=== PATIENT | female | born 1965 ===

== ENCOUNTER 2019-12-09 16:22 | Outpatient (REF) | payer MEDICAID, SELFPAY ==
--- NOTE | 2019-12-09 | XR_ITS ---
EXAMINATION: XR SINUSES CLINICAL INFORMATION: Acute pansinusitis. COMPARISON: CT brain dated 06/01/2019. TECHNIQUE: Howell, Velez, lateral, and SMV views of the paranasal sinuses are submitted. FINDINGS: Again, the left frontal sinus appears hypoplastic. Paranasal sinuses appear clear without air-fluid levels or visible mucosal thickening. No fractures are identified. The nasal septum appears midline. No radiodense foreign bodies. IMPRESSION: Unremarkable examination.
== END 2019-12-09 16:23 | disposition home or self-care (01) ==
LOC: HO.XRAY 16:22
PROVIDERS: PCP Nurse Practitioner Family; Visit Provider Emergency Medicine
DX: J01.40 Acute pansinusitis, unspecified (principal)
CPT/HCPCS: 70220

== ENCOUNTER 2019-12-29 16:11 | Outpatient (REF) | payer MEDICAID, SELFPAY ==
--- NOTE | 2019-12-29 16:17 | MM_ITS ---
EXAMINATION: MM SCREENING DIGITAL BREAST TOMOSYNTHESIS, BILATERAL CLINICAL INFORMATION: Screening. Asymptomatic. The lifetime risk of breast cancer based on the Tyrer-Cuzick Model is 6.4%. COMPARISON: Mammography: January 10, 2015 and December 12, 2014 TECHNIQUE: Digital breast tomosynthesis is performed in both the craniocaudal and mediolateral oblique views along with computer-aided detection (CAD). Synthesized 2D images are generated from the tomosynthesis. FINDINGS: The breasts are almost entirely fatty (ACR BI-RADS breast composition Category a). There are no significant masses, abnormal calcifications, or other abnormalities. MM/MM tomosynthesis screening BI IMPRESSION: There are no significant changes from prior study. ASSESSMENT: BI-RADS 1: Negative RECOMMENDATION: Routine annual mammography screening. This patient's information was entered into a reminder system with a target due date for their next mammogram.
== END 2019-12-29 16:12 | disposition home or self-care (01) ==
LOC: HO.MAMMO 16:11
PROVIDERS: PCP Nurse Practitioner Family; Visit Provider Nurse Practitioner Family
DX: Z12.31 Encounter for screening mammogram for malignant neoplasm of breast (principal)
CPT/HCPCS: 77063; 77067

== ENCOUNTER 2020-02-28 15:13 | Emergency (ER) | payer MEDICAID, SELFPAY ==
--- NOTE | 2020-02-28 | ECG_ITS ---
Test Reason : CHEST PAIN Blood Pressure : / mmHG Vent. Rate : 094 BPM Atrial Rate : 094 BPM P-R Int : 150 ms QRS Dur : 078 ms QT Int : 366 ms P-R-T Axes : 019 -19 019 degrees QTc Int : 457 ms Normal sinus rhythm Normal ECG When compared with ECG of 03-JUN-2019 18:11, No significant change was found Referred By: Generic ED Physician Electronically Signed By:KENNA CLEMENTE MD
[2020-02-28 15:19] VITALS: BP 167/88; PULSE 88; RESP 20; TEMP 36.9; O2SAT 99; BMI 30.1
--- NOTE | 2020-02-28 15:28 | PC.NURSE ---
called for EKG upon patient arrival in ED, EKG in use.
--- NOTE | 2020-02-28 17:35 | ED_ITS ---
HPI - Chest Pain General Chief Complaint: Chest Pain Stated Complaint: Chest pain Time Seen by Provider: 02/28/20 17:15 Source: patient Mode of arrival: ambulatory Limitations: no limitations History of Present Illness HPI narrative: 54-year-old female with a past medical history of arthritis, fibromyalgia, hypertension, hypothyroidism here with complaints of dizziness, fatigue, anxiety, panic attacks, chest pain and labile blood pressure. The patient tells me that since starting levothyroxine last week she feels like she has had fatigue with anxiety and panic attacks. Today at noon she felt lightheaded like she might pass out and checked her blood pressure and it was 180/100. She tells me her blood pressures have been up and down since starting this new medication. She also had some chest pain today at noon which seems resolved at this point. She had no associated shortness of breath, nausea, diaphoresis. She feels like her symptoms are improved on arrival here however is feeling very anxious/agitated and panicky. MD complaint: chest pain Onset (ago): hour(s) Timing of current episode: now resolved Prior episodes: No Onset: during rest Pain location: substernal Pain radiation: none Severity: mild Quality: aching Relieving factors: nothing Exacerbating factors: nothing Associated symptoms: other (dizziness) Treatment prior to arrival: none Related Data Allergies Allergy/AdvReac Type Severity Reaction Status Date / Time metoclopramide [From REGLAN] AdvReac Intermediate AGITATION Unverified 02/28/20 15:27 Review of Systems Review of Systems: Yes all other systems are reviewed and are negative Constitutional: Constitutional: Reports no additional constitutional complaints, Denies body ache(s), Denies chills, Denies fever(s), Denies hea dache(s) and Denies weakness Eyes: Eyes: Reports no additional eye complaints and Denies change in vision ENT: Reports system reviewed and no additional complaints, except as documented, Denies dizziness, Denies headache(s), Denies nasal congestion, Denies nasal discharge and Denies neck pain Cardiovascular: Cardiovascular: Reports no additional cardiovascular complaints, Denies chest pain, Denies leg edema and Denies dyspnea Respiratory: Respiratory: Reports no additional respiratory complaints, Denies cough and Denies dyspnea Gastrointestinal: Gastrointestinal: Reports no additional gastrointestinal complaints, Denies abdominal pain, Denies diarrhea, Denies nausea and Denies vomiting Genitourinary: Genitourinary: Reports no additional female genitourinary comp laints and Denies urinary incontinence Musculoskeletal: Musculoskeletal: Reports no additional musculoskeletal complaints, Denies back pain, Denies arthralgias, Denies joint swelling, Denies neck pain, Denies numbness and Denies tingling Integumentary/Breasts: Skin/Breast: Reports system reviewed and no additional complaints, except as docu and Denies rash Neurologic: Reports system reviewed and no additional complaints, except as documented, Denies Abnormal speech present, Denies dizziness, Denies headache(s), Denies numbness, Denies tingling and Denies weakness PMFSH Past Medical History Medical History (Updated 02/28/20 @ 19:59 by Shruti Harrison NP) Arthritis Cholecystectomy planned Fibromyalgia HTN (hypertension) Thyroid disease Surgical History (Updated 02/28/20 @ 15:26 by Jen Gay) Hx of appendectomy Tubal ligation status Social History Social History Alcohol intake: never Smoked in Last 30 Days: No Use of substances other than those prescribed or required for medical reasons: No Advance Directives: No Advance Directives Information Provided: No Physical Exam Vital Signs: Vital Signs: Last Vital Signs Temp 98.8 F 02/28/20 19:45 Pulse 85 02/28/20 19:48 Resp 16 02/28/20 19:45 BP 130/85 02/28/20 19:48 Pulse Ox 99 02/28/20 19:45 Body Mass Index 30.1 Const: Other: Very anxious General: cooperative, healthy appearing and comfortable Orientation/consciousness: patient oriented x3 Limitations: no limitations HENMT: Head: Yes normal to inspection Ears: hearing grossly normal bilaterally General nose exam: Normal external nose present Face and sinus: Yes normal facial exam Mouth: Normal oral and palatal mucosa present Throat: Yes posterior oropharynx normal Eyes: General: appearance normal, both eyes and all related structures Pupils: Equal, round and reactive pupils present Neck: Neck: Yes normal visual inspection Chest: Chest palpation & inspection: normal inspection of the chest Resp: Effort & Inspection: normal respiratory effort Auscultation: clear to auscultation bilaterally Cardio: Rate: regular rate Rhythm: regular rhythm Peripheral pulses: Peripheral pulses 2+ throughout GI: Inspection: Yes normal to inspection Palpation (GI): Soft to palpation and nontender Auscultation: normal bowel sounds Back/Spine/Pelvis: Thoracic/Lumbar Spine: thoracic and lumbar spine normal to inspection Skin: General skin exam: no rashes or lesions noted Neuro: General: patient oriented x3, no focal motor deficits and normal sensation to monofilament Cranial nerves: Yes CN's II-XII intact bilaterally, Yes Equal, round and reactive pupils present, Yes Bilaterally intact EOM present , Yes Nystagmus not present, Yes Normal facial strength present and Yes Midline tongue present Cognition (Neuro): normal cognition Speech: No Abnormal speech present Gait exam (Neuro): Normal gait present Motor exam (neuro): 5/5 motor strength present throughout Sensory Exam: Normal double simultaneous stimulation for sensation Coordination: [id number] test normal, [id number] test normal and tandem gait normal Extrem: General: Yes normal to inspection Course Course Course Narrative: 54-year-old female here with complaints of intermittent fatigue, anxiety, panic attacks, labile blood pressures for the last week since starting levothyroxine. Today she had a episode of chest pain which began at 12:00 o'clock with some lightheadedness. Her symptoms are resolved on arrival. Stable vital signs. Normal neuro exam. Will need labs, EKG, chest x-ray, orthostatic vital signs. Patient very anxious. Will have social Work come and talk to the patient. 2030-imaging unremarkable. Labs unremarkable. Orthostatic vital signs negative. Symptoms by the time the patient had arrived to the emergency department. I do believe that her anxiety has a component to her constellation of symptoms. Social work saw patient and provided outpatient resources. Recommended follow-up with her primary care doctor. Reviewed worrisome signs and symptoms and when to return to the emergency department. Comfortable discharge home. MDM - Chest Pain MDM Narrative Medical decision making narrative: acs, thyroid diseease, electrolyte abnormality, anemia, orthostatic hypotension, anxiety Less likely ACS with symptoms greater than 6 hours, negative EKG and negative troponin. Less likely thyroid disease with normal TSH. Less likely electrolyte abnormality with normal labs. Less likely anemia with normal CBC. Medical Records Data Attestation: I reviewed the patient's medical records. Lab Data Attestation: I reviewed the patient's lab results. Result diagrams: 02/28/20 18:17 02/28/20 18:17 Labs: Lab Results 12/21/20 12/21/20 12/21/20 Range/Units 18:17 18:17 18:17 WBC 7.8 (4.8-10.8) X10*3/uL RBC 5.21 (4.20-5.50) X10*6/uL Hgb 15.0 (12.0-16.0) g/dl Hct 44.8 (37-47) % MCV 86.0 (80-98) fL MCH 28.8 (27.0-33.0) pg MCHC 33.5 (31.0-35.0) g/dl RDW 12.5 (11.0-16.0) % Plt Count 309 (160-400) X10*3/uL MPV 8.7 L (9.4-12.3) fL Immature Gran % (Auto) 0.4 (0.0-0.4) % Neut % (Auto) 61.0 (45-73) % Lymph % (Auto) 31.8 (20-40) % [place] % (Auto) 6.6 (2-11) % Eos % (Auto) 0.1 (0-4) % Baso % (Auto) 0.1 (0-2) % Lymph # (Auto) 2.5 (1.2-4.9) X10*3/uL [place] # (Auto) 0.5 (0.1-1.2) X10*3/uL Eos # (Auto) 0.0 (0.0-0.4) X10*3/uL Baso # (Auto) 0.0 (0.0-0.2) X10*3/uL Abs Immat Gran (auto) 0.03 (0.00-0.03) X10*3/uL Absolute Neuts (auto) 4.7 (2.0-8.3) X10*3/uL Absolute Nucleated RBC 0.000 (0.0-0.012) X10*3/uL Nucleated RBC % (auto) 0.0 (0.0-0.2) /100WBC Sodium 139 (135-145) mmol/L Potassium 4.3 (3.3-5.1) mmol/l Chloride 101 (96-108) mmol/L Carbon Dioxide 30 H (22-29) mmol/L Anion Gap 12 (12-20) BUN 5 L (9-16) mg/dL Creatinine 0.65 (0.5-1.4) mg/dL Estim Creat Clear Calc 96.1 Estimated GFR > 60 Random Glucose 113 (60-115) mg/dL Calcium 9.3 (8.4-10.2) mg/dL Magnesium 2.0 (1.6-2.6) mg/dL Total Bilirubin 0.3 (0.0-1.0) mg/dL Direct Bilirubin < 0.2 (0.0-0.5) mg/dL AST 40 H (5-31) U/L ALT 62 H (0-31) U/L Alkaline Phosphatase 77 (39-117) U/L Troponin I High Sens < 3.5 (<3.5-17.0) ng/L Total Protein 7.8 (6.5-8.0) g/dL Albumin 4.6 (3.5-5.0) g/dL TSH (0.32-4.0) uIU/mL 12//20 Range/Units 18:17 WBC (4.8-10.8) X10*3/uL RBC (4.20-5.50) X10*6/uL Hgb (12.0-16.0) g/dl Hct (37-47) % MCV (80-98) fL MCH (27.0-33.0) pg MCHC (31.0-35.0) g/dl RDW (11.0-16.0) % Plt Count (160-400) X10*3/uL MPV (9.4-12.3) fL Immature Gran % (Auto) (0.0-0.4) % Neut % (Auto) (45-73) % Lymph % (Auto) (20-40) % Vinton % (Auto) (2-11) % Eos % (Auto) (0-4) % Baso % (Auto) (0-2) % Lymph # (Auto) (1.2-4.9) X10*3/uL [place] # (Auto) (0.1-1.2) X10*3/uL Eos # (Auto) (0.0-0.4) X10*3/uL Baso # (Auto) (0.0-0.2) X10*3/uL Abs Immat Gran (auto) (0.00-0.03) X10*3/uL Absolute Neuts (auto) (2.0-8.3) X10*3/uL Absolute Nucleated RBC (0.0-0.012) X10*3/uL Nucleated RBC % (auto) (0.0-0.2) /100WBC Sodium (135-145) mmol/L Potassium (3.3-5.1) mmol/l Chloride (96-108) mmol/L Carbon Dioxide (22-29) mmol/L Anion Gap (12-20) BUN (9-16) mg/dL Creatinine (0.5-1.4) mg/dL Estim Creat Clear Calc Estimated GFR Random Glucose (60-115) mg/dL Calcium (8.4-10.2) mg/dL Magnesium (1.6-2.6) mg/dL Total Bilirubin (0.0-1.0) mg/dL Direct Bilirubin (0.0-0.5) mg/dL AST (5-31) U/L ALT (0-31) U/L Alkaline Phosphatase (39-117) U/L Troponin I High Sens (<3.5-17.0) ng/L Total Protein (6.5-8.0) g/dL Albumin (3.5-5.0) g/dL TSH 1.93 (0.32-4.0) uIU/mL Imaging Data Chest x-ray: Attestation: I personally reviewed and interpreted this imaging study as follows: Radiologist's impression: EXAMINATION: XR CHEST CLINICAL INFORMATION: Chest pain COMPARISON: Chest x-ray 06/03/2019 TECHNIQUE: 2 views of the chest were obtained. 6:33 PM FINDINGS: No significant abnormality is noted involving the heart, lungs, mediastinum, bony thorax or soft tissues. Surgical clips right upper quadrant of abdomen. XR/XR chest 2V IMPRESSION: Unremarkable examination. ECG Data ECG #1: Attestation: I personally reviewed and interpreted this ECG as follows: ECG interpretation date: 02/28/20 ECG interpretation time: 15:34 Interpretation: Normal sinus rhythm, normal EKG, normal SD, normal QRS, no rmal QT Discharge Plan Discharge Clinical Impression: Atypical chest pain, Dizziness Patient Disposition: Home, Self-Care Instructions: Chest Pain (ED), Lightheadedness (ED) Additional Instructions: Call your doctor for a follow-up appointment Referrals: Rebekah Martin DO [Primary Care Provider] - 2 days Interventions: ED Discharge Assessment Last Done: 02/28/20 20:12 Discharge Date/Time: 02/28/20 20:13
[2020-02-28 18:20] LABS: MANUAL DIFF FLAG NO
[2020-02-28 18:23] LABS: Basophils Percent Auto 0.1 % (0-2); Eosinophils Percent Auto 0.1 % (0-4); Hematocrit 44.8 % (37-47); Imm Gran Abs Auto 0.03 X10*3/uL (0.00-0.03); Imm Gran Pct Auto 0.4 % (0.0-0.4); Lymphocytes Absolute Auto 2.5 X10*3/uL (1.2-4.9); Lymphocytes Percent Auto 31.8 % (20-40); Mean Corpuscular HGB Conc 33.5 g/dl (31.0-35.0); Mean Corpuscular Hemoglobin 28.8 pg (27.0-33.0); Mean Platelet Volume 8.7 fL (9.4-12.3); Monocytes Absolute Auto 0.5 X10*3/uL (0.1-1.2); Monocytes Percent Auto 6.6 % (2-11); Neutrophils Absolute Auto 4.7 X10*3/uL (2.0-8.3); Platelet Count 309 X10*3/uL (160-400); Red Blood Count 5.21 X10*6/uL (4.20-5.50); Red Cell Distribution Width 12.5 % (11.0-16.0); White Blood Count 7.8 X10*3/uL (4.8-10.8)
--- NOTE | 2020-02-28 18:37 | MHC.CARE ---
CARE team met with this patient in ED room 7 for consultation. Patient reports ongoing pain and was fighting fainting earlier, possibly in the context of changes in blood pressure. Patient reports she had some chest pain that has since resolved. Unsure whether pain and blood pressure could be connected for her. Patient reports she has always been nervous but began having what she assumes to be panic attacks in June of this year. Has a prn for panic and takes about one-fourth of a pill at a time. Both her sister and late mother dealt with panic attacks. Patient reports a variety of ongoing symptoms including changes in heart rate and blood pressure. Patient is frustrated that providers have been attributing her physical symptoms to anxiety. Patient reports her presentation is not stress-related. Patient reports she had a new doctor who checked her thyroid and recommended thyroid medication. Patient is frustrated that her old doctor noted thyroid levels were off but never made any med recommendations for two years. Patient states I'm very sensitive to medicine. Started new med last Friday (a little less than a week ago) and reports she is having negative side effects. Called the doctor this past Friday with concerns. Patient reports she has two bad knees and needs to schedule surgery at least for the left. Has gained weight and feels fatigued. Patient reports she will have to come off of suboxone before surgery and is looking forward to being off of it. Is prescribed 8mg/day, but takes it in small pieces throughout the day, usually less than her full dose. 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 Patient is involved with the [facility] clinic, which is also where she has her PCP. Patient reports she was put on percocet in 2013 and did not know enough about the medicine at the time. Four years later she started taking suboxone, and hates that she is on it. Says that, as a result of this experience, she is very careful about medications she takes. Patient is agreeable to a referral for outpatient therapy. She states she had been referred to a therapist who gave her some stress-management techniques, but that they never called her to follow up and then discharged her from services. CARE team will make referral to [facility]. CARE team coordinated with attending before and after consultation.
[2020-02-28 18:44] LABS: Alanine Aminotransferase 62 U/L (0-31); Albumin Level 4.6 g/dL (3.5-5.0); Alkaline Phosphatase 77 U/L (39-117); Anion Gap 12 (12-20); Aspartate Amino Transferase 40 U/L (5-31); Bilirubin Direct < 0.2 mg/dL (0.0-0.5); Bilirubin Total 0.3 mg/dL (0.0-1.0); Blood Urea Nitrogen 5 mg/dL (9-16); Calcium 9.3 mg/dL (8.4-10.2); Carbon Dioxide 30 mmol/L (22-29); Chloride 101 mmol/L (96-108); Creatinine Clr Calc Pharmacy 96.1; Estimated Glomerular Filt Rate > 60; Glucose Random 113 mg/dL (60-115); Potassium 4.3 mmol/l (3.3-5.1); Sodium 139 mmol/L (135-145); Total Protein 7.8 g/dL (6.5-8.0)
[2020-02-28 18:50] LABS: Troponin-I High Sensitivity < 3.5 ng/L (<3.5-17.0)
[2020-02-28 19:09] LABS: Thyroid Stimulating Hormone 1.93 uIU/mL (0.32-4.0)
[2020-02-28 19:45] VITALS: BP 135/81; PULSE 79; RESP 16; TEMP 37.1; O2SAT 99
[2020-02-28 19:46] VITALS: BP 135/81; PULSE 75
[2020-02-28 19:47] VITALS: BP 132/77; PULSE 80
[2020-02-28 19:48] VITALS: BP 130/85; PULSE 85
== END 2020-02-28 20:13 | disposition home or self-care (01) ==
PROVIDERS: Nurse Practitioner Family; Emergency Provider Emergency Medicine; PCP Internal Medicine
DX: R07.89 Other chest pain (principal); R42 Dizziness and giddiness; I10 Essential (primary) hypertension
CPT/HCPCS: 36415; 71046; 80048; 80076; 83735; 84443; 84484; 85025; 93005; 99284

== ENCOUNTER 2020-04-27 06:29 | Day surgery (SDC) | payer MEDICAID, SELFPAY ==
[2020-04-21 10:41] VITALS: BMI 30.4
--- NOTE | 2020-04-26 08:14 | HO.ANESPROP2 ---
Documented by User: Cristy Zuleta 04/26/20 08:14 HPI - Anesthesia Eval Consult details Narrative: 54yo F for Colonoscopy Suboxone daily PMFSH Past Medical History Medical History Arthritis Depression Fibromyalgia History of panic attacks HTN (hypertension) Hx of anxiety disorder Hx of opioid abuse Hx of renal calculi Thyroid disease Surgical History Surgical History Hx of appendectomy Hx of cholecystectomy Tubal ligation status Social History Social History Alcohol intake: never Smoking Status: Former smoker Cigarettes Per Day: 5 Years Smoked: 20 Smoked in Last 30 Days: No Smoking Quit Date: 2019 Use of substances other than those prescribed or required for medical reasons: No Substance Use Type Other:: taking suboxone 8-2 mg film-1/2 film @ 1200 & 1/2 film @ 1900 daily Have you been hit, kicked, punched, or otherwise hurt by someone within the past year? If so, by whom?: No Advance Directives Information Provided: No Recently lost weight without trying: No Meds Allergies Allergy/AdvReac Type Severity Reaction Status Date / Time metoclopramide [From REGLAN] AdvReac Intermediate AGITATION Unverified 02/28/20 15:27 morphine AdvReac Mild Nausea Verified 04/21/20 10:51 Home Medications Medication Instructions Recorded Confirmed Last Taken Type amlodipine 5 mg PO DAILY 04/21/20 04/21/20 Unknown History buprenorphine-naloxone [Suboxone] 0.5 film BUCCAL BID 04/21/20 04/21/20 Unknown History cholecalciferol (vitamin D3) 25 mcg PO DAILY 04/21/20 04/21/20 Unknown History [Vitamin D3] clonazepam 0.25 mg PO BID 04/21/20 04/21/20 Unknown History cyclobenzaprine [Flexeril] 10 mg PO TID PRN 04/21/20 04/21/20 Unknown History levothyroxine 13 mcg PO DAILY 04/21/20 04/21/20 Unknown History rosuvastatin [Crestor] 10 mg PO DAILY 04/21/20 04/21/20 Unknown History Exam Exam Date and Time: April 26, 2020 0814 Height,Weight and Vital Signs: Height 5 ft 3 in Weight 78.018 kg Documented by User: Susanne Castro 04/27/20 07:22 [facility] Past Medical History Medical History Arthritis Depression Fibromyalgia History of panic attacks HTN (hypertension) Hx of anxiety disorder Hx of opioid abuse Hx of renal calculi Thyroid disease Surgical History Surgical History Hx of appendectomy Hx of cholecystectomy Tubal ligation status Social History Social History Alcohol intake: never Smoking Status: Former smoker Cigarettes Per Day: 5 Years Smoked: 20 Smoked in Last 30 Days: No Smoking Quit Date: 2019 Use of substances other than those prescribed or required for medical reasons: No Substance Use Type Other:: taking suboxone 8-2 mg film-/ film @ 1200 & 12 film @ 1900 daily Have you been hit, kicked, punched, or otherwise hurt by someone within the past year? If so, by whom?: No Advance Directives Information Provided: No Recently lost weight without trying: No Meds Allergies Allergy/AdvReac Type Severity Reaction Status Date / Time metoclopramide [From REGLAN] AdvReac Intermediate AGITATION Unverified 02/28/20 15:27 morphine AdvReac Mild Nausea Verified 04/21/20 10:51 Home Medications Medication Instructions Recorded Confirmed Last Taken Type amlodipine 5 mg PO DAILY 04/21/20 04/21/20 Unknown History buprenorphine-naloxone [Suboxone] 0.5 film BUCCAL BID 04/21/20 04/21/20 Unknown History cholecalciferol (vitamin D3) 25 mcg PO DAILY 04/21/20 04/21/20 Unknown History [Vitamin D3] clonazepam 0.25 mg PO BID 04/21/20 04/21/20 Unknown History cyclobenzaprine [Flexeril] 10 mg PO TID PRN 04/21/20 04/21/20 Unknown History levothyroxine 13 mcg PO DAILY 04/21/20 04/21/20 Unknown History rosuvastatin [Crestor] 10 mg PO DAILY 04/21/20 04/21/20 Unknown History
[2020-04-27 07:06] VITALS: BP 130/85; PULSE 100; RESP 18; TEMP 36.4; O2SAT 100
--- NOTE | 2020-04-27 07:22 | HO.ANESPROP2 ---
[facility] Past Medical History Medical History Arthritis Depression Fibromyalgia History of panic attacks HTN (hypertension) Hx of anxiety disorder Hx of opioid abuse Hx of renal calculi Thyroid disease Surgical History Surgical History Hx of appendectomy Hx of cholecystectomy Tubal ligation status Social History Social History Alcohol intake: never Smoking Status: Former smoker Cigarettes Per Day: 5 Years Smoked: 20 Smoked in Last 30 Days: No Smoking Quit Date: 2019 Use of substances other than those prescribed or required for medical reasons: No Substance Use Type Other:: taking suboxone 8-2 mg film-1/ film @ 1200 & 12 film @ 1900 daily Have you been hit, kicked, punched, or otherwise hurt by someone within the past year? If so, by whom?: No Advance Directives Information Provided: No Recently lost weight without trying: No Meds Allergies Allergy/AdvReac Type Severity Reaction Status Date / Time metoclopramide [From REGLAN] AdvReac Intermediate AGITATION Unverified 02/28/20 15:27 morphine AdvReac Mild Nausea Verified 04/21/20 10:51 Active Medications: Current Medications Generic Name Dose Route Start Last Admin Trade Name Freq PRN Reason Stop Dose Admin Lactated Ringer's 1,000 mls @ 100 mls/hr 04/27/20 06:15 Lr IVCONT .Q10H LAISHA Home Medications Medication Instructions Recorded Confirmed Last Taken Type amlodipine 5 mg PO DAILY 04/21/20 04/21/20 Unknown History buprenorphine-naloxone [Suboxone] 0.5 film BUCCAL BID 04/21/20 04/21/20 Unknown History cholecalciferol (vitamin D3) 25 mcg PO DAILY 04/21/20 04/21/20 Unknown History [Vitamin D3] clonazepam 0.25 mg PO BID 04/21/20 04/21/20 Unknown History cyclobenzaprine [Flexeril] 10 mg PO TID PRN 04/21/20 04/21/20 Unknown History levothyroxine 13 mcg PO DAILY 04/21/20 04/21/20 Unknown History rosuvastatin [Crestor] 10 mg PO DAILY 04/21/20 04/21/20 Unknown History Exam Exam Date and Time: April 27, 2020721 Height,Weight and Vital Signs: Height 5 ft 3 in Weight 78.018 kg Last Vital Signs Temp 97.6 F 04/27/20 07:06 Pulse 100 04/27/20 07:06 Resp 18 04/27/20 07:06 BP 130/85 04/27/20 07:06 Pulse Ox 100 04/27/20 07:06 Airway Mallampati Class: II TM Dist: >3cm Neck ROM: Full Heart: RRR Lungs: CTA
[2020-04-27] MEDS: Lactated Ringers 1,000 ML 100 ML IVCONT (07:32)
--- NOTE | 2020-04-27 07:59 | MHC.SHP ---
Pre-Procedural Eval Section B Chief Complaint: CONSTIPATION,ABDOMINAL PAIN Details of Present Illness: Colon cancer screening No clinical changes since September visit. Relevant Family History (Specify if Yes): No Relevant Social History: Tobacco Use (?former) Present Medications: see Short Stay Collaborative assessment Medical History: Significant History (Suboxone therapy, Hypertension, Hypothyroid on RT, Anxiety) History of Previous Operations: Relevant previous surgery/procedure and date(s) (Appendectomy, GB, BTL) Allergies: Allergies Allergy/AdvReac Type Severity Reaction Status Date / Time metoclopramide [From REGLAN] AdvReac Intermediate AGITATION Verified 04/27/20 07:29 morphine AdvReac Mild Nausea Verified 04/27/20 07:29 Review of Systems Sugical H&P ROS: Negative: Constitution, Cardiovascular, Respiratory and Gastrointestinal and Yes, Specify: Psychiatric (anxiety), Musculoskeletal (bilateral knee pain) and Endocrine (thyroid) Exam Surgical H&P Exam: Normal: HEENT, Normal: Heart, Normal: Lungs and Normal: Abdomen Plan Diagnosis/Plan: Unchanged I have reviewed the history and physical and performed a pertinent physical examination on my patient. No changes have occurred unless specified.YES
--- NOTE | 2020-04-27 08:25 | PM.OP ---
Brief Operative Note Date of Service: 04/27/20 Pre-op diagnosis: Colon cancer screening--#1 Post-op diagnosis: other (Minor Diverticulosis) Procedure: Colonoscopy Implants: NONE Surgeon: Jaclyn Mayo MD Anesthesia: MAC (MD Fe) Estimated blood loss (mL): 0 Pathology: none sent Condition: stable Disposition: PACU
[2020-04-27 08:28] VITALS: BP 104/74; PULSE 78; RESP 16; TEMP 36.4; O2SAT 98
--- NOTE | 2020-04-27 08:36 | W.PM.OPN ---
Operative Note Operative Note Date of Service: 04/27/20 Narrative: Date of Service: 04/27/20 Pre-op diagnosis: Colon cancer screening--#1 Post-op diagnosis: other (Minor Diverticulosis) Procedure: Colonoscopy Implants: NONE Surgeon: Jaclyn Mayo MD Anesthesia: MAC (MD Fe) FINDINGS: BETTIE-NORMAL SCOPE INTRODUCED WITH NO DIFFICULTY WE PASSED THROUGH SIGMOID, SCATTERED DIVERTICULI WERE NOTE. EASY ADVANCE TO ASCENDING COLON--GENTLE EXTRINSIC PRESSURE ENTERED CECAL CAP. AO AND VALVE WELL SEEN. PREP--EXCELLENT. SLOW WITHDRAWAL; GOOD ROTATIONAL VIEWS NO MUCOSAL LESIONS NOTED ARV WAS CLEAR Estimated blood loss (mL): 0 Pathology: none sent Condition: stable Disposition: PACU PLAN: REPEAT ASYMPTOMATIC SCREENING IN 10 YEARS.
[2020-04-27 08:43] VITALS: BP 107/61; PULSE 75; RESP 16; TEMP 36.4; O2SAT 99
== END 2020-04-27 09:20 | disposition home or self-care (01) ==
PROVIDERS: PCP Nurse Practitioner Family; Visit Provider Internal Medicine Gastroenterology
PROC: 0DJD8ZZ Inspection of Lower Intestinal Tract, Via Natural or Artificial Opening Endoscopic (ICD-10-PCS; CPT 45378; principal; 2020-04-27 07:30)
DX: Z12.11 Encounter for screening for malignant neoplasm of colon (principal); K57.30 Diverticulosis of large intestine without perforation or abscess without bleeding; K59.00 Constipation, unspecified; I10 Essential (primary) hypertension; Z79.899 Other long term (current) drug therapy; Z88.8 Allergy status to other drugs, medicaments and biological substances; Z90.49 Acquired absence of other specified parts of digestive tract; F17.210 Nicotine dependence, cigarettes, uncomplicated
CPT/HCPCS: 45378

== ENCOUNTER → 2020-05-18 09:24 | Outpatient (BNVA) | payer MEDICAID, SELFPAY | PROVIDERS: PCP Nurse Practitioner Family; Visit Provider Physician Assistant | DX: Z13.89 Encounter for screening for other disorder (principal) | CPT/HCPCS: 99212 ==

== ENCOUNTER 2020-10-21 14:26 | Emergency (ER) | payer MEDICAID, SELFPAY ==
[2020-10-21 14:43] VITALS: BP 138/85; PULSE 92; RESP 16; TEMP 36.7; O2SAT 98; BMI 29.7
[2020-10-21 15:05] LABS: Glucose Urine UA NEG (NEG); Leukocyte Esterase Urine NEG (NEG); Nitrite Urine NEG (NEG); UACC Culture Trigger NO; Urine Blood TRACE (NEG); Urine Ketones NEG (NEG); Urine Protein NEG (NEG-TRACE)
[2020-10-21 15:06] LABS: Appearance Urine CLEAR; Color Urine YELLOW
[2020-10-21 15:14] LABS: RBC Urine 0-2 /HPF (0); Squamous Epithelial Cell Urine 1+ /LPF; WBC Urine 0 /HPF (0-4)
--- NOTE | 2020-10-21 16:14 | ED_ITS ---
HPI - Female Genitourinary General Chief complaint: Urogenital-Female Stated complaint: ?UTI Time Seen by Provider: 10/21/20 15:46 History of Present Illness HPI Narrative: Patient complains of bladder irritation after urinating and feeling like she has not completely emptied her bladder since she had a knee replacement 6 weeks ago, she has been to her doctor several times and has had 2 different antibiotics for UTI but continues to have the same symptoms of feeling bladder irritation worst after voiding She says she has not been sexually active in many years denies any discharge denies any abdominal pain vomiting or flank pain Related Data Home Medications Medication Instructions Recorded Confirmed amlodipine 5 mg tablet 5 mg PO DAILY 04/21/20 04/21/20 buprenorphine 8 mg-naloxone 2 mg 0.5 film BUCCAL BID 04/21/20 04/21/20 sublingual film (Suboxone) cholecalciferol (vitamin D3) 25 25 mcg PO DAILY 04/21/20 04/21/20 mcg (1,000 unit) capsule (Vitamin D3) clonazepam 0.5 mg tablet 0.25 mg PO BID 04/21/20 04/21/20 cyclobenzaprine 10 mg tablet 10 mg PO TID PRN 04/21/20 04/21/20 levothyroxine 13 mcg capsule 13 mcg PO DAILY 04/21/20 04/27/20 rosuvastatin 10 mg tablet (Crestor) 10 mg PO DAILY 04/21/20 04/21/20 Previous Rx's Medication Instructions Recorded bisacodyl 10 mg rectal suppository 10 mg RI .COMPLEX PRN #20 ea 05/18/20 (Dulcolax (bisacodyl)) docusate sodium 100 mg capsule 200 mg PO BEDTIME #60 cap 05/18/20 (Colace) polyethylene glycol 3350 17 gram 17 g PO DAILY #30 ea 05/18/20 oral powder packet (Miralax) phenazopyridine 200 mg tablet 200 mg PO TID PRN #6 tab 10/21/20 (Pyridium) Allergies Allergy/AdvReac Type Severity Reaction Status Date / Time metoclopramide [From REGLAN] AdvReac Intermediate AGITATION Verified 05/18/20 09:24 morphine AdvReac Mild Nausea Verified 05/18/20 09:24 aspirin AdvReac Vomiting Verified 10/21/20 14:50 Review of Systems Review of Systems: Positive for bladder irritation Negatives are no fever no chills no headache no neck pain no chest pain or shortness of breath no nausea or vomiting no abdominal pain no back pain no flank pain no skin rash no vaginal discharge no regular bleeding Yes all other systems are reviewed and are negative [facility] Past Medical History Source: nursing notes reviewed Medical History (Updated 10/21/20 @ 16:14 by KURT Morse) Arthritis Chronic constipation Depression Fibromyalgia History of panic attacks HTN (hypertension) Hx of anxiety disorder Hx of opioid abuse Hx of renal calculi Thyroid disease Surgical History Hx of appendectomy Hx of cholecystectomy Tubal ligation status Family History Family History (Updated 05/18/20 @ 09:26 by Urvashi Restrepo CMA) Paternal Grandmother Colon cancer Social History Social History (Updated 05/18/20 @ 09:27 by Urvashi Restrepo CMA) Household Members: Children Alcohol intake: never Years Smoked: 20 Advance Directives: No Advance Directives Information Provided: Yes Current occupational status: employed 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 Physical Exam Vital Signs: Vital Signs: Last Vital Signs Temp 98.0 F 10/21/20 14:43 Pulse 92 10/21/20 14:43 Resp 16 10/21/20 14:43 BP 138/85 10/21/20 14:43 Pulse Ox 98 10/21/20 14:43 Body Mass Index 29.7 General appearance is no acute distress The pharynx is clear Neck is supple Respiratory no distress Abdomen soft nontender, no suprapubic tenderness The back no CVA or flank tenderness The extremities no edema Skin no rash Course Course Course Narrative: Urinalysis was negative with no sign infection, postvoid residual was normal with no evidence of urinary retention Physical exam and vital signs were normal and patient was well-appearing She did say she had a good response to Pyridium and is given a 3 day course and advised to follow with the urologist for further evaluation MDM - Female Genitourinary Lab Data Labs: Lab Results 10/21/20 Range/Units 14:59 Urine Color YELLOW Urine Appearance CLEAR Urine pH 7.0 (5.0-8.0) Ur Specific [place] 1.010 (1.005-1.025) Urine Protein NEG (NEG-TRACE) MG/DL Urine Glucose (UA) NEG (NEG) MG/DL Urine Ketones NEG (NEG) MG/DL Urine Blood TRACE (NEG) Urine Nitrite NEG (NEG) Ur Leukocyte Esterase NEG (NEG) Urine RBC 0-2 (0) /HPF Urine WBC 0 (0-4) /HPF Ur Squamous Epith Cells 1+ /LPF Urine Bacteria NONE /LPF Discharge Plan Discharge Clinical Impression: Dysuria Patient Disposition: Home, Self-Care Additional Instructions: Your urine test was normal with no evidence of infection Her exam was normal with no sign of any abdominal infection, vital signs were normal There are many causes for bladder discomfort including interstitial cystitis so you should be seen by a urologist for further evaluation for these bladder symptoms which have lasted several weeks Return to the ER any time any worse condition or any concerns Prescriptions: New phenazopyridine [Pyridium] 200 mg tablet 200 mg PO TID PRN (Reason: Bladder pain) Qty: 6 RF: 0 No Action cyclobenzaprine [Flexeril] 10 mg Tablet 10 mg PO TID PRN (Reason: Muscle Spasm) RF: 0 clonazepam 0.5 mg Tablet 0.25 mg PO BID RF: 0 amlodipine 5 mg Tablet 5 mg PO DAILY RF: 0 cholecalciferol (vitamin D3) [Vitamin D3] 25 mcg (1,000 unit) Capsule 25 mcg PO DAILY RF: 0 rosuvastatin [Crestor] 10 mg Tablet 10 mg PO DAILY RF: 0 levothyroxine 13 mcg Capsule 13 mcg PO DAILY RF: 0 buprenorphine-naloxone [Suboxone] 8-2 mg Film 0.5 film BUCCAL BID RF: 0 docusate sodium [Colace] 100 mg capsule 200 mg PO BEDTIME Qty: 60 RF: 5 bisacodyl [Dulcolax (bisacodyl)] 10 mg suppository 10 mg RI .COMPLEX PRN (Reason: constipation) Qty: 20 RF: 0 polyethylene glycol 3350 [Miralax] 17 gram powder in packet 17 g PO DAILY Qty: 30 RF: 5 Referrals: Marcus James MD [Physician] - 2 days (Several weeks of bladder discomfort, urine negative for infection) Interventions: ED Discharge Assessment Last Done: 10/21/20 16:37 Discharge Date/Time: 10/21/20 16:39
== END 2020-10-21 16:39 | disposition home or self-care (01) ==
PROVIDERS: Physician Assistant Medical; Emergency Provider Emergency Medicine; PCP Nurse Practitioner Family
DX: R30.0 Dysuria (principal); N32.89 Other specified disorders of bladder; I10 Essential (primary) hypertension; F11.20 Opioid dependence, uncomplicated; Z87.442 Personal history of urinary calculi; Z79.899 Other long term (current) drug therapy; Z79.02 Long term (current) use of antithrombotics/antiplatelets
CPT/HCPCS: 51798; 81001; 99284

== ENCOUNTER → 2020-10-30 13:34 | Outpatient (BNVA) | payer MEDICAID, SELFPAY | PROVIDERS: PCP Nurse Practitioner Family; Visit Provider Nurse Practitioner Family | DX: M25.50 Pain in unspecified joint (principal); M79.7 Fibromyalgia; M19.90 Unspecified osteoarthritis, unspecified site | CPT/HCPCS: 99212 ==

== ENCOUNTER 2020-11-07 12:54 | Outpatient (REF) | payer MEDICAID, SELFPAY ==
--- NOTE | ~2020-11-07 | XR_ITS ---
EXAMINATION: XR LUMBOSACRAL SPINE CLINICAL INFORMATION: Spondylosis. COMPARISON: Lumbar spine radiographs dated 04/01/2018. TECHNIQUE: 3 views of the lumbosacral spine. FINDINGS: Straightening of the normal lumbar lordosis, which may be positional or related to muscular spasm. Grade 1 anterolisthesis of L4 on L5, unchanged. No acute fracture. No loss of vertebral body height. Loss of intervertebral disc height with endplate osteophytes at L3-S1, slightly progressed. Multilevel bilateral facet arthropathy. XR/XR lumbar spine 2-3V IMPRESSION: Straightening of the normal lumbar lordosis, which may be positional or related to muscular spasm. Grade 1 anterolisthesis of L4 on L5, unchanged. No acute fracture or subluxation. Lower lumbar spine degenerative disease and bilateral facet arthropathy, slightly progressed.
== END 2020-11-07 12:55 | disposition home or self-care (01) ==
LOC: HO.XRAY 12:54
PROVIDERS: PCP Nurse Practitioner Family; Visit Provider Nurse Practitioner Family
DX: M47.816 Spondylosis without myelopathy or radiculopathy, lumbar region (principal); M79.18 Myalgia, other site
CPT/HCPCS: 72100; 99202

== ENCOUNTER → 2020-11-21 11:06 | Outpatient (BNVA) | payer MEDICAID, SELFPAY | PROVIDERS: Visit Provider Nurse Practitioner Family ==

== ENCOUNTER 2021-01-23 13:59 | Outpatient (REF) | payer MEDICAID, SELFPAY | END 2021-01-23 14:00 | disposition home or self-care (01) | LOC: HO.LAB 13:59 | PROVIDERS: Visit Provider Advanced Practice Midwife | DX: N93.9 Abnormal uterine and vaginal bleeding, unspecified (principal); R31.9 Hematuria, unspecified | CPT/HCPCS: 58100; 81003; 87086; 87147; 88305 ==

== ENCOUNTER 2021-02-07 15:57 | Outpatient (REF) | payer MEDICAID, SELFPAY | END 2021-02-07 15:58 | disposition home or self-care (01) | LOC: HO.MRI 15:57 | PROVIDERS: Visit Provider Nurse Practitioner Family | DX: Z13.89 Encounter for screening for other disorder (principal) ==

== ENCOUNTER → 2021-02-27 11:45 | Outpatient (BNVA) | payer MEDICAID, SELFPAY | PROVIDERS: PCP Nurse Practitioner Family; Visit Provider Nurse Practitioner Family | DX: Z13.89 Encounter for screening for other disorder (principal) | CPT/HCPCS: 99212 ==

== ENCOUNTER 2021-02-28 14:30 | Outpatient (REF) | payer MEDICAID, SELFPAY | END 2021-02-28 14:31 | disposition home or self-care (01) | LOC: HO.LAB 14:30 | PROVIDERS: PCP Nurse Practitioner Family | DX: N39.0 Urinary tract infection, site not specified (principal) | CPT/HCPCS: 99202 ==

== ENCOUNTER → 2021-04-03 11:20 | Outpatient (BNVA) | payer MEDICAID, SELFPAY | PROVIDERS: PCP Nurse Practitioner Family; Visit Provider Nurse Practitioner Family | DX: L03.90 Cellulitis, unspecified (principal); M54.50 Low back pain, unspecified | CPT/HCPCS: 36415; 85025; 99212 ==

== ENCOUNTER 2021-04-03 12:32 | Outpatient (REF) | payer MEDICAID, SELFPAY ==
[2021-04-03 13:40] LABS: MANUAL DIFF FLAG NO
[2021-04-03 13:43] LABS: Basophils Percent Auto 0.1 % (0-2); Eosinophils Percent Auto 0.5 % (0-4); Hematocrit 41.6 % (37.0-47.0); Hemoglobin 13.4 g/dl (12.0-16.0); Imm Gran Abs Auto 0.04 X10*3/uL (0.00-0.03); Imm Gran Pct Auto 0.5 % (0.0-0.4); Mean Corpuscular HGB Conc 32.2 g/dl (31.0-35.0); Mean Corpuscular Hemoglobin 26.9 pg (27.0-33.0); Mean Corpuscular Volume 83.4 fL (80.0-98.0); Monocytes Absolute Auto 0.8 X10*3/uL (0.1-1.2); Monocytes Percent Auto 9.8 % (2-11); Neutrophils Absolute Auto 5.4 x10*3/uL (2.0-8.3); Neutrophils Percent Auto 65.1 % (45-73); Platelet Count 398 X10*3/uL (160-400); Red Blood Count 4.99 X10*6/uL (4.20-5.50); White Blood Count 8.3 X10*3/uL (4.8-10.8)
== END 2021-04-03 12:33 | disposition home or self-care (01) ==
LOC: HO.10HDL 12:32
PROVIDERS: Visit Provider Nurse Practitioner Family
DX: L03.90 Cellulitis, unspecified (principal); L02.31 Cutaneous abscess of buttock; L03.317 Cellulitis of buttock
CPT/HCPCS: 36415; 85025

== ENCOUNTER 2021-04-09 14:32 | Emergency (ER) | payer MEDICAID, SELFPAY ==
--- NOTE | ~2021-04-09 | US_ITS ---
EXAMINATION: ULTRASOUND EXTREMITY NONVASCULAR CLINICAL INFORMATION: Right gluteal redness and swelling. Rule out abscess. COMPARISON: None TECHNIQUE: Grayscale and color imaging of the right buttock using a linear transducer FINDINGS: There is edema of the soft tissues. There is a 0.9 x 1 x 0.8 cm cystic-appearing area just deep to the skin. There is an adjacent 4 mm cystic area just deep to the skin. Appearance is questionable for possible small abscesses. US/US extremity nonvascular IMPRESSION: 2 small cystic areas just deep to the skin questionable for small abscesses. The largest measures 9 x 10 x 8 mm.
[2021-04-09 15:32] VITALS: BP 144/89; PULSE 119; RESP 20; TEMP 36.8; O2SAT 99; BMI 30.9
[2021-04-09 16:09] VITALS: PULSE 105; RESP 18; O2SAT 99
--- NOTE | 2021-04-09 17:08 | ED_ITS ---
HPI - Skin/Abscess/Foreign Bdy General Chief complaint: Skin/Abscess/Foreign Body Stated complaint: Buttock swelling/redness Time Seen by Provider: 04/09/21 16:03 History of Present Illness HPI narrative: Patient complains of right gluteal redness mild swelling and mild discomfort, no fever no vomiting, this is been developing over the last 2-3 weeks She saw her primary care doctor for this 1 week ago and he did an ultrasound of the area to see if there was an abscess there was no abscess and at that time he did think it was infected so no antibiotic was started Now a week later it is redder more swollen and more painful Related Data Home Medications Medication Instructions Recorded Confirmed amlodipine 5 mg tablet 5 mg PO DAILY 04/21/20 04/03/21 buprenorphine 8 mg-naloxone 2 mg 0.5 film BUCCAL BID 04/21/20 04/03/21 sublingual film (Suboxone) cholecalciferol (vitamin D3) 25 25 mcg PO DAILY 04/21/20 04/03/21 mcg (1,000 unit) capsule (Vitamin D3) clonazepam 0.5 mg tablet 0.25 mg PO BID 04/21/20 04/03/21 rosuvastatin 10 mg tablet (Crestor) 10 mg PO DAILY 04/21/20 04/03/21 levothyroxine 13 mcg capsule 25 mcg PO DAILY cap 02/28/21 04/03/21 ferrous sulfate 220 mg (44 mg mg PO 04/03/21 04/03/21 iron)/5 mL oral elixir Previous Rx's Medication Instructions Recorded cyclobenzaprine 5 mg tablet 5 mg PO BID PRN #60 tab 11/07/20 pyridoxine (vitamin B6) 100 mg 100 mg PO DAILY 90 Days #90 tab 02/28/21 tablet ibuprofen 600 mg tablet 600 mg PO Q8H PRN 5 Days #15 tab 04/04/21 cephalexin 500 mg tablet 500 mg PO QID 7 Days #28 tab 04/09/21 sulfamethoxazole 800 1 tab PO BID 7 Days #14 tab 04/09/21 mg-trimethoprim 160 mg tablet (Bactrim DS) Allergies Allergy/AdvReac Type Severity Reaction Status Date / Time metoclopramide [From AdvReac Intermediate AGITATION Verified 04/03/21 11:40 REGLAN] morphine AdvReac Mild Nausea Verified 04/03/21 11:40 aspirin AdvReac Vomiting Verified 04/03/21 11:40 Review of Systems Verdana 4l Review of Systems: Verdana 4d Verdana 4d Positive for right gluteal redness swelling and pain Negatives no fever no chills no dizziness no weakness no headache no neck pain no chest pain no shortness of breath no abdominal pain no nausea vomiting or diarrhea no joint swelling nono other skin rash Yes all other systems are reviewed and are negative [facility] Past Medical History Source: nursing notes reviewed Medical History Arthritis Chronic constipation Depression Fibromyalgia Frequent UTI Hematuria History of panic attacks HTN (hypertension) Hx of anxiety disorder Hx of opioid abuse Hx of renal calculi Renal calculi Thyroid disease Surgical History H/O left knee surgery Hx of appendectomy Hx of cholecystectomy Tubal ligation status Family History Family History Paternal Grandmother Colon cancer Mother Pulmonary embolism Sister Pulmonary embolism Social History Social History Household Members: Children Alcohol intake: never Years Smoked: 20 Advance Directives: No Advance Directives Information Provided: No Patient : No Current occupational status: employed 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 Physical Exam Verdana 4l Vital Signs: Verdana 4d Verdana 4d Vital Signs: Verdana 4d Verdana 4Bd Last Vital Signs Verdana 4d Network Engineer Administrator New 4d Network Engineer Administrator New 4d Temp 98.2 F 04/09/21 15:32 Network Engineer Administrator New 4d Pulse 105 H 04/09/21 16:09 Network Engineer Administrator New 4d Resp 18 04/09/21 16:09 BP 144/89 H 04/09/21 15:32 Pulse Ox 99 04/09/21 16:09 BMI result Body Mass Index 30.9 Pulse of 105 is noted and patient says since she had COVID about 3 weeks ago her pulses always been in this range General appearance no acute distress The eyes no redness or discharge The pharynx moist and well hydrated no redness or swelling Neck is supple Respiratory no distress Abdomen soft nontender Extremities full range of motion x4 Skin exam the right gluteal area has 3 patches of redness induration and tenderness but no fluctuance, the tenderness is mild, the skin is intact there is no discharge Course Course Course Narrative: On exam I did not feel any abscess but because of the induration I sent the patient to ultrasound to see if there was an abscess that I was not feeling, ultrasound showed 2 questionable areas that might have contained fluid under 1 cm Again rechecking the whole area there was no where that was focally tender there was no air that was fluctuant and there was no target for an incision and drainage right now so patient is started on antibiotics and given clear warning to return in 2-3 days for recheck and also informed of need to return should something get more swollen and painful She is started on antibiotics She is very well-appearing and is discharged to return in 2-3 days Discharge Plan Discharge Clinical Impression: Cellulitis Patient Disposition: Home, Self-Care Additional Instructions: The right buttock area is red and swollen and looks to be a skin infection so we are treating with 2 antibiotics Bactrim and Keflex The ultrasound did not show any obvious abscess but it is possible it is too early to see so if you get increased pain or swelling return to the ER immediately to be checked for abscess Return in 2-3 days for a recheck Return any time for fever, worse pain and swelling, spreading redness, any worse condition or any concerns Prescriptions: New cephalexin 500 mg tablet 500 mg PO QID 7 Days Qty: 28 0RF sulfamethoxazole-trimethoprim [Bactrim DS] 800-160 mg tablet 1 tab PO BID 7 Days Qty: 14 0RF No Action ibuprofen 600 mg tablet 600 mg PO Q8H PRN (Reason: pain) 5 Days Qty: 15 0RF clonazepam 0.5 mg Tablet 0.25 mg PO BID 0RF amlodipine 5 mg Tablet 5 mg PO DAILY 0RF cholecalciferol (vitamin D3) [Vitamin D3] 25 mcg (1,000 unit) Capsule 25 mcg PO DAILY 0RF rosuvastatin [Crestor] 10 mg Tablet 10 mg PO DAILY 0RF buprenorphine-naloxone [Suboxone] 8-2 mg Film 0.5 film BUCCAL BID 0RF Rx Instructions: takes at 1200 & 1900 levothyroxine 13 mcg capsule 25 mcg PO DAILY 0RF cyclobenzaprine 5 mg tablet 5 mg PO BID PRN (Reason: muscle spasm) Qty: 60 0RF pyridoxine (vitamin B6) 100 mg tablet 100 mg PO DAILY 90 Days Qty: 90 1RF ferrous sulfate 220 mg (44 mg iron)/5 mL elixir PO 0RF
[2021-04-09] MEDS: cephALEXin 500 MG CAPSULE PO (17:25)
[2021-04-09] MEDS: Sulfamethox/Trimeth 800/160 TABLET 1 TAB PO (17:25)
== END 2021-04-09 17:30 | disposition home or self-care (01) ==
PROVIDERS: Emergency Provider Emergency Medicine Emergency Medical Services; PCP Nurse Practitioner Family
DX: L03.317 Cellulitis of buttock (principal); I10 Essential (primary) hypertension
CPT/HCPCS: 76882; 99283; 99284

== ENCOUNTER 2021-04-12 20:07 | Emergency (ER) | payer MEDICAID, SELFPAY ==
[2021-04-12 20:12] VITALS: BP 149/74; PULSE 101; RESP 16; TEMP 36.6; O2SAT 100; BMI 31.0
--- NOTE | 2021-04-12 20:56 | ED_ITS ---
HPI - Recheck/Abnormal Lab/Rx General Chief Complaint: Recheck/Abnormal Lab/Rx Stated Complaint: here for a recheck on a infection Time Seen by Provider: 04/12/21 20:35 Source: patient Mode of arrival: ambulatory History of Present Illness HPI narrative: 55-year-old female with a past medical history of arthritis, depression, fibromyalgia, frequent UTIs, HTN, thyroid disease, anxiety, COVID-19 about 1mos ago, right buttock Cellulitis started on Bactrim and Keflex on 04/09 in our ED, presenting for cellulitis recheck. Reports compliance with antibiotics. Admits area overall improved pain control and less indurated, however deeper red. Of note on 04/09 patient had ultrasound, clinically no drainable abscesses, and labs done at PCPs office on 04/03 were unremarkable. Denies fever, rectal pain, rectal bleeding, abdominal pain, known fall/injury or trauma, tick or insect bite MD complaint: wound re-check Onset/Timin Initial visit (ago): week(s) Initial visit for: cellulitis and other Related Data Home Medications Medication Instructions Recorded Confirmed amlodipine 5 mg tablet 5 mg PO DAILY 04/21/20 04/03/21 buprenorphine 8 mg-naloxone 2 mg 0.5 film BUCCAL BID 04/21/20 04/03/21 sublingual film (Suboxone) cholecalciferol (vitamin D3) 25 25 mcg PO DAILY 04/21/20 04/03/21 mcg (1,000 unit) capsule (Vitamin D3) clonazepam 0.5 mg tablet 0.25 mg PO BID 04/21/20 04/03/21 rosuvastatin 10 mg tablet (Crestor) 10 mg PO DAILY 04/21/20 04/03/21 levothyroxine 13 mcg capsule 25 mcg PO DAILY cap 02/28/21 04/03/21 ferrous sulfate 220 mg (44 mg mg PO 04/03/21 04/03/21 iron)/5 mL oral elixir Previous Rx's Medication Instructions Recorded cyclobenzaprine 5 mg tablet 5 mg PO BID PRN #60 tab 11/07/20 pyridoxine (vitamin B6) 100 mg 100 mg PO DAILY 90 Days #90 tab 02/28/21 tablet ibuprofen 600 mg tablet 600 mg PO Q8H PRN 5 Days #15 tab 04/04/21 cephalexin 500 mg tablet 500 mg PO QID 7 Days #28 tab 04/09/21 sulfamethoxazole 800 1 tab PO BID 7 Days #14 tab 04/09/21 mg-trimethoprim 160 mg tablet (Bactrim DS) cetirizine 10 mg capsule (Zyrtec) 10 mg PO DAILY #14 cap 04/12/21 diphenhydramine HCl 2 % topical 1 appl TOPICAL BID PRN #103 ml 04/12/21 gel (Benadryl) hydrocortisone 2.5 % topical cream 1 appl TOPICAL BID PRN #453.6 g 04/12/21 Allergies Allergy/AdvReac Type Severity Reaction Status Date / Time metoclopramide [From AdvReac Intermediate AGITATION Verified 04/03/21 11:40 REGLAN] morphine AdvReac Mild Nausea Verified 04/03/21 11:40 aspirin AdvReac Vomiting Verified 04/03/21 11:40 Review of Systems Verdana 4l Review of Systems: Verdana 4d Verdana 4d Constitutional: No Fever, + Chills, No Fatigue, No Malaise ENT/Mouth: No Ear Pain, No Nasal Congestion, No sore throat, No Rhinorrhea, No Swallowing Difficulty Eyes: No Eye Pain, No Swelling, No Redness Cardiovascular: No Chest Pain, No SOBSOB, No Palpitations Respiratory: No Cough, No Sputum, No Dyspnea Gastrointestinal: No Nausea, No Vomiting, No Diarrhea, No Constipation, No Abdominal pain Genitourinary: No irregular bleeding, No Dysuria, No Urinary Frequency, No Hematuria,No Flank Pain, No Urinary Flow Changes Musculoskeletal: No joint pain, No Myalgias, No Joint Swelling Skin: + Skin Lesions, No rash Neuro: No Weakness, No Numbness, No Headache Yes all other systems are reviewed and are negative ON LICENSE OF [facility] Past Medical History Attestation statement: The following information was validated with the patient. Medical History Arthritis Chronic constipation Depression Fibromyalgia Frequent UTI Hematuria History of panic attacks HTN (hypertension) Hx of anxiety disorder Hx of opioid abuse Hx of renal calculi Renal calculi Thyroid disease Surgical History H/O left knee surgery Hx of appendectomy Hx of cholecystectomy Tubal ligation status Family History Family History Paternal Grandmother Colon cancer Mother Pulmonary embolism Sister Pulmonary embolism Social History Social History Household Members: Children Alcohol intake: never Years Smoked: 20 Advance Directives: No Advance Directives Information Provided: Yes Patient : No Current occupational status: employed 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 Physical Exam Verdana 4l Vital Signs: Verdana 4d Verdana 4d Vital Signs: Verdana 4d Verdana 4Bd Last Vital Signs Verdana 4d Desulfurizer Machine New 4d Desulfurizer Machine New 4d Temp 97.8 F 04/12/21 20:12 Desulfurizer Machine New 4d Pulse 101 H 04/12/21 20:12 Desulfurizer Machine New 4d Resp 16 04/12/21 20:12 BP 149/74 H 04/12/21 20:12 Pulse Ox 100 04/12/21 20:12 BMI result Body Mass Index 31.0 Const: General: cooperative and healthy appearing Orientation/consciousness: patient oriented x3 Limitations: no limitations HENMT: Head: Yes normal to inspection and Yes atraumatic Ears: hearing grossly normal bilaterally General nose exam: Normal external nose present Face and sinus: Yes normal facial exam Eyes: General: appearance normal, both eyes and all related structures EOM: EOMs intact bilaterally Neck: Neck: Yes normal visual inspection and Yes no meningeal signs Resp: Effort & Inspection: normal respiratory effort and no respiratory distress Cardio: Rate: regular rate Heart sounds: S1 normal heart sound present and S2 normal heart sound present GI: Inspection: Yes normal to inspection Palpation (GI): Soft to palpation, nontender, no guarding and not rigid Skin: Other: +right gluteus with patchy erythema and warmth, +indurated, mildly ttp, no flucutance/eccymosis or streaking/discharge Wounds: no wounds Neuro: General: patient oriented x3 and no meningeal signs Gait exam (Neuro): Normal gait present Extrem: General: Yes normal to inspection Course Course Course Narrative: Case discussed with Dr. Estrada who also evaluated patient. Plan to continue previously prescribed Keflex and Bactrim which patient has only been taking for 3 days and add topical steroids, topical Benadryl, and claritin (patient cannot tolerate p.o. steroids or Benadryl) -2214--no leukocytosis. H&H stable. CRP mildly elevated, labs otherwise unremarkable MDM - Recheck/Abnormal Lab/Rx MDM Narrative Medical decision making narrative: 55-year-old female with a past medical history of arthritis, depression, fibromyalgia, frequent UTIs, HTN, thyroid disease, anxiety, COVID-19 about 1mos ago, right buttock Cellulitis started on Bactrim and Keflex on 04/09 in our ED, presenting for cellulitis recheck. On exam mildly tachycardic, anxious, NAD/nontoxic-appearing, physical exam as above. Concern for post COVID rash/inflammation with overlying cellulitis which is overall improving per patient. No evidence or appreciable abscess on exam. Low concern for septic joint/arthritis. No appreciable rectal involvement. No need for further imaging at this time Low concern for severe sepsis Plan: Labs, lactic/blood cultures Medical Records Attestation: I reviewed the patient's medical records. Lab Data Attestation: I reviewed the patient's lab results. Result diagrams: 04/12/21 21:42 04/12/21 21:42 Labs: Lab Results 04/12/21 04/12/21 04/12/21 Range/Units 21:42 21:42 21:42 WBC 9.2 (4.8-10.8) X10*3/uL RBC 5.00 (4.20-5.50) X10*6/uL Hgb 13.2 (12.0-16.0) g/dl Hct 41.0 (37.0-47.0) % MCV 82.0 (80.0-98.0) fL MCH 26.4 L (27.0-33.0) pg MCHC 32.2 (31.0-35.0) g/dl RDW 13.2 (11.0-16.0) % Plt Count 395 (160-400) X10*3/uL MPV 8.6 L (9.4-12.3) fL Immature Gran % (Auto) 0.7 H (0.0-0.4) % Neut % (Auto) 65.3 (45-73) % Lymph % (Auto) 26.8 (20-40) % [place] % (Auto) 6.6 (2-11) % Eos % (Auto) 0.5 (0-4) % Baso % (Auto) 0.1 (0-2) % Lymph # (Auto) 2.5 (1.2-4.9) X10*3/uL [place] # (Auto) 0.6 (0.1-1.2) X10*3/uL Eos # (Auto) 0.1 (0.0-0.4) X10*3/uL Baso # (Auto) 0.0 (0.0-0.2) X10*3/uL Abs Immat Gran (auto) 0.06 H (0.00-0.03) X10*3/uL Absolute Neuts (auto) 6.0 (2.0-8.3) x10*3/uL Absolute Nucleated RBC 0.000 (0.0-0.012) X10*3/uL Nucleated RBC % (auto) 0.0 (0.0-0.2) /100WBC Sodium 139 (135-145) mmol/L Potassium 4.2 (3.3-5.1) mmol/L Chloride 105 (96-108) mmol/L Carbon Dioxide 25 (22-29) mmol/L Anion Gap 13 (12-20) BUN 7 L (9-16) mg/dL Creatinine 0.68 (0.5-1.4) mg/dL Estim Creat Clear Calc 92.1 Estimated GFR > 60 Random Glucose 121 H (60-115) mg/dL Lactic Acid 1.8 (0.5-2.0) mmol/L Calcium 9.1 (8.4-10.2) mg/dL C-Reactive Protein 4.21 H (< or = 0.50) mg/dL Discharge Plan Discharge Clinical Impression: Cellulitis, Post covid-19 condition, unspecified Patient Disposition: Home, Self-Care Instructions: Cellulitis (DC) Additional Instructions: Continue taking previously prescribed antibiotics. In addition apply topical hydrocortisone and Benadryl. Zyrtec daily will also help with her symptoms You need to be re-evaluated in 2-3 days If symptoms persist or worsen, redness spreads, you have fever, drainage from area please return to the ED Prescriptions: New hydrocortisone 2.5 % cream 1 appl topical BID PRN (Reason: skin irritation) Qty: 453.6 0RF Benadryl 2 % gel 1 appl topical BID PRN (Reason: skin irritation) Qty: 103 1RF Zyrtec 10 mg capsule 10 mg PO DAILY Qty: 14 0RF No Action ibuprofen 600 mg tablet 600 mg PO Q8H PRN (Reason: pain) 5 Days Qty: 15 0RF clonazepam 0.5 mg Tablet 0.25 mg PO BID 0RF amlodipine 5 mg Tablet 5 mg PO DAILY 0RF cholecalciferol (vitamin D3) [Vitamin D3] 25 mcg (1,000 unit) Capsule 25 mcg PO DAILY 0RF rosuvastatin [Crestor] 10 mg Tablet 10 mg PO DAILY 0RF buprenorphine-naloxone [Suboxone] 8-2 mg Film 0.5 film BUCCAL BID 0RF Rx Instructions: takes at 1200 & 1900 levothyroxine 13 mcg capsule 25 mcg PO DAILY 0RF cephalexin 500 mg tablet 500 mg PO QID 7 Days Qty: 28 0RF sulfamethoxazole-trimethoprim [Bactrim DS] 800-160 mg tablet 1 tab PO BID 7 Days Qty: 14 0RF cyclobenzaprine 5 mg tablet 5 mg PO BID PRN (Reason: muscle spasm) Qty: 60 0RF pyridoxine (vitamin B6) 100 mg tablet 100 mg PO DAILY 90 Days Qty: 90 1RF ferrous sulfate 220 mg (44 mg iron)/5 mL elixir PO 0RF Referrals: [facility] [Primary Care Provider] - 2 days
[2021-04-12 21:50] LABS: Basophils Percent Auto 0.1 % (0-2); Eosinophils Absolute Auto 0.1 X10*3/uL (0.0-0.4); Eosinophils Percent Auto 0.5 % (0-4); Hemoglobin 13.2 g/dl (12.0-16.0); Imm Gran Abs Auto 0.06 X10*3/uL (0.00-0.03); Imm Gran Pct Auto 0.7 % (0.0-0.4); Lymphocytes Absolute Auto 2.5 X10*3/uL (1.2-4.9); Lymphocytes Percent Auto 26.8 % (20-40); MANUAL DIFF FLAG NO; Mean Corpuscular HGB Conc 32.2 g/dl (31.0-35.0); Mean Corpuscular Hemoglobin 26.4 pg (27.0-33.0); Mean Platelet Volume 8.6 fL (9.4-12.3); Monocytes Absolute Auto 0.6 X10*3/uL (0.1-1.2); Monocytes Percent Auto 6.6 % (2-11); Neutrophils Percent Auto 65.3 % (45-73); Platelet Count 395 X10*3/uL (160-400); Red Cell Distribution Width 13.2 % (11.0-16.0); White Blood Count 9.2 X10*3/uL (4.8-10.8)
[2021-04-12 22:04] LABS: Lactic Acid 1.8 mmol/L (0.5-2.0)
[2021-04-12 22:07] LABS: Anion Gap 13 (12-20); Blood Urea Nitrogen 7 mg/dL (9-16); C Reactive Protein 4.21 mg/dL (< or = 0.50); Calcium 9.1 mg/dL (8.4-10.2); Carbon Dioxide 25 mmol/L (22-29); Chloride 105 mmol/L (96-108); Creatinine Clr Calc Pharmacy 92.1; Estimated Glomerular Filt Rate > 60; Glucose Random 121 mg/dL (60-115); Potassium 4.2 mmol/L (3.3-5.1); Sodium 139 mmol/L (135-145)
[2021-04-12 22:23] LABS: Erythrocyte Sedimentation Rate 39 MM/HR (0-20)
== END 2021-04-12 22:34 | disposition home or self-care (01) ==
PROVIDERS: Physician Assistant; Emergency Provider Emergency Medicine Emergency Medical Services
DX: L03.317 Cellulitis of buttock (principal); U09.9 Post COVID-19 condition, unspecified; R00.0 Tachycardia, unspecified; F41.9 Anxiety disorder, unspecified
CPT/HCPCS: 36415; 80048; 83605; 85025; 85652; 86140; 87040; 99283

== ENCOUNTER 2021-04-18 11:01 | Emergency (ER) | payer MEDICAID, SELFPAY ==
--- NOTE | ~2021-04-18 | US_ITS ---
EXAMINATION: US right buttock region, LIMITED/FOLLOW UP CLINICAL INFORMATION: Patient being treated for cellulitis. COMPARISON: None TECHNIQUE: Targeted ultrasound evaluation of the right buttock region FINDINGS: Scanning over the area of redness from cellulitis about the right buttock region did not demonstrate any abnormal fluid collection. The skin appears thickened and there is some edematous change present. US/US pelvic limited IMPRESSION: No abscess collection in the right buttock region in area of cellulitis.
--- NOTE | ~2021-04-18 | US_ITS ---
EXAMINATION: US VENOUS ULTRASOUND WITH DOPPLER LOWER EXTREMITY, BILATERAL CLINICAL INFORMATION: Pain COMPARISON: None TECHNIQUE: Ultrasound of the deep veins is performed from the hip to the calf with compression sonography and color and pulse Doppler assessment. Spectral analysis with color-flow imaging is performed. FINDINGS: RIGHT: There is normal venous compression and respiratory variation and augmented flow. The visualized common femoral vein, superficial femoral vein, profunda femoral vein, popliteal vein, and the trifurcation region shows no evidence of deep venous thrombosis. There is no significant popliteal fossa cyst. LEFT: There is normal venous compression and respiratory variation and augmented flow. The visualized common femoral vein, superficial femoral vein, profunda femoral vein, popliteal vein, and the trifurcation region shows no evidence of deep venous thrombosis. There is no significant popliteal fossa cyst. US/US venous duplex LE BI IMPRESSION: No DVT demonstrated in the bilateral lower extremity.
[2021-04-18 11:10] VITALS: BP 137/86; PULSE 108; RESP 19; O2SAT 99; BMI 30.8
--- NOTE | 2021-04-18 13:42 | ED_ITS ---
HPI - General Adult General Chief complaint: Recheck/Abnormal Lab/Rx Stated complaint: abnormal labs quest dvt Time Seen by Provider: 04/18/21 13:05 Source: patient Mode of arrival: ambulatory Limitations: no limitations History of Present Illness HPI narrative: 55 years old female came in for evaluation of right buttock cellulitis. Patient was diagnosed with right buttock cellulitis on 04/09 patient was started on Keflex and Bactrim double antibiotic, also was seen by her PCP who extended the course of antibiotic, PCP send blood workup found slight elevation of the D- dimer asked patient to come to the ED for further evaluation. patient reported gradual improvement, declined any fever or chills. Patient stated that she has been having palpitation likely secondary to anxiety. Otherwise patient declined any calf pain or swelling. No chest pain. No difficulty breathing Related Data Home Medications Medication Instructions Recorded Confirmed amlodipine 5 mg tablet 5 mg PO DAILY 04/21/20 04/03/21 buprenorphine 8 mg-naloxone 2 mg 0.5 film BUCCAL BID 04/21/20 04/03/21 sublingual film (Suboxone) cholecalciferol (vitamin D3) 25 25 mcg PO DAILY 04/21/20 04/03/21 mcg (1,000 unit) capsule (Vitamin D3) clonazepam 0.5 mg tablet 0.25 mg PO BID 04/21/20 04/03/21 rosuvastatin 10 mg tablet (Crestor) 10 mg PO DAILY 04/21/20 04/03/21 levothyroxine 13 mcg capsule 25 mcg PO DAILY cap 02/28/21 04/03/21 ferrous sulfate 220 mg (44 mg mg PO 04/03/21 04/03/21 iron)/5 mL oral elixir Previous Rx's Medication Instructions Recorded cyclobenzaprine 5 mg tablet 5 mg PO BID PRN #60 tab 11/07/20 pyridoxine (vitamin B6) 100 mg 100 mg PO DAILY 90 Days #90 tab 02/28/21 tablet ibuprofen 600 mg tablet 600 mg PO Q8H PRN 5 Days #15 tab 04/04/21 cephalexin 500 mg tablet 500 mg PO QID 7 Days #28 tab 04/09/21 sulfamethoxazole 800 1 tab PO BID 7 Days #14 tab 04/09/21 mg-trimethoprim 160 mg tablet (Bactrim DS) cetirizine 10 mg capsule (Zyrtec) 10 mg PO DAILY #14 cap 04/12/21 diphenhydramine HCl 2 % topical 1 appl TOPICAL BID PRN #103 ml 04/12/21 gel (Benadryl) hydrocortisone 2.5 % topical cream 1 appl TOPICAL BID PRN #453.6 g 04/12/21 Allergies Allergy/AdvReac Type Severity Reaction Status Date / Time metoclopramide [From REGLAN] AdvReac Intermediate AGITATION Verified 04/03/21 11:40 morphine AdvReac Mild Nausea Verified 04/03/21 11:40 aspirin AdvReac Vomiting Verified 04/03/21 11:40 Review of Systems Review of Systems: All other systems are reviewed and are negative Constitutional: Reports as per HPI and Reports no additional constitutional complaints Eyes: Reports as per HPI and Reports no additional eye complaints Reports system reviewed and no additional complaints, except as documented Cardiovascular: Reports as per HPI and Reports no additional cardiovascular complaints Respiratory: Reports as per HPI and Reports no additional respiratory complaints Gastrointestinal: Reports as per HPI and Reports no additional gastrointestinal complaints Genitourinary: Reports no additional female genitourinary complaints Musculoskeletal: Reports no additional musculoskeletal complaints Skin/Breast: Reports system reviewed and no additional complaints, except as docu Psychiatric: Reports no additional psychiatric complaints Endocrine: Reports no additional endocrine complaints Hematologic/Lymphatic: Reports no additional hematologic/lymphatic complaints Allergic/Immunologic: Reports no additional allergic/immunologic complaints Reports system reviewed and no additional complaints, except as documented and Reports Abnormal speech present PMFSH Past Medical History Medical History Arthritis Chronic constipation Depression Fibromyalgia Frequent UTI Hematuria History of panic attacks HTN (hypertension) Hx of anxiety disorder Hx of opioid abuse Hx of renal calculi Renal calculi Thyroid disease Surgical History H/O left knee surgery Hx of appendectomy Hx of cholecystectomy Tubal ligation status Family History Family History Paternal Grandmother Colon cancer Mother Pulmonary embolism Sister Pulmonary embolism Social History Social History Household Members: Children Alcohol intake: never Years Smoked: 20 Advance Directives: No Advance Directives Information Provided: Yes Patient : No Current occupational status: employed 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 Blood pressure normal. Heart rate is elevated. Respiration rate normal. Temperature normal. Oxygen saturation normal. Appearance: Alert. Oriented X3. No acute distress. Head: Normal external exam. Normocephalic. Atraumatic. No Henning signs noted. No raccoon eyes noted Eyes: PERRLA. EOMI. Conjunctiva and sclera normal. Eyelids normal. ENT: TM's Normal. Pharynx normal. Uvula midline. Moist mucous membranes. No trismus noted. No drooling noted. No muffled voice noted. Neck: Normal inspection. Neck supple. FROM. No adenopathy. Thyroid Normal. No meningeal signs. No neck mass noted. CVS: Normal heart rate and rhythm. Heart sound normal. No murmurs noted. Pulses normal throughout. Respiratory: No respiratory distress. Painless inspiration. Breath sounds normal . No wheezes/rales/rhonchi noted. Chest nontender. No accessory muscle usage noted or decreased air movement noted. Abdomen: Soft and nontender. Bowel sounds normal in all 4 quadrants. No distention noted. No organomegaly noted. No visible injury noted. Back: No CVA tenderness. Full range of motion noted. Skin: Skin warm and dry. Normal skin color. Normal skin turgor. No rashes/lesions/lacerations noted. Extremities: No lower extremity edema. Extremities exhibit normal range of motion. Extremities nontender. Right buttock with mild erythema, but no tenderness, no fluctuation, no drainage, with great improvement compared with an old picture that the patient had. Neuro: Oriented X 3. Cranial nerve exam: II-XII are grossly intact No motor deficit. No sensory deficit. Reflexes normal. Course Course Course Narrative: Assessment and plan. Right buttock cellulitis responding slowly and gradually to Bactrim and Keflex outpatient antibiotic course, patient do not meet criteria for SIRS, concern from PCP for DVT and elevated D-dimer. Patient had ultrasound of lower extremi ty showed no DVT, showed no abscess in the cellulitic right buttock. Patient maintain O2 sat above 97% on room air, no tachypnea. Initial labs showed hyperkalemia thought to be slight hemolysis of the blood specimen, and lactic acidosis both potassium and lactic acid improved after IV fluids. Patient initially found to be tachycardic that improved after IV fluid hydration. Medical Decision Making Lab Data Lab results reviewed: Yes I reviewed the patient's lab results. Result diagrams: 04/18/21 15:08 04/18/21 18:16 Labs: Lab Results 04/18/21 04/18/21 04/18/21 Range/Units 15:08 15:08 15:08 WBC 8.7 (4.8-10.8) X10*3/uL RBC 4.89 (4.20-5.50) X10*6/uL Hgb 13.0 (12.0-16.0) g/dl Hct 40.3 (37.0-47.0) % MCV 82.4 (80.0-98.0) fL MCH 26.6 L (27.0-33.0) pg MCHC 32.3 (31.0-35.0) g/dl RDW 13.4 (11.0-16.0) % Plt Count 465 H (160-400) X10*3/uL MPV 8.5 L (9.4-12.3) fL Immature Gran % (Auto) 0.2 (0.0-0.4) % Neut % (Auto) 66.2 (45-73) % Lymph % (Auto) 26.2 (20-40) % Steele % (Auto) 7.2 (2-11) % Eos % (Auto) 0.1 (0-4) % Baso % (Auto) 0.1 (0-2) % Lymph # (Auto) 2.3 (1.2-4.9) X10*3/uL Steele # (Auto) 0.6 (0.1-1.2) X10*3/uL Eos # (Auto) 0.0 (0.0-0.4) X10*3/uL Baso # (Auto) 0.0 (0.0-0.2) X10*3/uL Abs Immat Gran (auto) 0.02 (0.00-0.03) X10*3/uL Absolute Neuts (auto) 5.7 (2.0-8.3) x10*3/uL Absolute Nucleated RBC 0.000 (0.0-0.012) X10*3/uL Nucleated RBC % (auto) 0.0 (0.0-0.2) /100WBC D-Dimer High Sensitivty 985 NG/ML Sodium 136 (135-145) mmol/L Potassium 5.2 H D (3.3-5.1) mmol/L Chloride 100 (96-108) mmol/L Carbon Dioxide 28 (22-29) mmol/L Anion Gap 13 (12-20) BUN 8 L (9-16) mg/dL Creatinine 0.64 (0.5-1.4) mg/dL Estim Creat Clear Calc 97.6 Estimated GFR > 60 Random Glucose 94 (60-115) mg/dL Lactic Acid (0.5-2.0) mmol/L Lactic Acid F/U @ 2Hr (0.5-2.0) mmol/L Calcium 9.4 (8.4-10.2) mg/dL Lipase 14 (8-78) U/L 04/18/21 04/18/21 04/18/21 Range/Units 15:08 18:16 18:16 WBC (4.8-10.8) X10*3/uL RBC (4.20-5.50) X10*6/uL Hgb (12.0-16.0) g/dl Hct (37.0-47.0) % MCV (80.0-98.0) fL MCH (27.0-33.0) pg MCHC (31.0-35.0) g/dl RDW (11.0-16.0) % Plt Count (160-400) X10*3/uL MPV (9.4-12.3) fL Immature Gran % (Auto) (0.0-0.4) % Neut % (Auto) (45-73) % Lymph % (Auto) (20-40) % Steele % (Auto) (2-11) % Eos % (Auto) (0-4) % Baso % (Auto) (0-2) % Lymph # (Auto) (1.2-4.9) X10*3/uL Steele # (Auto) (0.1-1.2) X10*3/uL Eos # (Auto) (0.0-0.4) X10*3/uL Baso # (Auto) (0.0-0.2) X10*3/uL Abs Immat Gran (auto) (0.00-0.03) X10*3/uL Absolute Neuts (auto) (2.0-8.3) x10*3/uL Absolute Nucleated RBC (0.0-0.012) X10*3/uL Nucleated RBC % (auto) (0.0-0.2) /100WBC D-Dimer High Sensitivty NG/ML Sodium 138 (135-145) mmol/L Potassium 4.6 (3.3-5.1) mmol/L Chloride 105 (96-108) mmol/L Carbon Dioxide 24 (22-29) mmol/L Anion Gap 14 (12-20) BUN 7 L (9-16) mg/dL Creatinine 0.61 (0.5-1.4) mg/dL Estim Creat Clear Calc 102.4 Estimated GFR > 60 Random Glucose 91 (60-115) mg/dL Lactic Acid 2.3 H* (0.5-2.0) mmol/L Lactic Acid F/U @ 2Hr 1.5 (0.5-2.0) mmol/L Calcium 9.0 (8.4-10.2) mg/dL Lipase (8-78) U/L Imaging Data Lower extremities ultrasound: Attestation: I personally reviewed and interpreted this imaging study as follows: Radiologist's impression: No DVT demonstrated in bilateral lower extremities. Soft tissue ultrasound of the right buttock: Attestation: I personally reviewed and interpreted this imaging study as follows: Radiologist's impression: No abscess collection in the right buttock region in area of cellulitis.? ? Discharge Plan Discharge Clinical Impression: Cellulitis of buttock, right, D-dimer, elevated Patient Disposition: Home, Self-Care Instructions: Cellulitis (ED) Additional Instructions: Continue with Keflex/Min Bactrim until he finished a full course of antibiotic as prescribed by your PCP. Prescriptions: No Action ibuprofen 600 mg tablet 600 mg PO Q8H PRN (Reason: pain) 5 Days Qty: 15 0RF clonazepam 0.5 mg Tablet 0.25 mg PO BID 0RF amlodipine 5 mg Tablet 5 mg PO DAILY 0RF cholecalciferol (vitamin D3) [Vitamin D3] 25 mcg (1,000 unit) Capsule 25 mcg PO DAILY 0RF rosuvastatin [Crestor] 10 mg Tablet 10 mg PO DAILY 0RF buprenorphine-naloxone [Suboxone] 8-2 mg Film 0.5 film BUCCAL BID 0RF Rx Instructions: takes at 1200 & 1900 levothyroxine 13 mcg capsule 25 mcg PO DAILY 0RF cephalexin 500 mg tablet 500 mg PO QID 7 Days Qty: 28 0RF sulfamethoxazole-trimethoprim [Bactrim DS] 800-160 mg tablet 1 tab PO BID 7 Days Qty: 14 0RF hydrocortisone 2.5 % cream 1 appl topical BID PRN (Reason: skin irritation) Qty: 453.6 0RF Benadryl 2 % gel 1 appl topical BID PRN (Reason: skin irritation) Qty: 103 1RF Zyrtec 10 mg capsule 10 mg PO DAILY Qty: 14 0RF cyclobenzaprine 5 mg tablet 5 mg PO BID PRN (Reason: muscle spasm) Qty: 60 0RF pyridoxine (vitamin B6) 100 mg tablet 100 mg PO DAILY 90 Days Qty: 90 1RF ferrous sulfate 220 mg (44 mg iron)/5 mL elixir PO 0RF Referrals: Physician,Unknown J [Primary Care Provider] - 2 days Interventions: ED Discharge Assessment Last Done: 04/18/21 19:20
[2021-04-18 15:15] LABS: MANUAL DIFF FLAG NO
[2021-04-18 15:17] LABS: Basophils Percent Auto 0.1 % (0-2); Eosinophils Percent Auto 0.1 % (0-4); Hematocrit 40.3 % (37.0-47.0); Imm Gran Abs Auto 0.02 X10*3/uL (0.00-0.03); Imm Gran Pct Auto 0.2 % (0.0-0.4); Lymphocytes Absolute Auto 2.3 X10*3/uL (1.2-4.9); Lymphocytes Percent Auto 26.2 % (20-40); Mean Corpuscular HGB Conc 32.3 g/dl (31.0-35.0); Mean Corpuscular Hemoglobin 26.6 pg (27.0-33.0); Mean Corpuscular Volume 82.4 fL (80.0-98.0); Mean Platelet Volume 8.5 fL (9.4-12.3); Monocytes Absolute Auto 0.6 X10*3/uL (0.1-1.2); Monocytes Percent Auto 7.2 % (2-11); Neutrophils Absolute Auto 5.7 x10*3/uL (2.0-8.3); Neutrophils Percent Auto 66.2 % (45-73); Platelet Count 465 X10*3/uL (160-400); Red Blood Count 4.89 X10*6/uL (4.20-5.50); Red Cell Distribution Width 13.4 % (11.0-16.0); White Blood Count 8.7 X10*3/uL (4.8-10.8)
[2021-04-18 15:26] LABS: D Dimer High Sensitivity 985 NG/ML
[2021-04-18 15:32] LABS: Lactic Acid 2.3 mmol/L (0.5-2.0)
[2021-04-18 15:40] LABS: Anion Gap 13 (12-20); Blood Urea Nitrogen 8 mg/dL (9-16); Calcium 9.4 mg/dL (8.4-10.2); Carbon Dioxide 28 mmol/L (22-29); Chloride 100 mmol/L (96-108); Creatinine Clr Calc Pharmacy 97.6; Estimated Glomerular Filt Rate > 60; Glucose Random 94 mg/dL (60-115); Lipase 14 U/L (8-78); Potassium 5.2 mmol/L (3.3-5.1); Sodium 136 mmol/L (135-145)
[2021-04-18 15:57] VITALS: BP 107/64; PULSE 82; RESP 16; TEMP 36.6; O2SAT 97
[2021-04-18] MEDS: 0.9 % Sodium Chloride 1,000 ML 999 ML IV (16:45)
[2021-04-18 17:13] LABS: Reflex Lactate? Lactic Acid Added
[2021-04-18 18:00] VITALS: BP 112/54; PULSE 76; RESP 16; TEMP 36.6; O2SAT 99
--- NOTE | 2021-04-18 18:31 | PC.NURSE ---
PATIENT WAS GIVEN HAM SANDWICHES AND ORALIA DEANA .
[2021-04-18 18:36] LABS: ~Lactic Acid-LAB USE ONLY 1.5 mmol/L (0.5-2.0)
[2021-04-18 18:39] LABS: Anion Gap 14 (12-20); Blood Urea Nitrogen 7 mg/dL (9-16); Carbon Dioxide 24 mmol/L (22-29); Chloride 105 mmol/L (96-108); Creatinine Clr Calc Pharmacy 102.4; Estimated Glomerular Filt Rate > 60; Glucose Random 91 mg/dL (60-115); Potassium 4.6 mmol/L (3.3-5.1); Sodium 138 mmol/L (135-145)
[2021-04-18 19:42] VITALS: BP 118/66; PULSE 83; RESP 16; TEMP 36.3; O2SAT 98
== END 2021-04-18 19:56 | disposition home or self-care (01) ==
PROVIDERS: Emergency Provider Emergency Medicine
DX: L03.317 Cellulitis of buttock (principal); R79.1 Abnormal coagulation profile; R00.0 Tachycardia, unspecified
CPT/HCPCS: 36415; 76857; 80048; 83605; 83690; 85025; 85379; 87040; 93970; 96360; 99283; 99284

== ENCOUNTER 2021-04-27 15:59 | Outpatient (REF) | payer MEDICAID, SELFPAY | END 2021-04-27 16:00 | disposition home or self-care (01) | LOC: HO.MRI 15:59 | PROVIDERS: Visit Provider Nurse Practitioner Family | DX: Z13.89 Encounter for screening for other disorder (principal) ==

== ENCOUNTER 2021-06-01 17:45 | Inpatient (IN) | payer MEDICAID, SELFPAY ==
--- NOTE | ~2021-06-01 | CT_ITS ---
EXAMINATION: CT PELVIS WITH CONTRAST CLINICAL INFORMATION: Evaluate for infection of implants in the right buttock. COMPARISON: CT pelvis dated from 05/30/2021. TECHNIQUE: Helical scanning was performed with submillimeter collimation through the pelvis with the use of oral contrast and during bolus intravenous injection of 85 mL of Omnipaque 350 intravenous contrast. Sagittal and coronal multiplanar 2-D reconstructions were obtained. This CT examination was performed using dose optimization techniques as appropriate, variously including the following: *Automated exposure control *Adjustment of mA and/or kV according to patient size (this includes techniques or standardized protocols for targeted exams where dose is matched to indication/reason for exam; i.e. extremities or head) *Use of iterative reconstruction technique DLP: 310 mGy-cm FINDINGS: PELVIS: Similar degree of skin thickening and subcutaneous fat stranding around numerous gluteal injection sites when compared to 05/30/2021. A centrally hypoattenuating drainable collection or abscess are not identified. Sigmoid diverticulosis. Normal appearance of the urinary bladder, uterus and adnexa. No lymphadenopathy by size criteria. OSSEOUS STRUCTURES: No acute or aggressive appearing osseous abnormalities. Partially imaged lumbar spondylosis. CT/CT pelvis w con IMPRESSION: Stable examination when compared to 05/30/2021 with redemonstration of gluteal cosmetic fillers with surrounding fat stranding and skin thickening, concerning for a superimposed infection.
[2021-06-01 18:08] VITALS: BP 150/91; PULSE 96; RESP 18; TEMP 37; O2SAT 100; BMI 31.8
[2021-06-01 18:39] LABS: MANUAL DIFF FLAG NO
[2021-06-01 18:40] LABS: Basophils Percent Auto 0.1 % (0-2); Eosinophils Percent Auto 0.2 % (0-4); Hematocrit 39.3 % (37.0-47.0); Hemoglobin 12.8 g/dl (12.0-16.0); Imm Gran Abs Auto 0.03 X10*3/uL (0.00-0.03); Imm Gran Pct Auto 0.3 % (0.0-0.4); Lymphocytes Absolute Auto 2.3 X10*3/uL (1.2-4.9); Lymphocytes Percent Auto 24.9 % (20-40); Mean Corpuscular HGB Conc 32.6 g/dl (31.0-35.0); Mean Corpuscular Volume 82.9 fL (80.0-98.0); Mean Platelet Volume 8.8 fL (9.4-12.3); Monocytes Absolute Auto 0.7 X10*3/uL (0.1-1.2); Monocytes Percent Auto 7.4 % (2-11); Neutrophils Absolute Auto 6.1 x10*3/uL (2.0-8.3); Neutrophils Percent Auto 67.1 % (45-73); Platelet Count 315 X10*3/uL (160-400); Red Blood Count 4.74 X10*6/uL (4.20-5.50); Red Cell Distribution Width 14.8 % (11.0-16.0); White Blood Count 9.1 X10*3/uL (4.8-10.8)
[2021-06-01 18:51] LABS: Anion Gap 13 (12-20); Blood Urea Nitrogen 6 mg/dL (9-16); Calcium 9.2 mg/dL (8.4-10.2); Carbon Dioxide 28 mmol/L (22-29); Chloride 102 mmol/L (96-108); Creatinine Clr Calc Pharmacy 102.5; Estimated Glomerular Filt Rate > 60; Glucose Random 122 mg/dL (60-115); Potassium 3.7 mmol/L (3.3-5.1); Sodium 139 mmol/L (135-145)
--- NOTE | 2021-06-01 21:31 | ED.SKABFB ---
HPI - Skin/Abscess/Foreign Bdy General Chief complaint: Skin/Abscess/Foreign Body Stated complaint: infection on the buttocks Time Seen by Provider: 06/01/21 20:58 Source: patient Mode of arrival: ambulatory Limitations: no limitations History of Present Illness HPI narrative: Patient comes to the emergency room complaining of intermittent/chronic cellulitis on her right buttocks for 2-3 months now. Patient has had multiple courses of antibiotics, patient has been adherent to her treatment but patient keeps having recurrent cellulitis. Patient has no fever or chills. Patient has been seen at the emergency room previously, also her primary care physician has evaluated the patient and prescribed antibiotics. The erythema returned again. Patient states all it is tender to touch, denies fever chills. Patient states that on the CT scan report that she had done by her primary care physician, it showed some subcutaneous debris, likely secondary to flatten the surgery injections that she had done over 10 years ago, now getting infected. Patient states in touch with plastic surgeons, she was instructed to have the infection under control, then they will assess her but not before. Related Data Home Medications Medication Instructions Recorded Confirmed amlodipine 5 mg tablet 5 mg PO DAILY 04/21/20 06/01/21 buprenorphine 8 mg-naloxone 2 mg 0.5 film BUCCAL BID@1130,1800 04/21/20 06/01/21 sublingual film (Suboxone) cholecalciferol (vitamin D3) 25 25 mcg PO DAILY 04/21/20 06/01/21 mcg (1,000 unit) capsule (Vitamin D3) clonazepam 0.5 mg tablet 0.5 mg PO TID PRN 04/21/20 06/01/21 rosuvastatin 10 mg tablet (Crestor) 10 mg PO Q2D@1700 04/21/20 06/01/21 cetirizine 10 mg capsule (Zyrtec) 10 mg PO DAILY PRN 06/01/21 06/01/21 ferrous sulfate 325 mg (65 mg 1 tab PO Q2D 06/01/21 06/01/21 iron) tablet (FeroSul) fluticasone propionate 50 1 - 2 spray INTRANASAL DAILY PRN 06/01/21 06/01/21 mcg/actuation nasal spray,suspension ibuprofen 800 mg tablet 1 tab PO TID PRN 06/01/21 06/01/21 levothyroxine 25 mcg capsule 1 cap PO DAILY@0630 06/01/21 06/01/21 (Tirosint) Allergies Allergy/AdvReac Type Severity Reaction Status Date / Time metoclopramide [From REGLAN] AdvReac Intermediate AGITATION Verified 06/01/21 18:08 morphine AdvReac Mild Nausea Verified 06/01/21 18:08 aspirin AdvReac Vomiting Verified 06/01/21 18:08 Review of Systems Review of Systems: Constitutional : No Weight loss, No Fever, No Chills, No Night Sweats, No Fatigue, No Malaise ENT/Mouth : No Hearing loss, No Ear Pain, No Nasal Congestion, No Sinus Pain, No Hoarseness, No sore throat, No Rhinorrhea, No Swallowing Difficulty Eyes: No Eye Pain, No Swelling, No Redness, No Foreign Body, No Discharge, No Vision Changes Cardiovascular : No Chest Pain, No SOB, No Dyspnea on Exertion, No Orthopnea, No Edema, No Palpitations Respiratory : No Cough, No Sputum, No Wheezing, No Smoke Exposure, No Dyspnea Gastrointestinal : No Nausea, No Vomiting, No Diarrhea, No Constipation, No abdominal Pain, No Hematochezia, No Melena Genitourinary : no irregular bleeding, No Dysuria, No Urinary Frequency, No Hematuria, No Urinary Incontinence, No Urgency, No Flank Pain, No Urinary Flow Changes, No Hesitancy Musculoskeletal : No joint pain, No Myalgias, No Joint Swelling Skin : Limbs and erythema in the right buttocks Neuro : No Weakness, No Numbness, No Paresthesias, No Loss of Consciousness, No Dizziness, No Headache Psych : No Anxiety/Panic, No Depression, No SI/HI/AH/VH, No Social Issues, Heme/Lymph: No Bruising, No Bleeding,No Lymphadenopathy Endocrine : No Polyuria, No Polydipsia, No Temperature Intolerance PMFSH Past Medical History Medical History Arthritis Chronic constipation Depression Fibromyalgia Frequent UTI Hematuria History of panic attacks HTN (hypertension) Hx of anxiety disorder Hx of opioid abuse Hx of renal calculi Renal calculi Thyroid disease Surgical History H/O left knee surgery Hx of appendectomy Hx of cholecystectomy Tubal ligation status Family History Family History Paternal Grandmother Colon cancer Mother Pulmonary embolism Sister Pulmonary embolism Social History Social History Household Members: Children Alcohol intake: never Years Smoked: 20 Advance Directives: No Patient : No Current occupational status: employed 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 Oriented X3. No acute distress. Eyes: Pupils equal, round and reactive to light. ENT: Pharynx normal. Neck: Normal inspection. Neck supple. No lymph nodes noted. No crepitus CVS: Normal heart rate and rhythm. Pulses normal. Normal S1 and S2 Respiratory: No respiratory distress. Breath sounds normal. No Wheezing. No rales Abdomen: Soft and nontender. No rigidity. No distention. Skin: Skin warm and dry. Subcutaneous lumps in the right buttocks, mild erythema Extremities: No lower extremity edema. No Lacerations. No Rash Neuro: Oriented X 3. No motor deficit. No sensory deficit. Moving all extremities. No slurred speech. CN 2 through 12 grossly intact Psych: calm, cooperative, normal affect Course Course Course Narrative: I discussed the patient with Dr. Anton, patient will be admitted for IV antibiotics since patient failed multiple outpatient treatments. Patient started on vanco and Zosyn. Sepsis is not suspected MDM - Skin/Abscess/Foreign Bdy Lab Data Result diagrams: 06/01/21 18:27 06/01/21 18:27 Labs: Lab Results 06/01/21 06/01/21 Range/Units 18:27 18:27 WBC 9.1 (4.8-10.8) X10*3/uL RBC 4.74 (4.20-5.50) X10*6/uL Hgb 12.8 (12.0-16.0) g/dl Hct 39.3 (37.0-47.0) % MCV 82.9 (80.0-98.0) fL MCH 27.0 (27.0-33.0) pg MCHC 32.6 (31.0-35.0) g/dl RDW 14.8 (11.0-16.0) % Plt Count 315 D (160-400) X10*3/uL MPV 8.8 L (9.4-12.3) fL Immature Gran % (Auto) 0.3 (0.0-0.4) % Neut % (Auto) 67.1 (45-73) % Lymph % (Auto) 24.9 (20-40) % Ballard % (Auto) 7.4 (2-11) % Eos % (Auto) 0.2 (0-4) % Baso % (Auto) 0.1 (0-2) % Lymph # (Auto) 2.3 (1.2-4.9) X10*3/uL Ballard # (Auto) 0.7 (0.1-1.2) X10*3/uL Eos # (Auto) 0.0 (0.0-0.4) X10*3/uL Baso # (Auto) 0.0 (0.0-0.2) X10*3/uL Abs Immat Gran (auto) 0.03 (0.00-0.03) X10*3/uL Absolute Neuts (auto) 6.1 (2.0-8.3) x10*3/uL Absolute Nucleated RBC 0.000 (0.0-0.012) X10*3/uL Nucleated RBC % (auto) 0.0 (0.0-0.2) /100WBC Sodium 139 (135-145) mmol/L Potassium 3.7 (3.3-5.1) mmol/L Chloride 102 (96-108) mmol/L Carbon Dioxide 28 (22-29) mmol/L Anion Gap 13 (12-20) BUN 6 L (9-16) mg/dL Creatinine 0.62 (0.5-1.4) mg/dL Estim Creat Clear Calc 102.5 Estimated GFR > 60 Random Glucose 122 H (60-115) mg/dL Calcium 9.2 (8.4-10.2) mg/dL Imaging Data Pelvis CT scan: Radiologist's impression: FINDINGS: PELVIS: Similar degree of skin thickening and subcutaneous fat stranding around numerous gluteal injection sites when compared to 05/30/2021. A centrally hypoattenuating drainable collection or abscess are not identified. Sigmoid diverticulosis. Normal appearance of the urinary bladder, uterus and adnexa. No lymphadenopathy by size criteria.? OSSEOUS STRUCTURES: No acute or aggressive appearing osseous abnormalities. Partially imaged lumbar spondylosis.? CT/CT pelvis w con IMPRESSION: Stable examination when compared to 05/30/2021 with redemonstration of gluteal cosmetic fillers with surrounding fat stranding and skin thickening, concerning for a superimposed infection. ECG Data Attestation: I personally reviewed and interpreted this ECG as follows: Discharge Plan Discharge Clinical Impression: Cellulitis of buttock, right Patient Disposition: Admitted As Inpatient
--- NOTE | 2021-06-01 21:49 | PHA.MEDREC ---
Pharmacy Consult ? Medication Reconciliation Pharmacy has completed the medication reconciliation. Spoke with patient in ED. Patient takes Suboxone at 1130 and 1800 daily. Crestor and Iron she takes every other day.
[2021-06-01] MEDS: iohexoL 350 MG/ML 100 ML INFUS..BTL IV (22:13)
[2021-06-01] MEDS: Piperacillin Sodium/Tazobactam 3.375 GM in 0.9 % Sodium Chloride 50 ML IV (22:51)
[2021-06-01 23:06] LABS: Lactic Acid 1.1 mmol/L (0.5-2.0)
--- NOTE | 2021-06-01 23:07 | PM.IMHP ---
History of Present Illness Date of Service: 06/01/21 Chief Complaint: not healing cellulitis This is a 55-year-old female with past medical history of hypertension, anxiety, hypothyroidism, hyperlipidemia presents to the hospital with complaints of nonhealing cellulitis of the buttocks region. Patient reports that she got COVID in March and about 10 days post COVID she developed erythema, and tenderness in her right buttocks. Patient reports that she has history of buttocks injection collagen 10 years ago, and she feels that this is the area that is problematic at this time. Patient reports no fever or chills. She reports that she has been on 3 rounds of p.o. antibiotics over the last 2 months most recently 10 days of p.o. antibiotics from May 10. Patient reports some improvement in the erythema but now she has difficulty sitting and or laying due to the pain in her buttocks region. She reports that she had a CT done few days ago and her PCP asked her to come to the hospital for further evaluation. She reports that she is in touch with Plastic surgery but they want acute infection to be treated in order to evaluate the collagen injection in her buttocks. On arrival to the ED patient hemodynamically stable with no significant abnormal vitals Labs are reviewed, unremarkable pelvis CT showed redemonstration of gluteal cosmetic Fillers with surrounding fat stranding and skin thickening concerning for superimposed infection given cellulitis, superimposed infection of buttocks injection, and failed outpatient therapy patient does require a medically necessary to night admission to the hospital for treatment with IV antibiotics as well as monitoring improvement. Review of Systems Review of Systems: Yes all other systems are reviewed and are negative PMFSH Medical History Arthritis Chronic constipation Depression Fibromyalgia Frequent UTI Hematuria History of panic attacks HTN (hypertension) Hx of anxiety disorder Hx of opioid abuse Hx of renal calculi Renal calculi Thyroid disease Family History Paternal Grandmother Colon cancer Mother Pulmonary embolism Sister Pulmonary embolism Surgical History H/O left knee surgery Hx of appendectomy Hx of cholecystectomy Tubal ligation status Social History Household Members: Children Alcohol intake: never Years Smoked: 20 Advance Directives: No Patient : No Current occupational status: employed 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 Meds Allergies Allergy/AdvReac Type Severity Reaction Status Date / Time metoclopramide [From REGLAN] AdvReac Intermediate AGITATION Verified 06/01/21 18:08 morphine AdvReac Mild Nausea Verified 06/01/21 18:08 aspirin AdvReac Vomiting Verified 06/01/21 18:08 Active Medications: Current Medications Acetaminophen (Acetaminophen 325 Mg Tablet) 650 mg PO Q6H PRN PRN Reason: Pain, Mild (Pain Scale 1-3) Docusate Sodium (Docusate Sodium 100 Mg Capsule) 100 mg PO DAILY PRN PRN Reason: Constipation Enoxaparin Sodium (Enoxaparin Sodium 40 Mg/0.4 Ml Syringe) 40 mg SUBCUT Q24H LAISHA Ondansetron HCl (Ondansetron Hcl 4 Mg/2 Ml Vial) 4 mg IVPUSH Q8H PRN PRN Reason: Nausea and Vomiting Pharmacy Consult (Consult Rx Perform Med Rec) 1 each MISCELLANE ONCE PRN PRN Reason: Consult order Sodium Chloride (0.9 % Sodium Chloride Flush 3 Ml Syringe) 3 ml IVFLUSH QSHIFT [facility] Home Medications Medication Instructions Recorded Confirmed Last Taken Type amlodipine 5 mg tablet 5 mg PO DAILY 04/21/20 06/01/21 06/01/21 History buprenorphine 8 mg-naloxone 2 mg 0.5 film BUCCAL BID@1130,1800 04/21/20 06/01/21 06/01/21 History sublingual film (Suboxone) cholecalciferol (vitamin D3) 25 25 mcg PO DAILY 04/21/20 06/01/21 06/01/21 History mcg (1,000 unit) capsule (Vitamin D3) clonazepam 0.5 mg tablet 0.5 mg PO TID PRN 04/21/20 06/01/21 06/01/21 History rosuvastatin 10 mg tablet (Crestor) 10 mg PO Q2D@1700 04/21/20 06/01/21 05/31/21 History cetirizine 10 mg capsule (Zyrtec) 10 mg PO DAILY PRN 06/01/21 06/01/21 Unknown History ferrous sulfate 325 mg (65 mg 1 tab PO Q2D 06/01/21 06/01/21 05/31/21 History iron) tablet (FeroSul) fluticasone propionate 50 1 - 2 spray INTRANASAL DAILY PRN 06/01/21 06/01/21 Unknown History mcg/actuation nasal spray,suspension ibuprofen 800 mg tablet 1 tab PO TID PRN 06/01/21 06/01/21 Unknown History levothyroxine 25 mcg capsule 1 cap PO DAILY@0630 06/01/21 06/01/21 06/01/21 History (Tirosint) Physical Exam Vital Signs and Narrative: Vital Signs: Last Vital Signs Temp 98.6 F 06/01/21 18:08 Pulse 96 06/01/21 18:08 Resp 18 06/01/21 18:08 BP 150/91 H 06/01/21 18:08 Pulse Ox 100 06/01/21 18:08 BMI result Body Mass Index 31.8 Const: General: cooperative and no acute distress Orientation/consciousness: patient oriented x3 Eyes: General: appearance normal, both eyes and all related structures Resp: Effort & Inspection: normal respiratory effort Auscultation: clear to auscultation bilaterally Cardio: Rate: regular rate Rhythm: regular rhythm GI: Palpation (GI): Soft to palpation Auscultation: normal bowel sounds Skin: General skin exam: no rashes or lesions noted Neuro: General: patient oriented x3 Cognition (Neuro): normal cognition Extrem: Other: Erythema, tenderness, as well as swelling in the upper region of the right buttocks/glute, General: Yes normal to inspection and Yes no pedal edema Results Labs CBC and Chem 7: 06/02/21 04:37 06/01/21 18:27 Labs: Laboratory Results - last 24 hr 06/01/21 06/01/21 06/01/21 18:27 18:27 22:39 MCV 82.9 MCH 27.0 MCHC 32.6 RDW 14.8 Plt Count 315 D MPV 8.8 L Immature Gran % (Auto) 0.3 Neut % (Auto) 67.1 Lymph % (Auto) 24.9 [place] % (Auto) 7.4 Eos % (Auto) 0.2 Baso % (Auto) 0.1 Lymph # (Auto) 2.3 [place] # (Auto) 0.7 Eos # (Auto) 0.0 Baso # (Auto) 0.0 Abs Immat Gran (auto) 0.03 Absolute Neuts (auto) 6.1 Absolute Nucleated RBC 0.000 Nucleated RBC % (auto) 0.0 Anion Gap 13 Estim Creat Clear Calc 102.5 Estimated GFR > 60 Random Glucose 122 H Lactic Acid 1.1 Calcium 9.2 Imaging Radiologist's Impressions: Impressions Pelvis CT 06/01/21 22:13 IMPRESSION: Stable examination when compared to 05/30/2021 with redemonstration of gluteal cosmetic fillers with surrounding fat stranding and skin thickening, concerning for a superimposed infection. Assessment and Plan (1) Cellulitis of buttock, right: Status: Acute (2) Superimposed infection: Status: Acute Plan 55-year-old female with past medical history of hypothyroidism, hypertension, and history of opioid dependence on Suboxone presents to the hospital with complaints of cellulitis is not healing at the site of previously cosmetic injection in the buttocks region # cellulitis of buttock - failed outpatient therapy - concern for superimposed infection at the site of previous cosmetic filler - will treat with IV antibiotics - follow cultures - patient will need outpatient follow-up with Plastic surgery # hypertension - stable - continue home antihypertensive # hypothyroidism - continue levothyroxine # anxiety - continue clonazepam DVT prophylaxis: Lovenox Quality Stroke Does the patient have a stroke diagnosis?: No VTE Prior VTE?: No VTE Risk Level:: Medical - moderate - high VTE Device Contraindication: Treatment Not Indicated VTE Drug Contraindication: N/A - Med Ordered
[2021-06-01 23:10] LABS: COVID-19 Test Negative (Negative)
--- NOTE | 2021-06-02 00:10 | PC.NURSE ---
Pt requesting motrin for buttock pain, Hospitalist made aware.
[2021-06-02] MEDS: vancomycin HCL 1,250 MG in 0.9 % Sodium Chloride 250 ML 166.67 MG IV (00:40)
[2021-06-02 01:23] VITALS: BP 126/74; PULSE 81; RESP 16; TEMP 36; O2SAT 99
[2021-06-02] MEDS: 0.9 % Sodium Chloride Flush 3 ML SYRINGE IVFLUSH ×4 (01:23→23:55)
--- NOTE | 2021-06-02 01:36 | PC.NURSE ---
Pt requesting motrin for buttock pain , Hospitalist made aware, 2nd attempt
[2021-06-02] MEDS: Ibuprofen 600 MG TABLET PO (02:04)
[2021-06-02] MEDS: ondansetron HCL 4 MG/2 ML VIAL IVPUSH (02:06)
--- NOTE | 2021-06-02 02:25 | PC.NURSE ---
Pt resting, Pt given motrin for buttock pain, Pt needs met, call light in reach, th RN continues to monitor.
[2021-06-02] MEDS: diphenhydrAMINE HCL 50 MG/ML VIAL 25 MG IVPUSH (02:48)
[2021-06-02 05:29] LABS: Basophils Percent Auto 0.1 % (0-2); Eosinophils Percent Auto 0.4 % (0-4); Hematocrit 38.6 % (37.0-47.0); Hemoglobin 12.6 g/dl (12.0-16.0); Imm Gran Abs Auto 0.04 X10*3/uL (0.00-0.03); Imm Gran Pct Auto 0.4 % (0.0-0.4); Lymphocytes Absolute Auto 3.2 X10*3/uL (1.2-4.9); Lymphocytes Percent Auto 30.3 % (20-40); MANUAL DIFF FLAG NO; Mean Corpuscular HGB Conc 32.6 g/dl (31.0-35.0); Mean Corpuscular Hemoglobin 26.9 pg (27.0-33.0); Mean Corpuscular Volume 82.5 fL (80.0-98.0); Mean Platelet Volume 8.5 fL (9.4-12.3); Monocytes Absolute Auto 0.7 X10*3/uL (0.1-1.2); Monocytes Percent Auto 6.8 % (2-11); Neutrophils Absolute Auto 6.6 x10*3/uL (2.0-8.3); Platelet Count 331 X10*3/uL (160-400); Red Blood Count 4.68 X10*6/uL (4.20-5.50); Red Cell Distribution Width 14.8 % (11.0-16.0); White Blood Count 10.6 X10*3/uL (4.8-10.8)
--- NOTE | 2021-06-02 05:50 | PC.NURSE ---
Pt resting, Pt needs met, benedryl given for itchy hands, itchiess has resolved, call light in reach, this rn continues to monitor.
[2021-06-02 06:39] VITALS: BP 108/66; PULSE 70; RESP 16; TEMP 36; O2SAT 97
[2021-06-02] MEDS: Cholecalciferol (Vitamin D3) 25 MCG TABLET PO (07:43)
--- NOTE | 2021-06-02 10:03 | MHC.CM.PN ---
PT REPORTS SHE LIVES WITH HER DAUGHTER AND IS INDEPENDENT WITH CARE PT DENIES USING ANY DME OR HAVING ANY HOME SERVICES PT REPORTS ANGEL SEES A PCP AT [facility] PT COMPLETED A HCP TODAY NAMING HER DAUGHTERS, ALISON AND NILS HER PRIMARY AND ALTERNATE AGENTS RESPECTIVELY PT REPORTS SHE DID NOT GET THE COVID-19 VACCINES BECAUSE SHE WAS POSITIVE IN MARCH CURRENT DC PLAN IS HOME FAMILY TO TRANSPORT
[2021-06-02] MEDS: amLODIPine Besylate 5 MG TABLET PO (10:32)
[2021-06-02 10:55] LABS: Anion Gap 16 (12-20); Blood Urea Nitrogen 7 mg/dL (9-16); Calcium 8.9 mg/dL (8.4-10.2); Carbon Dioxide 25 mmol/L (22-29); Chloride 102 mmol/L (96-108); Creatinine Clr Calc Pharmacy 92.1; Estimated Glomerular Filt Rate > 60; Glucose Random 149 mg/dL (60-115); Potassium 3.6 mmol/L (3.3-5.1); Sodium 139 mmol/L (135-145)
[2021-06-02] MEDS: Ferrous Sulfate 324 MG TABLET.DR PO (11:11)
--- NOTE | 2021-06-02 11:21 | PHA.PROG ---
Admission Date/Time: June 01, 2021 23:03 Indication: SKIN AND SKIN STRUCTURE Weight in k.647 kg Adjusted body weight in K.099 [place] body weight in Kg: Obesity Dosing Indication % IBW:35% Serum Creatinine - Last 168 Hours 06/01/21 06/02/21 06/02/21 18:27 10:33 10:33 Creatinine 0.62 Cancelled 0.69 Estimated CrCl and GFR - Last 168 Hours 06/01/21 06/02/21 06/02/21 18:27 10:33 10:33 Estim Creat Clear Calc 102.5 Cancelled 92.1 Estimated GFR > 60 Cancelled > 60 Vancomycin Loading Dose: 1250 MG LOAD Current Vancomycin Dosing Regimen: 750 MG Q12H Vancomycin Monitoring using AUC goal of 400 - 600 range with trough as surrogate marker: AUC 431, TROUGH 13.1 Date and Time for next Vancomycin Level to be drawn: 06/03 @1000 Pharmacist Comments on Vancomycin Plan: USING OBESE MODEL Vancomycin dosing will take advantage of [employer] as a clinical decision support tool that uses Bayesian modeling to calculate individual patient's pharmacokinetic parameters and forecast the patient's drug concentration time course with the target goal AUC 24 range of 400 - 600 mg/L/hr.
--- NOTE | 2021-06-02 12:12 | P.PNIM_ITS ---
Subjective Subjective Date of Service: 06/02/21 Interval History: complaining of persistent right buttock pain, swelling and discomfort, denies fever chills no acute issues overnight tolerating diet. . Review of Systems Review of Systems: Yes all other systems are reviewed and are negative Physical Exam Vital Signs: Vital Signs: Last Vital Signs Temp 96.8 F 06/02/21 06:39 Pulse 70 06/02/21 06:39 Resp 16 06/02/21 06:39 BP 108/66 06/02/21 06:39 Pulse Ox 97 06/02/21 06:39 BMI result Body Mass Index 31.8 Const: Other: General Awake alert, no acute distress. Neck supple no JVD. CVS regular rate rhythm, Respiratory lungs clear to auscultation, no respiratory distress, no wheeze, no rhonchi. Gastrointestinal abdomen soft, nontender, bowel sounds audible Extremities no edema. Neuro nonfocal psych appropriate affect right buttock positive erythema, warmth, swelling and tenderness to palpation. Objective Data Active Medications Acetaminophen (Acetaminophen 325 Mg Tablet) 650 mg PO Q6H PRN PRN Reason: Pain, Mild (Pain Scale 1-3) Amlodipine Besylate (Amlodipine Besylate 5 Mg Tablet) 5 mg PO DAILY [facility]; Protocol Last Admin: 06/02/21 10:32 Dose: 5 mg Documented by: CARA Atorvastatin Calcium (Atorvastatin Calcium 40 Mg Tablet) 40 mg PO Q2D@1700 [facility] Buprenorphine/Naloxone (Buprenorphine/Naloxone 4/1 Mg Film) 1 film SUBLINGUAL BID@1130,1800 [facility] Clonazepam (Clonazepam 0.5 Mg Tablet) 0.5 mg PO TID PRN PRN Reason: Anxiety Docusate Sodium (Docusate Sodium 100 Mg Capsule) 100 mg PO DAILY PRN PRN Reason: Constipation Enoxaparin Sodium (Enoxaparin Sodium 40 Mg/0.4 Ml Syringe) 40 mg SUBCUT Q24H [facility] Last Admin: 06/02/21 10:41 Dose: Not Given Documented by: CARA Non-Admin Reason: Patient Refused Ferrous Sulfate (Ferrous Sulfate 324 Mg Tablet.) 324 mg PO Q2D [facility] Last Admin: 06/02/21 11:11 Dose: 324 mg Documented by: CARA Vancomycin HCl 750 mg/ Sodium (Chloride) 265 mls @ 265 mls/hr IV Q12H [facility] Ibuprofen (Ibuprofen 600 Mg Tablet) 600 mg PO Q6H PRN PRN Reason: Pain, Severe (Pain Scale 7-10) Last Admin: 06/02/21 02:04 Dose: 600 mg Documented by: SUSIE Ibuprofen (Ibuprofen 800 Mg Tablet) 800 mg PO TID PRN PRN Reason: Pain (Scale Score 4-6) Levothyroxine Sodium (Levothyroxine Sodium 25 Mcg Tablet) 25 mcg PO DAILY@0630 [facility] Loratadine (Loratadine 10 Mg Tablet) 10 mg PO DAILY PRN PRN Reason: Allergy Symptoms Ondansetron HCl (Ondansetron Hcl 4 Mg/2 Ml Vial) 4 mg IVPUSH Q8H PRN PRN Reason: Nausea and Vomiting Last Admin: 06/02/21 02:06 Dose: 4 mg Documented by: SUSIE Pharmacy Consult (Consult Rx Perform Med Rec) 1 each MISCELLANE ONCE PRN PRN Reason: Consult order Pharmacy Consult (Consult Rx Vancomycin Dosing) 1 each MISCELLANE DAILY PRN PRN Reason: Consult order Sodium Chloride (0.9 % Sodium Chloride Flush 3 Ml Syringe) 3 ml IVFLUSH QSHIFT [facility] Last Admin: 06/02/21 07:46 Dose: 3 ml Documented by: CARA Vitamin D (Cholecalciferol (Vitamin D3) 25 Mcg Tablet) 25 mcg PO DAILY [facility] Last Admin: 06/02/21 07:43 Dose: 25 mcg Documented by: CARA Labs CBC & Chem 7: 06/02/21 04:37 06/02/21 10:33 Labs: Laboratory Results - last 24 hr 06/01/21 06/01/21 06/01/21 18:27 18:27 22:39 MCV 82.9 MCH 27.0 MCHC 32.6 RDW 14.8 Plt Count 315 D MPV 8.8 L Immature Gran % (Auto) 0.3 Neut % (Auto) 67.1 Lymph % (Auto) 24.9 [place] % (Auto) 7.4 Eos % (Auto) 0.2 Baso % (Auto) 0.1 Lymph # (Auto) 2.3 [place] # (Auto) 0.7 Eos # (Auto) 0.0 Baso # (Auto) 0.0 Abs Immat Gran (auto) 0.03 Absolute Neuts (auto) 6.1 Absolute Nucleated RBC 0.000 Nucleated RBC % (auto) 0.0 Anion Gap 13 Estim Creat Clear Calc 102.5 Estimated GFR > 60 Random Glucose 122 H Lactic Acid 1.1 Calcium 9.2 COVID-19 (DOMINIQEU) COVID-19 Clin Com 06/01/21 06/02/21 06/02/21 22:39 04:37 10:33 MCV 82.5 MCH 26.9 L MCHC 32.6 RDW 14.8 Plt Count 331 MPV 8.5 L Immature Gran % (Auto) 0.4 Neut % (Auto) 62.0 Lymph % (Auto) 30.3 [place] % (Auto) 6.8 Eos % (Auto) 0.4 Baso % (Auto) 0.1 Lymph # (Auto) 3.2 [place] # (Auto) 0.7 Eos # (Auto) 0.0 Baso # (Auto) 0.0 Abs Immat Gran (auto) 0.04 H Absolute Neuts (auto) 6.6 Absolute Nucleated RBC 0.000 Nucleated RBC % (auto) 0.0 Anion Gap Cancelled Estim Creat Clear Calc Cancelled Estimated GFR Cancelled Random Glucose Cancelled Lactic Acid Calcium Cancelled COVID-19 (DOMINIQUE) Negative COVID-19 Clin Com See Note 06/02/21 10:33 MCV MCH MCHC RDW Plt Count MPV Immature Gran % (Auto) Neut % (Auto) Lymph % (Auto) [place] % (Auto) Eos % (Auto) Baso % (Auto) Lymph # (Auto) [place] # (Auto) Eos # (Auto) Baso # (Auto) Abs Immat Gran (auto) Absolute Neuts (auto) Absolute Nucleated RBC Nucleated RBC % (auto) Anion Gap 16 Estim Creat Clear Calc 92.1 Estimated GFR > 60 Random Glucose 149 H Lactic Acid Calcium 8.9 COVID-19 (DOMINIQUE) COVID-19 Clin Com Assessment and Plan (1) Cellulitis of buttock, right: Status: Acute Plan 55-year-old female with past medical history of hypothyroidism, hypertension, and history of opioid dependence on Suboxone presents to the hospital with complaints of cellulitis not healing at the site of previously cosmetic injection in the buttocks region #? Right buttock cellulitis -? failed 3 courses of outpatient antibiotic therapy, concern for superimposed infection at the? site of previous cosmetic filler, CT pelvic showed cosmetic pillars with surrounding fat stranding and skin thickening -? continue IV vancomycin day 1, follow blood cultures, normal WBC no fevers. -? recommend outpatient follow-up with Plastic surgery, obtain ID consult #?hypertension -? stable, continue Norvasc 5 mg daily #? hypothyroidism -? continue levothyroxine #? anxiety -? continue clonazepam # history of substance abuse continue Suboxone ?DVT prophylaxis: Lovenox Quality Stroke Does the patient have a stroke diagnosis?: No VTE Prior VTE?: No VTE Risk Level:: Medical - moderate - high VTE Device Contraindication: Treatment Not Indicated VTE Drug Contraindication: N/A - Med Ordered
[2021-06-02] MEDS: Buprenorphine/Naloxone 4/1 mg FILM 1 FILM SUBLINGUAL ×2 (12:30→17:04)
[2021-06-02] MEDS: vancomycin HCL 750 MG in 0.9 % Sodium Chloride 250 ML 265 MG IV ×2 (12:31→23:56)
--- NOTE | 2021-06-02 13:39 | PC.NURSE ---
pt alert and oriented, vss, denies pain. meds given as documented. pt took a shower. pt's daughter visiting. no complaints. will continue to monitor.
--- NOTE | 2021-06-02 15:06 | W.PM.IDCN ---
History of Present Illness Data of Consult Service Date: 06/02/21 Requesting physician: Richardson Reynoso Primary Care Provider: [facility] HPI Reason for consult: right buttock cellulitis She presents with discomfort right buttock and redness. She said she had no problem until March 10 when she had COVID. She didnt receive steroids for COVID. She developed redness and pain and firmness right buttock area and received at least three courses of antibiotics including most recently Bactrim for 10 days which she finished on May 19. She sees [facility], Angie Arvizu. She also had steroid cream to area and gets somewhat better with treatment but then redness again. CT scan shows areas of streaking around presumed cosmetic filler. She received collagen from certifed refrigeration operator in [place] in 2013 to improve buttock droopiness/skin changes and did not know she had filler material placed. Her sister also had procedure same individual and she says she has breast infection problem. Review of Systems Review of Systems: Yes all other systems are reviewed and are negative PMFSH Past Medical History Medical History Arthritis Chronic constipation Depression Fibromyalgia Frequent UTI Hematuria History of panic attacks HTN (hypertension) Hx of anxiety disorder Hx of opioid abuse Hx of renal calculi Renal calculi Thyroid disease Family History Family History Paternal Grandmother Colon cancer Mother Pulmonary embolism Sister Pulmonary embolism Family history: reviewed and not pertinent Surgical History Surgical History H/O left knee surgery Hx of appendectomy Hx of cholecystectomy Tubal ligation status Social History Social History Household Members: Children Alcohol intake: never Years Smoked: 20 Advance Directives: No Patient : No service: No Current occupational status: employed 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 Allergies Allergy/AdvReac Type Severity Reaction Status Date / Time metoclopramide [From REGLAN] AdvReac Intermediate AGITATION Verified 06/01/21 18:08 morphine AdvReac Mild Nausea Verified 06/01/21 18:08 aspirin AdvReac Vomiting Verified 06/01/21 18:08 Active Medications: Current Medications Acetaminophen (Acetaminophen 325 Mg Tablet) 650 mg PO Q6H PRN PRN Reason: Pain, Mild (Pain Scale 1-3) Amlodipine Besylate (Amlodipine Besylate 5 Mg Tablet) 5 mg PO DAILY [facility]; Protocol Last Admin: 06/02/21 10:32 Dose: 5 mg Documented by: Atorvastatin Calcium (Atorvastatin Calcium 40 Mg Tablet) 40 mg PO Q2D@1700 [facility] Buprenorphine/Naloxone (Buprenorphine/Naloxone 4/1 Mg Film) 1 film SUBLINGUAL BID@1130,1800 [facility] Last Admin: 06/02/21 12:30 Dose: 1 film Documented by: Clonazepam (Clonazepam 0.5 Mg Tablet) 0.5 mg PO TID PRN PRN Reason: Anxiety Docusate Sodium (Docusate Sodium 100 Mg Capsule) 100 mg PO DAILY PRN PRN Reason: Constipation Enoxaparin Sodium (Enoxaparin Sodium 40 Mg/0.4 Ml Syringe) 40 mg SUBCUT Q24H [facility] Last Admin: 06/02/21 10:41 Dose: Not Given Documented by: Ferrous Sulfate (Ferrous Sulfate 324 Mg Tablet.) 324 mg PO Q2D [facility] Last Admin: 06/02/21 11:11 Dose: 324 mg Documented by: Vancomycin HCl 750 mg/ Sodium (Chloride) 265 mls @ 265 mls/hr IV Q12H [facility] Last Admin: 06/02/21 12:31 Dose: 265 mls/hr Documented by: Ibuprofen (Ibuprofen 600 Mg Tablet) 600 mg PO Q6H PRN PRN Reason: Pain, Severe (Pain Scale 7-10) Last Admin: 06/02/21 02:04 Dose: 600 mg Documented by: Ibuprofen (Ibuprofen 800 Mg Tablet) 800 mg PO TID PRN PRN Reason: Pain (Scale Score 4-6) Levothyroxine Sodium (Levothyroxine Sodium 25 Mcg Tablet) 25 mcg PO DAILY@0630 [facility] Loratadine (Loratadine 10 Mg Tablet) 10 mg PO DAILY PRN PRN Reason: Allergy Symptoms Ondansetron HCl (Ondansetron Hcl 4 Mg/2 Ml Vial) 4 mg IVPUSH Q8H PRN PRN Reason: Nausea and Vomiting Last Admin: 06/02/21 02:06 Dose: 4 mg Documented by: Pharmacy Consult (Consult Rx Perform Med Rec) 1 each MISCELLANE ONCE PRN PRN Reason: Consult order Pharmacy Consult (Consult Rx Vancomycin Dosing) 1 each MISCELLANE DAILY PRN PRN Reason: Consult order Sodium Chloride (0.9 % Sodium Chloride Flush 3 Ml Syringe) 3 ml IVFLUSH QSHIFT [facility] Last Admin: 06/02/21 07:46 Dose: 3 ml Documented by: Vitamin D (Cholecalciferol (Vitamin D3) 25 Mcg Tablet) 25 mcg PO DAILY [facility] Last Admin: 06/02/21 07:43 Dose: 25 mcg Documented by: Home Medications Medication Instructions Recorded Confirmed Last Taken Type amlodipine 5 mg tablet 5 mg PO DAILY 04/21/20 06/01/21 06/01/21 History buprenorphine 8 mg-naloxone 2 mg 0.5 film BUCCAL BID@1130,1800 04/21/20 06/01/21 06/01/21 History sublingual film (Suboxone) cholecalciferol (vitamin D3) 25 25 mcg PO DAILY 04/21/20 06/01/21 06/01/21 History mcg (1,000 unit) capsule (Vitamin D3) clonazepam 0.5 mg tablet 0.5 mg PO TID PRN 04/21/20 06/01/21 06/01/21 History rosuvastatin 10 mg tablet (Crestor) 10 mg PO Q2D@1700 04/21/20 06/01/21 05/31/21 History cetirizine 10 mg capsule (Zyrtec) 10 mg PO DAILY PRN 06/01/21 06/01/21 Unknown History ferrous sulfate 325 mg (65 mg 1 tab PO Q2D 06/01/21 06/01/21 05/31/21 History iron) tablet (FeroSul) fluticasone propionate 50 1 - 2 spray INTRANASAL DAILY PRN 06/01/21 06/01/21 Unknown History mcg/actuation nasal spray,suspension ibuprofen 800 mg tablet 1 tab PO TID PRN 06/01/21 06/01/21 Unknown History levothyroxine 25 mcg capsule 1 cap PO DAILY@0630 06/01/21 06/01/21 06/01/21 History (Tirosint) Physical Exam Vital Signs: Vital Signs: Last Vital Signs Temp 96.8 F 06/02/21 06:39 Pulse 70 06/02/21 06:39 Resp 16 06/02/21 06:39 BP 108/66 06/02/21 06:39 Pulse Ox 97 06/02/21 06:39 BMI result Body Mass Index 31.8 Const: General: cooperative HEENT: Head: Yes normal to inspection Mouth: Normal oral and palatal mucosa present Resp: Effort & Inspection: normal respiratory effort Cardio: Rate: regular rate Rhythm: regular rhythm GI: Palpation (GI): Soft to palpation and nontender Skin: General skin exam: no rashes or lesions noted Extrem: Other: bilateral buttocks firm area,6 x 8 cm right buttock mild erythema Results Labs CBC & Chem 7: 06/02/21 04:37 06/02/21 10:33 Labs: Short CBC 06/01/21 06/02/21 Range/Units 18:27 04:37 WBC 9.1 10.6 (4.8-10.8) X10*3/uL Hgb 12.8 12.6 (12.0-16.0) g/dl Hct 39.3 38.6 (37.0-47.0) % Plt Count 315 D 331 (160-400) X10*3/uL BMP 06/01/21 06/02/21 06/02/21 18:27 10:33 10:33 Sodium 139 Cancelled 139 Potassium 3.7 Cancelled 3.6 Chloride 102 Cancelled 102 Carbon Dioxide 28 Cancelled 25 BUN 6 L Cancelled 7 L Creatinine 0.62 Cancelled 0.69 Calcium 9.2 Cancelled 8.9 Assessment and Plan (1) Superimposed infection: Status: Acute (2) Cellulitis of buttock, right: Status: Acute There is concern over infected filler implant Staph and strep are concerns,less likely gram negative No antibiotic allergies listed ,but patient notes red palms last night with antibiotic She denies problem with Vancomycin Plan Vancomycin 2-3 days and then po Doxycycline for a week and then po PCN V 250 bid until she sees Plastic Surgeon who specializes in cosmetic surgery (she is interested in going to [place] or [place])
[2021-06-02 16:00] VITALS: BP 128/72; PULSE 75; RESP 15; TEMP 36.6; O2SAT 99
[2021-06-02 19:06] VITALS: BP 122/70; PULSE 87; RESP 14; TEMP 36.5; O2SAT 97
[2021-06-02] MEDS: Ibuprofen 800 MG TABLET PO (20:16)
[2021-06-02 23:37] VITALS: BP 116/70; PULSE 68; RESP 18; TEMP 37.1; O2SAT 99
[2021-06-03 03:47] VITALS: BP 131/77; PULSE 94; RESP 18; TEMP 36.5; O2SAT 100
[2021-06-03] MEDS: Levothyroxine Sodium 25 MCG TABLET PO (05:54)
[2021-06-03 08:00] VITALS: BP 116/68; PULSE 71; RESP 20; TEMP 36.7; O2SAT 97
--- NOTE | 2021-06-03 08:44 | HO.PM.IMPN ---
Subjective Subjective Date of Service: 06/03/21 Interval History: buttock cellulitis Review of Systems buttock area erythema mild improving , has pain Denies any chest pain or shortness of breath or abdominal pain or fever chills or cough or phlegm. Physical Exam Vital Signs: Vital Signs: Last Vital Signs Temp 98.1 F 06/03/21 08:00 Pulse 71 06/03/21 08:00 Resp 20 06/03/21 08:00 BP 116/68 06/03/21 08:00 Pulse Ox 97 06/03/21 08:00 BMI result Body Mass Index 31.8 Constitutional: ? Awake alert, no acute distress.? Cvs: rrr, [id number]. chest: lungs clear to auscultation, no respiratory distress, no wheeze, no rhonchi. GI:abdomen soft, nontender, bowel sounds audible Extremities : no cyanois or edema. skin:right buttock positive erythema, warmth, swelling and tenderness to palpation. Neuro nonfocal Objective Data Active Medications Acetaminophen (Acetaminophen 325 Mg Tablet) 650 mg PO Q6H PRN PRN Reason: Pain, Mild (Pain Scale 1-3) Amlodipine Besylate (Amlodipine Besylate 5 Mg Tablet) 5 mg PO DAILY [facility]; Protocol Last Admin: 06/02/21 10:32 Dose: 5 mg Documented by: CARA Atorvastatin Calcium (Atorvastatin Calcium 40 Mg Tablet) 40 mg PO Q2D@1700 [facility] Last Admin: 06/02/21 17:04 Dose: Not Given Documented by: CLEMENT Non-Admin Reason: Patient Refused Buprenorphine/Naloxone (Buprenorphine/Naloxone 4/1 Mg Film) 1 film SUBLINGUAL BID@1130,1800 [facility] Last Admin: 06/02/21 17:04 Dose: 1 film Documented by: CLEMENT Clonazepam (Clonazepam 0.5 Mg Tablet) 0.5 mg PO TID PRN PRN Reason: Anxiety Docusate Sodium (Docusate Sodium 100 Mg Capsule) 100 mg PO DAILY PRN PRN Reason: Constipation Enoxaparin Sodium (Enoxaparin Sodium 40 Mg/0.4 Ml Syringe) 40 mg SUBCUT Q24H [facility] Last Admin: 06/02/21 10:41 Dose: Not Given Documented by: CARA Non-Admin Reason: Patient Refused Ferrous Sulfate (Ferrous Sulfate 324 Mg Tablet.) 324 mg PO Q2D [facility] Last Admin: 06/02/21 11:11 Dose: 324 mg Documented by: CARA Vancomycin HCl 750 mg/ Sodium (Chloride) 265 mls @ 265 mls/hr IV Q12H [facility] Last Infusion: 06/03/21 02:39 Dose: 0 mls/hr Documented by: HOLGER Ibuprofen (Ibuprofen 600 Mg Tablet) 600 mg PO Q6H PRN PRN Reason: Pain, Severe (Pain Scale 7-10) Last Admin: 06/02/21 02:04 Dose: 600 mg Documented by: SUSIE Ibuprofen (Ibuprofen 800 Mg Tablet) 800 mg PO TID PRN PRN Reason: Pain (Scale Score 4-6) Last Admin: 06/02/21 20:16 Dose: 800 mg Documented by: HOLGER Levothyroxine Sodium (Levothyroxine Sodium 25 Mcg Tablet) 25 mcg PO DAILY@0630 [facility] Last Admin: 06/03/21 05:54 Dose: 25 mcg Documented by: HOLGER Loratadine (Loratadine 10 Mg Tablet) 10 mg PO DAILY PRN PRN Reason: Allergy Symptoms Ondansetron HCl (Ondansetron Hcl 4 Mg/2 Ml Vial) 4 mg IVPUSH Q8H PRN PRN Reason: Nausea and Vomiting Last Admin: 06/02/21 02:06 Dose: 4 mg Documented by: SUSIE Pharmacy Consult (Consult Rx Perform Med Rec) 1 each MISCELLANE ONCE PRN PRN Reason: Consult order Pharmacy Consult (Consult Rx Vancomycin Dosing) 1 each MISCELLANE DAILY PRN PRN Reason: Consult order Sodium Chloride (0.9 % Sodium Chloride Flush 3 Ml Syringe) 3 ml IVFLUSH QSHIFT [facility] Last Admin: 06/02/21 23:55 Dose: 3 ml Documented by: HOLGER Vitamin D (Cholecalciferol (Vitamin D3) 25 Mcg Tablet) 25 mcg PO DAILY [facility] Last Admin: 06/02/21 07:43 Dose: 25 mcg Documented by: CARA Labs CBC & Chem 7: 06/02/21 04:37 06/03/21 10:09 Labs: Laboratory Results - last 24 hr 06/02/21 06/02/21 10:33 10:33 Anion Gap Cancelled 16 Estim Creat Clear Calc Cancelled 92.1 Estimated GFR Cancelled > 60 Random Glucose Cancelled 149 H Calcium Cancelled 8.9 Microbiology Microbiology Results: Microbiology 06/02/21 00:11 Blood Culture - Preliminary Blood - Venous No growth after 24 hours. 06/01/21 22:50 Blood Culture - Preliminary Blood - Venous No growth after 24 hours. Assessment and Plan (1) Cellulitis of buttock, right: Status: Acute Plan 55-year-old female with past medical history of hypothyroidism, hypertension, and history of opioid dependence on Suboxone presents to the hospital with complaints of cellulitis not healing at the site of previously cosmetic injection in the buttocks region 1.? Right buttock cellulitis -? failed? 3 courses of outpatient? antibiotic therapy, concern for superimposed infection at the? site of previous cosmetic filler, CT pelvic showed cosmetic pillars with surrounding fat stranding and skin thickening -? continue IV? vancomycin day 2, vanco trough : 6.2 follow? blood cultures@24hr neg, normal WBC no fevers. -? recommend outpatient follow-up with Plastic surgery, obtain ID consult 2.?hypertension -? stable, continue Norvasc 5 mg daily 3.? hypothyroidism -? continue levothyroxine 4.? anxiety -? continue clonazepam 5.history of substance abuse: continue Suboxone. ?DVT prophylaxis: Setup Quality Stroke Does the patient have a stroke diagnosis?: No VTE Prior VTE?: No VTE Risk Level:: Medical - moderate - high VTE Device Contraindication: Treatment Not Indicated VTE Drug Contraindication: N/A - Med Ordered
[2021-06-03] MEDS: amLODIPine Besylate 5 MG TABLET PO (09:08)
[2021-06-03] MEDS: 0.9 % Sodium Chloride Flush 3 ML SYRINGE IVFLUSH ×2 (09:08→17:33)
[2021-06-03] MEDS: Cholecalciferol (Vitamin D3) 25 MCG TABLET PO (09:08)
[2021-06-03] MEDS: Milk of Magnesia 30 ML ORAL.SUSP 15 ML PO (10:05)
[2021-06-03 10:41] LABS: Anion Gap 14 (12-20); Blood Urea Nitrogen 7 mg/dL (9-16); Calcium 8.9 mg/dL (8.4-10.2); Carbon Dioxide 25 mmol/L (22-29); Chloride 105 mmol/L (96-108); Estimated Glomerular Filt Rate > 60; Glucose Random 161 mg/dL (60-115); Potassium 3.8 mmol/L (3.3-5.1); Sodium 140 mmol/L (135-145)
[2021-06-03 10:45] LABS: Vancomycin Trough 6.2 mcg/mL (10.0-20.0)
--- NOTE | 2021-06-03 10:58 | HE.PHANOTE ---
RE SOCORROO Trough returned low at 6.2. Increasing dose to 1g q12 (12.2 mg/kg). Next trough 06/04 @2100 Thanks Ian
[2021-06-03 12:00] VITALS: BP 128/80; PULSE 93; RESP 18; TEMP 36.4; O2SAT 97
[2021-06-03] MEDS: vancomycin HCL 1,000 MG in 0.9 % Sodium Chloride 250 ML 270 MG IV (12:13)
[2021-06-03] MEDS: Buprenorphine/Naloxone 4/1 mg FILM 1 FILM SUBLINGUAL ×2 (12:13→17:33)
[2021-06-03] MEDS: Ibuprofen 800 MG TABLET PO ×2 (14:21→21:26)
[2021-06-03 15:08] VITALS: BP 143/74; PULSE 82; RESP 18; TEMP 36.5; O2SAT 97
[2021-06-03 19:40] VITALS: BP 148/71; PULSE 82; RESP 18; TEMP 37.3; O2SAT 99
[2021-06-03] MEDS: clonazePAM 0.5 MG TABLET PO (20:15)
[2021-06-03 23:19] VITALS: BP 128/76; PULSE 71; RESP 20; TEMP 36.7; O2SAT 99
[2021-06-04] MEDS: vancomycin HCL 1,000 MG in 0.9 % Sodium Chloride 250 ML 270 MG IV (00:50)
[2021-06-04 03:10] VITALS: BP 119/80; PULSE 76; RESP 19; TEMP 36.5; O2SAT 99
--- NOTE | 2021-06-04 05:21 | PC.NURSE ---
vanco at 2300 started late due to iv site. due to pt hard stick, new iv inserted and vanco started at 0300. notified.
[2021-06-04 06:16] LABS: Estimated Average Glucose 105 mg/dL; Hemoglobin A1c % 5.3 %
[2021-06-04 06:25] LABS: Anion Gap 12 (12-20); Blood Urea Nitrogen 6 mg/dL (9-16); Calcium 8.4 mg/dL (8.4-10.2); Carbon Dioxide 23 mmol/L (22-29); Chloride 109 mmol/L (96-108); Creatinine Clr Calc Pharmacy 109.6; Estimated Glomerular Filt Rate > 60; Glucose Random 89 mg/dL (60-115); Potassium 4.3 mmol/L (3.3-5.1); Sodium 140 mmol/L (135-145)
[2021-06-04] MEDS: Levothyroxine Sodium 25 MCG TABLET PO (06:33)
[2021-06-04 07:48] VITALS: BP 119/66; PULSE 71; RESP 18; TEMP 36.7; O2SAT 98
[2021-06-04] MEDS: 0.9 % Sodium Chloride Flush 3 ML SYRINGE IVFLUSH ×3 (08:36→22:43)
--- NOTE | 2021-06-04 08:39 | HE.PHANOTE ---
RE [facility] Patient SCR is 0.58. Increased dose to 1250mg q12h. Last night dose was given late (@0300). We are still using the obese model. I am worried that the dose might dump, but her kidney function is improving. I think we may need to increase dose or decrease dose/increase frequency. Thanks Ian
[2021-06-04] MEDS: amLODIPine Besylate 5 MG TABLET PO (08:42)
[2021-06-04] MEDS: Ferrous Sulfate 324 MG TABLET.DR PO (08:42)
[2021-06-04] MEDS: Cholecalciferol (Vitamin D3) 25 MCG TABLET PO (08:42)
[2021-06-04] MEDS: Buprenorphine/Naloxone 4/1 mg FILM 1 FILM SUBLINGUAL ×2 (11:31→17:10)
[2021-06-04] MEDS: vancomycin HCL 1,250 MG in 0.9 % Sodium Chloride 250 ML 166.67 MG IV (11:32)
[2021-06-04 11:58] VITALS: BP 135/73; PULSE 79; RESP 18; TEMP 36.7; O2SAT 98
--- NOTE | 2021-06-04 12:08 | HO.PM.IMPN ---
Subjective Subjective Date of Service: 06/04/21 Interval History: buttock cellulitis Review of Systems buttock area erythema seems similar to yesterday, has pain Denies any chest pain or shortness of breath or abdominal pain or fever chills or cough or phlegm. Physical Exam Vital Signs: Vital Signs: Last Vital Signs Temp 98.1 F 06/04/21 11:58 Pulse 79 06/04/21 11:58 Resp 18 06/04/21 11:58 BP 135/73 06/04/21 11:58 Pulse Ox 98 06/04/21 11:58 BMI result Body Mass Index 31.8 ? Constitutional: ? Awake alert, no acute distress.? Cvs: rrr, [id number]. chest: lungs clear to auscultation, no respiratory distress, no wheeze, no rhonchi. GI:abdomen soft, nontender, bowel sounds audible Extremities : no cyanois or edema. skin:right buttock positive erythema, warmth, swelling and tenderness to palpation similar to yesterday. Neuro nonfocal Objective Data Active Medications Acetaminophen (Acetaminophen 325 Mg Tablet) 650 mg PO Q6H PRN PRN Reason: Pain, Mild (Pain Scale 1-3) Amlodipine Besylate (Amlodipine Besylate 5 Mg Tablet) 5 mg PO DAILY [facility]; Protocol Last Admin: 06/04/21 08:42 Dose: 5 mg Documented by: OSCAR Buprenorphine/Naloxone (Buprenorphine/Naloxone 4/1 Mg Film) 1 film SUBLINGUAL BID@1130,1800 [facility] Last Admin: 06/04/21 11:31 Dose: 1 film Documented by: OSCAR Clonazepam (Clonazepam 0.5 Mg Tablet) 0.5 mg PO TID PRN PRN Reason: Anxiety Last Admin: 06/03/21 20:15 Dose: 0.5 mg Documented by: ASHWIN Docusate Sodium (Docusate Sodium 100 Mg Capsule) 100 mg PO DAILY PRN PRN Reason: Constipation Enoxaparin Sodium (Enoxaparin Sodium 40 Mg/0.4 Ml Syringe) 40 mg SUBCUT Q24H [facility] Last Admin: 06/04/21 08:42 Dose: Not Given Documented by: OSCAR Non-Admin Reason: Patient Refused Ferrous Sulfate (Ferrous Sulfate 324 Mg Tablet.) 324 mg PO Q2D [facility] Last Admin: 06/04/21 08:42 Dose: 324 mg Documented by: OSCAR Vancomycin HCl 1,250 mg/ (Sodium Chloride) 250 mls @ 166.667 mls/hr IV Q12H [facility] Last Admin: 06/04/21 11:32 Dose: 166.67 mls/hr Documented by: OSCAR Ibuprofen (Ibuprofen 600 Mg Tablet) 600 mg PO Q6H PRN PRN Reason: Pain, Severe (Pain Scale 7-10) Last Admin: 06/02/21 02:04 Dose: 600 mg Documented by: SUSIE Ibuprofen (Ibuprofen 800 Mg Tablet) 800 mg PO TID PRN PRN Reason: Pain (Scale Score 4-6) Last Admin: 06/03/21 21:26 Dose: 800 mg Documented by: ASHWIN Levothyroxine Sodium (Levothyroxine Sodium 25 Mcg Tablet) 25 mcg PO DAILY@0630 [facility] Last Admin: 06/04/21 06:33 Dose: 25 mcg Documented by: ASHWIN Loratadine (Loratadine 10 Mg Tablet) 10 mg PO DAILY PRN PRN Reason: Allergy Symptoms Magnesium Hydroxide (Milk Of Magnesia 30 Ml Oral.Susp) 15 ml PO BID PRN PRN Reason: Constipation Last Admin: 06/03/21 10:05 Dose: 15 ml Documented by: CLEMENT Patient Own Med ( (Rosuvastatin 10mg)) 1 each PO Q2D@1700 [facility] Last Admin: 06/03/21 17:33 Dose: 1 each Documented by: CLEMENT Ondansetron HCl (Ondansetron Hcl 4 Mg/2 Ml Vial) 4 mg IVPUSH Q8H PRN PRN Reason: Nausea and Vomiting Last Admin: 06/02/21 02:06 Dose: 4 mg Documented by: SUSIE Pharmacy Consult (Consult Rx Perform Med Rec) 1 each MISCELLANE ONCE PRN PRN Reason: Consult order Pharmacy Consult (Consult Rx Vancomycin Dosing) 1 each MISCELLANE DAILY PRN PRN Reason: Consult order Sodium Chloride (0.9 % Sodium Chloride Flush 3 Ml Syringe) 3 ml IVFLUSH QSHIFT [facility] Last Admin: 06/04/21 08:36 Dose: 3 ml Documented by: OSCAR Vitamin D (Cholecalciferol (Vitamin D3) 25 Mcg Tablet) 25 mcg PO DAILY [facility] Last Admin: 06/04/21 08:42 Dose: 25 mcg Documented by: OSCAR Labs CBC & Chem 7: 06/02/21 04:37 06/04/21 05:37 Labs: Laboratory Results - last 24 hr 06/04/21 06/04/21 06/04/21 05:37 05:37 05:37 Anion Gap Cancelled 12 Estim Creat Clear Calc Cancelled 109.6 Estimated GFR Cancelled > 60 Random Glucose Cancelled 89 Estimat Average Glucose 105 Hemoglobin A1c % 5.3 Calcium Cancelled 8.4 Microbiology Microbiology Results: Microbiology 06/02/21 00:11 Blood Culture - Preliminary Blood - Venous No growth after 48 hours. 06/01/21 22:50 Blood Culture - Preliminary Blood - Venous No growth after 48 hours. Assessment and Plan (1) Cellulitis of buttock, right: Status: Acute Plan 55-year-old female with past medical history of hypothyroidism, hypertension, and history of opioid dependence on Suboxone presents to the hospital with complaints of cellulitis not healing at the site of previously cosmetic injection in the buttocks region 1.? Right buttock cellulitis -? failed? 3 courses of outpatient? antibiotic therapy, concern for superimposed infection at the? site of previous cosmetic filler, CT pelvic showed cosmetic pillars with surrounding fat stranding and skin thickening -? continue IV? vancomycin day 3, vanco trough : 6.2 yesterday follow? blood cultures@24hr neg, normal WBC no fevers. -? recommend outpatient follow-up with Plastic surgery d/w ID : continue iv antibiotics 2.?hypertension -? stable, continue Norvasc 5 mg daily 3.? hypothyroidism -? continue levothyroxine 4.? anxiety -? continue clonazepam 5.history of substance abuse: continue Suboxone. ?DVT prophylaxis: Lovenox Patient needs to be inpatient for Iv antiobiotics , since cellulitis at cosmetic surgery site not improvin seems similar as yesterday. Quality Stroke Does the patient have a stroke diagnosis?: No VTE Prior VTE?: No VTE Risk Level:: Medical - moderate - high VTE Device Contraindication: Treatment Not Indicated VTE Drug Contraindication: N/A - Med Ordered
[2021-06-04] MEDS: Ibuprofen 600 MG TABLET PO (14:45)
--- NOTE | 2021-06-04 15:22 | PM.IDPN ---
Subjective Subjective Date of Service: 06/04/21 Critical Care Time (minutes): 15 Comment: She feels as though there is more redness right outer thigh. She has no fever or chills. Objective Data Labs CBC & Chem 7: 06/02/21 04:37 06/04/21 05:37 Labs: Laboratory Results - last 24 hr 06/04/21 06/04/21 06/04/21 05:37 05:37 05:37 Sodium Cancelled 140 Potassium Cancelled 4.3 Chloride Cancelled 109 H Carbon Dioxide Cancelled 23 Anion Gap Cancelled 12 BUN Cancelled 6 L Creatinine Cancelled 0.58 Estim Creat Clear Calc Cancelled 109.6 Estimated GFR Cancelled > 60 Random Glucose Cancelled 89 Estimat Average Glucose 105 Hemoglobin A1c % 5.3 Calcium Cancelled 8.4 Microbiology Microbiology Results: Microbiology 06/02/21 00:11 Blood - Venous Blood Culture - Preliminary No growth after 48 hours. 06/01/21 22:50 Blood - Venous Blood Culture - Preliminary No growth after 48 hours. Physical Exam Vital Signs: Vital Signs: Last Vital Signs Temp 98.1 F 06/04/21 11:58 Pulse 79 06/04/21 11:58 Resp 18 06/04/21 11:58 BP 135/73 06/04/21 11:58 Pulse Ox 98 06/04/21 11:58 BMI result Body Mass Index 31.8 HEENT: Head: Yes normal to inspection Resp: Effort & Inspection: normal respiratory effort Cardio: Rate: regular rate Rhythm: regular rhythm GI: Palpation (GI): Soft to palpation and nontender Extrem: Other: right outer flank mild redness Assessment and Plan Assessment and plan (1) Superimposed infection: Problem details: She is day 3 of Vancomycin. She has some complaints of increased right leg redness laterally Status: Acute Assessment and Plan: Would continue Vancomycin today,then per initial antibiotic plan. Steroid cream to area bid (2) Cellulitis of buttock, right: Status: Acute Time Spent With Patient Time: Total time spent is greater than 50% in coordination of care (as documented) at patient's floor/unit and/or counseling patient:
[2021-06-04 15:56] VITALS: BP 111/59; PULSE 77; RESP 17; TEMP 36.6; O2SAT 98
[2021-06-04 19:23] VITALS: BP 136/77; PULSE 79; RESP 15; TEMP 36.6; O2SAT 99
[2021-06-04 21:49] LABS: Vancomycin Trough 11.1 mcg/mL (10.0-20.0)
--- NOTE | 2021-06-04 22:29 | HE.PHANOTE ---
Vancomycin Dosing Addendum Vancomycin increased to 1250 mg q12h from 1000 mg q12h due to improved renal fxn. trough 11.1...continue with current regimen. next trough 06/06/21 @0900.
[2021-06-04] MEDS: vancomycin HCL 1,250 MG in 0.9 % Sodium Chloride 250 ML 125 MG IV (22:37)
[2021-06-04] MEDS: Ibuprofen 800 MG TABLET PO (22:37)
[2021-06-04] MEDS: clonazePAM 0.5 MG TABLET PO (22:37)
[2021-06-04] MEDS: Betamethasone Dip Aug 0.05% Cr 15 GM TUBE 1 APPL TOPICAL (22:41)
[2021-06-05] VITALS: BP 137/76; PULSE 78; RESP 14; TEMP 36.8; O2SAT 98
[2021-06-05 03:12] VITALS: BP 130/71; PULSE 58; RESP 14; TEMP 36.6; O2SAT 98
[2021-06-05 06:18] LABS: Anion Gap 12 (12-20); Blood Urea Nitrogen 7 mg/dL (9-16); Calcium 8.7 mg/dL (8.4-10.2); Carbon Dioxide 25 mmol/L (22-29); Chloride 107 mmol/L (96-108); Creatinine Clr Calc Pharmacy 113.5; Estimated Glomerular Filt Rate > 60; Glucose Random 90 mg/dL (60-115); Potassium 4.1 mmol/L (3.3-5.1); Sodium 140 mmol/L (135-145)
[2021-06-05] MEDS: Levothyroxine Sodium 25 MCG TABLET PO (06:32)
--- NOTE | 2021-06-05 07:27 | HE.PHANOTE ---
RE KULDIP Continue current regimen. next trough 06/06 @0900. Thanks Ian
[2021-06-05 07:49] VITALS: BP 135/79; PULSE 66; RESP 18; TEMP 36.3; O2SAT 97
[2021-06-05] MEDS: amLODIPine Besylate 5 MG TABLET PO (09:50)
[2021-06-05] MEDS: Ibuprofen 600 MG TABLET PO (09:50)
[2021-06-05] MEDS: Cholecalciferol (Vitamin D3) 25 MCG TABLET PO (09:50)
[2021-06-05] MEDS: Betamethasone Dip Aug 0.05% Cr 15 GM TUBE 1 APPL TOPICAL (09:51)
[2021-06-05] MEDS: 0.9 % Sodium Chloride Flush 3 ML SYRINGE IVFLUSH (09:51)
[2021-06-05] MEDS: vancomycin HCL 1,250 MG in 0.9 % Sodium Chloride 250 ML 166.67 MG IV (11:19)
[2021-06-05] MEDS: Buprenorphine/Naloxone 4/1 mg FILM 1 FILM SUBLINGUAL (11:27)
[2021-06-05 11:41] VITALS: BP 109/77; PULSE 85; RESP 18; TEMP 36.9; O2SAT 98
--- NOTE | 2021-06-05 11:59 | PM.CNGS ---
History of Present Illness Consult details Consult date: 06/05/21 Requesting physician: Richardson Reynoso Narrative: 55-year-old female patient presenting with a right buttock cellulitis. She reports having an injection approximately 7 years ago while in [place] and was told collagen was injected she was fine until she developed Omnicron COVID with mild upper respiratory symptoms and subsequently developed a skin reaction in the right buttock. She was treated for the cellulitis with multiple courses of antibiotics. Initially the redness improved but now she reports continued pain and redness in the buttock. She has researched the condition extensively spoke to a plastic surgeon in [place]. They cannot remove the implant unless the infection is controlled. She was admitted to the hospitalist service for IV antibiotics. Surgical consultation was requested for possible removal of implant. Review of Systems Constitutional: Constitutional: Denies chills, Denies fever(s), Denies headache(s) and Denies poor appetite ENT: Denies dizziness and Denies headache(s) Cardiovascular: Cardiovascular: Denies chest pain, Denies rapid heart rate, Denies palpitations and Denies slow heart rate Respiratory: Respiratory: Denies chest congestion, Denies cough, Denies pain on inspiration and Denies wheezing Gastrointestinal: Gastrointestinal: Denies abdominal pain, Denies bloating, Denies change in stool character, Denies constipation, Denies diarrhea, Denies nausea, Denies vomiting and Denies hematemesis Musculoskeletal: Musculoskeletal: Denies back pain, Denies arthralgias, Denies joint swelling and Denies numbness Integumentary/Breasts: Skin/Breast: Reports as per HPI, Reports change in pigmentation, Reports erythema, Denies rash and Reports skin swelling Neurologic: Denies dizziness, Denies headache(s) and Denies numbness Psychiatric: Psychiatric: Denies anxiety and Denies depression Endocrine: Endocrine: Denies palpitations Hematologic/Lymphatic: Hematologic/Lymphatic: Denies easy bleeding, Denies easy bruising and Denies lymphadenopathy Allergic/Immunologic: Allergic/Immunologic: Denies wheezing PMFSH Past Medical History Medical History Arthritis Chronic constipation Depression Fibromyalgia Frequent UTI Hematuria History of panic attacks HTN (hypertension) Hx of anxiety disorder Hx of opioid abuse Hx of renal calculi Renal calculi Thyroid disease Family History Family History Paternal Grandmother Colon cancer Mother Pulmonary embolism Sister Pulmonary embolism Family history: reviewed and not pertinent Surgical History Surgical History H/O left knee surgery Hx of appendectomy Hx of cholecystectomy Tubal ligation status Social History Social History Household Members: Family Household Members Other:: daughter Housing: House Do you presently have visiting nurse or other home services: No Alcohol intake: never Patient Tobacco Use Status: Former Tobacco user Years Smoked: 20 e-Cigarette/Vaping Use: Never Used service: No Current occupational status: employed Current occupation: [employer] Meds Allergies Allergy/AdvReac Type Severity Reaction Status Date / Time metoclopramide [From REGLAN] AdvReac Intermediate AGITATION Verified 06/01/21 18:08 morphine AdvReac Mild Nausea Verified 06/01/21 18:08 aspirin AdvReac Vomiting Verified 06/01/21 18:08 Active Medications: Current Medications Acetaminophen (Acetaminophen 325 Mg Tablet) 650 mg PO Q6H PRN PRN Reason: Pain, Mild (Pain Scale 1-3) Amlodipine Besylate (Amlodipine Besylate 5 Mg Tablet) 5 mg PO DAILY [facility]; Protocol Last Admin: 06/05/21 09:50 Dose: 5 mg Documented by: Betamethasone Dipropion Augmented (Betamethasone Dip Aug 0.05% Cr 15 Gm Tube) 1 appl TOPICAL BID [facility]; Protocol Last Admin: 06/05/21 09:51 Dose: 1 appl Documented by: Buprenorphine/Naloxone (Buprenorphine/Naloxone 4/1 Mg Film) 1 film SUBLINGUAL BID@1130,1800 [facility] Last Admin: 06/05/21 11:27 Dose: 1 film Documented by: Clonazepam (Clonazepam 0.5 Mg Tablet) 0.5 mg PO TID PRN PRN Reason: Anxiety Last Admin: 06/04/21 22:37 Dose: 0.5 mg Documented by: Docusate Sodium (Docusate Sodium 100 Mg Capsule) 100 mg PO DAILY PRN PRN Reason: Constipation Enoxaparin Sodium (Enoxaparin Sodium 40 Mg/0.4 Ml Syringe) 40 mg SUBCUT Q24H [facility] Last Admin: 06/05/21 09:53 Dose: Not Given Documented by: Ferrous Sulfate (Ferrous Sulfate 324 Mg Tablet.) 324 mg PO Q2D [facility] Last Admin: 06/04/21 08:42 Dose: 324 mg Documented by: Vancomycin HCl 1,250 mg/ (Sodium Chloride) 250 mls @ 166.667 mls/hr IV Q12H [facility] Last Admin: 06/05/21 11:19 Dose: 166.67 mls/hr Documented by: Ibuprofen (Ibuprofen 600 Mg Tablet) 600 mg PO Q6H PRN PRN Reason: Pain, Severe (Pain Scale 7-10) Last Admin: 06/05/21 09:50 Dose: 600 mg Documented by: Ibuprofen (Ibuprofen 800 Mg Tablet) 800 mg PO TID PRN PRN Reason: Pain (Scale Score 4-6) Last Admin: 06/04/21 22:37 Dose: 800 mg Documented by: Levothyroxine Sodium (Levothyroxine Sodium 25 Mcg Tablet) 25 mcg PO DAILY@0630 [facility] Last Admin: 06/05/21 06:32 Dose: 25 mcg Documented by: Loratadine (Loratadine 10 Mg Tablet) 10 mg PO DAILY PRN PRN Reason: Allergy Symptoms Magnesium Hydroxide (Milk Of Magnesia 30 Ml Oral.Susp) 15 ml PO BID PRN PRN Reason: Constipation Last Admin: 06/03/21 10:05 Dose: 15 ml Documented by: Patient Own Med ( (Rosuvastatin 10mg)) 1 each PO Q2D@1700 [facility] Last Admin: 06/05/21 09:51 Dose: 1 each Documented by: Ondansetron HCl (Ondansetron Hcl 4 Mg/2 Ml Vial) 4 mg IVPUSH Q8H PRN PRN Reason: Nausea and Vomiting Last Admin: 06/02/21 02:06 Dose: 4 mg Documented by: Pharmacy Consult (Consult Rx Perform Med Rec) 1 each MISCELLANE ONCE PRN PRN Reason: Consult order Pharmacy Consult (Consult Rx Vancomycin Dosing) 1 each MISCELLANE DAILY PRN PRN Reason: Consult order Sodium Chloride (0.9 % Sodium Chloride Flush 3 Ml Syringe) 3 ml IVFLUSH QSHIFT [facility] Last Admin: 06/05/21 09:51 Dose: 3 ml Documented by: Vitamin D (Cholecalciferol (Vitamin D3) 25 Mcg Tablet) 25 mcg PO DAILY [facility] Last Admin: 06/05/21 09:50 Dose: 25 mcg Documented by: Home Medications Medication Instructions Recorded Confirmed Last Taken Type amlodipine 5 mg tablet 5 mg PO DAILY 04/21/20 06/01/21 06/01/21 History buprenorphine 8 mg-naloxone 2 mg 0.5 film BUCCAL BID@1130,1800 04/21/20 06/01/21 06/01/21 History sublingual film (Suboxone) cholecalciferol (vitamin D3) 25 25 mcg PO DAILY 04/21/20 06/01/21 06/01/21 History mcg (1,000 unit) capsule (Vitamin D3) clonazepam 0.5 mg tablet 0.5 mg PO TID PRN 04/21/20 06/01/21 06/01/21 History rosuvastatin 10 mg tablet (Crestor) 10 mg PO Q2D@1700 04/21/20 06/01/21 05/31/21 History cetirizine 10 mg capsule (Zyrtec) 10 mg PO DAILY PRN 06/01/21 06/01/21 Unknown History ferrous sulfate 325 mg (65 mg 1 tab PO Q2D 06/01/21 06/01/21 05/31/21 History iron) tablet (FeroSul) fluticasone propionate 50 1 - 2 spray INTRANASAL DAILY PRN 06/01/21 06/01/21 Unknown History mcg/actuation nasal spray,suspension ibuprofen 800 mg tablet 1 tab PO TID PRN 06/01/21 06/01/21 Unknown History levothyroxine 25 mcg capsule 1 cap PO DAILY@0630 06/01/21 06/01/21 06/01/21 History (Tirosint) Physical Exam Vital Signs: Vital Signs: Last Vital Signs Temp 98.4 F 06/05/21 11:41 Pulse 85 06/05/21 11:41 Resp 18 06/05/21 11:41 BP 109/77 06/05/21 11:41 Pulse Ox 98 06/05/21 11:41 BMI result Body Mass Index 31.8 Const: General: cooperative, comfortable and well developed Nutritional Appearance: well nourished Orientation/consciousness: patient oriented x3 Eyes: Sclerae: sclerae normal EOM: EOMs intact bilaterally Neck: Neck: Yes normal visual inspection Resp: Effort & Inspection: normal respiratory effort, no cough, no respiratory distress and no stridor Cardio: Jugular venous distension: no JVD GI: Inspection: Yes normal to inspection Back/Spine/Pelvis: Other: Right posterior lateral buttock with an area of thickening and reddened skin, tender to palpation. Region is hard but non fluctuant. Back/spine/pelvis image: 1. Area of skin reaction and tenderness is right buttock Skin: General skin exam: dry skin Rashes: no rashes Neuro: General: patient oriented x3 and no focal motor deficits Extrem: Other: See back above General: Yes full ROM and Yes no clubbing, cyanosis or edema Psych: Appearance: grossly normal Results Labs Result diagrams: 06/02/21 04:37 06/05/21 05:30 Labs: Abnormal lab results 06/05/21 Range/Units 05:30 BUN 7 L (9-16) mg/dL BMP 06/05/21 05:30 Sodium 140 Potassium 4.1 Chloride 107 Carbon Dioxide 25 BUN 7 L Creatinine 0.56 Calcium 8.7 All other labs normal. Assessment and Plan (1) Cellulitis of buttock, right: Status: Acute Plan Unfortunate 55-year-old female presenting with a right buttock cellulitis which developed after COVID-19 infection. Patient underwent collagen injections 7 years prior while in [place] and denied any problems prior to the COVID infection. She now has persistent pain redness in the right buttock only. CT of the pelvis revealed multiple subcutaneous collections of injectable filler with no apparent abscess. Collagen injection appears to be the nidus of the persistent cellulitis. Review of the CT reveals multiple collections throughout both buttocks. This unfortunately is beyond the scope of my practice and the patient would need the evaluation of a cosmetic/plastic surgeon with expertise in collagen injections and management of the complications of this procedure. Patient should be evaluated at a tertiary care center with such expertise. Procedures Date of Service Date of Service: 06/05/21
--- NOTE | 2021-06-05 14:39 | PM.DS ---
DS: Providers Provider Date of Service: 06/05/21 Date of admission: 06/01/21 23:03 Primary care physician: [facility] Consults: 06/02/21 12:19 Consult to Infectious Diseases Routine Consulting Provider: Chioma Erwin Reason for consultation: rt buttock cellulitis Has provider been notified: No 06/05/21 09:53 Consult to General Surgery Routine Consulting Provider: Kehinde Mcrae Reason for consultation: rt buttock fillers needs removal Has provider been notified: No DS: Diagnosis Discharge Diagnosis (1) Cellulitis of buttock, right: Status: Acute DS: Summary Hospital Course Hospital Course: Chief Complaint: not healing cellulitis This is a 55-year-old female with past medical history of hypertension, anxiety, hypothyroidism, hyperlipidemia presents to the hospital with complaints of nonhealing cellulitis of the buttocks region.? Patient reports that she got COVID in March and about 10 days post COVID she developed erythema, and tenderness in her right buttocks.? Patient reports that she has history of buttocks injection collagen 10 years ago, and she feels that this is the area? that is problematic at this time.? Patient reports no fever or chills.? She reports that she has been on 3 rounds of p.o. antibiotics over the last 2 months most recently 10 days of p.o. antibiotics from May 10.? Patient reports some improvement in the erythema but now she has difficulty sitting and or laying due to the pain in her buttocks region.? She reports that she had a CT done few days ago and her PCP asked her to come to the hospital for further evaluation.? She reports that she is in touch with Plastic surgery but they want acute infection to be treated in order to evaluate the collagen injection in her buttocks. On arrival to the ED patient hemodynamically stable with no significant abnormal vitals Labs are reviewed, unremarkable pelvis CT showed redemonstration of gluteal cosmetic Fillers with surrounding fat stranding and skin thickening concerning for superimposed infection given cellulitis, superimposed infection of buttocks injection, and failed outpatient therapy? patient does require a medically necessary to night admission to the hospital for treatment with IV antibiotics as well as monitoring improvement. hospital course 55-year-old female with past medical history of hypothyroidism, hypertension, and history of opioid dependence on Suboxone presents to the hospital with complaints of cellulitis not healing at the site of previous cosmetic injection in the buttocks region patient admitted with a diagnosis of Right buttock cellulitis,she? failed? 3 courses of outpatient? antibiotic therapy, CT pelvic showed cosmetic fillars with surrounding fat stranding and skin thickening, patient seen by infectious disease and she recommended 3 days of IV vancomycin followed by doxycycline 100 mg b.i.d. for 1 week and then PCN V 250 mg b.i.d. until evaluated by surgery, patient has been recommended to follow-up at tertiary [facility] for surgical eval, patient evaluated by General surgery in house they reviewed CT pelvis and noted multiple collections throughout both buttocks, and recommend evaluation by cosmetic/plastic surgeon with expertise in collagen injections and management of the complications of this procedure.? blood cultures were negative times 48 hours she remained afebrile with normal WBC count. hypertension BP remains stable recommend to continue Norvasc 5 mg daily hypothyroidism-?continue levothyroxine anxiety- continue clonazepam history of substance abuse: continue Suboxone. Time Spent with Patient Time attestation: Total time spent providing and/or coordinating discharge services: Discharge coordination time: Greater than 30 minutes Quality: Stroke Does the patient have a stroke diagnosis?: No Physical Exam Vital Signs: Vital Signs: Last Vital Signs Temp 98.4 F 06/05/21 11:41 Pulse 85 06/05/21 11:41 Resp 18 06/05/21 11:41 BP 109/77 06/05/21 11:41 Pulse Ox 98 06/05/21 11:41 BMI result Body Mass Index 31.8 Const: Other: General ? Awake al ert, no acute dist ress.? Neck supple no JVD. CVS? regu lar rate rhythm, R espiratory lungs c lear to auscultati on, no respiratory distress, no whee ze, no rhonchi. Ga strointestinal abd omen soft, nontend er, bowel sounds a udible Extremities no edema. Neuro n onfocal psych appr opriate affect rig ht buttock positiv e warmth, swelling and tenderness to palpation, rednes s improved. DS: Data Data Completed and Pending Labs on day of discharge: Laboratory Results - last 24 hr 06/04/21 06/05/21 20:56 05:30 Sodium 140 Potassium 4.1 Chloride 107 Carbon Dioxide 25 Anion Gap 12 BUN 7 L Creatinine 0.56 Estim Creat Clear Calc 113.5 Estimated GFR > 60 Random Glucose 90 Calcium 8.7 Vancomycin Trough 11.1 Preliminary micro results at discharge 06/02/21 00:11 Blood Culture - Preliminary Blood - Venous No growth after 48 hours. 06/01/21 22:50 Blood Culture - Preliminary Blood - Venous No growth after 48 hours. Discharge Plan Discharge Patient Disposition: Home, Self-Care Discharge Diagnosis: right buttock cellulitis Referrals: Angie Mariee MD [Physician] - 06/08/21 1:00 pm Discharge Medications: New doxycycline hyclate 100 mg capsule 100 mg PO BID Qty: 14 0RF penicillin V potassium 250 mg tablet 250 mg PO BID Qty: 30 0RF Continued clonazepam 0.5 mg Tablet 0.5 mg PO TID PRN (Reason: Anxiety) 0RF amlodipine 5 mg Tablet 5 mg PO DAILY 0RF cholecalciferol (vitamin D3) [Vitamin D3] 25 mcg (1,000 unit) Capsule 25 mcg PO DAILY 0RF rosuvastatin [Crestor] 10 mg Tablet 10 mg PO Q2D@1700 0RF buprenorphine-naloxone [Suboxone] 8-2 mg Film 0.5 film BUCCAL BID@1130,1800 0RF ibuprofen 800 mg tablet 1 tab PO TID PRN (Reason: Pain (Scale Score 4-6)) 0RF ferrous sulfate [FeroSul] 325 mg (65 mg iron) tablet 1 tab PO Q2D 0RF fluticasone propionate 50 mcg/actuation spray,suspension 1 - 2 spray intranasal DAILY PRN (Reason: Allergy Symptoms) 0RF levothyroxine [Tirosint] 25 mcg capsule 1 cap PO DAILY@0630 0RF Zyrtec 10 mg capsule 10 mg PO DAILY PRN (Reason: Allergy Symptoms) 0RF Discharge Orders: Discharge Order (Routine); Ordered 06/05/21 Ordered By: Richardson Reynoso Diet: advance to usual diet Activity on Discharge: As tolerated Stand Alone Forms: Patient Portal Discharge page Care Plan Goals: buttock cellulitis, take doxycycline 1 tablet twice daily for 1 week follow-up with primary care physician and take penicillin V 250 mg by mouth b.i.d. till undergo surgery, 2 week supply of penicillin week is given can get refills from PCP, recommend to follow-up at tertiary care center for further definite treatment for right hip filler removal. Health Concerns: resume all home medications as before Plan of Treatment: follow-up with primary care physician in 1 week Assessment: per discharge summary Discharge Date/Time: 06/05/21 15:01
--- NOTE | 2021-06-05 14:40 | MHC.CM.PN ---
nurse disability case manager covering, discharge plan home no services, transportation- patient to self arrange
== END 2021-06-05 15:01 | disposition home or self-care (01) | DRG 721 ==
LOC: HO.ED 21:50 → HO.EDOVER 23:08 → HO.S3 06-02 14:47
PROVIDERS: Internal Medicine; Admitting Provider Internal Medicine; Emergency Provider Emergency Medicine; Visit Provider Hospitalist
DX: T85.79XA Infection and inflammatory reaction due to other internal prosthetic devices, implants and grafts, initial encounter (principal); E03.9 Hypothyroidism, unspecified; L03.317 Cellulitis of buttock; I10 Essential (primary) hypertension; F41.9 Anxiety disorder, unspecified; F11.20 Opioid dependence, uncomplicated; Z20.822 Contact with and (suspected) exposure to COVID-19; Z79.1 Long term (current) use of non-steroidal anti-inflammatories (NSAID); Z87.440 Personal history of urinary (tract) infections; Z86.16 Personal history of COVID-19; Z88.5 Allergy status to narcotic agent; Z88.6 Allergy status to analgesic agent; Z79.890 Hormone replacement therapy; Z79.899 Other long term (current) drug therapy
CPT/HCPCS: 36415; 72193; 80048; 80202; 83036; 83605; 85025; 87040; 87635; 96365; 99285; J1200; J2405; J2543; J3370; Q9967

== ENCOUNTER 2021-07-12 15:10 | Outpatient (REF) | payer MEDICAID, SELFPAY ==
--- NOTE | ~2021-07-12 | XR_ITS ---
EXAMINATION: XR CHEST CLINICAL INFORMATION: Preprocedure COMPARISON: Previous chest x-ray February 2020 TECHNIQUE: 2 views of the chest were obtained. FINDINGS: The cardiac and mediastinal contours are normal. There is chronic scarring or subsegmental atelectasis at the right lung base that is stable. The lungs are otherwise clear. There is slight elevation of the right hemidiaphragm that is stable. There is no pleural effusion or pneumothorax. There are mild degenerative changes of the spine. XR/XR chest 2V IMPRESSION: No evidence for acute disease in the chest.
== END 2021-07-12 15:11 | disposition home or self-care (01) ==
LOC: HO.XRAY 15:10
PROVIDERS: PCP Internal Medicine; Visit Provider Internal Medicine
DX: Z01.818 Encounter for other preprocedural examination (principal)
CPT/HCPCS: 71046

== ENCOUNTER 2021-12-02 17:05 | Emergency (ER) | payer MEDICARE, MEDICAID, SELFPAY ==
--- NOTE | ~2021-12-02 | CT_ITS ---
CT head/brain wo IV con CLINICAL INFORMATION: Reason for Exam dizziness COMPARISON: No prior CT scan available for comparison. TECHNIQUE: Department standard protocol. This CT examination was performed using dose optimization techniques as appropriate, variously including the following: *Automated exposure control *Adjustment of mA and/or kV according to patient size (this includes techniques or standardized protocols for targeted exams where dose is matched to indication/reason for exam; i.e. extremities or head) *Use of iterative reconstruction technique DLP: 648 mGy-cm FINDINGS: CEREBRAL HEMISPHERES: There is no evidence of intra-axial or extra-axial mass, hemorrhage or acute infarct. BRAIN PARENCHYMA: Normal arriola-white matter differentiation. SUBDURAL SPACE: No bleed. BASAL GANGLIA AND PINEAL GLAND: Unremarkable VENTRICLES: Symmetric and normal in size. CEREBELLUM AND BRAINSTEM: No space-occupying mass, hemorrhage or acute infarct. CEREBELLOPONTINE ANGLES: No lesion found. ORBITS: No intraorbital mass. VESSELS: Unremarkable SKULL BASE: Unremarkable INCLUDED SINUSES AT SKULL BASE: Clear SKULL AND SKIN: No fracture or bone lesion found. CT/CT head/brain wo IV con IMPRESSION: No CT evidence of intracranial space-occupying mass, bleed or infarct.
[2021-12-02 18:09] VITALS: BP 147/89; PULSE 78; RESP 20; TEMP 36.8; O2SAT 100; BMI 28.8
--- NOTE | 2021-12-02 18:14 | ECG_ITS ---
Test Reason : DIZZINESS Blood Pressure : / mmHG Vent. Rate : 087 BPM Atrial Rate : 087 BPM P-R Int : 158 ms QRS Dur : 078 ms QT Int : 376 ms P-R-T Axes : 031 -17 034 degrees QTc Int : 452 ms Normal sinus rhythm Normal ECG When compared with ECG of 28-FEB-2020 15:34, No significant change was found Referred By: Uzma Shaw Electronically Signed By:JEISON DALAL
[2021-12-02 18:32] LABS: MANUAL DIFF FLAG NO
[2021-12-02 18:34] LABS: Basophils Percent Auto 0.1 % (0-2); Hematocrit 42.7 % (37.0-47.0); Hemoglobin 13.7 g/dl (12.0-16.0); Imm Gran Abs Auto 0.02 X10*3/uL (0.00-0.03); Imm Gran Pct Auto 0.2 % (0.0-0.4); Lymphocytes Absolute Auto 2.3 X10*3/uL (1.2-4.9); Lymphocytes Percent Auto 27.8 % (20-40); Mean Corpuscular HGB Conc 32.1 g/dl (31.0-35.0); Mean Corpuscular Hemoglobin 25.7 pg (27.0-33.0); Mean Corpuscular Volume 80.1 fL (80.0-98.0); Mean Platelet Volume 8.7 fL (9.4-12.3); Monocytes Absolute Auto 0.5 X10*3/uL (0.1-1.2); Monocytes Percent Auto 5.5 % (2-11); Neutrophils Absolute Auto 5.4 x10*3/uL (2.0-8.3); Neutrophils Percent Auto 66.4 % (45-73); Platelet Count 340 X10*3/uL (160-400); Red Blood Count 5.33 X10*6/uL (4.20-5.50); Red Cell Distribution Width 15.9 % (11.0-16.0); White Blood Count 8.2 X10*3/uL (4.8-10.8)
[2021-12-02 18:52] LABS: Alanine Aminotransferase 80 U/L (0-31); Albumin Level 4.4 g/dL (3.5-5.0); Alkaline Phosphatase 72 U/L (39-117); Anion Gap 16 (12-20); Aspartate Amino Transferase 63 U/L (5-31); Bilirubin Total < 0.2 mg/dL (0.0-1.0); Blood Urea Nitrogen 8 mg/dL (9-16); Calcium 9.2 mg/dL (8.4-10.2); Carbon Dioxide 24 mmol/L (22-29); Chloride 104 mmol/L (96-108); Creatinine Clr Calc Pharmacy 93.4; Estimated Glomerular Filt Rate > 60; Glucose Random 134 mg/dL (60-115); Magnesium 1.9 mg/dL (1.6-2.6); Potassium 4.1 mmol/L (3.3-5.1); Sodium 140 mmol/L (135-145); Total Protein 7.6 g/dL (6.5-8.0)
[2021-12-02 22:19] LABS: Troponin-I High Sensitivity < 3.5 ng/L (<3.5-17.0)
[2021-12-03] VITALS (9 sets, daily range): BP systolic 127–155; BP diastolic 63–85; PULSE 65–84; RESP 12–18; O2SAT 98
--- NOTE | 2021-12-03 10:39 | ED_ITS ---
HPI - General Adult General Chief complaint: Dizziness Stated complaint: Dizziness X 2 days/Facial pressure Time Seen by Provider: 12/02/21 18:14 Source: patient Mode of arrival: ambulatory Limitations: no limitations History of Present Illness HPI narrative: 56-year-old with past medical history of fibromyalgia, arthritis, TMJ and Thyroiditis presents to the ED for dizziness described as herself spinning when changing position on the bed since Friday. Patient states Friday morning he got up to stand and fell like she was spinning. Patient's denies any slurred speech chest pain, shortness of breath, ringing in the ear, or syncopal epsiodes. Patient states also she has some facial pressure that resolved. Patient denies any fever, chills, any recent head trauma. Related Data Home Medications Medication Instructions Recorded Confirmed amlodipine 5 mg tablet 5 mg PO DAILY 04/21/20 06/01/21 buprenorphine 8 mg-naloxone 2 mg 0.5 film buccal BID@1130,1800 04/21/20 06/01/21 sublingual film (Suboxone) cholecalciferol (vitamin D3) 25 25 mcg PO DAILY 04/21/20 06/01/21 mcg (1,000 unit) capsule (Vitamin D3) clonazepam 0.5 mg tablet 0.5 mg PO TID PRN Anxiety 04/21/20 06/01/21 rosuvastatin 10 mg tablet (Crestor) 10 mg PO Q2D@1700 04/21/20 06/01/21 cetirizine 10 mg capsule (Zyrtec) 10 mg PO DAILY PRN Allergy Symptoms 06/01/21 06/01/21 ferrous sulfate 325 mg (65 mg 1 tab PO Q2D 06/01/21 06/01/21 iron) tablet (FeroSul) fluticasone propionate 50 1 - 2 spray intranasal DAILY PRN 06/01/21 06/01/21 mcg/actuation nasal Allergy Symptoms spray,suspension ibuprofen 800 mg tablet 1 tab PO TID PRN Pain (Scale Score 06/01/21 06/01/21 4-6) levothyroxine 25 mcg capsule 1 cap PO DAILY@0630 06/01/21 06/01/21 (Tirosint) Previous Rx's Medication Instructions Recorded doxycycline hyclate 100 mg capsule 100 mg PO BID #14 caps 06/05/21 penicillin V potassium 250 mg 250 mg PO BID #30 tabs 06/05/21 tablet meclizine 25 mg tablet 25 mg PO QID PRN dizziness 7 days 12/03/21 #28 tabs Allergies Allergy/AdvReac Type Severity Reaction Status Date / Time metoclopramide [From REGLAN] AdvReac Intermediate AGITATION Verified 12/02/21 18:09 morphine AdvReac Mild Nausea Verified 12/02/21 18:09 aspirin AdvReac Vomiting Verified 12/02/21 18:09 Review of Systems Review of Systems: spinning sensation when change of position in head on bed. Yes all other systems are reviewed and are negative [facility] Past Medical History Medical History Arthritis Chronic constipation Depression Fibromyalgia Frequent UTI Hematuria History of panic attacks HTN (hypertension) Hx of anxiety disorder Hx of opioid abuse Hx of renal calculi Renal calculi Thyroid disease Surgical History H/O left knee surgery Hx of appendectomy Hx of cholecystectomy Tubal ligation status Family History Family History Paternal Grandmother Colon cancer Mother Pulmonary embolism Sister Pulmonary embolism Social History Social History Household Members: Family Household Members Other:: daughter Housing: House Do you presently have visiting nurse or other home services: No Alcohol intake: never Patient Tobacco Use Status: Former Tobacco user Years Smoked: 20 e-Cigarette/Vaping Use: Never Used Advance Directives: Yes Advance Directives on File: Yes Advance Directives Date on File: 06/02/21 service: No Current occupational status: employed 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 Physical Exam ED Vital Signs: Vital Signs - 24 hr 12/03/21 10:52 12/03/21 10:56 12/03/21 10:53 Pulse Rate 65 74 66 Respiratory Rate 12 Blood Pressure 154/76 H 138/75 155/78 H Pulse Oximetry Oxygen Delivery Method 12/03/21 10:54 12/03/21 15:06 12/03/21 15:06 Pulse Rate 74 72 73 Respiratory Rate Blood Pressure 138/75 140/70 H 127/79 Pulse Oximetry Oxygen Delivery Method 12/03/21 15:08 12/03/21 16:00 Pulse Rate 84 70 Respiratory Rate 16 Blood Pressure 145/85 H 132/63 Pulse Oximetry 98 Oxygen Delivery Method Room Air BMI result Body Mass Index 28.8 Const General: cooperative, healthy appearing, comfortable, no acute distress, well developed, alert, awake and Physically active Orientation/consciousness: oriented to person, oriented to place, oriented to time and patient oriented x3 HENMT Other: Negative for any facial swelling. Negative for any neck swelling. Negative for any deformity or crepitus or ecchymosis on face. Negative for jaw pain when opening and closing mouth. Head: Yes normal to inspection, Yes No palpable skull fracture present, Yes normocephalic, Yes atraumatic and No abrasion Eyes General: appearance normal, both eyes and all related structures Neck Neck: Yes normal visual inspection, Yes full ROM, Yes no lymphadenopathy, Yes no meningeal signs, Yes trachea midline, Yes supple, No anterior neck swelling and No tender Chest Chest palpation & inspection: normal inspection of the chest and normal palpation of entire chest wall Resp Effort & Inspection: normal respiratory effort and able to speak in complete sentences Auscultation: clear to auscultation bilaterally Cardio Jugular venous distension: no JVD Heart sounds: S1 normal heart sound present and S2 normal heart sound present GI Inspection: Yes normal to inspection and No abdominal wall ecchymosis Palpation (GI): Soft to palpation, not firm, nontender, no guarding and not rigid General: No CVA tenderness and Yes no CVA tenderness Back/Spine/Pelvis Back: no CVA tenderness, No CVA tenderness and No back tenderness Skin General skin exam: no rashes or lesions noted and elasticity normal Neuro Other: Negative facial droop. Negative slurred speech. All extremities equal strength 5+. Negative pronator drift. Wksmxk-no-stod rapid hand movement intact. Negative Romberg. General: oriented to person, oriented to place, oriented to time, patient oriented x3, gait normal, tone normal, moves all extremities, Normal light touch and pain sensation, no meningeal signs and CN's II-XI intact bilaterally Cranial nerves: Yes CN's II-XII intact bilaterally Extrem General: Yes normal to inspection and Yes full ROM Psych Appearance: grossly normal, well kempt and not disheveled NIH Stroke Scale Internal: Initial- Upon Arrival Level of Consciousness: Alert Level of Consciousness Questions: Answers both questions correctly Level of Consciousness Commands: Performs both tasks correctly Best Gaze: Normal Visual: No visual loss Facial Palsy: Normal Motor Arm (Right): No drift Motor Arm (Left): No drift Motor Leg (Right): No drift Motor Leg (Left): No drift Limb Ataxia: Absent Sensory: Normal Best Language: No aphasia Dysarthia: Normal Extinction and Inattention: No abnormality Score: 0 Course Course Course Narrative: Patient has been waiting room for 17 hours. Patient EKG, blood work, and head CT scan that was done. They were normal. Patient finally seen by me in the morning after waiting 17 hours in the waiting room. Potentially negative for any neuro deficits. Facial exam is normal. History physical exam sounds like vertigo. Will do orthostatic blood pressure. Reevaluation(s) Reevaluation #1: Orthostatics blood pressure test was done. Sytolic dropped from 154 to 138 from supine to standing and patient states she felt dizzy. Although technically orth ostatic blood pressure is systolic drop by 20. Patient's blood pressure dropped by 16 so will give her some fluids Time: 11:35 Reevaluation #2: Patient given 2 L of fluid. Patient feels better. Patient's blood pressure normalized. Patient blood pressure stays around 140s. when she is lying down to standing up. Patient informed to follow-up with primary care provider. Second troponin negative. Patient refused meclizine Time: 15:50 Medical Decision Making MDM Narrative Medical decision making narrative: Dizziness. Lab Data Result diagrams: 12/02/21 18:26 12/02/21 18:26 Labs: Lab Results 12/02/21 12/02/21 12/02/21 Range/Units 18:26 18:26 18:26 WBC 8.2 (4.8-10.8) X10*3/uL RBC 5.33 (4.20-5.50) X10*6/uL Hgb 13.7 (12.0-16.0) g/dl Hct 42.7 (37.0-47.0) % MCV 80.1 (80.0-98.0) fL MCH 25.7 L (27.0-33.0) pg MCHC 32.1 (31.0-35.0) g/dl RDW 15.9 (11.0-16.0) % Plt Count 340 (160-400) X10*3/uL MPV 8.7 L (9.4-12.3) fL Immature Gran % (Auto) 0.2 (0.0-0.4) % Neut % (Auto) 66.4 (45-73) % Lymph % (Auto) 27.8 (20-40) % [place] % (Auto) 5.5 (2-11) % Eos % (Auto) 0.0 (0-4) % Baso % (Auto) 0.1 (0-2) % Lymph # (Auto) 2.3 (1.2-4.9) X10*3/uL [place] # (Auto) 0.5 (0.1-1.2) X10*3/uL Eos # (Auto) 0.0 (0.0-0.4) X10*3/uL Baso # (Auto) 0.0 (0.0-0.2) X10*3/uL Abs Immat Gran (auto) 0.02 (0.00-0.03) X10*3/uL Absolute Neuts (auto) 5.4 (2.0-8.3) x10*3/uL Absolute Nucleated RBC 0.000 (0.0-0.012) X10*3/uL Nucleated RBC % (auto) 0.0 (0.0-0.2) /100WBC Sodium 140 (135-145) mmol/L Potassium 4.1 (3.3-5.1) mmol/L Chloride 104 (96-108) mmol/L Carbon Dioxide 24 (22-29) mmol/L Anion Gap 16 (12-20) BUN 8 L (9-16) mg/dL Creatinine 0.64 (0.5-1.4) mg/dL Estim Creat Clear Calc 93.4 Estimated GFR > 60 Random Glucose 134 H (60-115) mg/dL Calcium 9.2 (8.4-10.2) mg/dL Magnesium 1.9 (1.6-2.6) mg/dL Total Bilirubin < 0.2 (0.0-1.0) mg/dL AST 63 H (5-31) U/L ALT 80 H (0-31) U/L Alkaline Phosphatase 72 (39-117) U/L Troponin I High Sens < 3.5 (<3.5-17.0) ng/L Total Protein 7.6 (6.5-8.0) g/dL Albumin 4.4 (3.5-5.0) g/dL 12/03/21 Range/Units 11:51 WBC (4.8-10.8) X10*3/uL RBC (4.20-5.50) X10*6/uL Hgb (12.0-16.0) g/dl Hct (37.0-47.0) % MCV (80.0-98.0) fL MCH (27.0-33.0) pg MCHC (31.0-35.0) g/dl RDW (11.0-16.0) % Plt Count (160-400) X10*3/uL MPV (9.4-12.3) fL Immature Gran % (Auto) (0.0-0.4) % Neut % (Auto) (45-73) % Lymph % (Auto) (20-40) % [place] % (Auto) (2-11) % Eos % (Auto) (0-4) % Baso % (Auto) (0-2) % Lymph # (Auto) (1.2-4.9) X10*3/uL [place] # (Auto) (0.1-1.2) X10*3/uL Eos # (Auto) (0.0-0.4) X10*3/uL Baso # (Auto) (0.0-0.2) X10*3/uL Abs Immat Gran (auto) (0.00-0.03) X10*3/uL Absolute Neuts (auto) (2.0-8.3) x10*3/uL Absolute Nucleated RBC (0.0-0.012) X10*3/uL Nucleated RBC % (auto) (0.0-0.2) /100WBC Sodium (135-145) mmol/L Potassium (3.3-5.1) mmol/L Chloride (96-108) mmol/L Carbon Dioxide (22-29) mmol/L Anion Gap (12-20) BUN (9-16) mg/dL Creatinine (0.5-1.4) mg/dL Estim Creat Clear Calc Estimated GFR Random Glucose (60-115) mg/dL Calcium (8.4-10.2) mg/dL Magnesium (1.6-2.6) mg/dL Total Bilirubin (0.0-1.0) mg/dL AST (5-31) U/L ALT (0-31) U/L Alkaline Phosphatase (39-117) U/L Troponin I High Sens < 3.5 (<3.5-17.0) ng/L Total Protein (6.5-8.0) g/dL Albumin (3.5-5.0) g/dL ECG Data Interpretation: Normal sinus rhythm. Ventricular rate 87. MO interval 158. QRS 78. Q OTC for 52 Discharge Plan Discharge Clinical Impression: Dizziness Patient Disposition: Home, Self-Care Instructions: Dizziness (ED) Additional Instructions: Your blood work, EKG, and head CT scan came back normal. Negative for signs of heart attack or brain bleed. Your blood pressure improved with fluids. Please follow-up with your primary care provider. Return to the ED immediately any slurred speech, facial droop, paralysis of extremities, loss of vision, chest pain, shortness of breath, severe headache, worsening dizziness, or any other concerning symptoms. Prescriptions: New meclizine 25 mg tablet 25 mg PO QID PRN (Reason: dizziness) 7 Days Qty: 28 0RF No Action clonazepam 0.5 mg Tablet 0.5 mg PO TID PRN (Reason: Anxiety) amlodipine 5 mg Tablet 5 mg PO DAILY cholecalciferol (vitamin D3) [Vitamin D3] 25 mcg (1,000 unit) Capsule 25 mcg PO DAILY rosuvastatin [Crestor] 10 mg Tablet 10 mg PO Q2D@1700 buprenorphine-naloxone [Suboxone] 8-2 mg Film 0.5 film BUCCAL BID@1130,1800 ibuprofen 800 mg tablet 1 tab PO TID PRN (Reason: Pain (Scale Score 4-6)) ferrous sulfate [FeroSul] 325 mg (65 mg iron) tablet 1 tab PO Q2D fluticasone propionate 50 mcg/actuation spray,suspension 1 - 2 spray intranasal DAILY PRN (Reason: Allergy Symptoms) levothyroxine [Tirosint] 25 mcg capsule 1 cap PO DAILY@0630 Zyrtec 10 mg capsule 10 mg PO DAILY PRN (Reason: Allergy Symptoms) doxycycline hyclate 100 mg capsule 100 mg PO BID Qty: 14 0RF penicillin V potassium 250 mg tablet 250 mg PO BID Qty: 30 0RF Stand Alone Forms: Work/School Release Interventions: ED Discharge Assessment Last Done: 12/03/21 16:22 Discharge Date/Time: 12/03/21 16:23 Print Language: Thai
[2021-12-03] MEDS: 0.9 % Sodium Chloride 1,000 ML 999 ML IV ×2 (11:51)
--- NOTE | 2021-12-03 11:56 | PC.NURSE ---
pt reports bad reaction (adverse reaction) to reglan last time she was here. reprots feeling very anxious about taking any medications. pt educated on uses and effects of meclazine. per pt, she will think about it. Jon HICKS made aware
[2021-12-03 12:35] LABS: Troponin-I High Sensitivity < 3.5 ng/L (<3.5-17.0)
[2021-12-03] MEDS: Meclizine HCl 25 MG TABLET 50 MG PO (16:13)
--- NOTE | 2021-12-03 16:20 | PC.NURSE ---
PRIMARY RN AWARE OF DC. PT AWAKE, ALERT AND ORIENTED X 3. SKIN WARM AND DRY. RESP UNLABORED. DENIES N/V. NO ACUTE DISTRESS NOTED. NEUROS INTACT. INITIALLY DECLINED MECLIZINE HOWEVER REQUESTED MEDICATION MEDICATED ON DC. IV REMOVED. AGREEABLE TO DC HOME. HOME WITH FAMILY
== END 2021-12-03 16:23 | disposition home or self-care (01) ==
PROVIDERS: Emergency Medicine; Physician Assistant; Physician Assistant Medical; Emergency Provider Emergency Medicine; PCP Internal Medicine
DX: R42 Dizziness and giddiness (principal); I10 Essential (primary) hypertension; F11.20 Opioid dependence, uncomplicated; Z79.02 Long term (current) use of antithrombotics/antiplatelets; Z79.899 Other long term (current) drug therapy
CPT/HCPCS: 36415; 70450; 80053; 83735; 84484; 85025; 93005; 99284

== ENCOUNTER → 2022-01-04 11:59 | Outpatient (BNVA) | payer MEDICARE, MEDICAID, SELFPAY | PROVIDERS: Visit Provider Nurse Practitioner Family | DX: M79.7 Fibromyalgia (principal) | CPT/HCPCS: 99212 ==

== ENCOUNTER 2022-01-07 15:11 | Outpatient (REF) | payer MEDICARE, MEDICAID, SELFPAY ==
--- NOTE | ~2022-01-07 | XR_ITS ---
EXAMINATION: 1. RADIOGRAPHS RIGHT FOOT 2. RADIOGRAPHS LEFT FOOT CLINICAL INFORMATION: Foot pain COMPARISON: None TECHNIQUE: 3 views of each foot were obtained. FINDINGS: Left foot: Bones of the midfoot are well aligned. No tarsal, metatarsal or phalangeal fracture. Minimal degenerative changes of the first MTP joint and scattered IP joints. Small posterior calcaneal enthesophyte. No focal soft tissue swelling of the foot. No gross ankle joint effusion. Right foot: Bones of the midfoot are well aligned. No tarsal, metatarsal or phalangeal fracture. Mild degenerative changes of the first MTP joint and scattered IP joints. Tiny posterior calcaneal enthesophyte. No focal soft tissue swelling. No radiopaque foreign body. No gross ankle joint effusion. XR/XR foot RT 2V IMPRESSION: Mild degenerative changes of both feet. No fracture.
--- NOTE | ~2022-01-07 | XR_ITS ---
EXAMINATION: 1. RADIOGRAPHS RIGHT FOOT 2. RADIOGRAPHS LEFT FOOT CLINICAL INFORMATION: Foot pain COMPARISON: None TECHNIQUE: 3 views of each foot were obtained. FINDINGS: Left foot: Bones of the midfoot are well aligned. No tarsal, metatarsal or phalangeal fracture. Minimal degenerative changes of the first MTP joint and scattered IP joints. Small posterior calcaneal enthesophyte. No focal soft tissue swelling of the foot. No gross ankle joint effusion. Right foot: Bones of the midfoot are well aligned. No tarsal, metatarsal or phalangeal fracture. Mild degenerative changes of the first MTP joint and scattered IP joints. Tiny posterior calcaneal enthesophyte. No focal soft tissue swelling. No radiopaque foreign body. No gross ankle joint effusion. XR/XR foot LT 2V IMPRESSION: Mild degenerative changes of both feet. No fracture.
[2022-01-07 17:18] LABS: Erythrocyte Sedimentation Rate 14 MM/HR (0-20)
[2022-01-08 17:02] LABS: Lyme Abs Screen <0.90 index
[2022-01-09 13:33] LABS: Anti Nuclear Antibody Screen NEGATIVE (NEGATIVE)
== END 2022-01-07 15:12 | disposition home or self-care (01) ==
LOC: HO.LAB 15:11
PROVIDERS: Absent Provider Optometrist; PCP Internal Medicine; Visit Provider Nurse Practitioner Family
DX: M79.7 Fibromyalgia (principal); M79.671 Pain in right foot; M79.672 Pain in left foot; R42 Dizziness and giddiness
CPT/HCPCS: 36415; 73620; 85652; 86038; 86039; 86140; 86617; 86618

== ENCOUNTER 2022-02-07 14:26 | Outpatient (REF) | payer OTHER, SELFPAY ==
--- NOTE | ~2022-02-07 | MM_ITS ---
EXAMINATION: MM SCREENING DIGITAL BREAST TOMOSYNTHESIS, BILATERAL CLINICAL INFORMATION: Screening. Asymptomatic. The lifetime risk of breast cancer based on the Tyrer-Cuzick Model is 6.7%. COMPARISON: Mammography: 12/29/2019 and studies dating back to 12/12/2014. TECHNIQUE: Digital breast tomosynthesis is performed in both the craniocaudal and mediolateral oblique views along with computer-aided detection (CAD). Synthesized 2D images are generated from the tomosynthesis. FINDINGS: There are scattered areas of fibroglandular density (ACR BI-RADS breast composition Category b). There is a stable parenchymal pattern of the left breast without new abnormal dominant mass or suspicious grouping of microcalcifications. Within the deep superior aspect of the right breast there is a new density with fatty cleft representing a small intramammary lymph node. MM/MM tomosynthesis screening BI IMPRESSION: No mammographic evidence of malignancy. ASSESSMENT: BI-RADS 1: Negative. RECOMMENDATION: Routine annual mammography screening. This patient's information was entered into a reminder system with a target due date for their next mammogram.
== END 2022-02-07 14:27 | disposition home or self-care (01) ==
LOC: HO.MAMMO 14:26
PROVIDERS: Visit Provider Physician Assistant
DX: Z12.31 Encounter for screening mammogram for malignant neoplasm of breast (principal)
CPT/HCPCS: 77063; 77067

== ENCOUNTER 2022-02-19 15:00 | Outpatient (RCR) | payer OTHER, SELFPAY ==
[2022-02-14 14:03] VITALS: BP 134/75; PULSE 72
--- NOTE | 2022-02-14 15:06 | MHC.PT.EP ---
[facility] [place] Office [place] Office [place] Office [address] Jamel De La Rosa [address] [phone] F: [phone] F: [phone] F: [phone] F: [phone] Physical Therapy Plan of Care Date of Evaluation: Date of Surgery: NA Diagnosis: Dizziness and giddiness Assessment: Lu is a 50 year old female who is referred to PT for dizziness and giddiness . She reports of having sudden onset of symptoms of room spinning dizziness about 2.5 months back. Her symptoms initially got better and then worse. They have overall been the same over the last 2 months. She reports of having dizziness with sit to supine, looking up, down, sudden head motion and turns, occasional nausea and feeling of unsteadiness. She states that her dizziness lasts for several hours. She demonstrated impaired dynamic balance. Static balance was WNL and has negative for BPPV. Symptoms suggestive of vestibular hypofunction. She needs occasional assistance of family with ADLS due to dizziness. She would benefit from skilled PT to address the aforementioned impairments and improve tolerance to functional activities. Frequency and Duration: The patient will be seen 1/week for 6 weeks. Short Term Goals: 1. Pt will initiate HEP for vestibular hypofunction in 2 weeks. 2. Pt will note a 50% decrease in dizziness with sit to supine and looking up/ down in 4 weeks. Painter Decorator Goals: 1. Pt will be able to tolerate sudden head turns and body motions without LOB in 5 weeks. 2. Patient to be able to functionally move in all planes and directions without provocation of dizziness to show return to PLOF in 6 weeks. Treatment Plan: Modalities to reduce pain, spasms and effusion. Manual therapy to restore motion and function. Therapeutic exercise to improve strength and flexibility. Neuromuscular re-education for posture and balance. Therapeutic activities to return to functional activities of daily living. Electronically signed by: Kari Gonzales PT DPT Please sign and return to therapist. Thank you for your referral.
--- NOTE | 2022-03-19 10:55 | MHC.PT.DC ---
[facility] [place] Office [place] Office [place] Office [address] Divya De La Rosa [address] [phone] F: [phone] F: [phone] F: [phone] F: [phone] Physical Therapy Discharge Report Diagnosis: Dizziness and giddiness Date of Surgery: NA Date of Evaluation: 02/14/22 Date of Discharge: 03/19/22 Treatments to Date: 2 Cancellations to Date: 0 No Shows to Date: 0 Discharge Status: Patient Elected to Stop Discharge Summary: Lu came for one treatment after her evaluation. She canceled her other visits without stating a reason. She is therefore being d/c from PT. Electronically signed by: Kari Gonzales PT DPT Please sign and return to therapist. Thank you for your referral.
== END 2022-03-19 10:55 | disposition home or self-care (01) ==
LOC: HO.PT 15:00
PROVIDERS: Visit Provider Physician Assistant
DX: R42 Dizziness and giddiness (principal)
CPT/HCPCS: 97110; 97112; 97161

== ENCOUNTER 2022-03-13 15:21 | Outpatient (REF) | payer OTHER, SELFPAY ==
[2022-03-16 23:19] LABS: HPV mRNA E6/E7 rflx Not Detected (Not Detected)
== END 2022-03-13 15:22 | disposition home or self-care (01) ==
LOC: HO.LNP 15:21
PROVIDERS: PCP Physician Assistant; Visit Provider Advanced Practice Midwife
DX: Z12.4 Encounter for screening for malignant neoplasm of cervix (principal); Z11.51 Encounter for screening for human papillomavirus (HPV); R31.9 Hematuria, unspecified; N93.9 Abnormal uterine and vaginal bleeding, unspecified
CPT/HCPCS: 81003; 87624; 88142; 99212

== ENCOUNTER 2022-03-14 10:36 | Outpatient (REF) | payer OTHER, SELFPAY ==
[2022-03-14 11:43] LABS: Hematocrit 41.3 % (37.0-47.0); Hemoglobin 13.6 g/dl (12.0-16.0); Mean Corpuscular HGB Conc 32.9 g/dl (31.0-35.0); Mean Corpuscular Hemoglobin 27.7 pg (27.0-33.0); Mean Corpuscular Volume 84.1 fL (80.0-98.0); Mean Platelet Volume 9.1 fL (9.4-12.3); Platelet Count 305 X10*3/uL (160-400); Red Blood Count 4.91 X10*6/uL (4.20-5.50); Red Cell Distribution Width 12.6 % (11.0-16.0); White Blood Count 7.7 X10*3/uL (4.8-10.8)
[2022-03-14 12:11] LABS: Appearance Urine Clear; Color Urine Yellow; Glucose Urine UA Negative (Negative); Leukocyte Esterase Urine Negative (Negative); Nitrite Urine Negative (Negative); Urine Blood Negative (Negative); Urine Ketones Negative (Negative); Urine Protein Negative (Neg-Trace)
[2022-03-14 12:32] LABS: Alanine Aminotransferase 61 U/L (0-31); Albumin Level 3.9 g/dL (3.5-5.0); Alkaline Phosphatase 75 U/L (39-117); Anion Gap 13 (12-20); Aspartate Amino Transferase 41 U/L (5-31); Bilirubin Total 0.3 mg/dL (0.0-1.0); Blood Urea Nitrogen 7 mg/dL (9-16); Calcium 8.8 mg/dL (8.4-10.2); Carbon Dioxide 25 mmol/L (22-29); Chloride 104 mmol/L (96-108); Cholesterol 200 mg/dL; Estimated Glomerular Filt Rate > 60; Glucose Fasting 97 mg/dL (60-99); HDL Cholesterol 37 mg/dL; LDL Cholesterol Calculated 115 mg/dl; Sodium 138 mmol/L (135-145); Total Protein 6.8 g/dL (6.5-8.0); Triglycerides 242 mg/dL
[2022-03-14 12:33] LABS: Creatinine Urine 63.92 mg/dL; Microalbum/Creatinine Ratio Ur 10.9 ug/mg cr
[2022-03-14 12:37] LABS: TSH reflex Free T4 4.76 uIU/mL (0.32-4.0)
== END 2022-03-14 10:37 | disposition home or self-care (01) ==
LOC: HO.LAB 10:36
PROVIDERS: PCP Physician Assistant; Visit Provider Physician Assistant
DX: N39.0 Urinary tract infection, site not specified (principal); E03.9 Hypothyroidism, unspecified; I10 Essential (primary) hypertension; E78.2 Mixed hyperlipidemia
CPT/HCPCS: 36415; 80053; 80061; 81003; 82043; 84439; 84443; 85027

== ENCOUNTER 2022-04-26 12:08 | Outpatient (REF) | payer OTHER, SELFPAY ==
[2022-04-26 13:04] LABS: Estimated Average Glucose 108 mg/dL; Hemoglobin A1c % 5.4 %
[2022-04-26 13:29] LABS: Alanine Aminotransferase 98 U/L (0-31); Albumin Level 4.2 g/dL (3.5-5.0); Alkaline Phosphatase 78 U/L (39-117); Anion Gap 14 (12-20); Aspartate Amino Transferase 64 U/L (5-31); Bilirubin Total 0.6 mg/dL (0.0-1.0); Blood Urea Nitrogen 8 mg/dL (9-16); Calcium 9.1 mg/dL (8.4-10.2); Carbon Dioxide 25 mmol/L (22-29); Chloride 107 mmol/L (96-108); Estimated Glomerular Filt Rate > 60; Glucose Random 95 mg/dL (60-115); Potassium 3.9 mmol/L (3.3-5.1); Sodium 142 mmol/L (135-145); Total Protein 7.1 g/dL (6.5-8.0)
[2022-04-26 13:45] LABS: Free T4 (Free Thyroxine) 1.03 ng/dL (0.71-1.85); Thyroid Stimulating Hormone 2.39 uIU/mL (0.32-4.0)
== END 2022-04-26 12:09 | disposition home or self-care (01) ==
LOC: HO.LAB 12:08
PROVIDERS: PCP Physician Assistant; Visit Provider Internal Medicine
DX: E03.9 Hypothyroidism, unspecified (principal); R73.9 Hyperglycemia, unspecified
CPT/HCPCS: 36415; 80053; 83036; 84439; 84443

== ENCOUNTER → 2022-05-20 15:00 | Outpatient (BNVA) | payer OTHER, SELFPAY | PROVIDERS: PCP Physician Assistant; Visit Provider Nurse Practitioner Family | DX: N20.0 Calculus of kidney (principal); R31.29 Other microscopic hematuria | CPT/HCPCS: 99202 ==

== ENCOUNTER 2022-05-29 10:09 | Outpatient (REF) | payer OTHER, SELFPAY ==
[2022-05-29 11:03] LABS: Hematocrit 42.5 % (37.0-47.0); Mean Corpuscular HGB Conc 32.9 g/dl (31.0-35.0); Mean Corpuscular Hemoglobin 28.2 pg (27.0-33.0); Mean Corpuscular Volume 85.7 fL (80.0-98.0); Mean Platelet Volume 9.5 fL (9.4-12.3); Platelet Count 310 X10*3/uL (160-400); Red Blood Count 4.96 X10*6/uL (4.20-5.50); Red Cell Distribution Width 13.3 % (11.0-16.0); White Blood Count 8.3 X10*3/uL (4.8-10.8)
[2022-05-29 12:09] LABS: Alanine Aminotransferase 69 U/L (0-31); Alkaline Phosphatase 70 U/L (39-117); Anion Gap 13 (12-20); Aspartate Amino Transferase 50 U/L (5-31); Bilirubin Total 0.5 mg/dL (0.0-1.0); Blood Urea Nitrogen 10 mg/dL (9-16); Calcium 8.9 mg/dL (8.4-10.2); Carbon Dioxide 26 mmol/L (22-29); Chloride 105 mmol/L (96-108); Estimated Glomerular Filt Rate > 60; Glucose Fasting 98 mg/dL (60-99); Potassium 4.3 mmol/L (3.3-5.1); Sodium 140 mmol/L (135-145); Total Protein 6.9 g/dL (6.5-8.0)
[2022-05-29 12:25] LABS: TSH reflex Free T4 2.99 uIU/mL (0.32-4.0)
== END 2022-05-29 10:10 | disposition home or self-care (01) ==
LOC: HO.LAB 10:09
PROVIDERS: PCP Physician Assistant; Visit Provider Physician Assistant
DX: I10 Essential (primary) hypertension (principal); E03.9 Hypothyroidism, unspecified; R74.8 Abnormal levels of other serum enzymes
CPT/HCPCS: 36415; 80053; 84443; 85027

== ENCOUNTER → 2022-06-20 15:21 | Outpatient (BNVA) | payer OTHER, SELFPAY | PROVIDERS: PCP Physician Assistant; Visit Provider Nurse Practitioner Family | DX: N20.0 Calculus of kidney (principal); R31.29 Other microscopic hematuria | CPT/HCPCS: Q3014 ==

== ENCOUNTER 2022-07-13 11:48 | Outpatient (REF) | payer OTHER, SELFPAY ==
[2022-07-13 13:30] LABS: Hematocrit 41.4 % (37.0-47.0); Hemoglobin 13.5 g/dl (12.0-16.0); Mean Corpuscular HGB Conc 32.6 g/dl (31.0-35.0); Mean Corpuscular Volume 85.7 fL (80.0-98.0); Mean Platelet Volume 9.8 fL (9.4-12.3); Platelet Count 334 X10*3/uL (160-400); Red Blood Count 4.83 X10*6/uL (4.20-5.50); Red Cell Distribution Width 12.8 % (11.0-16.0); White Blood Count 9.2 X10*3/uL (4.8-10.8)
== END 2022-07-13 11:49 | disposition home or self-care (01) ==
LOC: HO.HMGCLDS 11:48
PROVIDERS: PCP Physician Assistant; Visit Provider Nurse Practitioner Family
DX: L03.90 Cellulitis, unspecified (principal)
CPT/HCPCS: 36415; 85027

== ENCOUNTER 2022-08-10 18:33 | Emergency (ER) | payer OTHER, SELFPAY ==
--- NOTE | ~2022-08-10 | CT_ITS ---
EXAMINATION: CT ABDOMEN AND PELVIS WITHOUT CONTRAST CLINICAL INFORMATION: upper abdominal pain. COMPARISON: 05/30/[address] scan.. TECHNIQUE: Multidetector volumetric imaging was performed from the superior aspect of the liver through the pubic symphysis without contrast per renal stone protocol. Sagittal and coronal reformatted images were obtained on the technologist workstation. This CT examination was performed using dose optimization techniques as appropriate, variously including the following: *Automated exposure control *Adjustment of mA and/or kV according to patient size (this includes techniques or standardized protocols for targeted exams where dose is matched to indication/reason for exam; i.e. extremities or head) *Use of iterative reconstruction technique DLP: 520 mGy-cm. FINDINGS: LUNG BASES: Tiny calcified granuloma in the posterior right costophrenic sulcus and left lower lobe. LIVER, GALLBLADDER, BILIARY TREE: The non-contrast liver is normal in size, shape, and attenuation. No focal hepatic lesion or biliary ductal dilatation is present. The gallbladder is surgically absent. PANCREAS: Unremarkable. SPLEEN: Unremarkable. ADRENAL GLANDS: Unremarkable. KIDNEYS AND URETERS: The kidneys are normal in size, shape, and attenuation. No hydronephrosis or hydroureter. No perinephric stranding. There is a tiny punctate intrarenal calculi in the upper pole collecting system of the left kidney. There is also a extremely tiny punctate calculi seen within the proximal right ureter at the level of the ureteropelvic junction. This tiny calculi is only seen on thin slice image [id number]. Although this could be artifactual in nature a tiny stone would be suspected and could be clinically correlated with patient's symptoms. BLADDER: Unremarkable. GASTROINTESTINAL TRACT: A few scattered colonic diverticula are seen but there is no colonic wall thickening or pericolonic inflammatory change to suggest diverticulitis. Visualized small bowel unremarkable ABDOMINAL WALL: Sequela of prior abdominoplasty and possible gluteal soft tissue injections. LYMPHOVASCULAR STRUCTURES: No lymphadenopathy. The aorta is unremarkable.. PELVIC VISCERA: Unremarkable. OSSEUS STRUCTURES: Mild degenerative changes in the spine more so at L4/L5 where there is a trace grade [address]/CT abdomen pelvis wo IV con IMPRESSION: There is a tiny punctate intrarenal calculi seen in the upper pole collecting system of the left kidney as well as a extremely tiny punctate calculi seen in the proximal right ureter at the level of the ureteropelvic junction. Although this could be artifactual in nature, a tiny proximal left ureteric stone would be suspected and could be clinically correlated with patient's symptoms.
[2022-08-10 18:37] VITALS: BP 172/83; PULSE 87; RESP 18; TEMP 36.6; O2SAT 98; BMI 30.2
--- NOTE | 2022-08-10 18:39 | ECG_ITS ---
Test Reason : PALPATATIONS Blood Pressure : / mmHG Vent. Rate : 089 BPM Atrial Rate : 089 BPM P-R Int : 166 ms QRS Dur : 078 ms QT Int : 370 ms P-R-T Axes : 023 -16 020 degrees QTc Int : 450 ms Normal sinus rhythm Normal ECG When compared with ECG of 02-DEC-2021 18:20, No significant change was found Referred By: Uzma Shaw Electronically Signed By:KENNA CLEMENTE MD
--- NOTE | 2022-08-10 18:39 | ED.GENADULT ---
HPI - General Adult General Chief complaint: Arrhythmia/Palpitations Stated complaint: heart palpitations Time Seen by Provider: 08/10/22 20:53 Source: patient, RN notes reviewed and old records reviewed Mode of arrival: ambulatory Limitations: no limitations History of Present Illness HPI narrative: 56-year-old female past medical history significant for obesity, fatty liver disease, anxiety, hypothyroidism, hypertension, hyperlipidemia, recurrent buttock cellulitis, vertigo presents for evaluation of palpitations. In patient reports that she has been having intermittent palpitations for the last couple days. She recently had the symptoms just prior to arrival. She states ?I feel like my heart is beating very fast and then I feel like I am going to pass out but I do not. She also reports that she feels like her legs are weak Patient states that she occasionally has abdominal pain in the right upper quadrant and left periumbilical region after eating She states her doctor told her this is ?due to scar tissue. ? Patient reports that she has been taking prednisone for the last couple days due to ?inflammation my buttocks. ? She states that she does not like prednisone because she has had a bad reaction in the past Related Data Home Medications Medication Instructions Recorded Confirmed amlodipine 5 mg tablet 5 mg PO DAILY 04/21/20 07/23/22 buprenorphine 8 mg-naloxone 2 mg 0.5 film buccal BID@1130,1800 04/21/20 07/23/22 sublingual film (Suboxone) cholecalciferol (vitamin D3) 25 25 mcg PO DAILY 04/21/20 07/23/22 mcg (1,000 unit) capsule (Vitamin D3) clonazepam 0.5 mg tablet 0.5 mg PO TID PRN Anxiety 04/21/20 07/23/22 rosuvastatin 10 mg tablet (Crestor) 10 mg PO Q2D@1700 04/21/20 07/23/22 cetirizine 10 mg capsule (Zyrtec) 10 mg PO DAILY PRN Allergy Symptoms 06/01/21 07/23/22 fluticasone propionate 50 1 - 2 spray intranasal DAILY PRN 06/01/21 07/23/22 mcg/actuation nasal Allergy Symptoms spray,suspension acetaminophen 500 mg tablet 1,000 mg PO Q8H PRN pain 01/04/22 07/23/22 meclizine 12.5 mg tablet 12.5 mg PO Q8H PRN dizziness 01/21/22 07/23/22 Previous Rx's Medication Instructions Recorded sumatriptan succinate 25 mg tablet 25 mg PO DAILY 30 days #9 tabs 01/21/22 ascorbic acid (vitamin C) 500 mg 500 mg PO DAILY #90 tabs 04/11/22 tablet ferrous sulfate 325 mg (65 mg 325 mg PO Q2D 60 days #30 tabs 04/11/22 iron) tablet (FeroSul) levothyroxine 25 mcg tablet 37.5 mcg PO DAILY 30 days #45 tabs 05/15/22 pyridoxine (vitamin B6) 100 mg 100 mg PO DAILY #90 tabs 05/20/22 tablet nystatin 100,000 unit/gram topical 1 appl topical BID #15 grams 06/05/22 powder betamethasone, augmented 0.05 % 1 appl topical BID 7 days #15 grams 07/22/22 topical cream hydrocortisone 2.5 % topical cream 1 appl topical BID 30 days #454 07/22/22 grams ibuprofen 800 mg tablet 800 mg PO DAILY PRN pain 30 days 07/22/22 #30 tabs sulfamethoxazole 800 1 tab PO BID 10 days #20 tabs 07/22/22 mg-trimethoprim 160 mg tablet (Bactrim DS) prednisone 5 mg tablet 5 mg PO DAILY 10 days #10 tabs 08/06/22 Allergies Allergy/AdvReac Type Severity Reaction Status Date / Time metoclopramide [From REGLAN] AdvReac Intermediate AGITATION Verified 08/10/22 18:36 morphine AdvReac Mild Nausea Verified 08/10/22 18:36 aspirin AdvReac Vomiting Verified 08/10/22 18:36 Review of Systems Constitutional: Constitutional: Reports as per HPI, Denies chills, Denies fever(s) and Denies headache(s) ENT: Denies headache(s) Cardiovascular: Cardiovascular: Denies chest pain, Reports palpitations and Denies dyspnea Respiratory: Respiratory: Denies cough and Denies dyspnea Gastrointestinal: Gastrointestinal: Denies constipation and Denies vomiting Genitourinary: Genitourinary: Denies dysuria Neurologic: Denies headache(s) and Denies focal weakness Endocrine: Endocrine: Reports palpitations PMFSH Past Medical History Medical History Arthritis Chronic constipation Depression Fibromyalgia Foreign body of buttock Frequent UTI Hematuria History of panic attacks HTN (hypertension) Hx of anxiety disorder Hx of opioid abuse Hx of renal calculi Renal calculi Thyroid disease Surgical History H/O left knee surgery Hx of appendectomy Hx of cholecystectomy Tubal ligation status Family History Family History Paternal Grandmother Colon cancer Mother Pulmonary embolism Sister Pulmonary embolism Social History Social History Household Members: Family Household Members Other:: daughter Housing: House Do you presently have visiting nurse or other home services: No Alcohol intake: never Patient Tobacco Use Status: Former Tobacco user Years Smoked: 20 e-Cigarette/Vaping Use: Never Used Second Hand Smoke Exposure: Yes Advance Directives: Yes Advance Directives on File: Yes Advance Directives Date on File: 06/02/21 service: No Current occupational status: employed Current occupation: [employer] Cognitive needs: No Hearing needs: No Vision needs: No Physical Exam ED Vital Signs: Vital Signs - 24 hr 08/10/22 18:37 08/10/22 19:25 Temperature 97.9 F Pulse Rate 87 89 Respiratory Rate 18 18 Blood Pressure 172/83 H 147/77 H Pulse Oximetry 98 99 Oxygen Delivery Method Room Air Room Air BMI result Body Mass Index 30.2 Const General: healthy appearing, comfortable, no acute distress, alert and awake Nutritional Appearance: well nourished Orientation/consciousness: patient oriented x3 HENMT Head: Yes normocephalic and Yes atraumatic Eyes Eyelids: Yes eyelids normal Conjunctivae: conjunctivae normal Sclerae: sclerae normal Corneas: corneas normal Pupils: Equal, round and reactive pupils present EOM: EOMs intact bilaterally Neck Neck: Yes full ROM Resp Effort & Inspection: normal respiratory effort, able to speak in complete sentences and not labored Cardio Rate: regular rate Rhythm: regular rhythm GI Inspection: No distended Palpation (GI): Soft to palpation, not firm, nontender, no guarding and not rigid Auscultation: normoactive bowel sounds Skin General skin exam: no rashes or lesions noted and elasticity normal Neuro General: patient oriented x3 Cranial nerves: Yes Equal, round and reactive pupils present and Yes Bilaterally intact EOM present Cognition (Neuro): normal cognition Extrem Other: Moving all extremities well without any obvious deformities Course Course Course Narrative: RME performed by Uzma Shaw PA-C. Patient is a 56 year old assigned female at presenting to the emergency department with palpitations. Labs ordered. Patient placed back in the waiting room pending room availability and results. Reevaluation(s) Reevaluation #1: Patient remains asymptomatic at this time. I did discuss her CT results with her including the potential for left renal stones. The patient states that this has been known for a long time. Should be referred to cardiology for Holter monitor Time: 22:27 Medical Decision Making Medical Decision Making [facility] Narrative: 56-year-old female presents for evaluation of palpitations. Currently she is asymptomatic, she is in sinus rhythm on the monitor, EKG is sinus rhythm as well and without ischemia or ectopy. Patient's labs are reassuring. Given her abdominal pain after eating with a CT scan of the pelvis to better evaluate. The patient's symptoms may be related to prednisone as a side effect. Differential Diagnosis Palpitations Hypothyroidism Arrhythmia Medication side effects Near syncope Lab Data [facility] Lab Attestation statement: I reviewed the patient's lab results. 08/10/22 18:50 08/10/22 18:50 Labs: Lab Results 08/10/22 08/10/22 08/10/22 Range/Units 18:50 18:50 18:50 WBC 8.6 (4.8-10.8) X10*3/uL RBC 4.78 (4.20-5.50) X10*6/uL Hgb 13.3 (12.0-16.0) g/dl Hct 40.3 (37.0-47.0) % MCV 84.3 (80.0-98.0) fL MCH 27.8 (27.0-33.0) pg MCHC 33.0 (31.0-35.0) g/dl RDW 12.6 (11.0-16.0) % Plt Count 328 (160-400) X10*3/uL MPV 8.8 L (9.4-12.3) fL Immature Gran % (Auto) 0.5 H (0.0-0.4) % Neut % (Auto) 54.9 (45-73) % Lymph % (Auto) 37.5 (20-40) % Kingfisher % (Auto) 6.5 (2-11) % Eos % (Auto) 0.5 (0-4) % Baso % (Auto) 0.1 (0-2) % Lymph # (Auto) 3.2 (1.2-4.9) X10*3/uL Kingfisher # (Auto) 0.6 (0.1-1.2) X10*3/uL Eos # (Auto) 0.0 (0.0-0.4) X10*3/uL Baso # (Auto) 0.0 (0.0-0.2) X10*3/uL Abs Immat Gran (auto) 0.04 H (0.00-0.03) X10*3/uL Absolute Neuts (auto) 4.7 (2.0-8.3) x10*3/uL Absolute Nucleated RBC 0.000 (0.0-0.012) X10*3/uL Nucleated RBC % (auto) 0.0 (0.0-0.2) /100WBC Sodium 143 (135-145) mmol/L Potassium 4.0 (3.3-5.1) mmol/L Chloride 108 (96-108) mmol/L Carbon Dioxide 27 (22-29) mmol/L Anion Gap 12 (12-20) BUN 10 (9-16) mg/dL Creatinine 0.66 (0.5-1.4) mg/dL Estim Creat Clear Calc 92.6 Estimated GFR > 60 Random Glucose 109 (60-115) mg/dL Calcium 8.7 (8.4-10.2) mg/dL Magnesium 2.2 (1.6-2.6) mg/dL Total Bilirubin 0.2 (0.0-1.0) mg/dL AST 34 H (5-31) U/L ALT 56 H (0-31) U/L Alkaline Phosphatase 73 (39-117) U/L Troponin I High Sens < 2.7 (<3.5-17.0) ng/L Total Protein 7.1 (6.5-8.0) g/dL Albumin 4.0 (3.5-5.0) g/dL Urine Color Urine Appearance Urine pH (5.0-9.0) Ur Specific Warren (1.005-1.025) Urine Protein (Neg-Trace) mg/dL Urine Glucose (UA) (Negative) mg/dL Urine Ketones (Negative) mg/dL Urine Blood (Negative) Urine Nitrite (Negative) Ur Leukocyte Esterase (Negative) 08/10/22 Range/Units 20:12 WBC (4.8-10.8) X10*3/uL RBC (4.20-5.50) X10*6/uL Hgb (12.0-16.0) g/dl Hct (37.0-47.0) % MCV (80.0-98.0) fL MCH (27.0-33.0) pg MCHC (31.0-35.0) g/dl RDW (11.0-16.0) % Plt Count (160-400) X10*3/uL MPV (9.4-12.3) fL Immature Gran % (Auto) (0.0-0.4) % Neut % (Auto) (45-73) % Lymph % (Auto) (20-40) % Kingfisher % (Auto) (2-11) % Eos % (Auto) (0-4) % Baso % (Auto) (0-2) % Lymph # (Auto) (1.2-4.9) X10*3/uL Kingfisher # (Auto) (0.1-1.2) X10*3/uL Eos # (Auto) (0.0-0.4) X10*3/uL Baso # (Auto) (0.0-0.2) X10*3/uL Abs Immat Gran (auto) (0.00-0.03) X10*3/uL Absolute Neuts (auto) (2.0-8.3) x10*3/uL Absolute Nucleated RBC (0.0-0.012) X10*3/uL Nucleated RBC % (auto) (0.0-0.2) /100WBC Sodium (135-145) mmol/L Potassium (3.3-5.1) mmol/L Chloride (96-108) mmol/L Carbon Dioxide (22-29) mmol/L Anion Gap (12-20) BUN (9-16) mg/dL Creatinine (0.5-1.4) mg/dL Estim Creat Clear Calc Estimated GFR Random Glucose (60-115) mg/dL Calcium (8.4-10.2) mg/dL Magnesium (1.6-2.6) mg/dL Total Bilirubin (0.0-1.0) mg/dL AST (5-31) U/L ALT (0-31) U/L Alkaline Phosphatase (39-117) U/L Troponin I High Sens (<3.5-17.0) ng/L Total Protein (6.5-8.0) g/dL Albumin (3.5-5.0) g/dL Urine Color Yellow Urine Appearance Clear Urine pH 7.0 (5.0-9.0) Ur Specific Warren <= 1.005 (1.005-1.025) Urine Protein Negative (Neg-Trace) mg/dL Urine Glucose (UA) Negative (Negative) mg/dL Urine Ketones Negative (Negative) mg/dL Urine Blood Negative (Negative) Urine Nitrite Negative (Negative) Ur Leukocyte Esterase Negative (Negative) Independent Interpretation I performed an independent interpretation of an: EKG (Sinus rhythm with a rate of from 89 beats per minute. Nonischemic EKG) Discharge Plan Discharge Clinical Impression: Heart palpitations Patient Disposition: Home, Self-Care Instructions: Heart Palpitations (ED) Additional Instructions: Your workup in the emergency department today was reassuring. Follow-up with Cardiology, Dr. Blanchard You may benefit from a Holter monitor Prescriptions: No Action ascorbic acid (vitamin C) 500 mg tablet 500 mg PO DAILY Qty: 90 0RF ferrous sulfate [FeroSul] 325 mg (65 mg iron) tablet 325 mg PO Q2D 60 Days Qty: 30 0RF prednisone 5 mg tablet 5 mg PO DAILY 10 Days Qty: 10 0RF clonazepam 0.5 mg Tablet 0.5 mg PO TID PRN (Reason: Anxiety) amlodipine 5 mg Tablet 5 mg PO DAILY cholecalciferol (vitamin D3) [Vitamin D3] 25 mcg (1,000 unit) Capsule 25 mcg PO DAILY rosuvastatin [Crestor] 10 mg Tablet 10 mg PO Q2D@1700 buprenorphine-naloxone [Suboxone] 8-2 mg Film 0.5 film BUCCAL BID@1130,1800 fluticasone propionate 50 mcg/actuation spray,suspension 1 - 2 spray intranasal DAILY PRN (Reason: Allergy Symptoms) Zyrtec 10 mg capsule 10 mg PO DAILY PRN (Reason: Allergy Symptoms) sulfamethoxazole-trimethoprim [Bactrim DS] 800-160 mg tablet 1 tab PO BID 10 Days Qty: 20 0RF ibuprofen 800 mg tablet 800 mg PO DAILY PRN (Reason: pain) 30 Days Qty: 30 0RF betamethasone, augmented 0.05 % cream 1 appl topical BID 7 Days Qty: 15 0RF Rx Instructions: APPLY TO GROIN X 7 DAYS hydrocortisone 2.5 % cream 1 appl topical BID 30 Days Qty: 454 0RF meclizine 12.5 mg tablet 12.5 mg PO Q8H PRN (Reason: dizziness) sumatriptan succinate 25 mg tablet 25 mg PO DAILY 30 Days Qty: 9 3RF levothyroxine 25 mcg tablet 37.5 mcg PO DAILY 30 Days Qty: 45 3RF nystatin 100,000 unit/gram powder 1 appl topical BID Qty: 15 0RF Rx Instructions: APPLY TO GROIN UNTIL HEALED acetaminophen 500 mg tablet 1,000 mg PO Q8H PRN (Reason: pain) pyridoxine (vitamin B6) 100 mg tablet 100 mg PO DAILY Qty: 90 1RF Referrals: Francis Blanchard MD [Physician] - (palpitations ? holter monitor)
[2022-08-10 18:56] LABS: MANUAL DIFF FLAG NO
[2022-08-10 19:09] LABS: Basophils Percent Auto 0.1 % (0-2); Eosinophils Percent Auto 0.5 % (0-4); Hematocrit 40.3 % (37.0-47.0); Hemoglobin 13.3 g/dl (12.0-16.0); Imm Gran Abs Auto 0.04 X10*3/uL (0.00-0.03); Imm Gran Pct Auto 0.5 % (0.0-0.4); Lymphocytes Absolute Auto 3.2 X10*3/uL (1.2-4.9); Lymphocytes Percent Auto 37.5 % (20-40); Mean Corpuscular Hemoglobin 27.8 pg (27.0-33.0); Mean Corpuscular Volume 84.3 fL (80.0-98.0); Mean Platelet Volume 8.8 fL (9.4-12.3); Monocytes Absolute Auto 0.6 X10*3/uL (0.1-1.2); Monocytes Percent Auto 6.5 % (2-11); Neutrophils Absolute Auto 4.7 x10*3/uL (2.0-8.3); Neutrophils Percent Auto 54.9 % (45-73); Platelet Count 328 X10*3/uL (160-400); Red Blood Count 4.78 X10*6/uL (4.20-5.50); Red Cell Distribution Width 12.6 % (11.0-16.0); White Blood Count 8.6 X10*3/uL (4.8-10.8)
[2022-08-10 19:14] LABS: Alanine Aminotransferase 56 U/L (0-31); Alkaline Phosphatase 73 U/L (39-117); Anion Gap 12 (12-20); Aspartate Amino Transferase 34 U/L (5-31); Bilirubin Total 0.2 mg/dL (0.0-1.0); Blood Urea Nitrogen 10 mg/dL (9-16); Calcium 8.7 mg/dL (8.4-10.2); Carbon Dioxide 27 mmol/L (22-29); Chloride 108 mmol/L (96-108); Creatinine Clr Calc Pharmacy 92.6; Estimated Glomerular Filt Rate > 60; Glucose Random 109 mg/dL (60-115); Magnesium 2.2 mg/dL (1.6-2.6); Sodium 143 mmol/L (135-145); Total Protein 7.1 g/dL (6.5-8.0)
[2022-08-10 19:22] LABS: Troponin-I High Sensitivity < 2.7 ng/L (<3.5-17.0)
[2022-08-10 19:25] VITALS: BP 147/77; PULSE 89; RESP 18; O2SAT 99
[2022-08-10 20:23] LABS: Appearance Urine Clear; Color Urine Yellow; Glucose Urine UA Negative (Negative); Leukocyte Esterase Urine Negative (Negative); Nitrite Urine Negative (Negative); Specific Gravity - Urine <= 1.005 (1.005-1.025); Urine Blood Negative (Negative); Urine Ketones Negative (Negative); Urine Protein Negative (Neg-Trace)
[2022-08-10 22:35] VITALS: BP 140/72; PULSE 69; RESP 17; O2SAT 97
== END 2022-08-10 22:38 | disposition home or self-care (01) ==
PROVIDERS: Physician Assistant Medical; Emergency Provider Emergency Medicine; PCP Physician Assistant
DX: I49.9 Cardiac arrhythmia, unspecified (principal); R00.2 Palpitations; I10 Essential (primary) hypertension; Z79.899 Other long term (current) drug therapy; Z87.891 Personal history of nicotine dependence
CPT/HCPCS: 36415; 74176; 80053; 81003; 83735; 84484; 85025; 93005; 99284; 99285

== ENCOUNTER 2022-09-11 08:28 | Outpatient (REF) | payer OTHER, SELFPAY | END 2022-09-11 08:29 | disposition home or self-care (01) | LOC: HO.LAB 08:28 | PROVIDERS: PCP Physician Assistant; Visit Provider Physician Assistant | DX: E78.2 Mixed hyperlipidemia (principal); E03.9 Hypothyroidism, unspecified | CPT/HCPCS: 36415; 80053; 80061; 84439; 84443; 85027 ==

== ENCOUNTER 2022-10-10 14:43 | Outpatient (AMB) | payer OTHER, SELFPAY ==
--- NOTE | 2022-10-10 15:46 | MHC.OFFWIV ---
Intake Vital Signs 10/10/22 15:51 BP 130/80 Blood Pressure Location Rt brachial Position Sitting Pulse 85 Pulse Source Pulse Oximeter Temp 97.6 F Temp Source Temporal Artery Scan Pulse Oximetry (%) 95 Oxygen Delivery Method Room Air Intake Visit Reasons: EST/rash spreading on both [id number] Intake Note: Patient here for rash on leg that has been present for about 1 year since she had her knee replacement. pt states the more she is on her feet the more red it gets and it gets warm to the touch. Patient Tobacco Use Status: Former Tobacco user Allergies metoclopramide [From REGLAN] Adverse Reaction (Intermediate, Verified 10/10/22 15:50) AGITATION morphine Adverse Reaction (Mild, Verified 10/10/22 15:50) Nausea aspirin Adverse Reaction (Verified 10/10/22 15:50) Vomiting Do you need a note to return to daycare/school/sports/work: No HPI EST/rash spreading on both [id number] HPI Details Patient is a 56-year-old female who comes to the walk-in clinic complaining of persistent swelling to her lower legs for about 9 months to a year now, mostly to the left until it started about 2 months ago on the right side, with erythema and warmth that has been worsening over the last few weeks. She is concerned about developing cellulitis to her legs, and is frustrated over having persistent edema. She did have a knee replacement on the left side, which did not improve the edema. It is now on the right side also has of the last few months. She has no open areas, and denies fever or chills, fever myalgias or malaise, shortness of breath or chest pain, cough, weakness or dizziness, nausea vomiting or diarrhea or other systemic signs of infection or significant associated symptoms. She had a course of prednisone, but states that it was a few months ago now. She reports foreign body objects with recurrent infection from cosmetic injection procedure to her buttocks. She takes amlodipine for her blood pressure, and has been on it for some years now. She has not had evaluation of her blood vessels in her legs. Reviewed past medical history with the patient. PENDING SALE TO [facility] Medical History Arthritis Chronic constipation Depression Fibromyalgia Foreign body of buttock Frequent UTI Hematuria History of panic attacks HTN (hypertension) Hx of anxiety disorder Hx of opioid abuse Hx of renal calculi Renal calculi Thyroid disease Surgical History H/O left knee surgery Hx of appendectomy Hx of cholecystectomy Tubal ligation status Family History Paternal Grandmother Colon cancer Mother Pulmonary embolism Sister Pulmonary embolism Social History Household Members: Family Household Members Other:: daughter Housing: House Do you presently have visiting nurse or other home services: No Alcohol intake: never Patient Tobacco Use Status: Former Tobacco user Years Smoked: 20 e-Cigarette/Vaping Use: Never Used Second Hand Smoke Exposure: Yes Advance Directives Date on File: 06/02/21 service: No Current occupational status: employed 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 [employer] Cognitive needs: No Hearing needs: No Vision needs: No Female Reproductive History Menstrual Age of Menarche: 12 Physical Exam Vital Signs: Last Vital Signs Temp 97.6 F 10/10/22 15:51 Pulse 85 10/10/22 15:51 BP 130/80 10/10/22 15:51 Pulse Ox 95 10/10/22 15:51 Oxygen Delivery Method Room Air 10/10/22 15:51 Const General: cooperative, healthy appearing, comfortable, no acute distress, alert, awake, Physically active and well groomed; No anxious, diaphoretic, ill appearing, intoxicated appearing, poor hygiene or tired appearing Nutritional Appearance: obese (Abdomen) centrally obese and overweight Orientation/consciousness: patient oriented x3 Limitations: no limitations Chest Chest palpation & inspection: normal palpation of entire chest wall Resp Effort & Inspection: normal respiratory effort, able to speak in complete sentences, no audible wheezes, no cough, no grunting, not labored, no nasal flaring, no retractions and symmetric chest movement Auscultation: clear to auscultation bilaterally, no crackles, no rales, no rhonchi, no wheezes, lung sounds not diminished and No rub present Cardio Jugular venous distension: no JVD Rate: regular rate Rhythm: regular rhythm Peripheral pulses: posterior tibial pulses present and dorsalis pedis present Skin Other: Patient has chronic pedal edema, pitting +2to left mid tibia level to the left leg, and +1-2 to the upper ankle area on the right side. The overlying skin is mildly hyperpigmented and warm to the touch. No open lesions, or weeping Neuro General: patient oriented x3 Psych Appearance: grossly normal Mental Status: mental status grossly normal Speech and movement: Normal speech and movement present Affect: normal affect Attitude: cooperative Thought process: Normal thought process present Insight: Good insight present (Psych) Judgement: Good judgement present (Psych) Assessment & Plan Assessment & Plan (1) Pedal edema: Code(s): R60.0 - Localized edema Plan Patient written for a course of Keflex due to increased erythema edema and warmth over bilateral pulido areas where she has had chronic pedal edema for almost a year now. She is extremely worried about developing infection. I told her that likely majority of the erythema is due to leakage of cellular fluid from the chronic edema, however she was worried about extension of the affected area dramatically over the last few days. We also discussed some likely contributors to her pedal edema, including being overweight having a large and heavy abdomen, her use of steroids, or and it is possible that her amlodipine could be contributing to this in addition to her advanced degenerative joint disease in the knees. She is status post knee replacement on the left side and apparently is end-stage disease on the right side and might be a candidate for replacement at some point soon. She states that she does not have a high salt content her diet, and that she has not gained room weight recently. She maintains or blood pressure with her medication, and states that her blood pressure has been controlled. She denies any shortness of breath or cough symptoms. Also no reported fever or chills, fatigue myalgias, nausea or vomiting, or other significant associated systemic signs of infection. No no other indications of fluid overload other than localized to the legs. Apparently she has a history of significant side effects to medications and has great anxiety over changing at this point. She desires to continue her blood pressure medication until she sees her PCP Haroldo Leung in 2 weeks. They can discuss at that time if a diuretic is appropriate at that point, maybe lasix or hydrochlorothiazide or chlorthalidone instead of her amlodipine, however she declines doing this today. She knows to follow up sooner if her symptoms worsen. Medications: New cephalexin 500 mg PO BID 20 caps 0RF 10 days Coding Level of Care Code Est Pt Level 4 (57326) Diagnoses Pedal edema R60.0
[2022-10-10 15:51] VITALS: BP 130/80; PULSE 85; TEMP 36.4; O2SAT 95
== END 2022-10-10 16:42 | disposition home or self-care (01) ==
PROVIDERS: PCP Physician Assistant; Visit Provider Physician Assistant Medical
DX: R60.0 Localized edema (principal)
CPT/HCPCS: 99214

== ENCOUNTER 2022-10-20 13:46 | Emergency (ER) | payer OTHER, SELFPAY ==
--- NOTE | 2022-10-20 | ECG_ITS ---
Test Reason : CHEST PAIN Blood Pressure : / mmHG Vent. Rate : 091 BPM Atrial Rate : 091 BPM P-R Int : 158 ms QRS Dur : 076 ms QT Int : 360 ms P-R-T Axes : 023 -28 023 degrees QTc Int : 442 ms Normal sinus rhythm Normal ECG When compared with ECG of 10-AUG-2022 18:40, No significant change was found Referred By: Generic ED Physician Electronically Signed By:KENNA CLEMENTE MD
[2022-10-20 14:10] LABS: MANUAL DIFF FLAG NO
[2022-10-20 14:13] VITALS: BP 133/75; PULSE 75; RESP 18; TEMP 36.6; O2SAT 98; BMI 30.2
[2022-10-20 14:13] LABS: Basophils Percent Auto 0.1 % (0-2); Eosinophils Percent Auto 0.4 % (0-4); Hematocrit 42.7 % (37.0-47.0); Hemoglobin 14.1 g/dl (12.0-16.0); Imm Gran Abs Auto 0.02 X10*3/uL (0.00-0.03); Imm Gran Pct Auto 0.2 % (0.0-0.4); Lymphocytes Absolute Auto 1.8 X10*3/uL (1.2-4.9); Lymphocytes Percent Auto 21.8 % (20-40); Mean Corpuscular Hemoglobin 27.4 pg (27.0-33.0); Mean Corpuscular Volume 83.1 fL (80.0-98.0); Mean Platelet Volume 9.1 fL (9.4-12.3); Monocytes Absolute Auto 0.4 X10*3/uL (0.1-1.2); Monocytes Percent Auto 4.9 % (2-11); Neutrophils Percent Auto 72.6 % (45-73); Platelet Count 313 X10*3/uL (160-400); Red Blood Count 5.14 X10*6/uL (4.20-5.50); White Blood Count 8.2 X10*3/uL (4.8-10.8)
--- NOTE | 2022-10-20 14:15 | ED_ITS ---
HPI - General Adult General Chief complaint: Chest Pain Stated complaint: Chest pain/Upper abd pain Time Seen by Provider: 10/20/22 17:35 Source: patient Mode of arrival: ambulatory Limitations: no limitations History of Present Illness HPI narrative: Patient is a 56 year old assigned female at with a history of GERD, HTN, and anxiety presenting to the emergency department today with epigastric burning and a sore throat. Patient states that over the last 3 days she has had a sore throat and epigastric burning. Patient states that she has been taking some omeprazole sporadically but it has not helped. Patient denies any dizziness, lightheadedness, nausea, vomiting, fever, chills, blurry vision, double vision, loss of vision, chest pain, difficulty breathing, shortness of breath, back pain, night sweats, pain with urination, increased urinary frequency, increased urinary urgency, blood in her urine or stool, syncope or a near syncopal episode, recent trauma or falls, bowel incontinence, bladder incontinence, bowel retention, bladder retention, or any other complaints at this time. Onset (ago): day(s) (3) Location: abdomen Radiation: non-radiation Severity: mild Severity scale (1-10): 3 Quality: aching Pain Consistency: constant Relieving factors: none Exacerbating factors: none Associated symptoms: denies other symptoms Treatments prior to arrival: other (sporadic omeprazole) Related Data Home Medications Medication Instructions Recorded Confirmed amlodipine 5 mg tablet 5 mg PO DAILY 04/21/20 08/24/22 buprenorphine 8 mg-naloxone 2 mg 0.5 film buccal BID@1130,1800 04/21/20 08/24/22 sublingual film (Suboxone) cholecalciferol (vitamin D3) 25 25 mcg PO DAILY 04/21/20 08/24/22 mcg (1,000 unit) capsule (Vitamin D3) clonazepam 0.5 mg tablet 0.5 mg PO TID PRN Anxiety 04/21/20 08/24/22 rosuvastatin 10 mg tablet (Crestor) 10 mg PO Q2D@1700 04/21/20 08/24/22 cetirizine 10 mg capsule (Zyrtec) 10 mg PO DAILY PRN Allergy Symptoms 06/01/21 08/24/22 fluticasone propionate 50 1 - 2 spray intranasal DAILY PRN 06/01/21 08/24/22 mcg/actuation nasal Allergy Symptoms spray,suspension acetaminophen 500 mg tablet 1,000 mg PO Q8H PRN pain 01/04/22 08/24/22 meclizine 12.5 mg tablet 12.5 mg PO Q8H PRN dizziness 01/21/22 08/24/22 Previous Rx's Medication Instructions Recorded sumatriptan succinate 25 mg tablet 25 mg PO DAILY 30 days #9 tabs 01/21/22 ferrous sulfate 325 mg (65 mg 325 mg PO Q2D 60 days #30 tabs 04/11/22 iron) tablet (FeroSul) pyridoxine (vitamin B6) 100 mg 100 mg PO DAILY #90 tabs 05/20/22 tablet nystatin 100,000 unit/gram topical 1 appl topical BID #15 grams 06/05/22 powder betamethasone, augmented 0.05 % 1 appl topical BID 7 days #15 grams 07/22/22 topical cream hydrocortisone 2.5 % topical cream 1 appl topical BID 30 days #454 07/22/22 grams ibuprofen 800 mg tablet 800 mg PO DAILY PRN pain 30 days 07/22/22 #30 tabs amoxicillin 875 mg-potassium 1 tab PO BID 7 days #14 tabs 08/29/22 clavulanate 125 mg tablet ascorbic acid (vitamin C) 500 mg 500 mg PO DAILY #90 tabs 08/30/22 tablet levothyroxine 50 mcg tablet 50 mcg PO DAILY 90 days #90 tabs 09/17/22 cephalexin 500 mg capsule 500 mg PO BID 10 days #20 caps 10/10/22 omeprazole 40 mg capsule,delayed 40 mg PO BID #30 caps 10/20/22 release penicillin V potassium 500 mg 500 mg PO BID 10 days #20 tabs 10/20/22 tablet Allergies Allergy/AdvReac Type Severity Reaction Status Date / Time metoclopramide [From REGLAN] AdvReac Intermediate AGITATION Verified 10/20/22 14:13 morphine AdvReac Mild Nausea Verified 10/20/22 14:13 aspirin AdvReac Vomiting Verified 10/20/22 14:13 Review of Systems Constitutional: Constitutional: Reports no additional constitutional complaints, Denies chills, Denies fever(s) and Denies night sweats Eyes: Eyes: Reports no additional eye complaints, Denies blurry vision, Denies change in vision, Denies diplopia, Denies eye discharge, Denies loss of vision and Denies eye pain ENT: Denies dizziness and Reports sore throat Cardiovascular: Cardiovascular: Reports no additional cardiovascular complaints, Denies chest pain, Denies lightheadedness, Denies Loss of C onsciousness and Denies dyspnea Respiratory: Respiratory: Reports no additional respiratory complaints and Denies dyspnea Gastrointestinal: Gastrointestinal: Reports no additional gastrointestinal complaints, Reports abdominal pain, Denies melena, Denies hematochezia, Denies change in bowel habits and Denies change in stool character Genitourinary: Genitourinary: Denies hematuria, Denies urinary frequency, Denies dysuria, Denies urinary incontinence, Denies urinary hesitancy and Denies urinary urgency Musculoskeletal: Musculoskeletal: Reports no additional musculoskeletal compl aints, Denies numbness and Denies tingling Neurologic: Denies dizziness, Denies loss of vision, Denies numbness and Denies tingling Psychiatric: Psychiatric: Reports no additional psychiatric complaints Endocrine: Endocrine: Reports no additional endocrine complaints Hematologic/Lymphatic: Hematologic/Lymphatic: Reports no additional hematologic/lymphatic complaints Allergic/Immunologic: Allergic/Immunologic: Reports no additional allergic/immunologic complaints [facility] Past Medical History Attestation statement: The following information was validated with the patient. Source: old records reviewed and nursing notes reviewed Medical History Acquired hypothyroidism Acute dermatitis Arthritis Breast cancer screening Cellulitis Cellulitis and abscess of buttock Cellulitis of buttock Chronic constipation Depression Elevated liver enzymes Fibromyalgia Foreign body of buttock Frequent UTI Hematuria History of degenerative disc disease History of panic attacks HTN (hypertension) Hx of anxiety disorder Hx of opioid abuse Hx of renal calculi Hyperglycemia Microscopic hematuria Normal colonoscopy Obese Post covid-19 condition, unspecified Renal calculi Sinus infection Superimposed infection Thyroid disease Upper respiratory tract infection Surgical History H/O left knee surgery Hx of appendectomy Hx of cholecystectomy Tubal ligation status Family History Family History Paternal Grandmother Colon cancer Mother Pulmonary embolism Sister Pulmonary embolism Social History Social History Household Members: Family Household Members Other:: daughter Housing: House Do you presently have visiting nurse or other home services: No Alcohol intake: never Patient Tobacco Use Status: Former Tobacco user Years Smoked: 20 Smoked in Last 30 Days: No e-Cigarette/Vaping Use: Never Used Second Hand Smoke Exposure: Yes Use of substances other than those prescribed or required for medical reasons: No Advance Directives: Yes Advance Directives on File: Yes Advance Directives Date on File: 06/02/21 service: No Current occupational status: employed 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 Cognitive needs: No Hearing needs: No Vision needs: No Physical Exam ED Vital Signs: Vital Signs - 24 hr 10/20/22 14:13 10/20/22 17:35 10/20/22 19:25 Temperature 97.9 F 98.2 F Pulse Rate 75 73 70 Respiratory Rate 18 16 18 Blood Pressure 133/75 142/78 H 135/70 Pulse Oximetry 98 99 96 Oxygen Delivery Method Room Air Room Air Room Air BMI result Body Mass Index 30.2 Const General: cooperative, no acute distress, alert and awake Nutritional Appearance: well nourished Orientation/consciousness: patient oriented x3 Limitations: no limitations HENMT Head: Yes normal to inspection and Yes atraumatic Ears: hearing grossly normal bilaterally and external ears normal General nose exam: Normal external nose present, no nasal discharge noted and no epistaxis Face and sinus: Yes normal facial exam, No abrasion and No laceration Mouth: Normal oral and palatal mucosa present, no drooling and no muffled voice Throat: Yes abnormal tonsil (bilateral erythema) Eyes General: appearance normal, both eyes and all related structures Periorbital: periorbital findings normal Eyelids: Yes eyelids normal Conjunctivae: conjunctivae normal Pupils: Equal, round and reactive pupils present EOM: EOMs intact bilaterally Neck Neck: Yes normal visual inspection, Yes full ROM and Yes no lymphadenopathy Chest Chest palpation & inspection: normal inspection of the chest Resp Effort & Inspection: normal respiratory effort and able to speak in complete sentences Auscultation: clear to auscultation bilaterally Cardio Rate: regular rate Rhythm: regular rhythm GI Inspection: Yes normal to inspection Palpation (GI): Soft to palpation, not firm, nontender and no guarding Neuro General: patient oriented x3 and moves all extremities Cranial nerves: Yes Equal, round and reactive pupils present Cognition (Neuro): normal cognition Motor exam (neuro): 5/5 motor strength present throughout Sensory Exam: Normal double simultaneous stimulation for sensation Coordination: [id number] test normal Extrem General: Yes normal to inspection, Yes full ROM and Yes capillary refill normal Psych Appearance: grossly normal Mental Status: mental status grossly normal Affect: normal affect Attitude: cooperative Thought process: Normal thought process present Thought content: Normal thought content present Insight: Good insight present (Psych) Course Course Course Narrative: RME: 56 yold female with pmh of GERD presents to the ED for acid burning sensaiton in epigastric and chest area. no relelif with omeporazole or tums. labs/EKG ordered Medications Administered Discontinued Medications Generic Name Dose Route Start Last Admin Trade Name Freq PRN Reason Stop Dose Admin Al Hydroxide/Mg Hydroxide 15 ml 10/20/22 17:47 10/20/22 18:03 Magnesium Hydrox/Alum Hydrox 30 Ml Oral.Susp PO 10/20/22 17:48 15 ml ONCE ONE Administration Sodium Chloride 1,000 mls @ 999 mls/hr 10/20/22 18:00 10/20/22 19:19 Ns IV 10/20/22 19:00 Infused .Q1H1M LAISHA Infusion Pantoprazole Sodium 40 mg 10/20/22 17:47 10/20/22 18:03 Pantoprazole Sodium 40 Mg/10 Ml Vial IVPUSH 10/20/22 17:48 40 mg ONCE ONE Administration Medical Decision Making Medical Decision Making [facility] Narrative: Patient is a 56 year old assigned female at with a history of GERD and HTN presenting to the emergency department today with epgiastric pain and a sore throat. Patient's physical exam showed bilateral tonsilar erythema but was otherwise unremarkable. Patient's blood work was unremarkable. I explained my physical exam findings as well as all test results to the patient. I answered all questions asked by the patient. Patient received PO Maalox, IV fluids, and IV protonix which she stated helped her symptoms significantly. I stressed the importance of the patient taking her medication as prescribed. I stressed the importance of the patient following up with her primary care provider. I stressed the importance of the patient returning to the emergency department immediately if her symptoms were to worsen or if she were to develop any dizziness, shortness of breath, difficulty breathing, chest pain, blurry vision, loss of vision, nausea, vomiting, abdominal pain, fever, chills, back pain, or any other complaints. Patient verbalized agreement and understanding with this treatment plan and discharge. Differential Diagnosis Differential Diagnoses: The differential diagnosis associated with the presentation includes Tonsilitis Pharyngitis Epigastric pain GERD Admission/Observation Consideration of admission/observation: Escalation of care including admission/observation considered Patient would have been admitted to the hospital had her work up had any findings where hospital admission was appropriate and her clinical presentation warranted hospital admission. Lab Data MDM Lab Attestation statement: I reviewed the patient's lab results. My interpretation of these studies and their corresponding values is that they are grossly normal. 10/20/22 14:05 10/20/22 14:05 Labs: Lab Results 10/20/22 10/20/22 10/20/22 Range/Units 14:05 14:05 14:05 WBC 8.2 (4.8-10.8) X10*3/uL RBC 5.14 (4.20-5.50) X10*6/uL Hgb 14.1 (12.0-16.0) g/dl Hct 42.7 (37.0-47.0) % MCV 83.1 (80.0-98.0) fL MCH 27.4 (27.0-33.0) pg MCHC 33.0 (31.0-35.0) g/dl RDW 13.0 (11.0-16.0) % Plt Count 313 (160-400) X10*3/uL MPV 9.1 L (9.4-12.3) fL Immature Gran % (Auto) 0.2 (0.0-0.4) % Neut % (Auto) 72.6 (45-73) % Lymph % (Auto) 21.8 (20-40) % [place] % (Auto) 4.9 (2-11) % Eos % (Auto) 0.4 (0-4) % Baso % (Auto) 0.1 (0-2) % Lymph # (Auto) 1.8 (1.2-4.9) X10*3/uL [place] # (Auto) 0.4 (0.1-1.2) X10*3/uL Eos # (Auto) 0.0 (0.0-0.4) X10*3/uL Baso # (Auto) 0.0 (0.0-0.2) X10*3/uL Abs Immat Gran (auto) 0.02 (0.00-0.03) X10*3/uL Absolute Neuts (auto) 6.0 (2.0-8.3) x10*3/uL Absolute Nucleated RBC 0.000 (0.0-0.012) X10*3/uL Nucleated RBC % (auto) 0.0 (0.0-0.2) /100WBC Sodium 141 (135-145) mmol/L Potassium 3.7 (3.3-5.1) mmol/L Chloride 106 (96-108) mmol/L Carbon Dioxide 24 (22-29) mmol/L Anion Gap 15 (12-20) BUN 6 L (9-16) mg/dL Creatinine 0.71 (0.5-1.4) mg/dL Estim Creat Clear Calc 86.1 Estimated GFR > 60 Random Glucose 128 H (60-115) mg/dL Calcium 9.5 (8.4-10.2) mg/dL Total Bilirubin 0.4 (0.0-1.0) mg/dL AST 47 H (5-31) U/L ALT 58 H (0-31) U/L Alkaline Phosphatase 74 (39-117) U/L Troponin I High Sens < 2.7 (<3.5-17.0) ng/L Total Protein 7.8 (6.5-8.0) g/dL Albumin 4.2 (3.5-5.0) g/dL Lipase 12 (8-78) U/L Independent Interpretation I performed an independent interpretation of an: EKG Interpretation: Vent. Rate: 091 BPM ? ? Atrial Rate: 091 BPM P-R Int: 158 ms? QRS Dur: 076 ms QT Int: 360 ms ? ? ? P-R-T Axes: 023 -28 023 degrees QTc Int: 442 ms ? Normal sinus rhythm Normal ECG When compared with ECG of 10-AUG-2022 18:40, No significant change was found ? DD/ [id number] Prescription Management I considered prescription management with: Other (patient prescribed omeprazole) Chronic Conditions Patient?s care impacted by: Hypertension Discharge Plan Discharge Clinical Impression: GERD (gastroesophageal reflux disease), Acute recurrent tonsillitis Patient Disposition: Home, Self-Care Instructions: Gastroesophageal Reflux Disease (DC), Tonsillitis (ED) Additional Instructions: Follow up with your primary care provider and a GI specialist. Return to the emergency department immediately if your symptoms worsen or if you develop any dizziness, shortness of breath, difficulty breathing, chest pain, blurry vision, loss of vision, nausea, vomiting, abdominal pain, fever, chills, back pain, or any other complaints. Prescriptions: New penicillin V potassium 500 mg tablet 500 mg PO BID 10 Days Qty: 20 0RF omeprazole 40 mg capsule,delayed release(DR/EC) 40 mg PO BID Qty: 30 0RF No Action ferrous sulfate [FeroSul] 325 mg (65 mg iron) tablet 325 mg PO Q2D 60 Days Qty: 30 0RF ascorbic acid (vitamin C) 500 mg tablet 500 mg PO DAILY Qty: 90 0RF levothyroxine 50 mcg tablet 50 mcg PO DAILY 90 Days Qty: 90 0RF clonazepam 0.5 mg Tablet 0.5 mg PO TID PRN (Reason: Anxiety) amlodipine 5 mg Tablet 5 mg PO DAILY cholecalciferol (vitamin D3) [Vitamin D3] 25 mcg (1,000 unit) Capsule 25 mcg PO DAILY rosuvastatin [Crestor] 10 mg Tablet 10 mg PO Q2D@1700 buprenorphine-naloxone [Suboxone] 8-2 mg Film 0.5 film BUCCAL BID@1130,1800 fluticasone propionate 50 mcg/actuation spray,suspension 1 - 2 spray intranasal DAILY PRN (Reason: Allergy Symptoms) Zyrtec 10 mg capsule 10 mg PO DAILY PRN (Reason: Allergy Symptoms) ibuprofen 800 mg tablet 800 mg PO DAILY PRN (Reason: pain) 30 Days Qty: 30 0RF betamethasone, augmented 0.05 % cream 1 appl topical BID 7 Days Qty: 15 0RF Rx Instructions: APPLY TO GROIN X 7 DAYS hydrocortisone 2.5 % cream 1 appl topical BID 30 Days Qty: 454 0RF cephalexin 500 mg capsule 500 mg PO BID 10 Days Qty: 20 0RF meclizine 12.5 mg tablet 12.5 mg PO Q8H PRN (Reason: dizziness) sumatriptan succinate 25 mg tablet 25 mg PO DAILY 30 Days Qty: 9 3RF nystatin 100,000 unit/gram powder 1 appl topical BID Qty: 15 0RF Rx Instructions: APPLY TO GROIN UNTIL HEALED amoxicillin-pot clavulanate 875-125 mg tablet 1 tab PO BID 7 Days Qty: 14 0RF acetaminophen 500 mg tablet 1,000 mg PO Q8H PRN (Reason: pain) pyridoxine (vitamin B6) 100 mg tablet 100 mg PO DAILY Qty: 90 1RF [place] [facility] [place] [facility] [place]] (Call to establish and follow up with a GI specialist. ) Tay Leung PA-C [Primary Care Provider] - Interventions: ED Discharge Assessment Last Done: 10/20/22 19:29 Discharge Date/Time: 10/20/22 19:29 Print Language: [place]an
[2022-10-20 14:40] LABS: Alanine Aminotransferase 58 U/L (0-31); Albumin Level 4.2 g/dL (3.5-5.0); Alkaline Phosphatase 74 U/L (39-117); Anion Gap 15 (12-20); Aspartate Amino Transferase 47 U/L (5-31); Bilirubin Total 0.4 mg/dL (0.0-1.0); Blood Urea Nitrogen 6 mg/dL (9-16); Calcium 9.5 mg/dL (8.4-10.2); Carbon Dioxide 24 mmol/L (22-29); Chloride 106 mmol/L (96-108); Creatinine Clr Calc Pharmacy 86.1; Estimated Glomerular Filt Rate > 60; Glucose Random 128 mg/dL (60-115); Potassium 3.7 mmol/L (3.3-5.1); Sodium 141 mmol/L (135-145); Total Protein 7.8 g/dL (6.5-8.0); Troponin-I High Sensitivity < 2.7 ng/L (<3.5-17.0)
[2022-10-20 14:42] LABS: Lipase 12 U/L (8-78)
[2022-10-20 17:35] VITALS: BP 142/78; PULSE 73; RESP 16; O2SAT 99
--- NOTE | 2022-10-20 17:39 | PC.NURSE ---
Addendum entered by Meena Hawkins 10/20/22 17:43: airway patent; tonsil swelling/redness noted. Original Note: pt axox4, respirations even and unlabored, sats 98% RA, nsr on monitor 69 bpm, skin wpd. pt reports epigastric pain radiating to upper back onset 10/17/22 after taking milk of magnesia; feels pain radiating to neck/difficulty swallowing. pt states recent abx use. pt denies sob/n/v/d. states trialed mylanta and omeprazole x 3 days without improvement in sx. + bs x 4. PA at bedside; awaiting further orders. call caputo within reach.
[2022-10-20] MEDS: 0.9 % Sodium Chloride 1,000 ML 999 ML IV (18:03)
[2022-10-20] MEDS: Magnesium Hydrox/Alum Hydrox 30 ML ORAL.SUSP 15 ML PO (18:03)
[2022-10-20] MEDS: Pantoprazole Sodium 40 MG/10 ML VIAL IVPUSH (18:03)
--- NOTE | 2022-10-20 18:09 | PC.NURSE ---
iv established. ivf infusing. pt medicated per mar. all needs met at this time; call caputo within reach.
[2022-10-20 19:25] VITALS: BP 135/70; PULSE 70; RESP 18; TEMP 36.8; O2SAT 96
== END 2022-10-20 19:29 | disposition home or self-care (01) ==
PROVIDERS: Physician Assistant; Emergency Provider Internal Medicine; PCP Physician Assistant
DX: K21.9 Gastro-esophageal reflux disease without esophagitis (principal); R07.89 Other chest pain; R11.2 Nausea with vomiting, unspecified; R10.13 Epigastric pain; Z79.899 Other long term (current) drug therapy; Z87.891 Personal history of nicotine dependence
CPT/HCPCS: 36415; 80053; 83690; 84484; 85025; 93005; 96361; 96374; 99284; 99285

== ENCOUNTER → 2022-10-20 13:59 | Outpatient (BNV) | payer OTHER, SELFPAY | PROVIDERS: Emergency Provider Internal Medicine; PCP Physician Assistant; Visit Provider Internal Medicine Cardiovascular Disease | DX: R07.9 Chest pain, unspecified (principal) | CPT/HCPCS: 93010 ==

== ENCOUNTER 2022-10-22 14:13 | Outpatient (AMB) | payer OTHER, SELFPAY ==
[2022-10-22 14:16] VITALS: BP 130/82; PULSE 91; O2SAT 97; BMI 29.8
--- NOTE | 2022-10-22 14:16 | A.OFFPC_ITS ---
Vital Signs 10/22/22 14:16 Height 5 ft 3 in Weight 168 lb 6 oz BMI 29.8 BP 130/82 Blood Pressure Location Lt brachial Position Sitting Pulse 91 Pulse Source Pulse Oximeter Pulse Oximetry (%) 97 Oxygen Delivery Method Room Air Intake Visit Reasons: f/u Hypothyroid Allergies metoclopramide [From REGLAN] Adverse Reaction (Intermediate, Verified 10/22/22 14:27) AGITATION morphine Adverse Reaction (Mild, Verified 10/22/22 14:27) Nausea aspirin Adverse Reaction (Verified 10/22/22 14:27) Vomiting Medication List - Last Reconciled 10/22/22 by Tay Leung PA-C acetaminophen 1,000 mg PO Q8H PRN amlodipine 5 mg PO DAILY ascorbic acid (vitamin C) 500 mg PO DAILY betamethasone, augmented 0.05 % 1 appl topical BID 7 days buprenorphine-naloxone 8-2 mg (Suboxone) 0.5 film buccal BID@1130,1800 cetirizine (Zyrtec) 10 mg PO DAILY PRN cholecalciferol (vitamin D3) (Vitamin D3) 25 mcg PO DAILY clonazepam 0.5 mg PO TID PRN ferrous sulfate (FeroSul) 325 mg PO Q2D 60 days fluticasone propionate 50 mcg/actuation 1 - 2 sprays intranasal DAILY PRN hydrocortisone 2.5% 1 appl topical BID 30 days ibuprofen 800 mg PO DAILY PRN 30 days levothyroxine 50 mcg PO DAILY 90 days meclizine 12.5 mg PO Q8H PRN nystatin 1 appl topical BID omeprazole 40 mg PO BID penicillin V potassium 500 mg PO BID 10 days pyridoxine (vitamin B6) 100 mg PO DAILY rosuvastatin (Crestor) 10 mg PO Q2D@1700 sumatriptan succinate 25 mg PO DAILY 30 days Tobacco use date assessed: 07/22/22 HPI f/u Hypothyroid HPI Details Patient is a 56-year-old female here today for follow-up visit.? Patient's past medical history significant for hyperlipidemia, fibromyalgia, HTN , generalized anxiety disorder, migraines. PATIENT HAS MULTIPLE COMPLAINTS TODAY. Concerns--> patient recently seen at the [facility] for acute throat pain and burning sensation. Was using her omeprazole though was not helpful. She was given antibiotics though is concerned about taking more antibiotics. She also reports the feeling of food getting stuck in her lower esophagus/stomach. She has also been noting some heart palpitations that actually get better with the use of her clonazepam. Has follow-up with a new mental health provider needs to refill on clonazepam. Also has noted bilateral lower extremity edema and discoloration of her skin. Has been using hydrocortisone 2% cream without much relief. It is likely that her amlodipine is causing pedal edema thus causing some chronic vascular dermatitis. PLAN--> will discontinue amlodipine due to side effect and transition to telmisartan and monitor blood pressure to assure normal. .. She is also concerned about a genetic clotting disorder has her mother and sister have both developed cancer and blood clots. She would like to see a traveling phlebotomist about genetic testing. Was also found to have elevated liver enzymes over the last several months. Ultrasound does show fatty liver disease. Will continue to follow liver panel. CHRONIC MEDICAL CONDITIONS--> History of cosmetic surgery on buttocks--> continues to have intermittent episodes pain and palpable lumps over her buttocks often in different areas.? She has had hospital admission with IV antibiotics in the past due to infection.? She has had recent MRI of the pelvis that does show positive cosmetic Fillers though no notable infection at that time.? She does use doxycycline on a p.r.n. basis for increased pain and redness on the skin.? She has found a surgeon outside in the [place] willing to remove her cosmetic Fillers though will cost her about 6000 dollars.? It is really surgery January of 2023 3 PLAN:? For now will continue to manage with anti-inflammatory, prednisone and if pain scales 8-10 and erythema of the skin presents will use antibiotic. .. s/p left Total knee replaced :? over the last 2 weeks having increased pain , she denies any recent trauma to her left knee, she feels that there is some swelling at the superior aspect of the knee.? She usually reports tightness in her knee since replacement though now has definite pain.? She is using NSAIDs with some relief of her pain. ? has upcoming appointment with her orthopedic surgeon's office. .. Fibromyalgia:? Followed by Rheumatology.? Continues now on Suboxone due to her chronic pain. .. Hyperlipidemia:? Continues on Crestor 10 mg on occasion.? Will recheck fasting lipid panel to ensure appropriate LDL and total cholesterol. .. Opiate dependence:? Was previously on narcotic pain medication due to her chronic arthritic pain, is status post total knee arthroplasty.? Continues on Suboxone (4 mg) through [facility]. .. HYpothtyroid:? Most recent TSH has been stable on current dose of levothyroximn [facility] Medical History Acquired hypothyroidism Acute dermatitis Arthritis Breast cancer screening Cellulitis Cellulitis and abscess of buttock Cellulitis of buttock Chronic constipation Depression Elevated liver enzymes Fibromyalgia Foreign body of buttock Frequent UTI Hematuria History of degenerative disc disease History of panic attacks HTN (hypertension) Hx of anxiety disorder Hx of opioid abuse Hx of renal calculi Hyperglycemia Microscopic hematuria Normal colonoscopy Obese Post covid-19 condition, unspecified Renal calculi Sinus infection Superimposed infection Thyroid disease Upper respiratory tract infection Surgical History H/O left knee surgery Hx of appendectomy Hx of cholecystectomy Tubal ligation status Family History Paternal Grandmother Colon cancer Mother Pulmonary embolism Sister Pulmonary embolism Social History Household Members: Family Household Members Other:: daughter Housing: House Do you presently have visiting nurse or other home services: No Alcohol intake: never Patient Tobacco Use Status: Former Tobacco user Years Smoked: 20 e-Cigarette/Vaping Use: Never Used Second Hand Smoke Exposure: Yes Advance Directives Date on File: 06/02/21 service: No Current occupational status: employed 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 1. Little interest or pleasure in doing things: more than half the days 2. Feeling down, depressed, or hopeless: more than half the days 3. Trouble falling or staying asleep, or sleeping too much: nearly every day 4. Feeling tired or having little energy: nearly every day 5. Poor appetite or overeating: not at all 6. Feeling bad about yourself - or that you are a failure or have let yourself or your family down: not at all 7. Trouble concentrating on things, such as reading the newspaper or watching television: more than half the days 8. Moving or speaking so slowly that other people could have noticed. Or the opposite - being so fidgety or restless that you have been moving around a lot more than usual: not at all 9. Thoughts that you would be better off or of hurting yourself in some way: not at all Total score: 12 Depression Screening Interpretation: Positive Depression Screening Follow-up: Existing condition and In treatment 14234 - PHQ-9 Billing: Yes Source: Developed by Drs. Igor Jasso, Chito Kennedy and colleagues, with an educational haleigh from [employer] Thrive Questionnaire Date Thrive assessed: 04/26/22 I am a: Patient What is your living situation today?: I have a steady place to live Within the past 12 months, did the food you bought not last and you didn't have the money to get more?: Never true Within the past 12 months, did you worry whether your food would run out before you got money to buy more?: Never true Currently or been in a relationship where the following occur: no concerns reported AUDIT C Alcohol Use Questionnaire (AUDIT-C) 1. How often do you have a drink containing alcohol?: Never 3. How often do you have six or more drinks on one occasion?: Never Total Score: 0 Score Reviewed/Action Taken: Yes TONYA-7 AMB Questionnaire TONYA-7 Date TONYA - 7 assessed: 05/15/22 Feeling nervous, anxious, or on edge: 0 = Not at all Not being able to stop or control worryin = Not at all Worrying too much about different things: 0 = Not at all Trouble relaxin = Not at all Being so restless that it is hard to sit still: 0 = Not at all Becoming easily annoyed or irritable: 0 = Not at all Feeling afraid as if something awful might happen: 0 = Not at all Total TONYA-7 score (0-4 normal; 5-9 mild; 10-14 moderate; 15-21 severe): 0 Source: Developed by Drs. Igor Jasso, Chito Kennedy and colleagues, with an educational haleigh from [employer] Review of Systems Const Denies headache(s) Eyes Denies loss of vision ENT Denies vertigo, Denies dizziness, Denies headache(s) and Denies sore throat Card Denies chest pain, Denies leg edema and Denies lightheadedness Resp Denies cough, Denies hemoptysis and Denies wheezing GI Denies abdominal pain, Denies melena, Denies constipation, Denies diarrhea and Denies vomiting Denies urinary frequency, Denies dysuria and Denies urinary urgency Musc Denies arthralgias, Denies joint swelling, Denies numbness and Denies tingling Neuro Denies Abnormal speech present, Denies behavioral changes, Denies vertigo, Denies dizziness, Denies headache(s), Denies loss of vision, Denies memory loss, Denies numbness and Denies tingling Psych Denies anxiety, Denies behavioral changes, Denies depression, Denies memory loss and Denies panic attacks Andrew/Lymph Denies easy bleeding and Denies easy bruising Aller/Immun Denies wheezing Physical exam (Primary Care) Vital Signs: Last Vital Signs Pulse 91 10/22/22 14:16 BP 130/82 10/22/22 14:16 Pulse Ox 97 10/22/22 14:16 Oxygen Delivery Method Room Air 10/22/22 14:16 BMI result Body Mass Index 29.8 Tobacco/Smoking Status: Tobacco use Status Tobacco use date assessed 07/22/22 10/22/22 14:23 Patient Tobacco Use Status Former Tobacco user 10/22/22 14:23 e-Cigarette/Vaping Use Never Used 10/22/22 14:23 PHQ-9: PHQ-9 Score PHQ-9: Total score 12 10/22/22 14:27 Depression Screening Interpretation: Positive Depression Screening Follow-up: E xisting condition and In treatment Thrive Assessment: Date of Thrive Assessment Date Thrive assessed 04/26/22 10/22/22 14:23 Currently or been in a relationship where the following occur: no concerns reported Const General: healthy appearing, no acute distress, alert and awake Nutritional Appearance: well nourished Orientation/consciousness: oriented to person, oriented to place and oriented to time HENMT Ears: TM's normal bilaterally General nose exam: Normal nasal mucous membranes and turbinates present Eyes Conjunctivae: conjunctivae normal Sclerae: sclerae normal Pupils: Equal, round and reactive pupils present Neck Neck: Yes no lymphadenopathy and Yes no JVD Thyroid: Thyroid normal Carotids: no bruits Resp Effort & Inspection: normal respiratory effort and not tachypneic Auscultation: no crackles, no rales, no rhonchi and no wheezes Cardio Rate: regular rate Rhythm: regular rhythm Heart sounds: no murmurs and normal S1 and S2 GI Palpation (GI): Soft to palpation, nontender, no hepatomegaly and no splenomegaly Auscultation: normal bowel sounds Skin General skin exam: no rashes or lesions noted and dry skin Neuro General: oriented to person, oriented to place and oriented to time Cranial nerves: Yes Equal, round and reactive pupils present Speech: No Abnormal speech present Gait exam (Neuro): Normal gait present Motor exam (neuro): no tremor noted Extrem Other: NOTED SOME TRACE LOWER EXTREMITY BILATERAL EDEMA, ALSO NOTED SKIN COLOR CHANGES TO THE LEVEL OF MID [place] Right upper extremity: full ROM Left upper extremity: full ROM Right lower extremity: full ROM and edema Left lower extremity: full ROM and edema Psych Mental Status: mental status grossly normal Speech and movement: Normal speech and movement present Affect: normal affect Attitude: cooperative Thought process: Normal thought process present Assessment and Plan Assessment & Plan (1) Throat pain: Code(s): R07.0 - Pain in throat Plan: Throat pain likely related to gastric reflux. Advised on the use of Carafate and holding omeprazole for now. Will refer to gastroenterology for possible endoscopy (2) GERD (gastroesophageal reflux disease): Code(s): K21.9 - Gastro-esophageal reflux disease without esophagitis Qualifiers: Esophagitis presence: without esophagitis Qualified Code(s): K21.9 - Gastro-esophageal reflux disease without esophagitis Plan: As above patient has throat pain likely related to her reflux. Will start Carafate liquid to help soothe esophagus and stomach. Refer to gastroenterology for possible endoscopy and evaluation for esophageal stricture. (3) Peripheral vascular disease with stasis dermatitis: Code(s): I87.2 - Venous insufficiency (chronic) (peripheral) Plan: Patient has bilateral lower extremity trace edema in skin color changes most consistent with a venous dermatitis. This is likely related to side effect of amlodipine thus will discontinue amlodipine and try ARB for her blood pressure control. Advised to continue hydrocortisone 2% on bilateral legs for the dermatitis (4) HTN (hypertension): Code(s): I10 - Essential (primary) hypertension Qualifiers: Hypertension type: primary hypertension Qualified Code(s): I10 - Essential (primary) hypertension Plan: Again will transition off of amlodipine due to having signs and symptoms of pedal edema as a side effect. Will transition to Arb to control blood pressure. Goal blood pressure be below 140/90 (5) Family history of bleeding or clotting disorder: Code(s): Z83.2 - Family history of diseases of the blood and blood-forming organs and certain disorders involving the immune mechanism Orders: Orders Liver Panel 10/22/22 K76.0 - Fatty (change of) liver, not elsewhere classified Referrals Gastroenterology Referral K21.9 - Gastro-esophageal reflux disease without esophagitis Genetics Referral Z83.2 - Family history of diseases of the blood and blood- forming organs and certain disorders involving the immune mechanism Medications: New telmisartan 20 mg PO DAILY 30 tabs 0RF 30 days sucralfate (Carafate) swish in mouth and swallow; use after food/drink 10 mL PO QID PRN 1,200 mL 0RF GERD symptoms 30 days J34.89 - Other specified disorders of nose and nasal sinuses Changed From clonazepam 0.5 mg PO TID PRN Anxiety F41.9 - Anxiety disorder, unspecified To clonazepam 0.5 mg PO TID PRN 42 tabs 0RF Anxiety 14 days F41.9 - Anxiety disorder, unspecified Refilled ibuprofen 800 mg PO DAILY PRN 30 tabs 0RF pain 30 days Z96.652 - Presence of left artificial knee joint On Hold omeprazole Hold Comment: Doctor's Order 40 mg PO BID 30 caps 0RF Coding Level of Care Code Est Pt Level 4 (68062) Diagnoses Throat pain R07.0 GERD (gastroesophageal reflux disease) K21.9 Esophagitis presence: without esophagitis Peripheral vascular disease with stasis dermatitis I87.2 HTN (hypertension) I10 Hypertension type: primary hypertension Family history of bleeding or clotting disorder Z83.2
== END 2022-10-22 15:10 | disposition home or self-care (01) ==
PROVIDERS: Visit Provider Physician Assistant
DX: R07.0 Pain in throat (principal); K21.9 Gastro-esophageal reflux disease without esophagitis; I10 Essential (primary) hypertension; Z83.2 Family history of diseases of the blood and blood-forming organs and certain disorders involving the immune mechanism; I87.2 Venous insufficiency (chronic) (peripheral)
CPT/HCPCS: 99214

== ENCOUNTER 2022-10-26 11:29 | Outpatient (AMB) | payer OTHER, SELFPAY ==
--- NOTE | 2022-10-26 12:42 | MHC.OFFWIV ---
Intake Vital Signs 10/26/22 12:50 Height 5 ft 3 in Weight 169 lb BMI 29.9 BP 132/72 Blood Pressure Location Lt brachial Position Sitting Pulse 70 Pulse Source Pulse Oximeter Temp 97.8 F Temp Source Temporal Artery Scan Pulse Oximetry (%) 99 Intake Visit Reasons: EP pain middle back/?Pinched nerve Intake Note: pt is here for c/o back pain states middle of the back Patient Tobacco Use Status: Former Tobacco user Allergies metoclopramide [From REGLAN] Adverse Reaction (Intermediate, Verified 10/26/22 12:49) AGITATION morphine Adverse Reaction (Mild, Verified 10/26/22 12:49) Nausea aspirin Adverse Reaction (Verified 10/26/22 12:49) Vomiting HPI EP pain middle back/?Pinched nerve HPI Details Patient is a 56-year-old female who comes to the walk-in clinic complaining of persistent left shoulder/upper back pain. She states that she discussed this with her PCP Haroldo Leung and that it was deemed likely to be a muscle strain. There was no apparent underlying acute or chronic trauma. She reports that initially the pain was only with touch to the area, and that it started to become painful with moving, and is now becoming worse with deep respirations. She is very anxious about a pulmonary embolism as she reports that she has had multiple family members with a hereditary coagulopathy and she is pending genetic workup for this. She denies acute or repetitive trauma that would have resulted in the pain. She does have multiple comorbidities. She states that taking an anti-inflammatory does help relieve the symptoms. She denies any pain radiating to the left arm or to the neck area, as well as the low back. She requests chest x-ray today. No report of nausea vomiting or diarrhea today, anterior chest pain, shortness of breath, cough, fever or chills, fatigue, myalgias, weakness or dizziness, sweating, current abdominal pain, or other significant associated symptoms. [facility] Medical History (Updated 10/26/22 @ 14:17 by KURT Arroyo) Acquired hypothyroidism Acute dermatitis Arthritis Breast cancer screening Cellulitis Cellulitis and abscess of buttock Cellulitis of buttock Chronic constipation Depression Elevated liver enzymes Fibromyalgia Foreign body of buttock Frequent UTI Hematuria History of degenerative disc disease History of panic attacks HTN (hypertension) Hx of anxiety disorder Hx of opioid abuse Hx of renal calculi Hyperglycemia Microscopic hematuria Muscle spasm Normal colonoscopy Obese Post covid-19 condition, unspecified Renal calculi Sinus infection Superimposed infection Thyroid disease Upper respiratory tract infection Surgical History H/O left knee surgery Hx of appendectomy Hx of cholecystectomy Tubal ligation status Family History Paternal Grandmother Colon cancer Mother Pulmonary embolism Sister Pulmonary embolism Social History Household Members: Family Household Members Other:: daughter Housing: House Do you presently have visiting nurse or other home services: No Alcohol intake: never Patient Tobacco Use Status: Former Tobacco user Years Smoked: 20 e-Cigarette/Vaping Use: Never Used Second Hand Smoke Exposure: Yes Advance Directives Date on File: 06/02/21 service: No Current occupational status: employed 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 Cognitive needs: No Hearing needs: No Vision needs: No Female Reproductive History Menstrual Age of Menarche: 12 Review of Systems Const All systems reviewed & are unremarkable except as noted in HPI and below Physical Exam Vital Signs: Last Vital Signs Temp 97.8 F 10/26/22 12:50 Pulse 70 10/26/22 12:50 BP 132/72 10/26/22 12:50 Pulse Ox 99 10/26/22 12:50 BMI result Body Mass Index 29.9 Const General: cooperative, healthy appearing, comfortable, no acute distress, alert, awake, Physically active and well groomed; No diaphoretic, ill appearing, intoxicated appearing, poor hygiene or tired appearing Nutritional Appearance: average body habitus Orientation/consciousness: patient oriented x3 Limitations: no limitations Neck Neck: Yes normal visual inspection, Yes full ROM, Yes trachea midline, Yes supple and No anterior neck swelling Chest Chest palpation & inspection: tenderness (Left rhomboid/thoracic paraspinal adjacent to the left scapula) no costochondral junction xxx, no costal cartilage xxx and no sternoclavicular joint xxx Resp Effort & Inspection: normal respiratory effort, able to speak in complete sentences, no audible wheezes, no cough, no grunting, not labored, no nasal flaring, no retractions and symmetric chest movement Auscultation: clear to auscultation bilaterally, no crackles, no rales, no rhonchi, no wheezes, lung sounds not diminished and No rub present Cardio Palpation: normal PMI Rate: regular rate Rhythm: regular rhythm Heart sounds: S1 normal heart sound present and S2 normal heart sound present Skin Other: Good color, warm and dry Neuro General: patient oriented x3 Psych Appearance: grossly normal Mental Status: mental status grossly normal Speech and movement: Normal speech and movement present Affect: normal affect Attitude: cooperative Thought process: Normal thought process present Insight: Good insight present (Psych) Judgement: Good judgement present (Psych) Results Reviewed Results Reviewed: Plain film chest x-ray today shows no acute changes, with chronic atelectasis only. This is confirmed with radiologist read. Her 12 lead EKG shows normal sinus rhythm with no ST changes. Assessment & Plan Assessment & Plan (1) Muscle spasm: Code(s): M62.838 - Other muscle spasm Plan: Patient is a 56-year-old female who reports of increased anxiety recently, with panic attacks. She has developed pain to her left periscapular area, over the left thoracic paraspinal muscle. She states that it initially was only painful to palpation, but now is feeling like it is traveling deeper, and I think she might have a spasm to either her rhomboid now, or to the chest wall. Unfortunately she has a history of family members having a coagulopathy disorder resulting in thromboembolisms, and when I mentioned that up PE is in the differential for her issue, she became very worried. She has some testing planned for December for this. I told her based on her history of symptoms starting, that it seems like this is muscular, however as breathing aggravates her symptoms, I cannot completely rule out that this is not pleuritic in nature. I did order a D-dimer that she will get done today, pending results. Plain film chest x-ray of her lungs today is unremarkable, with no change from prior 1 done last year that showed some atelectasis. Her EKG today is unremarkable also, with normal sinus rhythm and no ST changes. She does not appear to be in pain, her vital signs are stable and and she is able to take deep breaths with a good oxygen saturation and no work of breathing. I told her that I cannot guarantee that this is not cardiac or pleuritic in nature, but that it is likely musculoskeletal. We discussed that Flexeril, heat and massage to the area should help alleviate her symptoms. She states that taking an anti-inflammatory does somewhat help it, as well as using ice, and she can continue this as long is it is not exacerbating her stomach, as she apparently has a GI workup pending. I told her that if these modalities do not help alleviate her symptoms, that she should consider following up again for evaluation, and that if her symptoms worsen at all, especially in regards to painful respirations, or if she develops any other worrisome symptoms, that she should consider going to the emergency department for evaluation. She states that she does not want to do this today. Orders: Orders XR chest 2V Today R05.9 - Cough, unspecified D Dimer High Sensitivity Today M62.838 - Other muscle spasm AMB EKG-In Office Today M54.9 - Dorsalgia, unspecified Medications: New cyclobenzaprine 5 mg PO TID PRN 14 tabs 0RF muscle spasm Coding Level of Care Code Est Pt Level 5 (99528) Diagnoses Muscle spasm M62.838
[2022-10-26 12:50] VITALS: BP 132/72; PULSE 70; TEMP 36.6; O2SAT 99; BMI 29.9
== END 2022-10-26 14:30 | disposition home or self-care (01) ==
PROVIDERS: PCP Physician Assistant; Visit Provider Physician Assistant Medical
DX: M62.838 Other muscle spasm (principal)
CPT/HCPCS: 93000; 99214

== ENCOUNTER 2022-10-26 13:44 | Outpatient (REF) | payer OTHER, SELFPAY ==
--- NOTE | ~2022-10-26 | XR_ITS ---
EXAMINATION: XR CHEST CLINICAL INFORMATION: Cough, unspecified. COMPARISON: Chest radiograph done on 07/12/2021. TECHNIQUE: 2 views of the chest were obtained. FINDINGS: No significant abnormality is noted involving the heart, lungs, mediastinum, bony thorax or soft tissues. Persistent stable linear opacity at the right lung base likely represent pleural parenchymal scar, unchanged since 07/12/2021. XR/XR chest 2V IMPRESSION: No radiographic evidence of acute cardiopulmonary disease, unchanged since 07/12/2021.
[2022-10-26 15:23] LABS: Alanine Aminotransferase 48 U/L (0-31); Albumin Level 4.1 g/dL (3.5-5.0); Alkaline Phosphatase 70 U/L (39-117); Aspartate Amino Transferase 33 U/L (5-31); Bilirubin Direct < 0.2 mg/dL (0.0-0.5); Bilirubin Total 0.1 mg/dL (0.0-1.0); Total Protein 7.5 g/dL (6.5-8.0)
[2022-10-26 15:38] LABS: TSH reflex Free T4 0.82 uIU/mL (0.32-4.0)
[2022-10-26 16:29] LABS: D Dimer High Sensitivity 328 NG/ML
== END 2022-10-26 13:45 | disposition home or self-care (01) ==
LOC: HO.HMGCX 13:44
PROVIDERS: PCP Physician Assistant; Visit Provider Physician Assistant Medical
DX: R05.9 Cough, unspecified (principal); M62.838 Other muscle spasm; K76.0 Fatty (change of) liver, not elsewhere classified; E03.9 Hypothyroidism, unspecified
CPT/HCPCS: 36415; 71046; 80076; 84443; 85379

== ENCOUNTER 2022-10-26 16:59 | Emergency (ER) | payer OTHER, SELFPAY ==
--- NOTE | ~2022-10-26 | CT_ITS ---
EXAMINATION: CT ANGIOGRAM OF THE CHEST WITH AND WITHOUT CONTRAST (CT PULMONARY ANGIOGRAM FOR PE) CLINICAL INFORMATION: Reason for Exam thoracic back pain + Ddimer, r/o PE COMPARISON: Chest x-ray from the same day TECHNIQUE: Prior to contrast administration, noncontrast localization images were obtained. Subsequently, multidetector volumetric imaging was performed from the thoracic inlet to below the diaphragms following the administration of 65 mL Omnipaque 350 intravenous contrast. No contrast reaction reported Sagittal, coronal, and MIP oblique sagittal reformatted images were obtained on the CT workstation, uploaded to PACS, and reviewed. This CT examination was performed using dose optimization techniques as appropriate, variously including the following: *Automated exposure control *Adjustment of mA and/or kV according to patient size (this includes techniques or standardized protocols for targeted exams where dose is matched to indication/reason for exam; i.e. extremities or head) *Use of iterative reconstruction technique Total exam dose-length product 316 mGy-cm FINDINGS: QUALITY OF STUDY/CONTRAST BOLUS: Satisfactory. PULMONARY ARTERIES: No pulmonary emboli. THORACIC AORTA: No dissection or aneurysm. LUNG: Mild curvilinear atelectasis bilaterally, without additional consolidation. PLEURA: No pleural effusion or pneumothorax. MEDIASTINUM: The visualized thyroid gland is unremarkable. There are subcentimeter mediastinal lymph nodes within the range of normal variation. Cardiac size is within normal limits; no pericardial effusion. No evidence of septal bowing or right heart strain. CORONARY ARTERY CALCIFICATION: None visualized on this study. CHEST WALL/AXILLA: No axillary or internal mammary lymphadenopathy. OSSEOUS STRUCTURES: Mild degenerative endplate changes noted in the spine. UPPER ABDOMEN: Unremarkable. No reflux of contrast into the hepatic veins to suggest elevated right heart pressures. CT/CT angio chest PE protocol IMPRESSION: No pulmonary embolus identified. VTE: negative.
[2022-10-26 17:07] VITALS: BP 150/71; PULSE 81; RESP 16; TEMP 36.8; O2SAT 99; BMI 30.4
--- NOTE | 2022-10-26 17:09 | ED_ITS ---
HPI - Back Pain/Injury General Chief Complaint: Back Pain/Injury Stated Complaint: upper back pain,abnormal labs Time Seen by Provider: 10/26/22 17:56 Source: patient Mode of arrival: ambulatory Limitations: no limitations History of Present Illness HPI Narrative: 56-year-old female presents with upper back pain. Patient has been having this intermittently for couple of weeks. She denies any shortness of breath. Sometimes the pain is moderate to severe. Can be worse with movement. Can also be worse with position particular when she is lying down and trying to move. She denies any shortness of breath, palpitations or lightheadedness. She denies a history of PE or DVT. She denies any trauma or injury or heavy lifting. Pain sometimes radiates across the back. Sometimes she has notice it with and in spiration. She does have a family history of DVT/PE in her mother and sister. She herself does not carry that diagnosis. She was reportedly at an urgent care center and had a positive D-dimer was sent for evaluation Related Data Home Medications Medication Instructions Recorded Confirmed buprenorphine 8 mg-naloxone 2 mg 0.5 film buccal BID@1130,1800 04/21/20 10/22/22 sublingual film (Suboxone) cholecalciferol (vitamin D3) 25 25 mcg PO DAILY 04/21/20 10/22/22 mcg (1,000 unit) capsule (Vitamin D3) rosuvastatin 10 mg tablet (Crestor) 10 mg PO Q2D@1700 04/21/20 10/22/22 cetirizine 10 mg capsule (Zyrtec) 10 mg PO DAILY PRN Allergy Symptoms 06/01/21 10/22/22 fluticasone propionate 50 1 - 2 spray intranasal DAILY PRN 06/01/21 10/22/22 mcg/actuation nasal Allergy Symptoms spray,suspension acetaminophen 500 mg tablet 1,000 mg PO Q8H PRN pain 01/04/22 10/22/22 meclizine 12.5 mg tablet 12.5 mg PO Q8H PRN dizziness 01/21/22 10/22/22 Previous Rx's Medication Instructions Recorded sumatriptan succinate 25 mg tablet 25 mg PO DAILY 30 days #9 tabs 01/21/22 ferrous sulfate 325 mg (65 mg 325 mg PO Q2D 60 days #30 tabs 04/11/22 iron) tablet (FeroSul) pyridoxine (vitamin B6) 100 mg 100 mg PO DAILY #90 tabs 05/20/22 tablet nystatin 100,000 unit/gram topical 1 appl topical BID #15 grams 06/05/22 powder betamethasone, augmented 0.05 % 1 appl topical BID 7 days #15 grams 07/22/22 topical cream hydrocortisone 2.5 % topical cream 1 appl topical BID 30 days #454 07/22/22 grams ascorbic acid (vitamin C) 500 mg 500 mg PO DAILY #90 tabs 08/30/22 tablet levothyroxine 50 mcg tablet 50 mcg PO DAILY 90 days #90 tabs 09/17/22 omeprazole 40 mg capsule,delayed 40 mg PO BID #30 caps 10/20/22 release clonazepam 0.5 mg tablet 0.5 mg PO TID PRN Anxiety 14 days 10/22/22 #42 tabs ibuprofen 800 mg tablet 800 mg PO DAILY PRN pain 30 days 10/22/22 #30 tabs sucralfate 100 mg/mL oral 10 ml PO QID PRN GERD symptoms 30 10/22/22 suspension (Carafate) days #1,200 mL telmisartan 20 mg tablet 20 mg PO DAILY 30 days #30 tabs 10/22/22 cyclobenzaprine 5 mg tablet 5 mg PO TID PRN muscle spasm #14 10/26/22 tabs gabapentin 100 mg capsule 100 mg PO TID #20 caps 10/26/22 lidocaine 5 % topical patch 1 patch topical DAILY #15 ea 10/26/22 Allergies Allergy/AdvReac Type Severity Reaction Status Date / Time metoclopramide [From [facility]] AdvReac Intermediate AGITATION Verified 10/26/22 12 :49 morphine AdvReac Mild Nausea Verified 10/26/22 12:49 aspirin AdvReac Vomiting Verified 10/26/22 12:49 Review of Systems Review of Systems: CONSTITUTIONAL: Denies weight loss, fever and chills. HEENT: Denies changes in vision and hearing. RESPIRATORY: Denies SOB and cough. CV: Denies palpitations no CP. GI: Denies abdominal pain, nausea, vomiting and diarrhea. : Denies dysuria and urinary frequency. MSK: Positive myalgia and joint pain. SKIN: Denies rash and pruritus. NEUROLOGICAL: Denies headache and syncope. PSYCHIATRIC: Denies recent changes in mood. Denies anxiety and depression. All other ROS are negative unless in HPI PMFSH Past Medical History Medical History Acquired hypothyroidism Acute dermatitis Arthritis Breast cancer screening Cellulitis Cellulitis and abscess of buttock Cellulitis of buttock Chronic constipation Depression Elevated liver enzymes Fibromyalgia Foreign body of buttock Frequent UTI Hematuria History of degenerative disc disease History of panic attacks HTN (hypertension) Hx of anxiety disorder Hx of opioid abuse Hx of renal calculi Hyperglycemia Microscopic hematuria Muscle spasm Normal colonoscopy Obese Post covid-19 condition, unspecified Renal calculi Sinus infection Superimposed infection Thyroid disease Upper respiratory tract infection Surgical History H/O left knee surgery Hx of appendectomy Hx of cholecystectomy Tubal ligation status Family History Family History Paternal Grandmother Colon cancer Mother Pulmonary embolism Sister Pulmonary embolism Social History Social History Household Members: Family Household Members Other:: daughter Housing: House Do you presently have visiting nurse or other home services: No Alcohol intake: never Patient Tobacco Use Status: Former Tobacco user Years Smoked: 20 Smoked in Last 30 Days: No e-Cigarette/Vaping Use: Never Used Second Hand Smoke Exposure: Yes Use of substances other than those prescribed or required for medical reasons: No Advance Directives: Yes Advance Directives on File: Yes Advance Directives Date on File: 06/02/21 service: No Current occupational status: employed Current occupation: [employer] Cognitive needs: No Hearing needs: No Vision needs: No Physical Exam Vital Signs: Vital Signs: Last Vital Signs Temp 98.3 F 10/26/22 17:07 Pulse 81 10/26/22 17:07 Resp 16 10/26/22 17:07 BP 150/71 H 10/26/22 17:07 Pulse Ox 99 10/26/22 17:07 O2 Del Method Room Air 10/26/22 17:07 BMI result Body Mass Index 30.4 GEN: Well developed, no acute distress, alert, oriented HEENT: Normocephalic, atraumatic, normal external ears, nose appears normal, no oropharyngeal edema or exudates Eyes: Normal to appearance Neck: Supple, no lymphadenopathy Respiratory: Talks in complete sentences, no respiratory distress, clear to auscultation bilaterally Cardiovascular: Regular rate and rhythm, no murmurs rubs or gallops Abdomen: Soft, nontender, nondistended, no guarding, no rebound Back: No CVA tenderness Extremities: No clubbing cyanosis or edema Neurologic: No focal neurologic deficits, cranial nerves 2-12 intact, strength is 5/5 bilaterally Skin: No rash Course Course Course Narrative: This is a rapid medical exam. Deferred additional HPI, ROS, PE to primary provider. 56 yo female with history of HTN, hypothyroidism, arthritis, fibromyalgia, anxiety here with complaints of left upper back pain since Friday. Went to walk in clinic today and had outpatient d dimer done to family history of coagulopathy disorder resulting in VTE which was elevated and she was referred in to the ER. Also had out patient CXR. See record D dimer was 328 Will obtain labs, defer additional imaging at this time VSS Reevaluation(s) Reevaluation #1: The workup is complete at this time. CT angiogram did not identify pulmonary em bolus or any acute findings that could be the cause of her pain. Suspect patient may be having musculoskeletal and/or neuropathic pain. Time: 21:47 Medications Administered Discontinued Medications Generic Name Dose Route Start Last Admin Trade Name Freq PRN Reason Stop Dose Admin Iohexol 100 ml 10/26/22 19:52 10/26/22 19:52 Iohexol 350 Mg/Ml 100 Ml Infus..Btl IV 10/26/22 19:53 65 ml ONCE ONE Administration Ketorolac Tromethamine 15 mg 10/26/22 21:00 10/26/22 21:04 Ketorolac Tromethamine 15 Mg/Ml Vial IVPUSH 10/26/22 21:01 15 mg ONCE ONE Administration Medical Decision Making Medical Decision Making [facility] Narrative: Patient presents with thoracic back pain. Differential diagnosis includes musculoskeletal, nerve impingement, PE, pneumonia, bronchitis, pleurisy. Plan will be to obtain a chest CT to rule out pulmonary embolus given positive D- dimer and family history of PE. The meantime, can provide patient with analgesia as needed. Her vital signs within remain within normal limits. Will re-evaluate following complete workup. Differential Diagnosis Differential Diagnoses: The differential diagnosis associated with the presentation includes (See above) Lab Data [facility] Lab Attestation statement: I reviewed the patient's lab results. 10/26/22 17:53 10/26/22 17:53 Labs: Lab Results 10/26/22 10/26/22 Range/Units 17:53 17:53 WBC 5.8 (4.8-10.8) X10*3/uL RBC 4.72 (4.20-5.50) X10*6/uL Hgb 12.9 (12.0-16.0) g/dl Hct 38.9 (37.0-47.0) % MCV 82.4 (80.0-98.0) fL MCH 27.3 (27.0-33.0) pg MCHC 33.2 (31.0-35.0) g/dl RDW 12.9 (11.0-16.0) % Plt Count 289 (160-400) X10*3/uL MPV 9.8 (9.4-12.3) fL Immature Gran % (Auto) 0.2 (0.0-0.4) % Neut % (Auto) 55.9 (45-73) % Lymph % (Auto) 35.1 (20-40) % [place] % (Auto) 7.9 (2-11) % Eos % (Auto) 0.7 (0-4) % Baso % (Auto) 0.2 (0-2) % Lymph # (Auto) 2.1 (1.2-4.9) X10*3/uL [place] # (Auto) 0.5 (0.1-1.2) X10*3/uL Eos # (Auto) 0.0 (0.0-0.4) X10*3/uL Baso # (Auto) 0.0 (0.0-0.2) X10*3/uL Abs Immat Gran (auto) 0.01 (0.00-0.03) X10*3/uL Absolute Neuts (auto) 3.3 (2.0-8.3) x10*3/uL Absolute Nucleated RBC 0.000 (0.0-0.012) X10*3/uL Nucleated RBC % (auto) 0.0 (0.0-0.2) /100WBC Sodium 142 (135-145) mmol/L Potassium 3.6 (3.3-5.1) mmol/L Chloride 105 (96-108) mmol/L Carbon Dioxide 28 (22-29) mmol/L Anion Gap 13 (12-20) BUN 10 (9-16) mg/dL Creatinine 0.68 (0.5-1.4) mg/dL Estim Creat Clear Calc 90.2 Estimated GFR > 60 Random Glucose 122 H (60-115) mg/dL Calcium 9.4 (8.4-10.2) mg/dL Independent Interpretation I performed an independent interpretation of an: CT Scan (No acute findings) Radiology Impression Discussion of test interpretation with radiology: I have reviewed the radiologist's reading. Radiologist Impression: CT/CT angio chest PE protocol IMPRESSION: No pulmonary embolus identified. ? VTE: negative. ? Dictated By: Bridger Vaughan MD Signed By: <Electronically signed by Bridger Vaughan MD in OV> 10/26/222113 Prescription Management I considered prescription management with: Pain Medication Chronic Conditions Patient?s care impacted by: Hypertension Discharge Plan Discharge Clinical Impression: Back pain, thoracic Patient Disposition: Home, Self-Care Instructions: Thoracic Pain (ED), Back Pain (ED) Additional Instructions: For pain I am recommending the following regimen: Meloxicam 15 mg daily Tylenol 1000 mg every 6 hours as needed for additional pain relief Gabapentin 100 mg 3 times daily, may cause drowsiness Cyclobenzaprine 5 mg up to 3 times daily as needed for muscle spasm, may cause drowsiness Capsaicin cream 3-4 times daily, available [id number] Lidocaine patches daily as needed Follow-up with your primary care provider. He may require physical therapy. Also under consideration is complementary medicine such as acupuncture, chiropra ctics, cupping, natural pathic medicine. Prescriptions: New gabapentin 100 mg capsule 100 mg PO TID Qty: 20 0RF lidocaine 5 % adhesive patch,medicated 1 patch topical DAILY Qty: 15 0RF Rx Instructions: leave on most painful area for up to 12 hrs No Action ferrous sulfate [FeroSul] 325 mg (65 mg iron) tablet 325 mg PO Q2D 60 Days Qty: 30 0RF ascorbic acid (vitamin C) 500 mg tablet 500 mg PO DAILY Qty: 90 0RF levothyroxine 50 mcg tablet 50 mcg PO DAILY 90 Days Qty: 90 0RF cholecalciferol (vitamin D3) [Vitamin D3] 25 mcg (1,000 unit) Capsule 25 mcg PO DAILY rosuvastatin [Crestor] 10 mg Tablet 10 mg PO Q2D@1700 buprenorphine-naloxone [Suboxone] 8-2 mg Film 0.5 film BUCCAL BID@1130,1800 fluticasone propionate 50 mcg/actuation spray,suspension 1 - 2 spray intranasal DAILY PRN (Reason: Allergy Symptoms) Zyrtec 10 mg capsule 10 mg PO DAILY PRN (Reason: Allergy Symptoms) omeprazole 40 mg capsule,delayed release(DR/EC) 40 mg PO BID Qty: 30 0RF Hold Instructions: Doctor's Order betamethasone, augmented 0.05 % cream 1 appl topical BID 7 Days Qty: 15 0RF Rx Instructions: APPLY TO GROIN X 7 DAYS hydrocortisone 2.5 % cream 1 appl topical BID 30 Days Qty: 454 0RF telmisartan 20 mg tablet 20 mg PO DAILY 30 Days Qty: 30 0RF sucralfate [Carafate] 100 mg/mL suspension 10 ml PO QID PRN (Reason: GERD symptoms) 30 Days Qty: 1200 0RF Rx Instructions: swish in mouth and swallow; use after food/drink clonazepam 0.5 mg tablet 0.5 mg PO TID PRN (Reason: Anxiety) 14 Days Qty: 42 0RF ibuprofen 800 mg tablet 800 mg PO DAILY PRN (Reason: pain) 30 Days Qty: 30 0RF cyclobenzaprine 5 mg tablet 5 mg PO TID PRN (Reason: muscle spasm) Qty: 14 0RF meclizine 12.5 mg tablet 12.5 mg PO Q8H PRN (Reason: dizziness) sumatriptan succinate 25 mg tablet 25 mg PO DAILY 30 Days Qty: 9 3RF nystatin 100,000 unit/gram powder 1 appl topical BID Qty: 15 0RF Rx Instructions: APPLY TO GROIN UNTIL HEALED acetaminophen 500 mg tablet 1,000 mg PO Q8H PRN (Reason: pain) pyridoxine (vitamin B6) 100 mg tablet 100 mg PO DAILY Qty: 90 1RF Referrals: Tay Leung PA-C [Primary Care Provider] - 1 week
[2022-10-26 17:57] LABS: MANUAL DIFF FLAG NO
[2022-10-26 18:09] LABS: Anion Gap 13 (12-20); Blood Urea Nitrogen 10 mg/dL (9-16); Calcium 9.4 mg/dL (8.4-10.2); Carbon Dioxide 28 mmol/L (22-29); Chloride 105 mmol/L (96-108); Creatinine Clr Calc Pharmacy 90.2; Estimated Glomerular Filt Rate > 60; Glucose Random 122 mg/dL (60-115); Potassium 3.6 mmol/L (3.3-5.1); Sodium 142 mmol/L (135-145)
[2022-10-26 18:41] LABS: Basophils Percent Auto 0.2 % (0-2); Eosinophils Percent Auto 0.7 % (0-4); Hematocrit 38.9 % (37.0-47.0); Hemoglobin 12.9 g/dl (12.0-16.0); Imm Gran Abs Auto 0.01 X10*3/uL (0.00-0.03); Imm Gran Pct Auto 0.2 % (0.0-0.4); Lymphocytes Absolute Auto 2.1 X10*3/uL (1.2-4.9); Lymphocytes Percent Auto 35.1 % (20-40); Mean Corpuscular HGB Conc 33.2 g/dl (31.0-35.0); Mean Corpuscular Hemoglobin 27.3 pg (27.0-33.0); Mean Corpuscular Volume 82.4 fL (80.0-98.0); Mean Platelet Volume 9.8 fL (9.4-12.3); Monocytes Absolute Auto 0.5 X10*3/uL (0.1-1.2); Monocytes Percent Auto 7.9 % (2-11); Neutrophils Absolute Auto 3.3 x10*3/uL (2.0-8.3); Neutrophils Percent Auto 55.9 % (45-73); Platelet Count 289 X10*3/uL (160-400); Red Blood Count 4.72 X10*6/uL (4.20-5.50); Red Cell Distribution Width 12.9 % (11.0-16.0); White Blood Count 5.8 X10*3/uL (4.8-10.8)
[2022-10-26] MEDS: iohexoL 350 MG/ML 100 ML INFUS..BTL IV (19:52)
[2022-10-26] MEDS: Ketorolac Tromethamine 15 MG/ML VIAL IVPUSH (21:04)
--- NOTE | 2022-10-26 21:09 | PC.NURSE ---
pt c/o severe mid to upper back pain, Aware, medicated with 15mg of toradol ivp
== END 2022-10-26 22:12 | disposition home or self-care (01) ==
PROVIDERS: Nurse Practitioner Family; Emergency Provider Emergency Medicine; PCP Physician Assistant
DX: M54.6 Pain in thoracic spine (principal); I10 Essential (primary) hypertension; F11.20 Opioid dependence, uncomplicated; Z87.440 Personal history of urinary (tract) infections; Z87.891 Personal history of nicotine dependence; Z79.899 Other long term (current) drug therapy
CPT/HCPCS: 36415; 71275; 80048; 85025; 96374; 99284; J1885; Q9967

== ENCOUNTER → 2022-11-07 14:53 | Outpatient (REF) | payer OTHER, SELFPAY ==
--- NOTE | 2022-11-07 14:55 | HM_ITS ---
Conclusion: 1. Patient was monitored for total period of 3 days 2. Baseline was normal sinus rhythm with average heart rate of 72 beats per minute 3. Rare ectopy noted with 1 SVT run at 140 beats per minute lasting 4 beats 4. No pauses noted 5. One patient reported event correlated with sinus tachycardia MTDD
== END ==
LOC: HO.CARD 14:53
PROVIDERS: Visit Provider Physician Assistant
DX: R00.2 Palpitations (principal)
CPT/HCPCS: 93242

== ENCOUNTER → 2022-11-07 14:55 | Outpatient (BNV) | payer OTHER, SELFPAY | PROVIDERS: Visit Provider Internal Medicine Cardiovascular Disease | DX: I47.1 Supraventricular tachycardia (principal) | CPT/HCPCS: 93244 ==

== ENCOUNTER 2022-12-16 14:36 | Outpatient (AMB) | payer OTHER, SELFPAY ==
--- NOTE | 2022-12-16 16:24 | MHC.OFFWIV ---
Intake Vital Signs 12/16/22 16:35 Weight 170 lb 2 oz BP 140/80 H Blood Pressure Location Rt brachial Position Sitting Pulse 92 Pulse Source Pulse Oximeter Temp 98.3 F Temp Source Oral Pulse Oximetry (%) 98 Oxygen Delivery Method Room Air Intake Visit Reasons: EP RT side Ear/cheek pain/?[id number] Patient Tobacco Use Status: Former Tobacco user Allergies metoclopramide [From [facility]] Adverse Reaction (Intermediate, Verified 12/16/22 16:42) AGITATION morphine Adverse Reaction (Mild, Verified 12/16/22 16:42) Nausea aspirin Adverse Reaction (Verified 12/16/22 16:42) Vomiting Medication List - Last Reconciled 12/16/22 by Tay Tenorio MD acetaminophen 1,000 mg PO Q8H PRN ascorbic acid (vitamin C) 500 mg PO DAILY betamethasone, augmented 0.05 % 1 appl topical BID 7 days buprenorphine-naloxone 8-2 mg (Suboxone) 0.5 film buccal BID@1130,1800 cetirizine (Zyrtec) 10 mg PO DAILY PRN cholecalciferol (vitamin D3) (Vitamin D3) 25 mcg PO DAILY clonazepam 0.5 mg PO TID PRN 14 days cyclobenzaprine 5 mg PO TID PRN ferrous sulfate (FeroSul) 325 mg PO Q2D 60 days fluticasone propionate 50 mcg/actuation 1 - 2 sprays intranasal DAILY PRN gabapentin 100 mg PO TID hydrocortisone 2.5% 1 appl topical BID 30 days ibuprofen 800 mg PO DAILY PRN 30 days levothyroxine 50 mcg PO DAILY 90 days lidocaine 5% 1 patch topical DAILY meclizine 12.5 mg PO Q8H PRN nystatin 1 appl topical BID omeprazole 40 mg PO BID pyridoxine (vitamin B6) 100 mg PO DAILY rosuvastatin (Crestor) 10 mg PO Q2D@1700 sucralfate (Carafate) 10 mL PO QID PRN 30 days sumatriptan succinate 25 mg PO DAILY 30 days telmisartan 20 mg PO DAILY 30 days Do you need a note to return to daycare/school/sports/work: No HPI EP RT side Ear/cheek pain/?[id number] HPI Details Patient presents for a sick visit. Reporting symptoms of sinus congestion, sore throat and difficulty swallowing. Low-grade fever. No family member is sick. No recent travel. Patient reports symptoms of malaise and fatigue. [facility] Medical History Acquired hypothyroidism Acute dermatitis Arthritis Breast cancer screening Cellulitis Cellulitis and abscess of buttock Cellulitis of buttock Chronic constipation Depression Elevated liver enzymes Fibromyalgia Foreign body of buttock Frequent UTI Hematuria History of degenerative disc disease History of panic attacks HTN (hypertension) Hx of anxiety disorder Hx of opioid abuse Hx of renal calculi Hyperglycemia Microscopic hematuria Muscle spasm Normal colonoscopy Obese Post covid-19 condition, unspecified Renal calculi Sinus infection Superimposed infection Thyroid disease Upper respiratory tract infection Surgical History H/O left knee surgery Hx of appendectomy Hx of cholecystectomy Tubal ligation status Family History Paternal Grandmother Colon cancer Mother Pulmonary embolism Sister Pulmonary embolism Social History Household Members: Family Household Members Other:: daughter Housing: House Do you presently have visiting nurse or other home services: No Alcohol intake: never Patient Tobacco Use Status: Former Tobacco user Years Smoked: 20 e-Cigarette/Vaping Use: Never Used Second Hand Smoke Exposure: Yes Advance Directives Date on File: 06/02/21 service: No Current occupational status: employed 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 Cognitive needs: No Hearing needs: No Vision needs: No Female Reproductive History Menstrual Age of Menarche: 12 Physical Exam Vital Signs: Last Vital Signs Temp 98.3 F 12/16/22 16:35 Pulse 92 12/16/22 16:35 BP 140/80 H 12/16/22 16:35 Pulse Ox 98 12/16/22 16:35 Oxygen Delivery Method Room Air 12/16/22 16:35 Const General: cooperative and healthy appearing Nutritional Appearance: well nourished Orientation/consciousness: patient oriented x3 Limitations: no limitations HEENT Head: Yes normal to inspection Eyes General: appearance normal, both eyes and all related structures Neck Neck: Yes normal visual inspection Chest Chest palpation & inspection: normal palpation of entire chest wall Resp Effort & Inspection: normal respiratory effort Neuro General: patient oriented x3 Assessment & Plan Assessment & Plan (1) Acute sinusitis: Code(s): J01.90 - Acute sinusitis, unspecified Qualifiers: Sinusitis location: frontal Plan: Azithromycin called in. Meloxicam called in. If symptoms do not get better to follow-up here. Coding Level of Care Code Est Pt Level 3 (90272) Diagnoses Acute sinusitis J01.90 Sinusitis location: frontal
[2022-12-16 16:35] VITALS: BP 140/80; PULSE 92; TEMP 36.8; O2SAT 98
== END 2022-12-16 16:55 | disposition home or self-care (01) ==
PROVIDERS: PCP Physician Assistant; Visit Provider Internal Medicine
DX: J01.90 Acute sinusitis, unspecified (principal)
CPT/HCPCS: 99213

== ENCOUNTER 2022-12-16 17:43 | Emergency (ER) | payer OTHER, SELFPAY ==
[2022-12-16 17:50] VITALS: BP 141/79; PULSE 99; O2SAT 97
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
[2022-12-16 18:45] VITALS: BP 157/83; PULSE 83; RESP 16; TEMP 36.6; O2SAT 98; BMI 30.1
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
[2022-12-16 22:18] VITALS: BP 119/76; PULSE 75; RESP 16; TEMP 36.7; O2SAT 97
--- NOTE | 2022-12-16 23:32 | PC.NURSE ---
pt a&o, no sob or chest pain, medicated per mar, Reviewed discharge instruction with pt. pt verbalized understanding.
== END 2022-12-16 23:33 | disposition home or self-care (01) ==
PROVIDERS: Emergency Provider Internal Medicine; PCP Physician Assistant
DX: S39.92XA Unspecified injury of lower back, initial encounter (principal); S19.9XXA Unspecified injury of neck, initial encounter; M54.2 Cervicalgia; R51.9 Headache, unspecified; V43.63XA Car passenger injured in collision with pick-up truck in traffic accident, initial encounter; Y93.9 Activity, unspecified; Y92.410 Unspecified street and highway as the place of occurrence of the external cause; Y99.9 Unspecified external cause status; Z79.899 Other long term (current) drug therapy; Z87.891 Personal history of nicotine dependence
CPT/HCPCS: 70450; 70486; 72100; 72125; 99284

== ENCOUNTER 2022-12-24 14:31 | Outpatient (AMB) | payer OTHER, SELFPAY ==
[2022-12-24 14:37] VITALS: BP 118/66; PULSE 80; O2SAT 98; BMI 29.8
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
== END 2022-12-24 15:24 | disposition home or self-care (01) ==
PROVIDERS: PCP Physician Assistant; Visit Provider Physician Assistant
DX: J32.0 Chronic maxillary sinusitis (principal); K21.9 Gastro-esophageal reflux disease without esophagitis; I87.2 Venous insufficiency (chronic) (peripheral); I10 Essential (primary) hypertension; M54.50 Low back pain, unspecified; E78.2 Mixed hyperlipidemia
CPT/HCPCS: 99214

== ENCOUNTER 2022-12-25 15:30 | Outpatient (REF) | payer OTHER, SELFPAY ==
--- NOTE | ~2022-12-25 | US_ITS ---
EXAMINATION: US RETROPERITONEAL LIMITED (RENAL ONLY) CLINICAL INFORMATION: Other microscopic hematuria. COMPARISON: CT abdomen and pelvis 08/10/2022. Ultrasound abdomen limited 06/13/2022. Renal ultrasound 05/29/2022. X-ray abdomen 10/15/2018. TECHNIQUE: Real-time imaging of the kidneys. Limited visualization due to bowel gas. FINDINGS: RIGHT KIDNEY: 9.9 x 5.5 x 5.5 cm (SAG x AP x TRV). No hydronephrosis. No renal calculi. Renal cortical thickness is normal. Limited visualization. LEFT KIDNEY: 12.8 x 5.5 x 4.7 cm (SAG x AP x TRV). No hydronephrosis. 0.2 cm left renal upper pole calculus. Limited visualization. Renal cortical thickness is normal. US/US renal BI IMPRESSION: 1. Left renal 0.2 cm upper pole calculus. No hydronephrosis. 2. Bladder poorly distended and cannot be evaluated. Per senior java software developer, patient is rescheduled to return for additional imaging with full bladder.
== END 2022-12-25 15:31 | disposition home or self-care (01) ==
LOC: HO.HMGCX 15:30
PROVIDERS: PCP Physician Assistant; Visit Provider Nurse Practitioner Family
DX: R31.29 Other microscopic hematuria (principal); N20.0 Calculus of kidney
CPT/HCPCS: 76775

== ENCOUNTER 2023-01-07 14:57 | Outpatient (AMB) | payer OTHER, SELFPAY ==
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
== END 2023-01-07 15:41 | disposition home or self-care (01) ==
PROVIDERS: Visit Provider Nurse Practitioner Family
DX: N20.0 Calculus of kidney (principal); R31.29 Other microscopic hematuria
CPT/HCPCS: 99213

== ENCOUNTER → 2023-01-07 14:57 | Outpatient (BNVA) | payer OTHER, SELFPAY | PROVIDERS: Visit Provider Nurse Practitioner Family | DX: N20.0 Calculus of kidney (principal); R31.29 Other microscopic hematuria | CPT/HCPCS: 99212 ==

== ENCOUNTER 2023-01-09 15:02 | Outpatient (AMB) | payer OTHER, SELFPAY ==
--- NOTE | 2023-01-09 15:04 | MHC.OFFVIS ---
Intake Vital Signs 01/09/23 15:19 BP 122/75 Pulse 77 Intake Visit Reasons: abdominal pain and vomit Allergies metoclopramide [From REGLAN] Adverse Reaction (Intermediate, Verified 01/08/23 00:24) AGITATION morphine Adverse Reaction (Mild, Verified 01/08/23 00:24) Nausea aspirin Adverse Reaction (Verified 01/08/23 00:24) Vomiting Medication List - Last Reconciled 01/09/23 by Delphine Ambrocio PA-C amlodipine 5 mg PO DAILY 90 days ascorbic acid (vitamin C) 500 mg PO DAILY betamethasone, augmented 0.05 % 1 appl topical BID 7 days buprenorphine-naloxone 8-2 mg (Suboxone) 0.5 film buccal BID@1130,1800 cetirizine (Zyrtec) 10 mg PO DAILY 90 days cholecalciferol (vitamin D3) (Vitamin D3) 25 mcg PO DAILY clonazepam 0.5 mg PO TID PRN 14 days cyclobenzaprine 5 mg PO TID PRN fluticasone propionate 50 mcg/actuation 1 - 2 sprays intranasal DAILY PRN hydrocortisone 2.5% 1 appl topical BID 30 days ibuprofen 800 mg PO DAILY PRN 30 days ipratropium bromide 2 sprays intranasal BID 30 days levothyroxine 50 mcg PO DAILY 90 days lidocaine 5% 1 patch topical DAILY meclizine 12.5 mg PO Q8H PRN nystatin 1 appl topical BID omeprazole 40 mg PO BID pyridoxine (vitamin B6) 100 mg PO DAILY rosuvastatin (Crestor) 10 mg PO DAILY 90 days sumatriptan succinate 25 mg PO DAILY 30 days telmisartan 20 mg PO DAILY 30 days HPI HPI Comments History of Present Illness Details A 57 y/o F -ED a couple months ago- with reflux pain in the esophagus-pain is mostly relieved, She has chronic constipation- since teens- She has not been taking- iron supplements She went to [place]- had collegan-/ polymers- in the buttocks- saw plastics She had a colonoscopy- @ [facility]- a couple years ago- normal- repeat 10 years. [facility] Medical History (Updated 01/09/23 @ 15:23 by Delphine Ambrocio PA-C) Microscopic hematuria Muscle spasm Upper respiratory tract infection Acute dermatitis Obese Elevated liver enzymes Sinus infection Cellulitis of buttock Acquired hypothyroidism Hyperglycemia Post covid-19 condition, unspecified Breast cancer screening Foreign body of buttock Superimposed infection Cellulitis and abscess of buttock Cellulitis Renal calculi Frequent UTI Hematuria History of degenerative disc disease Normal colonoscopy Chronic constipation Hx of renal calculi History of panic attacks Hx of anxiety disorder Depression Hx of opioid abuse Thyroid disease Arthritis Fibromyalgia HTN (hypertension) Surgical History H/O left knee surgery Hx of cholecystectomy Tubal ligation status Hx of appendectomy Family History Paternal Grandmother Colon cancer Mother Pulmonary embolism Sister Pulmonary embolism Social History Household Members: Family Household Members Other:: daughter Housing: House Do you presently have visiting nurse or other home services: No Alcohol intake: never Patient Tobacco Use Status: Former Tobacco user Years Smoked: 20 e-Cigarette/Vaping Use: Never Used Second Hand Smoke Exposure: Yes Advance Directives Date on File: 06/02/21 service: No Current occupational status: employed 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 Cognitive needs: No Hearing needs: No Vision needs: No Female Reproductive History Menstrual Age of Menarche: 12 Review of Systems Const All systems reviewed & are unremarkable except as noted in HPI and below Card Denies chest pain and Denies dyspnea Resp Denies dyspnea GI Reports constipation and Reports heartburn Physical Exam Vital Signs: Last Vital Signs Pulse 77 01/09/23 15:19 BP 122/75 01/09/23 15:19 Const General: cooperative, healthy appearing and comfortable Orientation/consciousness: patient oriented x3 Limitations: language barrier Eyes Sclerae: sclerae normal Resp Effort & Inspection: normal respiratory effort and able to speak in complete sentences Auscultation: clear to auscultation bilaterally, no rales, no rhonchi and no wheezes Cardio Rate: regular rate Rhythm: regular rhythm Heart sounds: S1 normal heart sound present and S2 normal heart sound present GI Palpation (GI): Soft to palpation and nontender Auscultation: normal bowel sounds Neuro General: patient oriented x3 Psych Appearance: grossly normal Mental Status: mental status grossly normal Speech and movement: Clear speech present Affect: normal affect Attitude: cooperative Assessment & Plan Assessment & Plan (1) GERD (gastroesophageal reflux disease): Code(s): K21.9 - Gastro-esophageal reflux disease without esophagitis Qualifiers: Esophagitis presence: without esophagitis Qualified Code(s): K21.9 - Gastro-esophageal reflux disease without esophagitis (2) Normal colonoscopy: Comment: Colonoscopy, Dr. Gael klein, repeat asymptomatic 10 years (3) Chronic constipation: Comment: 54-year-old female chronic constipation, and consistent regimen, She will begin Colace 200 mg and MiraLax q.h.s., she will use suppositories by day 3 of no BM as well as high-fiber diet. Code(s): K59.09 - Other constipation Orders: Orders H Pylori Breath Test 2 Weeks A04.8 - Other specified bacterial intestinal infections Medications: New polyethylene glycol 3350 (Miralax) 17 grams PO DAILY 510 grams 6RF docusate sodium (Colace) 200 mg (2 x 100 mg) PO BEDTIME 60 caps 5RF calcium polycarbophil (Fiber Laxative (calcium polycarbophil)) 1,250 mg (2 x 625 mg) PO DAILY 30 days 60 tabs 3RF Patient Instructions: HP UBT-if positive will treat Consistent bowel regimen Maintain high-fiber diet Encouraged to call questions or concerns Coding Level of Care Code New Pt Level 3 (73713) Diagnoses Gastroesophageal reflux disease without esophagitis K21.9 Esophagitis presence: without esophagitis Normal colonoscopy Chronic constipation K59.09 Time Spent (min) 30 Comment Adult daughter assist
[2023-01-09 15:19] VITALS: BP 122/75; PULSE 77
== END 2023-01-09 15:26 | disposition home or self-care (01) ==
PROVIDERS: Visit Provider Physician Assistant
DX: K21.9 Gastro-esophageal reflux disease without esophagitis (principal); K59.09 Other constipation
CPT/HCPCS: 99213

== ENCOUNTER → 2023-01-09 15:02 | Outpatient (BNVA) | payer OTHER, SELFPAY | PROVIDERS: Visit Provider Physician Assistant | DX: K59.09 Other constipation (principal); K21.9 Gastro-esophageal reflux disease without esophagitis; Z90.49 Acquired absence of other specified parts of digestive tract | CPT/HCPCS: 99212 ==

== ENCOUNTER 2023-01-21 14:37 | Outpatient (AMB) | payer OTHER, SELFPAY ==
--- NOTE | 2023-01-21 14:47 | MHC.OFFVIS ---
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 Required: No Accompanied by: Self / Same As Patient Allergies metoclopramide [From REGLAN] Adverse Reaction (Intermediate, Verified 01/21/23 14:53) AGITATION morphine Adverse Reaction (Mild, Verified 01/21/23 14:53) Nausea aspirin Adverse Reaction (Verified 01/21/23 14:53) Vomiting Medication List - Last Reconciled 01/21/23 by Corey Paige MD amlodipine 5 mg PO DAILY 90 days ascorbic acid (vitamin C) 500 mg PO DAILY betamethasone, augmented 0.05 % 1 appl topical BID 7 days buprenorphine-naloxone 8-2 mg (Suboxone) 0.5 film buccal BID@1130,1800 calcium polycarbophil (Fiber Laxative (calcium polycarbophil)) 1,250 mg (2 x 625 mg) PO DAILY 30 days cetirizine (Zyrtec) 10 mg PO DAILY 90 days cholecalciferol (vitamin D3) (Vitamin D3) 25 mcg PO DAILY clonazepam 0.5 mg PO TID PRN 14 days cyclobenzaprine 5 mg PO TID PRN docusate sodium (Colace) 200 mg (2 x 100 mg) PO BEDTIME fluticasone propionate 50 mcg/actuation 1 - 2 sprays intranasal DAILY PRN hydrocortisone 2.5% 1 appl topical BID 30 days ibuprofen 800 mg PO DAILY PRN 30 days ipratropium bromide 2 sprays intranasal BID 30 days levothyroxine 50 mcg PO DAILY 90 days lidocaine 5% 1 patch topical DAILY meclizine 12.5 mg PO Q8H PRN nystatin 1 appl topical BID omeprazole 40 mg PO BID polyethylene glycol 3350 (Miralax) 17 grams PO DAILY pyridoxine (vitamin B6) 100 mg PO DAILY rosuvastatin (Crestor) 10 mg PO DAILY 90 days sumatriptan succinate 25 mg PO DAILY 30 days HPI HPI Comments History of Present Illness Details Lu is here for consultation regarding palpitations. She states that sensation started initially with a feeling of dizziness/facial fullness. Following this, she can feel her heart racing. This has been happening on and off for the last few months. She has been also under stress and she states that her sister from cancer recently. Otherwise, no history of any documented coronary disease or myocardial infarction or cardiomyopathy. [facility] Medical History Microscopic hematuria Muscle spasm Upper respiratory tract infection Acute dermatitis Obese Elevated liver enzymes Sinus infection Cellulitis of buttock Acquired hypothyroidism Hyperglycemia Post covid-19 condition, unspecified Breast cancer screening Foreign body of buttock Superimposed infection Cellulitis and abscess of buttock Cellulitis Renal calculi Frequent UTI Hematuria History of degenerative disc disease Normal colonoscopy Chronic constipation Hx of renal calculi History of panic attacks Hx of anxiety disorder Depression Hx of opioid abuse Thyroid disease Arthritis Fibromyalgia HTN (hypertension) Surgical History H/O left knee surgery Hx of cholecystectomy Tubal ligation status Hx of appendectomy Family History Paternal Grandmother Colon cancer Mother Pulmonary embolism Sister Pulmonary embolism Social History Household Members: Family Household Members Other:: daughter Housing: House Do you presently have visiting nurse or other home services: No Alcohol intake: never Patient Tobacco Use Status: Former Tobacco user Years Smoked: 20 e-Cigarette/Vaping Use: Never Used Second Hand Smoke Exposure: Yes Advance Directives Date on File: 06/02/21 service: No Current occupational status: employed 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 Cognitive needs: No Hearing needs: No Vision needs: No Female Reproductive History Menstrual Age of Menarche: 12 Review of Systems Const Denies chills, Denies daytime sleepiness, Denies fatigue, Denies fever(s), Denies frequent falls, Denies night sweats, Denies snoring, Denies weakness, Denies weight gain and Denies weight loss Eyes Denies loss of vision ENT Denies dizziness and Denies hearing loss Card Denies chest pain, Denies chest pain with activity, Denies syncope, Denies rapid heart rate, Denies edema, Denies claudication, Denies leg edema, Denies lightheadedness, Denies palpitations, Denies dyspnea, Denies dyspnea on exertion and Denies orthopnea Resp Denies cough, Denies excessive phlegm production, Denies dyspnea, Denies dyspnea on exertion, Denies snoring and Denies wheezing GI Denies abdominal pain, Denies hematochezia, Denies change in bowel habits, Denies change in stool character, Denies heartburn, Denies nausea and Denies vomiting Denies hematuria, Denies urinary frequency and Denies dysuria Musc Denies arthralgias, Denies muscle weakness, Denies numbness and Denies tingling Skin/Breast Denies nail changes and Denies rash Neuro Denies Abnormal speech present, Denies dizziness, Denies syncope, Denies frequent falls, Denies loss of vision, Denies memory loss, Denies numbness, Denies tingling and Denies weakness Psych Denies depression and Denies memory loss Endo Denies fatigue and Denies palpitations Aller/Immun Denies wheezing Physical Exam Vital Signs: Last Vital Signs Pulse 76 01/21/23 14:49 BP 118/66 01/21/23 14:49 BMI result Body Mass Index 30.3 Const General: comfortable and no acute distress Orientation/consciousness: patient oriented x3 HEENT Other: Unremarkable Head: Yes normal to inspection Neck Neck: Yes normal visual inspection Chest Chest palpation & inspection: normal inspection of the chest Resp Auscultation: clear to auscultation bilaterally Cardio Palpation: normal PMI Heart sounds: S1 normal heart sound present, S2 normal heart sound present, no gallops, no murmurs and no rubs GI Palpation (GI): Soft to palpation Back/Spine/Pelvis Other: unremarkable Skin General skin exam: no rashes or lesions noted Neuro General: patient oriented x3 Speech: No Abnormal speech present Extrem General: Yes normal to inspection Psych Mental Status: mental status grossly normal Assessment & Plan Assessment & Plan (1) Heart palpitations: Code(s): R00.2 - Palpitations Plan In the recent EKG, underlying rhythm is sinus at 91/Min; nonspecific ST-T changes and otherwise unremarkable. EKG prior to that is also similar. Several high sensitivity troponins in the system are within normal limits. Holter shows underlying sinus rhythm with an average rate of 72/Min. Rare ectopy but nothing of major significance. Patient reported event correlated with sinus tachycardia. Overall, no clear etiology as yet. May check an echocardiogram and also do a 2 week Holter. If these are unremarkable, then could all be from anxiety. With regard to facial fullness, she may see ENT and she states that appointment is pending. Orders: Orders ECG 14 day holter monitor Today R00.2 - Palpitations CA echo transthoracic complete Today R00.2 - Palpitations Coding Level of Care Code New Pt Level 3 (22107) Diagnoses Heart palpitations R00.2
[2023-01-21 14:49] VITALS: BP 118/66; PULSE 76; BMI 30.3
== END 2023-01-21 15:22 | disposition home or self-care (01) ==
PROVIDERS: PCP Physician Assistant; Visit Provider Internal Medicine
DX: R00.2 Palpitations (principal)
CPT/HCPCS: 99203

== ENCOUNTER → 2023-01-21 14:37 | Outpatient (BNVA) | payer OTHER, SELFPAY | PROVIDERS: PCP Physician Assistant; Visit Provider Internal Medicine | DX: R00.2 Palpitations (principal) | CPT/HCPCS: 99202 ==

== ENCOUNTER 2023-01-23 15:09 | Outpatient (REF) | payer OTHER, SELFPAY ==
[2023-01-25 09:09] LABS: H Pylori Breath Test Negative (Negative)
== END 2023-01-23 15:10 | disposition home or self-care (01) ==
LOC: HO.LNP 15:09
PROVIDERS: PCP Physician Assistant; Visit Provider Physician Assistant
DX: A04.8 Other specified bacterial intestinal infections (principal)
CPT/HCPCS: 83013; 99211

== ENCOUNTER → 2023-02-18 12:59 | Outpatient (REF) | payer OTHER, SELFPAY ==
--- NOTE | 2023-02-18 13:03 | CA_ITS ---
Transthoracic Echocardiogram Patient (Last, First, Middle): Lu Clayton, Gender: Female Date of : 1965 Age: 57 Procedure Date: 02/18/2023 Procedure Type: Transthoracic Echocardiogram Location: OP Height: 160.02 cm Weight: 78.02 kg BSA: 1.81 m2 Heart Rate: 68 bpm BP: 150 / 85 mmHg Government Relations Director: NANCY Referring MD: Corey Paige MD Symptoms: R00.2 - Palpitations Study Quality: Adequate ECG Rhythm: Sinus Conclusions: - The left ventricular systolic function is normal. The visually estimated ejection fraction is between 65-70%. - No obvious valvular pathology seen on this study. Findings Left Ventricle Normal left ventricular cavity size. The left ventricular systolic function is normal. The visually estimated ejection fraction is between 65-70%. There is no evidence of regional wall motion abnormalities. Diastolic function is normal for age. There is mild septal asymmetric hypertrophy. Right Ventricle Normal right ventricular cavity size. There is normal right ventricular systolic function. Atria Both atria are normal in size. Aortic Valve There is a normal trileaflet aortic valve. There is no aortic valve stenosis. There is no aortic valve regurgitation. Mitral Valve The mitral valve appears normal. There is no mitral valve regurgitation. There is no mitral valve stenosis. Pulmonic Valve The pulmonic valve is likely normal. Tricuspid Valve Normal tricuspid valve structure. There is trace tricuspid valve regurgitation. There is no evidence of pulmonary hypertension. Great Vessels The asc aorta is normal in size. Venous The inferior vena cava is normal in size and collapses greater than 50% with inspiration. Pericardium/Pleural There is no evidence of pericardial effusion. Prior Study Comparison No prior study available for comparison. Recommendations, Care & Conclusions No obvious valvular pathology seen on this study. Measurements 2D Linear Measurements IVSd: 1.12 0.6-0.9/0.6-1.0 cm LVIDd: 4.29 3.9-5.3/4.2-5.9 cm LVIDd Index: 2.37 2.4-3.2/2.2-3.1 cm/m2 LVIDs: 2.30 2.0-3.6 cm LVPWd: 0.99 0.7-1.1 cm LA Diam: 3.40 2.7-3.8/3.0-4.0 cm LAIDs Index: 1.88 1.5-2.3 cm/m2 LV Mass: 190.52 67-162/88-224 g LV Mass Index: 105.26 43-95/49-115 g/m2 LVOT Diam: 1.80 3.0+(-)1.3 cm 2D Systolic Function EF 4C: 69.80 >55% EF 2C: 54.80 >55% EF BiP: 64.00 >55% Mitral Valve MV Pk E: 0.78 MV PK A: 0.68 MV Decel Time: 230.00 E/A: 1.10 E'Lateral: 7.18 E'Medial: 7.07 E/E' Med: 11.00 E/E' Lat: 10.80 PHT: 67.00 MVA PHT: 3.28 Decel [place]: 3.38 Aortic Valve AoV Pk Marciano: 1.33 AoV Mn Marciano: 0.93 AoV VTI: 0.27 AoV Pk Grad: 7.00 Aov Mn Grad: 4.00 DEJAN Cont.VTI: 2.07 LVOT LVOT Pk Marciano: 1.09 LVOT Mn Marciano: 0.63 LVOT VTI: 0.22 LVOT Pk Grad: 5.00 LVOT Mn Grad: 2.00 LVOT Diam: 1.80 LVOT Area: 2.54 Diastolic Function MV Pk E: 0.78 MV Pk A: 0.68 E/A: 1.10 E'Medial: 7.07 E/E' Med: 11.00 E' Laterial: 7.18 E/E' Lat: 10.80 Right Ventricle TAPSE (mm): 16.30 TVS' Marciano: 16.80 Tricuspid Valve RA Press: 3.00 Great Vessels Aorta Sinus of Valsalva: 3.10 2.0-3.5 cm Ao Asc: 2.80 2.1-3.4 cm Pulmonary Valve PV Pk Marciano: 0.91 Peak PV Grad: 3.00 Updated in Other Vendor System with Status of Final Corey Paige MD electronically signed on 02/19/2023 12:17:52 PM with status of Final
[2023-02-18 14:59] LABS: TSH reflex Free T4 1.84 uIU/mL (0.32-4.0)
== END ==
LOC: HO.CARD 12:59
PROVIDERS: PCP Physician Assistant; Visit Provider Internal Medicine
DX: R00.2 Palpitations (principal); E03.9 Hypothyroidism, unspecified
CPT/HCPCS: 36415; 84443; 93306

== ENCOUNTER → 2023-02-18 13:03 | Outpatient (BNV) | payer OTHER, SELFPAY | PROVIDERS: PCP Physician Assistant; Visit Provider Internal Medicine | DX: R00.2 Palpitations (principal) | CPT/HCPCS: 93306 ==

== ENCOUNTER 2023-04-01 16:10 | Outpatient (REF) | payer OTHER, SELFPAY ==
--- NOTE | ~2023-04-01 | XR_ITS ---
EXAMINATION: XR SINUSES CLINICAL INFORMATION: Sinusitis. COMPARISON: None available. TECHNIQUE: 3 views of the sinuses were obtained. FINDINGS: Paranasal sinuses appear clear without air-fluid levels. No fractures are identified. The nasal septum is relatively midline. No radiodense foreign bodies. XR/XR sinus min 3V IMPRESSION: Unremarkable examination.
== END 2023-04-01 16:11 | disposition home or self-care (01) ==
LOC: HO.XRAY 16:10
PROVIDERS: PCP Physician Assistant; Visit Provider Otolaryngology
DX: J32.9 Chronic sinusitis, unspecified (principal)
CPT/HCPCS: 70220

== ENCOUNTER 2023-04-07 11:59 | Outpatient (REF) | payer OTHER, SELFPAY ==
[2023-04-07 12:27] LABS: Hematocrit 41.7 % (37.0-47.0); Hemoglobin 13.9 g/dl (12.0-16.0); Mean Corpuscular HGB Conc 33.3 g/dl (31.0-35.0); Mean Corpuscular Hemoglobin 27.8 pg (27.0-33.0); Mean Corpuscular Volume 83.4 fL (80.0-98.0); Mean Platelet Volume 9.3 fL (9.4-12.3); Platelet Count 299 X10*3/uL (160-400); Red Cell Distribution Width 13.1 % (11.0-16.0); White Blood Count 7.6 X10*3/uL (4.8-10.8)
[2023-04-07 12:51] LABS: Appearance Urine Clear; Color Urine Yellow; Glucose Urine UA Negative (Negative); Leukocyte Esterase Urine Moderate (2+) (Negative); Nitrite Urine Negative (Negative); Specific Gravity - Urine 1.015 (1.005-1.025); UMIC TRIGGER UACC YES; Urine Blood Negative (Negative); Urine Ketones Negative (Negative); Urine Protein Trace mg/dL (Neg-Trace)
[2023-04-07 12:55] LABS: Alanine Aminotransferase 95 U/L (0-31); Alkaline Phosphatase 71 U/L (39-117); Anion Gap 12 (12-20); Aspartate Amino Transferase 72 U/L (5-31); Bacteria Urine None Seen (None Seen); Bilirubin Total 0.4 mg/dL (0.0-1.0); Blood Urea Nitrogen 8 mg/dL (9-16); Carbon Dioxide 26 mmol/L (22-29); Chloride 105 mmol/L (96-108); Cholesterol 205 mg/dL (<200); Estimated Glomerular Filt Rate > 60; Glucose Fasting 102 mg/dL (60-99); HDL Cholesterol 36 mg/dL (>40); Hyaline Casts Urine 0-2 /LPF (0-2); LDL Cholesterol Calculated 122 mg/dL (<100); Potassium 3.8 mmol/L (3.3-5.1); RBC Urine 0-2 /HPF (0-2); Sodium 139 mmol/L (135-145); Total Protein 6.4 g/dL (6.5-8.0); Triglycerides 238 mg/dL (<150); UACC Culture Trigger YES
[2023-04-07 13:20] LABS: TSH reflex Free T4 3.82 uIU/mL (0.32-4.0)
== END 2023-04-07 12:00 | disposition home or self-care (01) ==
LOC: HO.LAB 11:59
PROVIDERS: Nurse Practitioner Family; PCP Physician Assistant; Visit Provider Physician Assistant
DX: I10 Essential (primary) hypertension (principal); R30.0 Dysuria; R31.29 Other microscopic hematuria; E78.2 Mixed hyperlipidemia
CPT/HCPCS: 36415; 80053; 80061; 81001; 84443; 85027; 87086

== ENCOUNTER 2023-04-08 13:51 | Outpatient (AMB) | payer OTHER, SELFPAY ==
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
[2023-04-08 13:59] VITALS: BP 130/72; PULSE 85; O2SAT 98; BMI 30.2
== END 2023-04-08 14:41 | disposition home or self-care (01) ==
PROVIDERS: PCP Physician Assistant; Visit Provider Physician Assistant
DX: K21.9 Gastro-esophageal reflux disease without esophagitis (principal); F11.20 Opioid dependence, uncomplicated; I47.19 Other supraventricular tachycardia; I10 Essential (primary) hypertension; E78.2 Mixed hyperlipidemia; R74.8 Abnormal levels of other serum enzymes; M54.9 Dorsalgia, unspecified; E03.9 Hypothyroidism, unspecified
CPT/HCPCS: 99214

== ENCOUNTER 2023-04-18 15:24 | Outpatient (REF) | payer OTHER, SELFPAY ==
--- NOTE | ~2023-04-18 | MM_ITS ---
EXAMINATION: MM SCREENING DIGITAL BREAST TOMOSYNTHESIS, BILATERAL CLINICAL INFORMATION: Screening. Asymptomatic. COMPARISON: Mammography: This study is compared with prior exams dating back to 2015. TECHNIQUE: Digital breast tomosynthesis is performed in both the craniocaudal and mediolateral oblique views along with computer-aided detection (CAD). Synthesized 2D images are generated from the tomosynthesis. FINDINGS: The breasts are almost entirely fatty (ACR BI-RADS breast composition Category a). There are no significant masses, abnormal calcifications, or other abnormalities. MM/MM tomosynthesis screening BI IMPRESSION: No mammographic evidence of malignancy. ASSESSMENT: BI-RADS BI-RADS 1 - Negative RECOMMENDATION: Routine annual mammography screening. 1 year F/U This examination should not preclude the clinical evaluation of a suspicious palpable abnormality. This patient's information was entered into a reminder system with a target due date for their next mammogram.
== END 2023-04-18 15:25 | disposition home or self-care (01) ==
LOC: HO.MAMMO 15:24
PROVIDERS: PCP Physician Assistant; Visit Provider Physician Assistant
DX: Z12.31 Encounter for screening mammogram for malignant neoplasm of breast (principal)
CPT/HCPCS: 77063; 77067

== ENCOUNTER → 2023-04-18 15:30 | Outpatient (BNV) | payer OTHER, SELFPAY | PROVIDERS: PCP Physician Assistant; Visit Provider Radiology Diagnostic Radiology | DX: Z12.31 Encounter for screening mammogram for malignant neoplasm of breast (principal) | CPT/HCPCS: 77063; 77067 ==

== ENCOUNTER 2023-06-24 13:45 | Outpatient (AMB) | payer OTHER, SELFPAY ==
[2023-06-24 14:01] VITALS: BP 130/74; PULSE 76; TEMP 36.6; O2SAT 97; BMI 30.1
--- NOTE | 2023-06-24 14:01 | AM.OFFWIN_ITS ---
Intake Vital Signs 06/24/23 14:01 Height 5 ft 3 in Weight 170 lb BMI 30.1 BP 130/74 Blood Pressure Location Lt brachial Position Sitting Pulse 76 Pulse Source Pulse Oximeter Temp 97.9 F Temp Source Oral Pulse Oximetry (%) 97 Oxygen Delivery Method Room Air Intake Visit Reasons: EP ?UTI/Open area on groin Intake Note: pt is here today for UTI open area on groin, had it last year and it came back Patient Tobacco Use Status: Former Tobacco user Allergies metoclopramide [From REGLAN] Adverse Reaction (Intermediate, Verified 06/24/23 14:35) AGITATION morphine Adverse Reaction (Mild, Verified 06/24/23 14:35) Nausea aspirin Adverse Reaction (Verified 06/24/23 14:35) Vomiting Medication List - Last Reconciled 06/24/23 by Tay Tenorio MD amlodipine 5 mg PO DAILY 90 days ascorbic acid (vitamin C) 500 mg PO DAILY betamethasone, augmented 0.05 % 1 appl topical BID 7 days buprenorphine-naloxone 8-2 mg (Suboxone) 0.5 film buccal BID@1130,1800 calcium polycarbophil (Fiber Laxative (calcium polycarbophil)) 1,250 mg (2 x 625 mg) PO DAILY 30 days cetirizine (Zyrtec) 10 mg PO DAILY 90 days cholecalciferol (vitamin D3) (Vitamin D3) 25 mcg PO DAILY clonazepam 0.5 mg PO TID PRN 14 days cyclobenzaprine 5 mg PO TID PRN docusate sodium (Colace) 200 mg (2 x 100 mg) PO BEDTIME fluticasone propionate 50 mcg/actuation 1 - 2 sprays intranasal DAILY PRN hydrocortisone 2.5% 1 appl topical BID 30 days ibuprofen 800 mg PO DAILY PRN 30 days ipratropium bromide 2 sprays intranasal BID 30 days levothyroxine 50 mcg PO DAILY 90 days meclizine 12.5 mg PO Q8H PRN omeprazole 40 mg PO BID polyethylene glycol 3350 (Miralax) 17 grams PO DAILY pyridoxine (vitamin B6) 100 mg PO DAILY rosuvastatin (Crestor) 10 mg PO DAILY 90 days sumatriptan succinate 25 mg PO DAILY 30 days Do you need a note to return to daycare/school/sports/work: No HPI EP ?UTI/Open area on groin HPI Details 57-year-old female presents to the [facility] for a sick visit. Patient is reporting a rash on the left side of her groin. Rash present for the past few days. [facility] Medical History (Updated 04/08/23 @ 14:33 by Tay Leung PA-C) Elevated liver enzymes Microscopic hematuria Muscle spasm Upper respiratory tract infection Acute dermatitis Obese Sinus infection Cellulitis of buttock Acquired hypothyroidism Hyperglycemia Post covid-19 condition, unspecified Breast cancer screening Foreign body of buttock Superimposed infection Cellulitis and abscess of buttock Cellulitis Renal calculi Frequent UTI Hematuria History of degenerative disc disease Normal colonoscopy Chronic constipation Hx of renal calculi History of panic attacks Hx of anxiety disorder Depression Hx of opioid abuse Thyroid disease Arthritis Fibromyalgia HTN (hypertension) Surgical History H/O left knee surgery Hx of cholecystectomy Tubal ligation status Hx of appendectomy Family History Paternal Grandmother Colon cancer Mother Pulmonary embolism Sister Pulmonary embolism Social History Household Members: Family Household Members Other:: daughter Housing: House Do you presently have visiting nurse or other home services: No Alcohol intake: never Patient Tobacco Use Status: Former Tobacco user Years Smoked: 20 e-Cigarette/Vaping Use: Never Used Second Hand Smoke Exposure: Yes Advance Directives Date on File: 06/02/21 service: No Current occupational status: employed Current occupation: [employer] Cognitive needs: No Hearing needs: No Vision needs: No Female Reproductive History Menstrual Age of Menarche: 12 Physical Exam Vital Signs: Last Vital Signs Temp 97.9 F 06/24/23 14:01 Pulse 76 06/24/23 14:01 BP 130/74 06/24/23 14:01 Pulse Ox 97 06/24/23 14:01 Oxygen Delivery Method Room Air 06/24/23 14:01 BMI result Body Mass Index 30.1 Skin Other: Left inguinal fold: Open macerated skin, 3 cm rash on the inguinal fold. Results AMB Urinalysis, Automated UA Leukoctes 0 Reilly/uL Last Edit by Arvin Torres CMA on 06/24/23 14:24 UA Nitrite Negative Last Edit by Arvin Torres CMA on 06/24/23 14:24 UA Urobilinogen 0.2 mg/dL Last Edit by Arvin Torres CMA on 06/24/23 14 :24 UA Protein 0 mg/dL Last Edit by Arvin Torres CMA on 06/24/23 14:24 UA pH 6.0 Last Edit by Arvin Torres CMA on 06/24/23 14:24 UA Blood 0 Loc/uL Last Edit by Arvin Torres, WEI on 06/24/23 14:24 UA Specific [place] 1.005 Last Edit by Arvin Torres CMA on 06/24/23 14:24 UA Ketone Negative Last Edit by Arvin Torres CMA on 06/24/23 14:24 UA Bilirubin 0 mg/dL Last Edit by Arvin Torres CMA on 06/24/23 14:24 UA Glucose 0 mg/dL Last Edit by Arvin Torres CMA on 06/24/23 14:24 Results Reviewed Results Reviewed: Laboratory Last Values Urine pH (Auto) 6.0 06/24/23 14:21 Specific [place] (Auto) 1.005 06/24/23 14:21 Urine Protein (Auto) 0 mg/dL 06/24/23 14:21 Glucose (UA)(Auto) 0 mg/dL 06/24/23 14:21 Urine Ketones (Auto) Negative 06/24/23 14:21 Urine Blood (Auto) 0 Loc/uL 06/24/23 14:21 Urine Nitrite (Auto) Negative 06/24/23 14:21 Urine Bilirubin (Auto) 0 mg/dL 06/24/23 14:21 Urine Urobilinogen (Auto) 0.2 mg/dL 06/24/23 14:21 Leukocyte Esterase (Auto) 0 Reilly/uL 06/24/23 14:21 Assessment & Plan Assessment & Plan (1) Rash: Code(s): R21 - Rash and other nonspecific skin eruption Plan: Steroid cream suggested. Urinalysis was negative. Symptoms do not improve to follow-up here. Orders: Orders AMB Urinalysis Automated Today Z13.9 - Encounter for screening, unspecified Coding Level of Care Code Est Pt Level 3 (98103) Diagnoses Rash R21
== END 2023-06-24 15:04 | disposition home or self-care (01) ==
PROVIDERS: PCP Physician Assistant; Visit Provider Internal Medicine
DX: R21 Rash and other nonspecific skin eruption (principal); Z13.9 Encounter for screening, unspecified
CPT/HCPCS: 81003; 99213

== ENCOUNTER 2023-07-07 10:51 | Outpatient (REF) | payer OTHER, SELFPAY ==
[2023-07-07 13:07] LABS: Alanine Aminotransferase 65 U/L (0-31); Albumin Level 3.9 g/dL (3.5-5.0); Alkaline Phosphatase 72 U/L (39-117); Aspartate Amino Transferase 52 U/L (5-31); Bilirubin Direct 0.1 mg/dL (0.0-0.5); Bilirubin Total 0.3 mg/dL (0.0-1.0); Total Protein 7.4 g/dL (6.5-8.0)
[2023-07-07 13:28] LABS: TSH reflex Free T4 3.87 uIU/mL (0.32-4.0)
[2023-07-07 14:20] LABS: Appearance Urine Clear; Color Urine Yellow; Glucose Urine UA Negative (Negative); Leukocyte Esterase Urine Trace (Negative); Nitrite Urine Negative (Negative); PH 7.5 (5.0-9.0); UMIC TRIGGER UACC YES; Urine Blood Negative (Negative); Urine Ketones Negative (Negative); Urine Protein Negative (Neg-Trace)
[2023-07-07 14:23] LABS: Bacteria Urine None Seen (None Seen); Hyaline Casts Urine 0-2 /LPF (0-2); RBC Urine 0-2 /HPF (0-2); WBC Urine 0-5 /HPF (0-5)
== END 2023-07-07 10:52 | disposition home or self-care (01) ==
LOC: HO.LAB 10:51
PROVIDERS: PCP Physician Assistant; Visit Provider Physician Assistant
DX: K76.0 Fatty (change of) liver, not elsewhere classified (principal); E03.9 Hypothyroidism, unspecified
CPT/HCPCS: 36415; 80076; 81001; 84443

== ENCOUNTER 2023-07-08 14:08 | Outpatient (AMB) | payer OTHER, SELFPAY ==
[2023-07-08 14:32] VITALS: BP 126/80; PULSE 86; O2SAT 97; BMI 30.7
--- NOTE | 2023-07-08 14:32 | MHC.PC.OV ---
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: No Accompanied by: Self / Same As Patient Allergies metoclopramide [From REGLAN] Adverse Reaction (Intermediate, Verified 07/08/23 14:49) AGITATION morphine Adverse Reaction (Mild, Verified 07/08/23 14:49) Nausea aspirin Adverse Reaction (Verified 07/08/23 14:49) Vomiting Medication List - Last Reconciled 07/08/23 by Tay Leung PA-C amlodipine 5 mg PO DAILY 90 days ascorbic acid (vitamin C) 500 mg PO DAILY buprenorphine-naloxone 8-2 mg (Suboxone) 0.5 film buccal BID@1130,1800 calcium polycarbophil (Fiber Laxative (calcium polycarbophil)) 1,250 mg (2 x 625 mg) PO DAILY 30 days cetirizine (Zyrtec) 10 mg PO DAILY 90 days cholecalciferol (vitamin D3) (Vitamin D3) 25 mcg PO DAILY clonazepam 0.5 mg PO TID PRN 14 days cyclobenzaprine 5 mg PO TID PRN docusate sodium (Colace) 200 mg (2 x 100 mg) PO BEDTIME fluticasone propionate 50 mcg/actuation 1 - 2 sprays intranasal DAILY PRN hydrocortisone 2.5% 1 appl topical BID PRN hydrocortisone 2.5% 1 appl topical BID 30 days ibuprofen 800 mg PO DAILY PRN 30 days ipratropium bromide 2 sprays intranasal BID 30 days levothyroxine 50 mcg PO DAILY 90 days meclizine 12.5 mg PO Q8H PRN omeprazole 40 mg PO BID polyethylene glycol 3350 (Miralax) 17 grams PO DAILY pyridoxine (vitamin B6) 100 mg PO DAILY rosuvastatin (Crestor) 10 mg PO DAILY 90 days sumatriptan succinate 25 mg PO DAILY 30 days Tobacco use date assessed: 04/08/23 Dental Screening Dental Screen Date: 04/08/23 HPI f/u hypothyroid HPI Details Patient is a 57-year-old female here today for follow-up visit.? Patient's past medical history significant for hyperlipidemia, fibromyalgia, HTN , generalized anxiety disorder, migraines. Concerns--> Having sinusitis over the last 2 weeks. No fevers or nasal congestion. She has had imaging of her sinuses without any significant inflammation. Impaired glucose metabolism: Most recent fasting blood sugar slightly elevated at 102. Patient is somewhat concerned about diabetes as she has a strong family history of diabetes. Will check an A1c at next lab draw. She did see walk-in clinic a few weeks ago for an open area on her groin and was given hydrocortisone cream that made the skin area worse. She did use of betamethasone and nystatin which did help to heal the area. Chronic sinusitis: Has followed up with ENT was sent for x-ray of her sinuses which were essentially normal. Elevated liver enzymes: Most recent LFTs trending down. She denies any Tylenol use , does report taking antibiotics before dental procedure recently. She does have history of fatty liver disease thus will continue to monitor liver enzymes. CHRONIC MEDICAL CONDITIONS-- > History of cosmetic surgery on buttocks--> continues to have intermittent episodes pain and palpable lumps over her buttocks often in different areas. She has had hospital admission with IV antibiotics in the past due to infection. She has had recent MRI of the pelvis that does show positive cosmetic Fillers though no notable infection at that time. She does use doxycycline on a p.r.n. basis for increased pain and redness on the skin. She has found a surgeon outside in the [place] willing to remove her cosmetic Fillers though will cost her about 11,000 dollars. PLAN: For now will continue to manage with anti-inflammatory, prednisone and if pain scales 8-10 and erythema of the skin presents will use antibiotic. .. Fibromyalgia:? Followed by Rheumatology.? Continues now on Suboxone due to her chronic pain. .. Hyperlipidemia:? Continues on Crestor 10 mg on occasion.? Will recheck fasting lipid panel to ensure appropriate LDL and total cholesterol. .. Opiate dependence:? Was previously on narcotic pain medication due to her chronic arthritic pain, is status post total knee arthroplasty.? Continues on Suboxone (4 mg) through [place] [facility]. .. HYpothtyroid:? Most recent TSH has been stable on current dose of levothyroxine. [facility] Medical History Elevated liver enzymes Microscopic hematuria Muscle spasm Upper respiratory tract infection Acute dermatitis Obese Sinus infection Cellulitis of buttock Acquired hypothyroidism Hyperglycemia Post covid-19 condition, unspecified Breast cancer screening Foreign body of buttock Superimposed infection Cellulitis and abscess of buttock Cellulitis Renal calculi Frequent UTI Hematuria History of degenerative disc disease Normal colonoscopy Chronic constipation Hx of renal calculi History of panic attacks Hx of anxiety disorder Depression Hx of opioid abuse Thyroid disease Arthritis Fibromyalgia HTN (hypertension) Surgical History H/O left knee surgery Hx of cholecystectomy Tubal ligation status Hx of appendectomy Family History Paternal Grandmother Colon cancer Mother Pulmonary embolism Sister Pulmonary embolism Social History Household Members: Family Household Members Other:: daughter Housing: House Do you presently have visiting nurse or other home services: No Alcohol intake: never Patient Tobacco Use Status: Former Tobacco user Years Smoked: 20 e-Cigarette/Vaping Use: Never Used Second Hand Smoke Exposure: Yes Advance Directives Date on File: 06/02/21 service: No Current occupational status: employed 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 gIor Jasso, Mariya Arteaga, Chito Combs and colleagues, with an educational haleigh from [employer]. Review of Systems Const Denies headache(s) Eyes Denies loss of vision ENT Details: + sinus tenderness Denies vertigo, Denies dizziness, Reports facial pain, Denies headache(s) and Denies sore throat Card Denies chest pain, Denies leg edema and Denies lightheadedness Resp Denies cough, Denies hemoptysis and Denies wheezing GI Denies abdominal pain, Denies melena, Denies constipation, Denies diarrhea and Denies vomiting Denies urinary frequency, Denies dysuria and Denies urinary urgency Musc Denies arthralgias, Denies joint swelling, Denies numbness and Denies tingling Neuro Denies Abnormal speech present, Denies behavioral changes, Denies vertigo, Denies dizziness, Denies headache(s), Denies loss of vision, Denies memory loss, Denies numbness and Denies tingling Psych Denies anxiety, Denies behavioral changes, Denies depression, Denies memory loss and Denies panic attacks Andrew/Lymph Denies easy bleeding and Denies easy bruising Aller/Immun Denies wheezing Physical exam (Primary Care) Vital Signs: Last Vital Signs Pulse 86 07/08/23 14:32 BP 126/80 07/08/23 14:32 Pulse Ox 97 07/08/23 14:32 Oxygen Delivery Method Room Air 07/08/23 14:32 BMI result Body Mass Index 30.7 Tobacco/Smoking Status: Tobacco use Status Tobacco use date assessed 04/08/23 07/08/23 14:32 Patient Tobacco Use Status Former Tobacco user 07/08/23 14:32 e-Cigarette/Vaping Use Never Used 07/08/23 14:32 Thrive Assessment: Date of Thrive Assessment Date Thrive assessed 04/08/23 07/08/23 14:32 Const General: healthy appearing, no acute distress, alert and awake Nutritional Appearance: well nourished Orientation/consciousness: oriented to person, oriented to place and oriented to time HENMT Ears: TM's normal bilaterally General nose exam: Normal nasal mucous membranes and turbinates present Eyes Conjunctivae: conjunctivae normal Sclerae: sclerae normal Pupils: Equal, round and reactive pupils present Neck Neck: Yes no lymphadenopathy and Yes no JVD Thyroid: Thyroid normal Carotids: no bruits Resp Effort & Inspection: normal respiratory effort and not tachypneic Auscultation: no crackles, no rales, no rhonchi and no wheezes Cardio Rate: regular rate Rhythm: regular rhythm Heart sounds: no murmurs and normal S1 and S2 GI Palpation (GI): Soft to palpation, nontender, no hepatomegaly and no splenomegaly Auscultation: normal bowel sounds Skin General skin exam: no rashes or lesions noted and dry skin Neuro General: oriented to person, oriented to place and oriented to time Cranial nerves: Yes Equal, round and reactive pupils present Speech: No Abnormal speech present Gait exam (Neuro): Normal gait present Motor exam (neuro): no tremor noted Extrem Right upper extremity: full ROM Left upper extremity: full ROM Right lower extremity: full ROM; no edema Left lower extremity: full ROM; no edema Psych Mental Status: mental status grossly normal Speech and movement: Normal speech and movement present Affect: normal affect Attitude: cooperative Thought process: Normal thought process present Assessment and Plan Assessment & Plan (1) Hypothyroid: Code(s): E03.9 - Hypothyroidism, unspecified Qualifiers: Hypothyroidism type: unspecified Qualified Code(s): E03.9 - Hypothyroidism, unspecified Plan: Patient's most recent TSH stable. Will continue her current dose of levothyroxine and continue monitoring TSH to assure normal. (2) HTN (hypertension): Code(s): I10 - Essential (primary) hypertension Qualifiers: Hypertension type: primary hypertension Qualified Code(s): I10 - Essential (primary) hypertension Plan: Blood pressure acceptable today in office. Patient continues with the use of amlodipine. We did discuss possibly transitioning to ARB the patient declines at this time. Goal blood pressures to remain below 140/90 (3) HLD (hyperlipidemia): Code(s): E78.5 - Hyperlipidemia, unspecified Qualifiers: Hyperlipidemia type: mixed hyperlipidemia Qualified Code(s): E78.2 - Mixed hyperlipidemia Plan: Patient does have history of borderline high cholesterol. Was on statin therapy though seldomly uses this due to side effects of myalgias. She promises restart taking statin therapy on a few days a week basis. Goal LDL to remain below 160 (4) Elevated liver enzymes: Code(s): R74.8 - Abnormal levels of other serum enzymes Plan: Has a history of fatty liver disease. Most recent liver enzymes trending down. Will continue to follow the liver panel. (5) Impaired glucose metabolism: Code(s): R73.09 - Other abnormal glucose Plan: Most recent fasting blood sugar slightly elevated at 102. Will check an A1c at next lab draw. Will work on lifestyle and dietary modifications to control her fasting blood sugar. Orders: Orders Hemoglobin A1c 3 Months R73.09 - Other abnormal glucose Lipid Panel 3 Months E78.2 - Mixed hyperlipidemia Microalbumin, Random (w Creat) 3 Months I10 - Essential (primary) hypertension Comprehensive [place]. Panel Fast 3 Months R73.09 - Other abnormal glucose TSH reflex Free T4 3 Months E03.9 - Hypothyroidism, unspecified Medications: New betamethasone dipropionate 0.05% 1 appl topical DAILY PRN 45 grams 0RF skin irritation 30 days L30.4 - Erythema intertrigo, L98.499 - Non-pressure chronic ulcer of skin of other sites with unspecified severity azithromycin For 250 mg dose pack: take 500 mg today (day 1), then 250 mg for 4 days (days 2-5) PO 6 tabs 0RF J01.90 - Acute sinusitis, unspecified Refilled sumatriptan succinate 25 mg PO DAILY 9 tabs 3RF 30 days G43.009 - Migraine without aura, not intractable, without status migrainosus Discontinued hydrocortisone 2.5% Discontinued Reason: Doctor's Order 1 appl topical BID PRN 20 grams 0RF skin irritation hydrocortisone 2.5% Discontinued Reason: Doctor's Order 1 appl topical BID 30 days 454 grams 0RF L03.317 - Cellulitis of buttock Patient Instructions: Goal: Blood pressure remain below 140/90 Barriers: Adherence to healthy eating habits and physical activity Coding Level of Care Code Est Pt Level 4 (98383) Diagnoses Hypothyroidism, unspecified type E03.9 Hypothyroidism type: unspecified Primary hypertension I10 Hypertension type: primary hypertension Mixed hyperlipidemia E78.2 Hyperlipidemia type: mixed hyperlipidemia Elevated liver enzymes R74.8 Impaired glucose metabolism R73.09
== END 2023-07-08 15:09 | disposition home or self-care (01) ==
PROVIDERS: PCP Physician Assistant; Visit Provider Physician Assistant
DX: E03.9 Hypothyroidism, unspecified (principal); I10 Essential (primary) hypertension; E78.2 Mixed hyperlipidemia; R74.8 Abnormal levels of other serum enzymes; R73.09 Other abnormal glucose
CPT/HCPCS: 99214

== ENCOUNTER 2023-07-11 15:22 | Outpatient (REF) | payer OTHER, SELFPAY ==
--- NOTE | ~2023-07-11 | US_ITS ---
EXAMINATION: US RETROPERITONEAL COMPLETE (RENAL) CLINICAL INFORMATION: Calculus of kidney. COMPARISON: Renal ultrasound 12/25/2022. CT abdomen and pelvis 08/10/2022. TECHNIQUE: Real-time imaging of the kidneys and bladder. FINDINGS: RIGHT KIDNEY: 10.9 x 5.1 x 6.0 cm (SAG x AP x TRV). The kidney is normal in size, contour, and echogenicity. Renal cortical thickness is normal. No focal parenchymal lesions or hydronephrosis. 3 mm nonobstructing calculus in the upper kidney. LEFT KIDNEY: 11.6 x 5.0 x 4.8 cm (SAG x AP x TRV). The kidney is normal in size, contour, and echogenicity. Renal cortical thickness is normal. No focal parenchymal lesions or hydronephrosis. 2 mm nonobstructing calculus in the upper kidney. BLADDER: Well distended and normal. Bilateral ureteral jets are demonstrated. Prevoid bladder volume is 476 mL. Postvoid bladder volume is 64.4 mL. US/US retroperitoneal comp IMPRESSION: Nonobstructing renal calculi bilaterally. The right renal calculus appears new compared to prior ultrasound. No hydronephrosis. Postvoid residual bladder volume of 64 mL.
== END 2023-07-11 15:23 | disposition home or self-care (01) ==
LOC: HO.HMGCX 15:22
PROVIDERS: PCP Physician Assistant; Visit Provider Nurse Practitioner Family
DX: N20.0 Calculus of kidney (principal)
CPT/HCPCS: 76770

== ENCOUNTER 2023-07-14 02:48 | Emergency (ER) | payer OTHER, SELFPAY ==
--- NOTE | ~2023-07-14 | CT_ITS ---
EXAMINATION: CT ABDOMEN AND PELVIS WITHOUT CONTRAST CLINICAL INFORMATION: Left flank pain COMPARISON: 08/10/2022 TECHNIQUE: Multidetector volumetric imaging was performed from the superior aspect of the liver through the pubic symphysis. Sagittal and coronal reformatted images were obtained on the technologist's workstation. This CT examination was performed using dose optimization techniques as appropriate, variously including the following: *Automated exposure control *Adjustment of mA and/or kV according to patient size (this includes techniques or standardized protocols for targeted exams where dose is matched to indication/reason for exam; i.e. extremities or head) *Use of iterative reconstruction technique DLP: 566 mGy-cm FINDINGS: LUNG BASES: Linear bibasilar atelectasis. LIVER, GALLBLADDER, AND BILIARY TREE: The liver is normal in size, shape, and attenuation. No focal hepatic lesion or biliary ductal dilatation is identified on this noncontrast exam. Patient is status post cholecystectomy. PANCREAS: Mild fatty atrophy. SPLEEN: Unremarkable. ADRENAL GLANDS: Unremarkable. KIDNEYS AND URETERS: No hydronephrosis or obstructing calculus bilaterally. Punctate calculus in the upper left kidney. BLADDER: Unremarkable. GASTROINTESTINAL TRACT: Mild colonic diverticulosis is noted. No evidence of bowel obstruction or significant wall thickening. No free fluid or free air is seen. ABDOMINAL WALL: Redemonstrated suspected postoperative changes in the anterior abdominal wall. Numerous nodular soft tissue densities redemonstrated in the gluteal subcutaneous tissues, which may be due to prior injections. LYMPH NODES: There is a soft tissue density in the central abdominal mesentery measuring approximately 2.8 x 1.7 cm on image 47/93 with subtle surrounding stranding, previously 1.8 x 1.3 cm on 08/10/2022, favored to represent an enlarged lymph node. VASCULAR: Mild scattered aphthous chronic calcification. PELVIC VISCERA: Unremarkable. OSSEOUS STRUCTURES: Chronic grade 1 anterolisthesis of L4 on L5. Degenerative disc disease at L4-L5. Facet arthropathy of the lower lumbar spine. CT/CT abdomen pelvis wo IV con IMPRESSION: 1. No hydronephrosis or obstructing calculus identified. 2. Soft tissue density in the central abdominal mesentery measuring up to 2.8 cm, previously 1.8 cm on 08/10/2022, with subtle surrounding stranding, favored to represent an enlarged lymph node. Although this could be reactive, malignant adenopathy cannot be excluded, and follow-up imaging is recommended to assess for resolution. Alternatively, tissue sampling could be considered. 3. Punctate left upper pole renal calculus without hydronephrosis.
[2023-07-14 02:56] VITALS: BP 155/75; PULSE 76; RESP 18; TEMP 36.4; O2SAT 97; BMI 31.4
[2023-07-14 03:33] LABS: Basophils Percent Auto 0.2 % (0-2); Eosinophils Absolute Auto 0.1 X10*3/uL (0.0-0.4); Eosinophils Percent Auto 0.4 % (0-4); Hematocrit 37.4 % (37.0-47.0); Hemoglobin 12.4 g/dl (12.0-16.0); Imm Gran Abs Auto 0.04 X10*3/uL (0.00-0.03); Imm Gran Pct Auto 0.4 % (0.0-0.4); Lymphocytes Absolute Auto 2.5 X10*3/uL (1.2-4.9); Lymphocytes Percent Auto 22.3 % (20-40); MANUAL DIFF FLAG NO; Mean Corpuscular HGB Conc 33.2 g/dl (31.0-35.0); Mean Corpuscular Hemoglobin 26.7 pg (27.0-33.0); Mean Corpuscular Volume 80.6 fL (80.0-98.0); Mean Platelet Volume 8.8 fL (9.4-12.3); Monocytes Absolute Auto 0.7 X10*3/uL (0.1-1.2); Monocytes Percent Auto 6.6 % (2-11); Neutrophils Absolute Auto 7.9 x10*3/uL (2.0-8.3); Neutrophils Percent Auto 70.1 % (45-73); Platelet Count 277 X10*3/uL (160-400); Red Blood Count 4.64 X10*6/uL (4.20-5.50); Red Cell Distribution Width 13.1 % (11.0-16.0); White Blood Count 11.3 X10*3/uL (4.8-10.8)
[2023-07-14 03:52] LABS: Anion Gap 16 (12-20); Blood Urea Nitrogen 8 mg/dL (9-16); Calcium 9.2 mg/dL (8.4-10.2); Carbon Dioxide 25 mmol/L (22-29); Chloride 105 mmol/L (96-108); Creatinine Clr Calc Pharmacy 96.1; Estimated Glomerular Filt Rate > 60; Glucose Random 132 mg/dL (60-115); Potassium 3.5 mmol/L (3.3-5.1); Sodium 142 mmol/L (135-145)
[2023-07-14 03:56] LABS: Appearance Urine Clear; Color Urine Yellow; Glucose Urine UA Negative (Negative); Leukocyte Esterase Urine Negative (Negative); Nitrite Urine Negative (Negative); PH 6.5 (5.0-9.0); Specific Gravity - Urine 1.015 (1.005-1.025); Urine Blood Negative (Negative); Urine Ketones Negative (Negative); Urine Protein Negative (Neg-Trace)
--- NOTE | 2023-07-14 04:25 | ED_ITS ---
HPI - Abdominal Pain General Chief Complaint: Abdominal Pain Stated Complaint: lower back pain continues into stomach Time Seen by Provider: 07/14/23 04:23 Source: patient Mode of arrival: ambulatory Limitations: no limitations History of Present Illness HPI narrative: Patient is status post liposuction appendectomy and cholecystectomy with nonobstructive kidney stone complaining of pain started yesterday morning in the left flank radiating to the front and to the back with slight nausea no vomiting no diarrhea no fever no chills no urinary symptoms Related Data Home Medications ?Medication ?Instructions ?Recorded ?Confirmed buprenorphine 8 mg-naloxone 2 mg 0.5 film buccal BID@1130,1800 04/21/20 07/08/23 sublingual film (Suboxone) cholecalciferol (vitamin D3) 25 25 mcg PO DAILY 04/21/20 07/08/23 mcg (1,000 unit) capsule (Vitamin D3) fluticasone propionate 50 1 - 2 spray intranasal DAILY PRN 06/01/21 07/08/23 mcg/actuation nasal Allergy Symptoms spray,suspension meclizine 12.5 mg tablet 12.5 mg PO Q8H PRN dizziness 01/21/22 07/08/23 Previous Rx's ?Medication ?Instructions ?Recorded pyridoxine (vitamin B6) 100 mg 100 mg PO DAILY #90 tabs 05/20/22 tablet omeprazole 40 mg capsule,delayed 40 mg PO BID #30 caps 10/20/22 release cyclobenzaprine 5 mg tablet 5 mg PO TID PRN muscle spasm #14 10/26/22 tabs ibuprofen 800 mg tablet 800 mg PO DAILY PRN pain 30 days 12/16/22 #30 tabs clonazepam 0.5 mg tablet 0.5 mg PO TID PRN Anxiety 14 days 12/24/22 #42 tabs ipratropium bromide 21 mcg (0.03 2 spray intranasal BID 30 days #30 12/24/22 %) nasal spray mL levothyroxine 50 mcg tablet 50 mcg PO DAILY 90 days #90 tabs 12/24/22 rosuvastatin 10 mg tablet (Crestor) 10 mg PO DAILY 90 days #90 tabs 12/24/22 amlodipine 5 mg tablet 5 mg PO DAILY 90 days #90 tabs 12/26/22 ascorbic acid (vitamin C) 500 mg 500 mg PO DAILY #90 tabs 12/26/22 tablet cetirizine 10 mg capsule (Zyrtec) 10 mg PO DAILY Allergy Symptoms 90 12/26/22 days #90 caps calcium polycarbophil 625 mg 1,250 mg (2 x 625 mg) PO DAILY 30 01/09/23 tablet (Fiber Laxative (calcium days #60 tabs polycarbophil)) docusate sodium 100 mg capsule 200 mg (2 x 100 mg) PO BEDTIME #60 01/09/23 (Colace) caps polyethylene glycol 3350 17 17 g PO DAILY #510 grams 01/09/23 gram/dose oral powder (Miralax) azithromycin 250 mg tablet See Rx Instructions PO .COMPLEX #6 07/08/23 tabs betamethasone dipropionate 0.05 % 1 appl topical DAILY PRN skin 07/08/23 topical cream irritation 30 days #45 grams sumatriptan succinate 25 mg tablet 25 mg PO DAILY 30 days #9 tabs 07/08/23 omeprazole 40 mg capsule,delayed 40 mg PO DAILY #30 caps 07/14/23 release sucralfate 1 gram tablet 1 g PO TID #90 tabs 07/14/23 Allergies Allergy/AdvReac Type Severity Reaction Status Date / Time metoclopramide [From REGLAN] AdvReac Intermediate AGITATION Verified 07/14/23 03:01 morphine AdvReac Mild Nausea Verified 07/14/23 03:01 aspirin AdvReac Vomiting Verified 07/14/23 03:01 Review of Systems Review of Systems Yes all other systems are reviewed and are negative [facility] Past Medical History Medical History Elevated liver enzymes Microscopic hematuria Muscle spasm Upper respiratory tract infection Acute dermatitis Obese Sinus infection Cellulitis of buttock Acquired hypothyroidism Hyperglycemia Post covid-19 condition, unspecified Breast cancer screening Foreign body of buttock Superimposed infection Cellulitis and abscess of buttock Cellulitis Renal calculi Frequent UTI Hematuria History of degenerative disc disease Normal colonoscopy Chronic constipation Hx of renal calculi History of panic attacks Hx of anxiety disorder Depression Hx of opioid abuse Thyroid disease Arthritis Fibromyalgia HTN (hypertension) Surgical History H/O left knee surgery Hx of cholecystectomy Tubal ligation status Hx of appendectomy Family History Family History Paternal Grandmother Colon cancer Mother Pulmonary embolism Sister Pulmonary embolism Social History Social History Household Members: Family Household Members Other:: daughter Housing: House Do you presently have visiting nurse or other home services: No Alcohol intake: never Patient Tobacco Use Status: Former Tobacco user Years Smoked: 20 Smoked in Last 30 Days: No e-Cigarette/Vaping Use: Never Used Second Hand Smoke Exposure: Yes Use of substances other than those prescribed or required for medical reasons: No Advance Directives: Yes Advance Directives on File: Yes Advance Directives Date on File: 06/02/21 Do you have a plan to hurt others: No Plan service: No Current occupational status: employed 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 Oriented X3. No acute distress. Eyes: No pallor or icterus ENT: Pharynx normal. Oral Mucosa moist Neck: Normal inspection. Neck supple. CVS: Normal heart rate and rhythm. Pulses normal. Respiratory: No respiratory distress. Equal air entry bilateral, no wheezing/rales/rhonchi Abdomen: Soft tenderness in epigastric and bilateral flank area. No guarding or rebound tenderness Bowel sounds are present, no mass palpable, Skin: Skin warm and dry. Normal skin color. Normal skin turgor. Extremities: No lower extremity edema. No calf tenderness Neuro: Oriented X 3. Medical Decision Making Medical Decision Making MDM Narrative: Patient with bilateral flank and upper abdominal pain CT scan negative for acute showed mesenteric lymph node with just enlarged in the size. That could be possible cause for the pain patient had colonoscopy 3 years ago which was negative for any cancer never had endoscopy in the past patient is status post appendectomy and cholecystectomy patient advised to follow with PCP/surgeon patient takes Suboxone for chronic pain will discharge patient home advised to follow with marketing systems analyst Differential Diagnosis Differential Diagnoses: The differential diagnosis associated with the presentation includes Kidney stone/UTI/abdominal mass Admission/Observation Consideration of admission/observation: Escalation of care including admission/observation considered Lab Data MDM Lab Attestation statement: I reviewed the patient's lab results. 07/14/23 03:28 07/14/23 03:28 Labs: Lab Results 07/14/23 07/14/23 Range/Units 03:28 03:47 WBC 11.3 H (4.8-10.8) X10*3/uL RBC 4.64 (4.20-5.50) X10*6/uL Hgb 12.4 (12.0-16.0) g/dl Hct 37.4 (37.0-47.0) % MCV 80.6 (80.0-98.0) fL MCH 26.7 L (27.0-33.0) pg MCHC 33.2 (31.0-35.0) g/dl RDW 13.1 (11.0-16.0) % Plt Count 277 (160-400) X10*3/uL MPV 8.8 L (9.4-12.3) fL Immature Gran % (Auto) 0.4 (0.0-0.4) % Neut % (Auto) 70.1 (45-73) % Lymph % (Auto) 22.3 (20-40) % [place] % (Auto) 6.6 (2-11) % Eos % (Auto) 0.4 (0-4) % Baso % (Auto) 0.2 (0-2) % Lymph # (Auto) 2.5 (1.2-4.9) X10*3/uL [place] # (Auto) 0.7 (0.1-1.2) X10*3/uL Eos # (Auto) 0.1 (0.0-0.4) X10*3/uL Baso # (Auto) 0.0 (0.0-0.2) X10*3/uL Abs Immat Gran (auto) 0.04 H (0.00-0.03) X10*3/uL Absolute Neuts (auto) 7.9 (2.0-8.3) x10*3/uL Absolute Nucleated RBC 0.000 (0.0-0.012) X10*3/uL Nucleated RBC % (auto) 0.0 (0.0-0.2) /100WBC Sodium 142 (135-145) mmol/L Potassium 3.5 (3.3-5.1) mmol/L Chloride 105 (96-108) mmol/L Carbon Dioxide 25 (22-29) mmol/L Anion Gap 16 (12-20) BUN 8 L (9-16) mg/dL Creatinine 0.64 (0.5-1.4) mg/dL Estim Creat Clear Calc 96.1 Estimated GFR > 60 Random Glucose 132 H (60-115) mg/dL Calcium 9.2 (8.4-10.2) mg/dL Total Bilirubin 0.3 (0.0-1.0) mg/dL Direct Bilirubin 0.1 (0.0-0.5) mg/dL AST 65 H (5-31) U/L ALT 80 H (0-31) U/L Alkaline Phosphatase 67 (39-117) U/L Total Protein 7.6 (6.5-8.0) g/dL Albumin 4.0 (3.5-5.0) g/dL Lipase 15 (8-78) U/L Urine Color Yellow Urine Appearance Clear Urine pH 6.5 (5.0-9.0) Ur Specific [place] 1.015 (1.005-1.025) Urine Protein Negative (Neg-Trace) mg/dL Urine Glucose (UA) Negative (Negative) mg/dL Urine Ketones Negative (Negative) mg/dL Urine Blood Negative (Negative) Urine Nitrite Negative (Negative) Ur Leukocyte Esterase Negative (Negative) Medications Administered Discontinued Medications Generic Name Dose Route Start Last Admin Trade Name Yordyq PRN Reason Stop Dose Admin Al Hydroxide/Mg Hydroxide 30 ml 07/14/23 06:28 07/14/23 06:33 Magnesium Hydrox/Alum Hydrox 30 Ml Oral.Susp PO 07/14/23 06:29 30 ml ONCE ONE Administration Sodium Chloride 1,000 mls @ 999 mls/hr 07/14/23 04:30 07/14/23 05:53 Ns IV 07/14/23 05:30 Infused .Q1H1M ONE Infusion Ketorolac Tromethamine 30 mg 07/14/23 04:32 07/14/23 04:38 Ketorolac Tromethamine 30 Mg/Ml Vial IVPUSH 07/14/23 04:33 30 mg ONCE ONE Administration Lidocaine HCl 15 ml 07/14/23 06:28 07/14/23 06:33 Lidocaine Hcl Viscous 2 % 15 Ml Solution MUCOUS MEM 07/14/23 06:29 15 ml ONCE ONE Administration Ondansetron HCl 4 mg 07/14/23 04:30 07/14/23 04:38 Ondansetron Hcl 4 Mg/2 Ml Vial IVPUSH 07/14/23 04:31 4 mg ONCE ONE Administration Discharge Plan Discharge Clinical Impression: Abdominal pain Patient Disposition: Home, Self-Care Instructions: Abdominal Pain (ED) Additional Instructions: Etiology of abdominal pain is not clear in the CT scan mesenteric lymph node was seen possible the cause for the pain Continue Suboxone Take Prilosec and sucralfate Follow-up with marketing systems analyst for further evaluation Prescriptions: New omeprazole 40 mg capsule,delayed release(DR/EC) 40 mg PO DAILY Qty: 30 0RF sucralfate 1 gram tablet 1 g PO TID Qty: 90 0RF No Action amlodipine 5 mg tablet 5 mg PO DAILY 90 Days Qty: 90 1RF ascorbic acid (vitamin C) 500 mg tablet 500 mg PO DAILY Qty: 90 2RF Zyrtec 10 mg capsule 10 mg PO DAILY 90 Days Qty: 90 3RF cholecalciferol (vitamin D3) [Vitamin D3] 25 mcg (1,000 unit) Capsule 25 mcg PO DAILY buprenorphine-naloxone [Suboxone] 8-2 mg Film 0.5 film BUCCAL BID@1130,1800 fluticasone propionate 50 mcg/actuation spray,suspension 1 - 2 spray intranasal DAILY PRN (Reason: Allergy Symptoms) omeprazole 40 mg capsule,delayed release(DR/EC) 40 mg PO BID Qty: 30 0RF Hold Instructions: Doctor's Order clonazepam 0.5 mg tablet 0.5 mg PO TID PRN (Reason: Anxiety) 14 Days Qty: 42 0RF levothyroxine 50 mcg tablet 50 mcg PO DAILY 90 Days Qty: 90 2RF rosuvastatin [Crestor] 10 mg tablet 10 mg PO DAILY 90 Days Qty: 90 2RF ipratropium bromide 21 mcg (0.03 %) spray,non-aerosol 2 spray intranasal BID 30 Days Qty: 30 3RF Rx Instructions: administer into each nostril cyclobenzaprine 5 mg tablet 5 mg PO TID PRN (Reason: muscle spasm) Qty: 14 0RF ibuprofen 800 mg tablet 800 mg PO DAILY PRN (Reason: pain) 30 Days Qty: 30 0RF meclizine 12.5 mg tablet 12.5 mg PO Q8H PRN (Reason: dizziness) sumatriptan succinate 25 mg tablet 25 mg PO DAILY 30 Days Qty: 9 3RF betamethasone dipropionate 0.05 % cream 1 appl topical DAILY PRN (Reason: skin irritation) 30 Days Qty: 45 0RF azithromycin 250 mg tablet See Rx Instructions PO .COMPLEX Qty: 6 0RF Rx Instructions: For 250 mg dose pack: take 500 mg today (day 1), then 250 mg for 4 days (days 2-5) PO pyridoxine (vitamin B6) 100 mg tablet 100 mg PO DAILY Qty: 90 1RF calcium polycarbophil [Fiber Laxative (ca polycarbo)] 625 mg tablet 1,250 mg PO DAILY 30 Days Qty: 60 3RF docusate sodium [Colace] 100 mg capsule 200 mg PO BEDTIME Qty: 60 5RF polyethylene glycol 3350 [Miralax] 17 gram/dose powder 17 g PO DAILY Qty: 510 6RF Referrals: Gary Whipple MD [Physician] - 2 weeks Interventions: ED Discharge Assessment Last Done: 07/14/23 07:03 Discharge Date/Time: 07/14/23 07:10 Print Language: Finnish
[2023-07-14] MEDS: ondansetron HCL 4 MG/2 ML VIAL IVPUSH (04:38)
[2023-07-14] MEDS: Ketorolac Tromethamine 30 MG/ML VIAL IVPUSH (04:38)
[2023-07-14] MEDS: 0.9 % Sodium Chloride 1,000 ML 999 ML IV (04:38)
[2023-07-14 04:49] LABS: Alanine Aminotransferase 80 U/L (0-31); Alkaline Phosphatase 67 U/L (39-117); Aspartate Amino Transferase 65 U/L (5-31); Bilirubin Direct 0.1 mg/dL (0.0-0.5); Bilirubin Total 0.3 mg/dL (0.0-1.0); Lipase 15 U/L (8-78); Total Protein 7.6 g/dL (6.5-8.0)
[2023-07-14 06:31] VITALS: BP 122/58; PULSE 70; RESP 16; O2SAT 97
[2023-07-14] MEDS: Magnesium Hydrox/Alum Hydrox 30 ML ORAL.SUSP PO (06:33)
[2023-07-14] MEDS: Lidocaine HCl Viscous 2 % 15 ML SOLUTION MUCOUS MEM (06:33)
[2023-07-14 07:03] VITALS: BP 138/58; PULSE 72; RESP 16; TEMP 36.8; O2SAT 98
== END 2023-07-14 07:10 | disposition home or self-care (01) ==
PROVIDERS: Emergency Provider Internal Medicine; PCP Physician Assistant
DX: R10.9 Unspecified abdominal pain (principal); R11.0 Nausea; I10 Essential (primary) hypertension; N20.0 Calculus of kidney; Z79.899 Other long term (current) drug therapy
CPT/HCPCS: 36415; 74176; 80048; 80076; 81003; 83690; 85025; 96361; 96374; 96375; 99284; 99285; J1885; J2405

== ENCOUNTER 2023-07-15 13:52 | Outpatient (AMB) | payer OTHER, SELFPAY ==
[2023-07-15 14:03] VITALS: BP 120/80; PULSE 92; TEMP 36.3; O2SAT 96; BMI 30.6
--- NOTE | 2023-07-15 14:03 | AM.OFFWIN_ITS ---
Intake Vital Signs 07/15/23 14:03 Height 5 ft 3 in Weight 173 lb BMI 30.6 BP 120/80 Blood Pressure Location Lt brachial Position Sitting Pulse 92 Pulse Source Pulse Oximeter Temp 97.4 F Temp Source Temporal Artery Scan Pulse Oximetry (%) 96 Oxygen Delivery Method Room Air Intake Visit Reasons: EP stomach pain Intake Note: pt is here today for stomach pain started friday Patient Tobacco Use Status: Former Tobacco user Allergies metoclopramide [From REGLAN] Adverse Reaction (Intermediate, Verified 07/15/23 14:10) AGITATION morphine Adverse Reaction (Mild, Verified 07/15/23 14:10) Nausea aspirin Adverse Reaction (Verified 07/15/23 14:10) Vomiting Do you need a note to return to daycare/school/sports/work: No HPI HPI Comments History of Present Illness Details 57-year-old female presents today compla ining of increasing abdominal pain over the last few days. She was seen 4 days ago at the emergency department and a CT scan was ordered that shows diverticulosis and maybe a an ischemic lymph node. She states she was put on omeprazole that has not improved the pain. The pain is now periumbilical in the right and left quadrants. Patient has had her gallbladder and appendix removed. She denies nausea vomiting and diarrhea. Her chief complaint is pain [facility] Medical History (Updated 07/15/23 @ 14:39 by KURT Tran) Abdominal pain Elevated liver enzymes Microscopic hematuria Muscle spasm Upper respiratory tract infection Acute dermatitis Obese Sinus infection Cellulitis of buttock Acquired hypothyroidism Hyperglycemia Post covid-19 condition, unspecified Breast cancer screening Foreign body of buttock Superimposed infection Cellulitis and abscess of buttock Cellulitis Renal calculi Frequent UTI Hematuria History of degenerative disc disease Normal colonoscopy Chronic constipation Hx of renal calculi History of panic attacks Hx of anxiety disorder Depression Hx of opioid abuse Thyroid disease Arthritis Fibromyalgia HTN (hypertension) Surgical History H/O left knee surgery Hx of cholecystectomy Tubal ligation status Hx of appendectomy Family History Paternal Grandmother Colon cancer Mother Pulmonary embolism Sister Pulmonary embolism Social History Household Members: Family Household Members Other:: daughter Housing: House Do you presently have visiting nurse or other home services: No Alcohol intake: never Patient Tobacco Use Status: Former Tobacco user Years Smoked: 20 e-Cigarette/Vaping Use: Never Used Second Hand Smoke Exposure: Yes Advance Directives Date on File: 06/02/21 service: No Current occupational status: employed 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 Cognitive needs: No Hearing needs: No Vision needs: No Female Reproductive History Menstrual Age of Menarche: 12 Review of Systems Const All systems reviewed & are unremarkable except as noted in HPI and below Physical Exam Vital Signs: Last Vital Signs Temp 97.4 F 07/15/23 14:03 Pulse 92 07/15/23 14:03 BP 120/80 07/15/23 14:03 Pulse Ox 96 07/15/23 14:03 Oxygen Delivery Method Room Air 07/15/23 14:03 BMI result Body Mass Index 30.6 Const General: acute distress moderate HEENT Head: Yes normal to inspection, Yes normocephalic and Yes atraumatic Ears: hearing grossly normal bilaterally General nose exam: Normal external nose present Resp Effort & Inspection: normal respiratory effort Auscultation: clear to auscultation bilaterally Cardio Rate: regular rate Rhythm: regular rhythm GI Inspection: Yes normal to inspection and Yes scar Palpation (GI): Firmness to palpation present (GI), Tenderness to palpation present (GI) in the epigastrum, in the LUQ and in the RUQ and Rebound tenderness present Auscultation: normal bowel sounds Results Reviewed Results Reviewed: I discussed the results of the CT scan with the patient. While she was being seen her GI specialist was calling hopefully to give her an appointment. Assessment & Plan Assessment & Plan (1) Abdominal pain: Code(s): R10.9 - Unspecified abdominal pain Plan: I advised the patient to return to the emergency department due to the increasing pain she does not get an urgent appointment with her GI specialist. Plan See plan Medications: New gabapentin 300 mg PO BEDTIME 10 caps 0RF Coding Level of Care Code Est Pt Level 3 (35698) Diagnoses Abdominal pain R10.9
== END 2023-07-15 16:24 | disposition home or self-care (01) ==
PROVIDERS: PCP Physician Assistant; Visit Provider Physician Assistant Medical
DX: R10.9 Unspecified abdominal pain (principal)
CPT/HCPCS: 99213

== ENCOUNTER 2023-07-16 09:09 | Outpatient (AMB) | payer OTHER, SELFPAY ==
--- NOTE | 2023-07-16 09:29 | MHC.OFFVIS ---
Vital Signs 07/16/23 09:42 Height 5 ft 3 in Weight 173 lb BMI 30.6 BP 118/61 Blood Pressure Location Lt brachial Position Sitting Pulse 79 Intake Visit Reasons: constipatyion and abd pain/ Delphine current patient Intake Note: Patient sick visit for abdominal pain and constipation Patient cc: center abdominal pain with bloating, abdominal mendoza with burning sensation, Constipation and not eating well due the abdominal pain. Also she have a CT scan in the ED visit. Invasive Physician Required: No Accompanied by: Brother Allergies metoclopramide [From REGLAN] Adverse Reaction (Intermediate, Verified 07/16/23 09:27) AGITATION morphine Adverse Reaction (Mild, Verified 07/16/23 09:27) Nausea aspirin Adverse Reaction (Verified 07/16/23 09:27) Vomiting HPI HPI constipatyion and abd pain/ Delphine current patient: Details: LAST VISIT JANUARY 2023 WITH QUANG HICKS Assessment & Plan (1) GERD (gastroesophageal reflux disease): Code(s): K21.9 - Gastro-esophageal reflux disease without esophagitis Qualifiers: Esophagitis presence: without esophagitis Qualified Code(s): K21.9 - Gastro-esophageal reflux disease without esophagitis (2) Normal colonoscopy: Comment: Colonoscopy, Dr. Gael klein, repeat asymptomatic 10 years (3) Chronic constipation: Comment: 54-year-old female chronic constipation, and consistent regimen, She will begin Colace 200 mg and MiraLax q.h.s., she will use suppositories by day 3 of no BM as well as high-fiber diet. Code(s): K59.09 - Other constipation Orders: TODAY'S VISIT Patient requested to be seen after being seen in the ER on July 13. Patient has been seen by Quang HICKS. long history of constipation. Patient reports that she has been having history of constipation since she was 13 years old. Patient has been on Suboxone for the last few years. Dose was decreased, however she continues to take it every day. Patient also suffers from chronic back pain. Goes to pain management here at [facility]. Patient had no bowel movements for the last 5 days. Patient was afraid to take milk of magnesia which usually works for her. CT scan showed enlarged mesenteric soft tissue density that is enlarged since last scan. Area located in the central abdominal wall. Patient's pain is in right upper and left upper quadrant. Patient reports feeling very bloated. Epigastric discomfort, decreased appetite, patient also reports nausea no vomiting. [facility] Medical History (Updated 07/15/23 @ 14:39 by KURT Tran) Abdominal pain Elevated liver enzymes Microscopic hematuria Muscle spasm Upper respiratory tract infection Acute dermatitis Obese Sinus infection Cellulitis of buttock Acquired hypothyroidism Hyperglycemia Post covid-19 condition, unspecified Breast cancer screening Foreign body of buttock Superimposed infection Cellulitis and abscess of buttock Cellulitis Renal calculi Frequent UTI Hematuria History of degenerative disc disease Normal colonoscopy Chronic constipation Hx of renal calculi History of panic attacks Hx of anxiety disorder Depression Hx of opioid abuse Thyroid disease Arthritis Fibromyalgia HTN (hypertension) Surgical History H/O left knee surgery Hx of cholecystectomy Tubal ligation status Hx of appendectomy Family History Paternal Grandmother Colon cancer Mother Pulmonary embolism Sister Pulmonary embolism Social History Household Members: Family Household Members Other:: daughter Housing: House Do you presently have visiting nurse or other home services: No Alcohol intake: never Patient Tobacco Use Status: Former Tobacco user Years Smoked: 20 e-Cigarette/Vaping Use: Never Used Second Hand Smoke Exposure: Yes Advance Directives Date on File: 06/02/21 service: No Current occupational status: employed 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 Cognitive needs: No Hearing needs: No Vision needs: No Female Reproductive History Menstrual Age of Menarche: 12 Review of Systems Const Denies weight gain and Denies weight loss ENT Reports no additional complaints, Denies dysphagia and Denies odynophagia Card Reports no additional complaints Resp Reports no additional complaints GI Reports abdominal pain, Denies belching, Denies melena, Reports bloating, Reports constipation, Denies dysphagia, Denies excessive flatus, Reports dyspepsia, Denies heartburn, Denies diarrhea, Denies loose stools, Reports nausea, Denies odynophagia and Denies vomiting Reports no additional complaints Musc Reports no additional complaints Neuro Reports no additional complaints Psych Reports no additional complaints Endo Reports no additional complaints Physical Exam Vital Signs: Last Vital Signs Pulse 79 07/16/23 09:42 BP 118/61 07/16/23 09:42 BMI result Body Mass Index 30.6 Const General: healthy appearing and no acute distress Nutritional Appearance: obese Orientation/consciousness: patient oriented x3 Resp Effort & Inspection: normal respiratory effort, able to speak in complete sentences, no tracheal deviation and symmetric chest movement Auscultation: clear to auscultation bilaterally Cardio Rate: regular rate GI Inspection: Yes normal to inspection, Yes distended and Yes obesity Palpation (GI): Soft to palpation, not firm, nontender and No hepatosplenomegaly present Auscultation: normal bowel sounds General: Yes no CVA tenderness Back/Spine/Pelvis Back: no CVA tenderness Skin General skin exam: elasticity normal, turgor normal and dry skin Neuro General: patient oriented x3 Psych Appearance: grossly normal Mental Status: mental status grossly normal Results Reviewed Results Reviewed: CT OF ABDOMEN AND PELVIS 07/14/2023 FROM ED FINDINGS: LUNG BASES: Linear bibasilar atelectasis. LIVER, GALLBLADDER, AND BILIARY TREE: The liver is normal in size, shape, and attenuation. No focal hepatic lesion or biliary ductal dilatation is identified on this noncontrast exam. Patient is status post cholecystectomy. PANCREAS: Mild fatty atrophy. SPLEEN: Unremarkable. ADRENAL GLANDS: Unremarkable. KIDNEYS AND URETERS: No hydronephrosis or obstructing calculus bilaterally. Punctate calculus in the upper left kidney. BLADDER: Unremarkable. GASTROINTESTINAL TRACT: Mild colonic diverticulosis is noted. No evidence of bowel obstruction or significant wall thickening. No free fluid or free air is seen. ABDOMINAL WALL: Redemonstrated suspected postoperative changes in the anterior abdominal wall. Numerous nodular soft tissue densities redemonstrated in the gluteal subcutaneous tissues, which may be due to prior injections. LYMPH NODES: There is a soft tissue density in the central abdominal mesentery measuring approximately 2.8 x 1.7 cm on image 47/93 with subtle surrounding stranding, previously 1.8 x 1.3 cm on 08/10/2022, favored to represent an enlarged lymph node. VASCULAR: Mild scattered aphthous chronic calcification. PELVIC VISCERA: Unremarkable. OSSEOUS STRUCTURES: Chronic grade 1 anterolisthesis of L4 on L5. Degenerative disc disease at L4-L5. Facet arthropathy of the lower lumbar spine. CT/CT abdomen pelvis wo IV con IMPRESSION: 1. No hydronephrosis or obstructing calculus identified. 2. Soft tissue density in the central abdominal mesentery measuring up to 2.8 cm, previously 1.8 cm on 08/10/2022, with subtle surrounding stranding, favored to represent an enlarged lymph node. Although this could be reactive, malignant adenopathy cannot be excluded, and follow-up imaging is recommended to assess for resolution. Alternatively, tissue sampling could be considered. 3. Punctate left upper pole renal calculus without hydronephrosis. 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 Patient can start Motegrity. She will take milk of magnesia when she will get home. Until PA approved patient can take Dulcolax tablets daily. Stop sucralfate and omeprazole. Patient reports that she has epigastric pain after taking it. Can take famotidine twice a day. Avoid dietary triggers. Patient was encouraged to increase fluid intake and activity to promote better bowel motility. Patient will follow-up with her GI provider. May need to order neither study to evaluate her mesenteric lymph nodes. She is agreeable to this plan and verbalizes understanding of instructions. She was given the opportunity to ask questions and all questions answered. Thank you for allowing me to participate in her care Medications: New prucalopride (Motegrity) 2 mg PO DAILY 30 tabs 2RF K59.04 - Chronic idiopathic constipation bisacodyl (Dulcolax (bisacodyl)) 10 mg (2 x 5 mg) PO BEDTIME 180 tabs 4RF famotidine (Pepcid) 20 mg PO BID 60 tabs 3RF K21.9 - Gastro-esophageal reflux disease without esophagitis Discontinued sucralfate Discontinued Reason: Doctor's Order 1 g PO TID 90 tabs 0RF omeprazole Discontinued Reason: Doctor's Order 40 mg PO DAILY 30 caps 0RF Coding Level of Care Code Est Pt Level 4 (29300) Diagnoses Drug-induced constipation K59.03 Constipation type: drug induced constipation Abdominal pain, LUQ (left upper quadrant) R10.12 Mesenteric cyst K66.8 Time Spent (min) 40 Comment 25 minutes spent with patient and additional 15 minutes spent records
[2023-07-16 09:42] VITALS: BP 118/61; PULSE 79; BMI 30.6
== END 2023-07-16 10:12 | disposition home or self-care (01) ==
PROVIDERS: PCP Physician Assistant; Visit Provider Nurse Practitioner Family
DX: K59.03 Drug induced constipation (principal); R10.12 Left upper quadrant pain; K66.8 Other specified disorders of peritoneum
CPT/HCPCS: 99214

== ENCOUNTER → 2023-07-16 09:09 | Outpatient (BNVA) | payer OTHER, SELFPAY | PROVIDERS: PCP Physician Assistant; Visit Provider Nurse Practitioner Family | DX: K59.03 Drug induced constipation (principal); K66.8 Other specified disorders of peritoneum; R10.12 Left upper quadrant pain | CPT/HCPCS: 99212 ==

== ENCOUNTER 2023-07-22 14:44 | Outpatient (AMB) | payer OTHER, SELFPAY ==
--- NOTE | 2023-07-22 14:46 | AM.OFFWIN_ITS ---
Intake Vital Signs 07/22/23 14:50 Height 5 ft 3 in Weight 173 lb BMI 30.6 BP 128/76 Blood Pressure Location Rt brachial Position Sitting Pulse 112 H Pulse Source Pulse Oximeter Temp 98.0 F Temp Source Oral Pulse Oximetry (%) 96 Intake Visit Reasons: EP pain in left foot Intake Note: pt is here for pain in the left foot, denies injury Patient Tobacco Use Status: Former Tobacco user Allergies metoclopramide [From REGLAN] Adverse Reaction (Intermediate, Verified 07/22/23 14:53) AGITATION morphine Adverse Reaction (Mild, Verified 07/22/23 14:53) Nausea aspirin Adverse Reaction (Verified 07/22/23 14:53) Vomiting Do you need a note to return to daycare/school/sports/work: No HPI HPI Comments History of Present Illness Details Patient is a 57-year-old female in today for sick visit. Patient states for the past week she has developed left foot pain which got progressively worse over the past week. She denies any trauma to the area, she states that is now difficult to walk on her left foot. Pain is to the instep of the foot, is worse in the morning after waking up, and late at night. Patient has taken ibuprofen with little relief. Denies tingling or numbness. Patient has full range of motion of extremity. States she only feels pain when she is walking on it. [facility] Medical History Abdominal pain Elevated liver enzymes Microscopic hematuria Muscle spasm Upper respiratory tract infection Acute dermatitis Obese Sinus infection Cellulitis of buttock Acquired hypothyroidism Hyperglycemia Post covid-19 condition, unspecified Breast cancer screening Foreign body of buttock Superimposed infection Cellulitis and abscess of buttock Cellulitis Renal calculi Frequent UTI Hematuria History of degenerative disc disease Normal colonoscopy Chronic constipation Hx of renal calculi History of panic attacks Hx of anxiety disorder Depression Hx of opioid abuse Thyroid disease Arthritis Fibromyalgia HTN (hypertension) Surgical History H/O left knee surgery Hx of cholecystectomy Tubal ligation status Hx of appendectomy Family History Paternal Grandmother Colon cancer Mother Pulmonary embolism Sister Pulmonary embolism Social History Household Members: Family Household Members Other:: daughter Housing: House Do you presently have visiting nurse or other home services: No Alcohol intake: never Patient Tobacco Use Status: Former Tobacco user Years Smoked: 20 e-Cigarette/Vaping Use: Never Used Second Hand Smoke Exposure: Yes Advance Directives Date on File: 06/02/21 service: No Current occupational status: employed 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 Oriented X3.? No acute distress.? Neck: Normal inspection.? Neck supple.? CVS: Normal heart rate and rhythm.? Pulses normal.? Respiratory: No respiratory distress.? Breath sounds normal.? Abdomen: Soft and nontender.? Skin: Skin warm and dry.? Normal skin color.? Normal skin turgor.? Extremities: No lower extremity edema.? Tenderness to area of talus bone. Full ROM. Able to walk on extremity but painful. Neuro: Oriented X 3.? No motor deficit.? No sensory deficit. Assessment & Plan Assessment & Plan (1) Sprain of left foot: Comment: Initial reading of x-ray did not reveal fracture. Patient has been educated she should rest the affected limb, utilize ice, obtain inserts for shoes, and can utilize diclofenac topical gel. Patient has been advised to avoid Tylenol with history of elevated liver enzymes. Patient has been educated on signs of worsening symptoms and when to report turn to the walk-in or when to present to the ED Code(s): S93.602A - Unspecified sprain of left foot, initial encounter Qualifiers: Encounter type: initial encounter Qualified Code(s): S93.602A - Unspecified sprain of left foot, initial encounter Plan: Take your medications as prescribed. If you were prescribed antibiotics today, it is important that you take your medication to their entirety, do not skip any doses, do not finish them early. Follow-up with your primary care provider this week. Return to the emergency department with new or worsening symptoms. Such as fevers, chills, chest pain, shortness of breath, nausea, vomiting, dizziness, headache, vision changes, lethargy In case of emergency call 911 Plan Follow-up with PCP Medications: New diclofenac sodium 1% 2 grams topical QID 100 grams 0RF Coding Level of Care Code Est Pt Level 3 (15844) Diagnoses Sprain of left foot, initial encounter S93.602A Encounter type: initial encounter Time Spent (min) 28
[2023-07-22 14:50] VITALS: BP 128/76; PULSE 112; TEMP 36.7; O2SAT 96; BMI 30.6
== END 2023-07-22 15:50 | disposition home or self-care (01) ==
PROVIDERS: PCP Physician Assistant; Visit Provider Nurse Practitioner Primary Care
DX: S93.602A Unspecified sprain of left foot, initial encounter (principal)
CPT/HCPCS: 99213

== ENCOUNTER 2023-07-22 15:01 | Outpatient (REF) | payer OTHER, SELFPAY ==
--- NOTE | ~2023-07-22 | XR_ITS ---
EXAMINATION: XR FOOT, LEFT CLINICAL INFORMATION: Left foot pain. COMPARISON: None available. TECHNIQUE: AP, lateral, and oblique views of the left foot. FINDINGS: Soft tissues are swollen at the left foot. No fracture or malalignment. Joint spaces are well-preserved. Small enthesopathic spurs are present at the Achilles tendon insertion and plantar fascial origin on the calcaneus. XR/XR foot LT min 3V IMPRESSION: Soft tissue swelling at the left foot. No acute osseous findings.
== END 2023-07-22 15:02 | disposition home or self-care (01) ==
LOC: HO.HMGCX 15:01
PROVIDERS: PCP Physician Assistant; Visit Provider Nurse Practitioner Primary Care
DX: M79.672 Pain in left foot (principal)
CPT/HCPCS: 73630

== ENCOUNTER 2023-07-28 11:20 | Outpatient (AMB) | payer OTHER, SELFPAY ==
[2023-07-28 11:44] VITALS: BP 134/76; PULSE 98; O2SAT 98; BMI 30.2
--- NOTE | 2023-07-28 11:44 | A.OFFPC_ITS ---
Vital Signs 07/28/23 11:44 Height 5 ft 3 in Weight 170 lb 8 oz BMI 30.2 BP 134/76 Blood Pressure Location Lt brachial Position Sitting Pulse 98 Pulse Source Pulse Oximeter Pulse Oximetry (%) 98 Oxygen Delivery Method Room Air Intake Visit Reasons: PE Intake Note: Patient is here today for a physical. Exchange Clerk Required: Yes Exchange Clerk Language: Uzbek Accompanied by: Friend Allergies metoclopramide [From REGLAN] Adverse Reaction (Intermediate, Verified 07/28/23 12:08) AGITATION morphine Adverse Reaction (Mild, Verified 07/28/23 12:08) Nausea aspirin Adverse Reaction (Verified 07/28/23 12:08) Vomiting Medication List - Last Reconciled 07/28/23 by Tay Leung PA-C amlodipine 5 mg PO DAILY 90 days ascorbic acid (vitamin C) 500 mg PO DAILY betamethasone dipropionate 0.05% 1 appl topical DAILY PRN 30 days bisacodyl (Dulcolax (bisacodyl)) 10 mg (2 x 5 mg) PO BEDTIME buprenorphine-naloxone 8-2 mg (Suboxone) 0.5 film buccal BID@1130,1800 calcium polycarbophil (Fiber Laxative (calcium polycarbophil)) 1,250 mg (2 x 625 mg) PO DAILY 30 days cetirizine (Zyrtec) 10 mg PO DAILY 90 days cholecalciferol (vitamin D3) (Vitamin D3) 25 mcg PO DAILY clonazepam 0.5 mg PO TID PRN 14 days cyclobenzaprine 5 mg PO TID PRN diclofenac sodium 1% 2 grams topical QID docusate sodium (Colace) 200 mg (2 x 100 mg) PO BEDTIME famotidine (Pepcid) 20 mg PO BID fluticasone propionate 50 mcg/actuation 1 - 2 sprays intranasal DAILY PRN gabapentin 300 mg PO BEDTIME ibuprofen 800 mg PO DAILY PRN 30 days ipratropium bromide 2 sprays intranasal BID 30 days levothyroxine 50 mcg PO DAILY 90 days meclizine 12.5 mg PO Q8H PRN omeprazole 40 mg PO BID polyethylene glycol 3350 (Miralax) 17 grams PO DAILY prucalopride (Motegrity) 2 mg PO DAILY pyridoxine (vitamin B6) 100 mg PO DAILY rosuvastatin (Crestor) 10 mg PO DAILY 90 days sumatriptan succinate 25 mg PO DAILY 30 days Tobacco use date assessed: 04/08/23 Dental Screening Dental Screen Date: 04/08/23 HPI PE HPI Details Patient is a 57-year-old female here today for follow-up visit.? Patient's past medical history significant for hyperlipidemia, fibromyalgia, HTN , generalized anxiety disorder, migraines. Concerns--> recently seen at the ER due to acute abdominal pain that was radiating into her left flank and back. Workup was fairly unremarkable though did have a enlarged mesenteric lymph node she is concerned about. She has been having a low appetite, somewhat fatigued and has been taking constipation medication which has been helping reduce her abdominal pain. Will be following up with GI and asking for an endoscopy. She also reports developing right medial arch foot pain that gets worse when applying pressure on the foot. X-ray has been taken off the foot that did show soft tissue swelling in the area of concern. Likely has plantar fasciitis in his interested in seeing a route returner. CHRONIC MEDICAL CONDITIONS--> Impaired glucose metabolism: Most recent fasting blood sugar slightly elevated at 102. Patient is somewhat concerned about diabetes as she has a strong family history of diabetes. Will check an A1c at next lab draw. She did see walk-in clinic a few weeks ago for an open area on her groin and was given hydrocortisone cream that made the skin area worse. She did use of betamethasone and nystatin which did help to heal the area. Chronic sinusitis: Has followed up with ENT was sent for x-ray of her sinuses which were essentially normal. Elevated liver enzymes: Most recent LFTs trending down. She denies any Tylenol use , does report taking antibiotics before dental procedure recently. She does have history of fatty liver disease thus will continue to monitor liver enzymes. CHRONIC MEDICAL CONDITIONS-- > History of cosmetic surgery on buttocks--> continues to have intermittent episodes pain and palpable lumps over her buttocks often in different areas. She has had hospital admission with IV antibiotics in the past due to infection. She has had recent MRI of the pelvis that does show positive cosmetic Fillers though no notable infection at that time. She does use doxycycline on a p.r.n. basis for increased pain and redness on the skin. She has found a surgeon outside in the [place] willing to remove her cosmetic Fillers though will cost her about 11,000 dollars. PLAN: For now will continue to manage with anti-inflammatory, prednisone and if pain scales 8-10 and erythema of the skin presents will use antibiotic. .. Fibromyalgia:? Followed by Rheumatology.? Continues now on Suboxone due to her chronic pain. .. Hyperlipidemia:? Continues on Crestor 10 mg on occasion.? Will recheck fasting lipid panel to ensure appropriate LDL and total cholesterol. .. Opiate dependence:? Was previously on narcotic pain medication due to her chronic arthritic pain, is status post total knee arthroplasty.? Continues on Suboxone (4 mg) through [place] [facility]. .. HYpothtyroid:? Most recent TSH has been stable on current dose of levothyroxine. Colon cancer screening: done at [facility] - Will try to get records. Vaccines: Up-to-date with tetanus vaccine, considering shingrex Head Of Product: Is due for PAP- Sees [place] [facility] Laboratory Tests 04/07/23 07/07/23 07/14/23 12:09 11:12 03:28 WBC 7.6 11.3 H RBC 4.64 Creatinine 0.64 Random Glucose 132 H AST 72 H 52 H ALT 95 H 65 H 80 H Cholesterol 205 H LDL Cholesterol, C alc 122 H TSH 3.82 3.87 PFSH Medical History Abdominal pain Elevated liver enzymes Microscopic hematuria Muscle spasm Upper respiratory tract infection Acute dermatitis Obese Sinus infection Cellulitis of buttock Acquired hypothyroidism Hyperglycemia Post covid-19 condition, unspecified Breast cancer screening Foreign body of buttock Superimposed infection Cellulitis and abscess of buttock Cellulitis Renal calculi Frequent UTI Hematuria History of degenerative disc disease Normal colonoscopy Chronic constipation Hx of renal calculi History of panic attacks Hx of anxiety disorder Depression Hx of opioid abuse Thyroid disease Arthritis Fibromyalgia HTN (hypertension) Surgical History H/O left knee surgery Hx of cholecystectomy Tubal ligation status Hx of appendectomy Family History (Updated 07/28/23 @ 12:14 by Tay Leung PA-C) Paternal Grandmother Colon cancer Mother Pulmonary embolism Sister Pulmonary embolism Lung cancer Social History Household Members: Family Household Members Other:: daughter Housing: House Do you presently have visiting nurse or other home services: No Alcohol intake: never Patient Tobacco Use Status: Former Tobacco user Years Smoked: 20 e-Cigarette/Vaping Use: Never Used Second Hand Smoke Exposure: Yes Advance Directives Date on File: 06/02/21 service: No Current occupational status: employed 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 Igor Jasso, Mariya Arteaga, Chito Combs and colleagues, with an educational haleigh from [employer]. Review of Systems Const Unobtainable due to mental condition Denies body aches, Denies chills, Denies excessive sweating, Denies fatigue, Denies fever(s) and Denies headache(s) Eyes Denies blurry vision ENT Denies dysphagia, Denies vertigo, Reports dizziness, Denies headache(s), Denies hearing loss and Denies tinnitus Card Denies chest pain, Denies chest pain with activity, Denies syncope, Denies irregular heart rhythm and Denies dyspnea Resp Denies chest congestion, Denies cough, Denies hemoptysis, Denies dyspnea and Denies wheezing GI Reports abdominal pain, Denies melena, Denies hematochezia, Denies coffee ground emesis, Reports constipation, Denies dysphagia, Denies diarrhea, Denies nausea and Denies vomiting Denies urinary frequency, Denies dysuria, Denies urinary hesitancy and Denies urinary urgency Musc Denies arthralgias, Denies limited range of motion, Denies muscle cramps and Denies muscle weakness Skin/Breast Denies rash and Denies skin ulcer Neuro Denies Abnormal speech present, Denies confusion, Denies vertigo, Reports dizziness, Denies syncope, Denies headache(s), Denies memory loss and Denies seizure-like activity Psych Denies anxiety, Denies confusion, Denies depression, Denies memory loss, Denies panic attacks and Denies paranoia Endo Denies excessive sweating, Denies fatigue, Denies flushing, Denies polydipsia and Denies polyuria Aller/Immun Denies wheezing Physical exam (Primary Care) Vital Signs: Last Vital Signs Pulse 98 07/28/23 11:44 BP 134/76 07/28/23 11:44 Pulse Ox 98 07/28/23 11:44 Oxygen Delivery Method Room Air 07/28/23 11:44 BMI result Body Mass Index 30.2 Tobacco/Smoking Status: Tobacco use Status Tobacco use date assessed 04/08/23 07/28/23 11:45 Patient Tobacco Use Status Former Tobacco user 07/28/23 11:45 e-Cigarette/Vaping Use Never Used 07/28/23 11:45 Thrive Assessment: Date of Thrive Assessment Date Thrive assessed 04/08/23 07/28/23 11:45 Const General: cooperative, comfortable, no acute distress, alert and awake; No confusion Orientation/consciousness: oriented to person, oriented to place, patient oriented x3 and No confusion HENMT Head: Yes normocephalic Ears: external ears normal and TM's normal bilaterally Face and sinus: No sinus tenderness Mouth: Normal oral and palatal mucosa present and tongue normal Teeth and gingiva: dentition normal and gingiva normal Throat: Yes posterior oropharynx normal, Yes tonsils normal and Yes uvula midline Eyes Conjunctivae: conjunctivae normal Sclerae: sclerae normal Pupils: Equal, round and reactive pupils present EOM: EOMs intact bilaterally Direct Ophthalmoscopy: No no photophobia Neck Neck: Yes no lymphadenopathy, No tender and Yes no JVD Thyroid: Thyroid normal Carotids: no bruits Chest Chest palpation & inspection: no tenderness Resp Effort & Inspection: normal respiratory effort, no audible wheezes, not labored and no stridor Auscultation: no crackles, no rales, no rhonchi and no wheezes Cardio Jugular venous distension: no JVD Rate: regular rate, not bradycardic and not tachycardic Rhythm: regular rhythm Bruits: no carotid bruits Peripheral pulses: Peripheral pulses 2+ throughout GI Inspection: Yes normal to inspection, No abdominal wall ecchymosis and No visible herniation Palpation (GI): Soft to palpation, nontender, no guarding, not rigid and No hepatosplenomegaly present Auscultation: normoactive bowel sounds General: Yes no CVA tenderness Back/Spine/Pelvis Back: no CVA tenderness and No back tenderness Cervical Spine: cervical ROM normal Thoracic/Lumbar Spine: thoracic and lumbar spine normal to inspection, straight leg raise negative bilaterally, No thoraco-lumbar ROM limited and No lumbar spinal tenderness Skin Lesions: no lesions Rashes: no rashes Wounds: no wounds Neuro General: oriented to person, oriented to place, patient oriented x3, CN's II-XI intact bilaterally and No confusion Cranial nerves: Yes Equal, round and reactive pupils present and Yes Normal accommodation reflex present Cognition (Neuro): normal cognition Speech: No Abnormal speech present Gait exam (Neuro): Normal gait present Motor exam (neuro): 5/5 motor strength present throughout Extrem Right upper extremity: full ROM; no cyanosis Left upper extremity: full ROM; no cyanosis Right lower extremity: no edema Left lower extremity: no edema Psych Appearance: grossly normal Mental Status: mental status grossly normal Affect: normal affect Attitude: cooperative Thought process: Normal thought process present Assessment and Plan Assessment & Plan (1) Annual physical exam: Code(s): Z00.00 - Encounter for general adult medical examination without abnormal findings (2) Hypothyroid: Code(s): E03.9 - Hypothyroidism, unspecified Qualifiers: Hypothyroidism type: unspecified Qualified Code(s): E03.9 - Hypothyroidism, unspecified Plan: Patient's most recent TSH stable. Will continue her current dose of levothyroxine and continue monitoring TSH to assure normal. (3) HTN (hypertension): Code(s): I10 - Essential (primary) hypertension Qualifiers: Hypertension type: primary hypertension Qualified Code(s): I10 - Essential (primary) hypertension Plan: Blood pressure acceptable today in office. Patient continues with the use of amlodipine. We did discuss possibly transitioning to ARB the patient declines at this time. Goal blood pressures to remain below 140/90 (4) HLD (hyperlipidemia): Code(s): E78.5 - Hyperlipidemia, unspecified Qualifiers: Hyperlipidemia type: mixed hyperlipidemia Qualified Code(s): E78.2 - Mixed hyperlipidemia Plan: Patient does have history of borderline high cholesterol. Was on statin therapy though seldomly uses this due to side effects of myalgias. She promises restart taking statin therapy on a few days a week basis. Goal LDL to remain below 160 (5) Impaired glucose metabolism: Code(s): R73.09 - Other abnormal glucose Plan: Most recent fasting blood sugar slightly elevated at 102. Will check an A1c at next lab draw. Will work on lifestyle and dietary modifications to control her fasting blood sugar. (6) Plantar fasciitis, left: Code(s): M72.2 - Plantar fascial fibromatosis Plan: Patient does seem to be suffering with the plantar fasciitis of the foot arch. She has been trying to rest the extremity and ice it though has not been helpful. He is trying to stay away from NSAIDs due to her GI issues.. Will refer to Podiatry for evaluation of possible cortisone injections. Orders: Referrals Podiatry Referral M72.2 - Plantar fascial fibromatosis Medications: Discontinued ibuprofen Discontinued Reason: Doctor's Order 800 mg PO DAILY 30 days PRN 30 tabs 0RF pain Z96.652 - Presence of left artificial knee joint Coding Level of Care Code Est Pt Prev Care 40-64y([id number]) Diagnoses Annual physical exam Z00.00 Hypothyroidism, unspecified type E03.9 Hypothyroidism type: unspecified Primary hypertension I10 Hypertension type: primary hypertension Mixed hyperlipidemia E78.2 Hyperlipidemia type: mixed hyperlipidemia Impaired glucose metabolism R73.09 Plantar fasciitis, left M72.2
== END 2023-07-28 12:36 | disposition home or self-care (01) ==
PROVIDERS: PCP Physician Assistant; Visit Provider Physician Assistant
DX: Z00.00 Encounter for general adult medical examination without abnormal findings (principal); E03.9 Hypothyroidism, unspecified; I10 Essential (primary) hypertension; E78.2 Mixed hyperlipidemia; R73.09 Other abnormal glucose; M72.2 Plantar fascial fibromatosis
CPT/HCPCS: 99396

== ENCOUNTER 2023-10-07 11:41 | Outpatient (REF) | payer OTHER, SELFPAY ==
[2023-10-07 12:34] LABS: Estimated Average Glucose 111 mg/dL; Hemoglobin A1c % 5.5 % (<6.0)
[2023-10-07 12:48] LABS: Appearance Urine Clear; Color Urine Yellow; Glucose Urine UA Negative (Negative); Leukocyte Esterase Urine Small (1+) (Negative); Nitrite Urine Negative (Negative); PH 7.5 (5.0-9.0); UMIC TRIGGER UACC YES; Urine Blood Negative (Negative); Urine Ketones Negative (Negative); Urine Protein Negative (Neg-Trace)
[2023-10-07 13:06] LABS: Alanine Aminotransferase 73 U/L (0-31); Albumin Level 3.9 g/dL (3.5-5.0); Alkaline Phosphatase 74 U/L (39-117); Anion Gap 11 (12-20); Aspartate Amino Transferase 61 U/L (5-31); Bilirubin Total 0.4 mg/dL (0.0-1.0); Blood Urea Nitrogen 6 mg/dL (9-16); Carbon Dioxide 27 mmol/L (22-29); Chloride 105 mmol/L (96-108); Cholesterol 188 mg/dL (<200); Estimated Glomerular Filt Rate > 60; Glucose Fasting 92 mg/dL (60-99); HDL Cholesterol 34 mg/dL (>40); LDL Cholesterol Calculated 106 mg/dL (<100); Potassium 3.5 mmol/L (3.3-5.1); Sodium 139 mmol/L (135-145); Total Protein 7.4 g/dL (6.5-8.0); Triglycerides 241 mg/dL (<150)
[2023-10-07 13:07] LABS: Bacteria Urine None Seen (None Seen); Hyaline Casts Urine 0-2 /LPF (0-2); RBC Urine 0-2 /HPF (0-2); Squamous Epithelial Cell Urine 0-2 /HPF (0-2); UACC Culture Trigger YES; WBC Urine 0-5 /HPF (0-5)
[2023-10-07 13:22] LABS: Creatinine Urine 82.13 mg/dL; Microalbum/Creatinine Ratio Ur 12.1 ug/mg cr (<30)
[2023-10-07 13:23] LABS: TSH reflex Free T4 3.27 uIU/mL (0.32-4.0)
[2023-10-10 07:23] LABS: TS Negative Control Passed; TS Panel A 0; TS Panel B 0; TS Positive Control Passed; TSpotTB Negative (Negative)
== END 2023-10-07 11:42 | disposition home or self-care (01) ==
LOC: HO.LAB 11:41
PROVIDERS: PCP Physician Assistant; Visit Provider Physician Assistant
DX: R73.09 Other abnormal glucose (principal); E78.2 Mixed hyperlipidemia; I10 Essential (primary) hypertension; Z11.1 Encounter for screening for respiratory tuberculosis; E03.9 Hypothyroidism, unspecified; R30.0 Dysuria; R31.29 Other microscopic hematuria
CPT/HCPCS: 36415; 80053; 80061; 81001; 82043; 82570; 83036; 84443; 86481; 87086

== ENCOUNTER 2023-10-08 15:37 | Outpatient (AMB) | payer OTHER, SELFPAY ==
--- NOTE | 2023-10-08 15:38 | A.OFFPC_ITS ---
Vital Signs 10/08/23 15:41 Height 5 ft 3 in Weight 167 lb 2 oz BMI 29.6 BP 124/84 Blood Pressure Location Lt brachial Position Sitting Pulse 102 H Pulse Source Pulse Oximeter Pulse Oximetry (%) 98 Oxygen Delivery Method Room Air Intake Visit Reasons: f/u Hypthyroid/ IGM Occupational Therapy Co Director Required: No Accompanied by: Self / Same As Patient Allergies metoclopramide [From REGLAN] Adverse Reaction (Intermediate, Verified 10/08/23 15:43) AGITATION morphine Adverse Reaction (Mild, Verified 10/08/23 15:43) Nausea aspirin Adverse Reaction (Verified 10/08/23 15:43) Vomiting Medication List - Last Reconciled 10/08/23 by Tay Leung PA-C amlodipine 5 mg PO DAILY 90 days ascorbic acid (vitamin C) 500 mg PO DAILY betamethasone dipropionate 0.05% 1 appl topical DAILY PRN 30 days bisacodyl (Dulcolax (bisacodyl)) 10 mg (2 x 5 mg) PO BEDTIME buprenorphine-naloxone 8-2 mg (Suboxone) 0.5 film buccal BID@1130,1800 calcium polycarbophil (Fiber Laxative (calcium polycarbophil)) 1,250 mg (2 x 625 mg) PO DAILY 30 days cetirizine (Zyrtec) 10 mg PO DAILY 90 days cholecalciferol (vitamin D3) (Vitamin D3) 25 mcg PO DAILY clonazepam 0.5 mg PO TID PRN 14 days cyclobenzaprine 5 mg PO TID PRN diclofenac sodium 1% 2 grams topical QID docusate sodium (Colace) 200 mg (2 x 100 mg) PO BEDTIME famotidine (Pepcid) 20 mg PO BID fluticasone propionate 50 mcg/actuation 1 - 2 sprays intranasal DAILY PRN gabapentin 300 mg PO BEDTIME ipratropium bromide 2 sprays intranasal BID 30 days levothyroxine 50 mcg PO DAILY 90 days meclizine 12.5 mg PO Q8H PRN omeprazole 40 mg PO BID polyethylene glycol 3350 (Miralax) 17 grams PO DAILY prucalopride (Motegrity) 2 mg PO DAILY pyridoxine (vitamin B6) 100 mg PO DAILY rosuvastatin (Crestor) 10 mg PO DAILY 90 days sumatriptan succinate 25 mg PO DAILY 30 days Tobacco use date assessed: 04/08/23 Dental Screening Dental Screen Date: 04/08/23 HPI f/u Hypthyroid/ IGM HPI Details Patient is a 57-year-old female here today for follow-up visit.? Patient's past medical history significant for hyperlipidemia, fibromyalgia, HTN , generalized anxiety disorder, migraines. Concerns--> recently seen at the ER due to acute abdominal pain that was radiating into her left flank and back. Workup was fairly unremarkable though did have a enlarged mesenteric lymph node she is concerned about. She has been having a low appetite, somewhat fatigued and has been taking constipation medication which has been helping reduce her abdominal pain. Will be following up with GI and asking for an endoscopy. --> soft tissue density in the central a bdominal mesentery measuring approximately 2.8 x 1.7 cm on image 47/93 with subtle surrounding stranding, previously 1.8 x 1.3 cm on 08/10/2022, favored to represent an enlarged lymph node. CHRONIC MEDICAL CONDITIONS--> Impaired glucose metabolism: Most recent fasting blood sugar slightly elevated at 102. Patient is somewhat concerned about diabetes as she has a strong family history of diabetes. Most recent A1c acceptable Elevated liver enzymes: Most recent LFTs trending down. She denies any Tylenol use , does report taking antibiotics before dental procedure recently. She does have history of fatty liver disease thus will continue to monitor liver enzymes. CHRONIC MEDICAL CONDITIONS-- > History of cosmetic surgery on buttocks--> continues to have intermittent episodes pain and palpable lumps over her buttocks often in different areas. She has had hospital admission with IV antibiotics in the past due to infection. She has had recent MRI of the pelvis that does show positive cosmetic Fillers though no notable infection at that time. She does use doxycycline on a p.r.n. basis for increased pain and redness on the skin. She has found a surgeon outside in the [place] willing to remove her cosmetic Fillers though will cost her about 11,000 dollars. PLAN: For now will continue to manage with anti-inflammatory, prednisone and if pain scales 8-10 and erythema of the skin presents will use antibiotic. .. Fibromyalgia:? Followed by Rheumatology.? Continues now on Suboxone due to her chronic pain. .. Hyperlipidemia:? Continues on Crestor 10 mg on occasion.? Most recent lipid panel showing good control over total cholesterol and LDL cholesterol. .. Opiate dependence:? Was previously on narcotic pain medication due to her chronic arthritic pain, is status post total knee arthroplasty.? Continues on Suboxone (4 mg) through [facility]. .. HYpothtyroid:? Most recent TSH has been stable on current dose of levothyroxine. Laboratory Tests 07/14/23 10/07/23 03:28 11:52 Creatinine 0.61 Hemoglobin A1c % 5.5 AST 65 H 61 H ALT 80 H 73 H Cholesterol 188 LDL Cholesterol, C alc 106 H TSH 3.27 PFSH Medical History Abdominal pain Elevated liver enzymes Microscopic hematuria Muscle spasm Upper respiratory tract infection Acute dermatitis Obese Sinus infection Cellulitis of buttock Acquired hypothyroidism Hyperglycemia Post covid-19 condition, unspecified Breast cancer screening Foreign body of buttock Superimposed infection Cellulitis and abscess of buttock Cellulitis Renal calculi Frequent UTI Hematuria History of degenerative disc disease Normal colonoscopy Chronic constipation Hx of renal calculi History of panic attacks Hx of anxiety disorder Depression Hx of opioid abuse Thyroid disease Arthritis Fibromyalgia HTN (hypertension) Surgical History H/O left knee surgery Hx of cholecystectomy Tubal ligation status Hx of appendectomy Family History (Updated 07/28/23 @ 12:14 by Tay Leung PA-C) Paternal Grandmother Colon cancer Mother Pulmonary embolism Sister Pulmonary embolism Lung cancer Social History Household Members: Family Household Members Other:: daughter Housing: House Do you presently have visiting nurse or other home services: No Alcohol intake: never Patient Tobacco Use Status: Former Tobacco user Years Smoked: 20 e-Cigarette/Vaping Use: Never Used Second Hand Smoke Exposure: Yes Advance Directives Date on File: 06/02/21 service: No Current occupational status: employed 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 Igor Jasso, Mariya Arteaga, Chito Combs and colleagues, with an educational haleigh from [email or web address]. Review of Systems Const Denies headache(s) Eyes Denies loss of vision ENT Denies vertigo, Denies dizziness, Denies headache(s) and Denies sore throat Card Denies chest pain, Denies leg edema and Denies lightheadedness Resp Denies cough, Denies hemoptysis and Denies wheezing GI Reports abdominal pain, Denies melena, Reports constipation, Denies diarrhea and Denies vomiting Denies urinary frequency, Denies dysuria and Denies urinary urgency Musc Denies arthralgias, Denies joint swelling, Denies numbness and Denies tingling Neuro Denies Abnormal speech present, Denies behavioral changes, Denies vertigo, Denies dizziness, Denies headache(s), Denies loss of vision, Denies memory loss, Denies numbness and Denies tingling Psych Denies anxiety, Denies behavioral changes, Denies depression, Denies memory loss and Denies panic attacks Andrew/Lymph Denies easy bleeding and Denies easy bruising Aller/Immun Denies wheezing Physical exam (Primary Care) Vital Signs: Last Vital Signs Pulse 102 H 10/08/23 15:41 BP 124/84 10/08/23 15:41 Pulse Ox 98 10/08/23 15:41 Oxygen Delivery Method Room Air 10/08/23 15:41 BMI result Body Mass Index 29.6 Tobacco/Smoking Status: Tobacco use Status Tobacco use date assessed 04/08/23 10/08/23 15:40 Patient Tobacco Use Status Former Tobacco user 10/08/23 15:40 e-Cigarette/Vaping Use Never Used 10/08/23 15:40 Thrive Assessment: Date of Thrive Assessment Date Thrive assessed 04/08/23 10/08/23 15:40 Const General: healthy appearing, no acute distress, alert and awake Nutritional Appearance: well nourished Orientation/consciousness: oriented to person, oriented to place and oriented to time HENMT Ears: TM's normal bilaterally General nose exam: Normal nasal mucous membranes and turbinates present Eyes Conjunctivae: conjunctivae normal Sclerae: sclerae normal Pupils: Equal, round and reactive pupils present Neck Neck: Yes no lymphadenopathy and Yes no JVD Thyroid: Thyroid normal Carotids: no bruits Resp Effort & Inspection: normal respiratory effort and not tachypneic Auscultation: no crackles, no rales, no rhonchi and no wheezes Cardio Rate: regular rate Rhythm: regular rhythm Heart sounds: no murmurs and normal S1 and S2 GI Palpation (GI): Soft to palpation, nontender, no hepatomegaly and no splenomegaly Auscultation: normal bowel sounds Skin General skin exam: no rashes or lesions noted and dry skin Neuro General: oriented to person, oriented to place and oriented to time Cranial nerves: Yes Equal, round and reactive pupils present Speech: No Abnormal speech present Gait exam (Neuro): Normal gait present Motor exam (neuro): no tremor noted Extrem Right upper extremity: full ROM Left upper extremity: full ROM Right lower extremity: full ROM; no edema Left lower extremity: full ROM; no edema Psych Mental Status: mental status grossly normal Speech and movement: Normal speech and movement present Affect: normal affect Attitude: cooperative Thought process: Normal thought process present Assessment and Plan Assessment & Plan (1) Hypothyroid: Code(s): E03.9 - Hypothyroidism, unspecified Qualifiers: Hypothyroidism type: unspecified Qualified Code(s): E03.9 - Hypothyr oidism, unspecified Plan: Patient's most recent TSH stable. Will continue her current dose of levothyroxine and continue monitoring TSH to assure normal. (2) HTN (hypertension): Code(s): I10 - Essential (primary) hypertension Qualifiers: Hypertension type: primary hypertension Qualified Code(s): I10 - Essential (primary) hypertension Plan: Blood pressure acceptable today in office. Patient continues with the use of amlodipine. Will supply patient with paper Rx for a blood pressure cuff monitor. We did discuss possibly transitioning to ARB the patient declines at this time. Goal blood pressures to remain below 140/90 (3) HLD (hyperlipidemia): Code(s): E78.5 - Hyperlipidemia, unspecified Qualifiers: Hyperlipidemia type: mixed hyperlipidemia Qualified Code(s): E78.2 - Mixed hyperlipidemia Plan: Patient does have history of borderline high cholesterol. She does take cholesterol medication a few times a week. Most recent lipid panel showing excellent control over total cholesterol and LDL Goal LDL to remain below 160 (4) Impaired glucose metabolism: Code(s): R73.09 - Other abnormal glucose Plan: Most recent fasting blood sugar slightly elevated at 102. Most recent A1c of 5.2. Will work on lifestyle and dietary modifications to control her fasting blood sugar. (5) Intra-abdominal lymphadenopathy: Code(s): R59.0 - Localized enlarged lymph nodes Plan: CT abdomen in July of 2023 showing--> soft tissue density in the central abdominal mesentery measuring approximately 2.8 x 1.7 cm on image 47/93 with subtle surrounding stranding, previously 1.8 x 1.3 cm on 08/10/2022, favored to represent an enlarged lymph node. She does have gastroenterology follow-up. Will try for MRI of abdomen to better evaluate the intra-abdominal adenopathy (6) Chronic abdominal pain: Code(s): R10.9 - Unspecified abdominal pain; G89.29 - Other chronic pain Plan: As above will be following back up with Gastroenterology. Continues to have chronic mid abdominal pain. Fiber has been somewhat helpful on moving her bowels. She is interested in getting an endoscopy. She does have family history of malignancies thus will try for MRI of abdomen to better define this abdominal adenopathy Orders: Orders MR abdomen wo/w con 10/08/23 G89.29 - Other chronic pain, R10.9 - Unspecified abdominal pain, R59.0 - Localized enlarged lymph nodes Medications: New prednisone 5 mg PO DAILY 7 days 7 tabs 0RF M46.1 - Sacroiliitis, not elsewhere classified blood pressure monitor Testing blood pressure once a day/ PRN 1 ea 0RF I10 - Essential (primary) hypertension Refilled ascorbic acid (vitamin C) 500 mg PO DAILY 90 tabs 2RF I10 - Essential (primary) hypertension diclofenac sodium 1% 2 grams topical QID 100 grams 0RF Patient Instructions: Goal: Blood pressure to remain below 140/90, LDL to be below 130 Barriers: Adherence to physical activity and healthy eating habits Coding Level of Care Code Est Pt Level 4 (93458) Diagnoses Hypothyroidism, unspecified type E03.9 Hypothyroidism type: unspecified Primary hypertension I10 Hypertension type: primary hypertension Mixed hyperlipidemia E78.2 Hyperlipidemia type: mixed hyperlipidemia Impaired glucose metabolism R73.09 Intra-abdominal lymphadenopathy R59.0 Chronic abdominal pain R10.9; G89.29
[2023-10-08 15:41] VITALS: BP 124/84; PULSE 102; O2SAT 98; BMI 29.6
== END 2023-10-08 16:08 | disposition home or self-care (01) ==
PROVIDERS: PCP Physician Assistant; Visit Provider Physician Assistant
DX: E03.9 Hypothyroidism, unspecified (principal); I10 Essential (primary) hypertension; E78.2 Mixed hyperlipidemia; R73.09 Other abnormal glucose; R59.0 Localized enlarged lymph nodes; R10.9 Unspecified abdominal pain; G89.29 Other chronic pain
CPT/HCPCS: 99214

== ENCOUNTER 2023-10-21 15:09 | Outpatient (AMB) | payer OTHER, SELFPAY ==
--- NOTE | 2023-10-21 15:18 | MHC.OFFVIS ---
Vital Signs 10/21/23 15:28 Height 5 ft 3 in Weight 167 lb 8.821 oz BMI 29.7 BP 150/84 H Blood Pressure Location Rt brachial Position Sitting Pulse 86 Pulse Source Pulse Oximeter Pulse Oximetry (%) 97 Oxygen Delivery Method Room Air Intake Visit Reasons: Follow up Abdominal pain, LUQ Intake Note: Lu presents in office today for a scheduled FUV to discuss ongoing sx. CC: Pt is here to discuss medications that she is taking for constipation as well as the nodule that is in her stomach. Pt reports that the LUQ seems to be linked to their constipation. Pt has also been experiencing GERD sx and bloating. Pt has been taking MoM which has been working for her. 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 Courtroom Deputy Or Calendar Clerk Required: No Allergies metoclopramide [From REGLAN] Adverse Reaction (Intermediate, Verified 10/21/23 15:19) AGITATION morphine Adverse Reaction (Mild, Verified 10/21/23 15:19) Nausea aspirin Adverse Reaction (Verified 10/21/23 15:19) Vomiting HPI HPI Follow up Abdominal pain, LUQ: Details: LAST VISIT: Constipation Abdominal pain, LUQ (left upper quadrant) Mesenteric cyst Plan Patient is on Suboxone that could be slowing down her bowels. Patient can start Motegrity. She will take milk of magnesia when she will get home. Until PA approved patient can take Dulcolax tablets daily. Stop sucralfate and omeprazole. Patient reports that she has epigastric pain after taking it. Can take famotidine twice a day. Avoid dietary triggers. Patient was encouraged to increase fluid intake and activity to promote better bowel motility. Patient will follow-up with her GI provider. May need to order neither study to evaluate her mesenteric lymph nodes. She is agreeable to this plan and verbalizes understanding of instructions. She was given the opportunity to ask questions and all questions answered. ? Thank you for allowing me to participate in her care Medications New prucalopride (Motegrity) 2 mg PO DAILY 30 tabs 2RF K59.04 bisacodyl (Dulcolax (bisacodyl)) 10 mg (2 x 5 mg) PO BEDTIME 180 tabs 4RF famotidine (Pepcid) 20 mg PO BID 60 tabs 3RF K21.9 Discontinued sucralfate Discontinued Reason: Doctor's Order 1 g PO TID 90 tabs 0RF omeprazole Discontinued Reason: Doctor's Order 40 mg PO DAILY 30 caps 0RF TODAY'S VISIT Patient is here today for follow-up. Patient reports that she continues to have epigastric pain postprandially depending on what she eats. She stop taking the Motegrity as it was not working for her. Patient reports that she continues to have constipation. Patient states that she take milk of magnesia in it helps. Patient states bowel movements every 2-3 days. Patient reports that she drinks water, however admits that she might not be drinking enough. Her symptoms of acid reflux are suppressed. Denies any dyspepsia, dysphagia or odynophagia. Patient denies any melena, hematochezia. Patient admits that her left upper quadrant pain is worse when she is constipated. Feels better after bowel movement. [facility] Medical History Abdominal pain Elevated liver enzymes Microscopic hematuria Muscle spasm Upper respiratory tract infection Acute dermatitis Obese Sinus infection Cellulitis of buttock Acquired hypothyroidism Hyperglycemia Post covid-19 condition, unspecified Breast cancer screening Foreign body of buttock Superimposed infection Cellulitis and abscess of buttock Cellulitis Renal calculi Frequent UTI Hematuria History of degenerative disc disease Normal colonoscopy Chronic constipation Hx of renal calculi History of panic attacks Hx of anxiety disorder Depression Hx of opioid abuse Thyroid disease Arthritis Fibromyalgia HTN (hypertension) Surgical History H/O left knee surgery Hx of cholecystectomy Tubal ligation status Hx of appendectomy Family History Paternal Grandmother Colon cancer Mother Pulmonary embolism Sister Pulmonary embolism Lung cancer Social History Household Members: Family Household Members Other:: daughter Housing: House Do you presently have visiting nurse or other home services: No Alcohol intake: never Patient Tobacco Use Status: Former Tobacco user Years Smoked: 20 e-Cigarette/Vaping Use: Never Used Second Hand Smoke Exposure: Yes Advance Directives Date on File: 06/02/21 service: No Current occupational status: employed 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 Cognitive needs: No Hearing needs: No Vision needs: No Female Reproductive History Menstrual Age of Menarche: 12 Review of Systems Const Denies weight gain and Denies weight loss ENT Reports no additional complaints, Denies dysphagia and Denies odynophagia Card Reports no additional complaints Resp Reports no additional complaints GI Reports abdominal pain, Denies belching, Denies melena, Reports bloating, Reports constipation, Denies dysphagia, Denies excessive flatus, Reports dyspepsia, Denies heartburn, Denies diarrhea, Denies loose stools, Reports nausea, Denies odynophagia and Denies vomiting Reports no additional complaints Musc Reports no additional complaints Neuro Reports no additional complaints Psych Reports no additional complaints Endo Reports no additional complaints Physical Exam Vital Signs: Last Vital Signs Pulse 86 10/21/23 15:28 BP 150/84 H 10/21/23 15:28 Pulse Ox 97 10/21/23 15:28 Oxygen Delivery Method Room Air 10/21/23 15:28 BMI result Body Mass Index 29.7 Const General: healthy appearing and no acute distress Nutritional Appearance: obese Orientation/consciousness: patient oriented x3 Resp Effort & Inspection: normal respiratory effort, able to speak in complete sentences, no tracheal deviation and symmetric chest movement Auscultation: clear to auscultation bilaterally Cardio Rate: regular rate GI Inspection: Yes normal to inspection, Yes distended and Yes obesity Palpation (GI): Soft to palpation, not firm, nontender and No hepatosplenomegaly present Auscultation: normal bowel sounds General: Yes no CVA tenderness Back/Spine/Pelvis Back: no CVA tenderness Skin General skin exam: elasticity normal, turgor normal and dry skin Neuro General: patient oriented x3 Psych Appearance: grossly normal Mental Status: mental status grossly normal Assessment & Plan Assessment & Plan (1) Constipation: Code(s): K59.00 - Constipation, unspecified Qualifiers: Constipation type: drug induced constipation Qualified Code(s): K59.03 - Drug induced constipation (2) Abdominal pain, LUQ (left upper quadrant): Code(s): R10.12 - Left upper quadrant pain (3) Mesenteric cyst: Code(s): K66.8 - Other specified disorders of peritoneum (4) GERD (gastroesophageal reflux disease): Code(s): K21.9 - Gastro-esophageal reflux disease without esophagitis Qualifiers: Esophagitis presence: esophagitis presence not specified Qualified Code(s): K21.9 - Gastro-esophageal reflux disease without esophagitis Plan Continue PPI treatment. Avoid dietary triggers and late night snacking. Staying upright for minimum 3 hours after meals discussed with patient. Continue high-fiber diet. Patient may take magnesium. May use milk of magnesia as needed. Increase fluid intake and activity to promote better bowel motility. Patient will follow-up in 2 months, sooner on as needed basis. She is agreeable to this plan and verbalizes understanding of instructions. She was given the opportunity to ask questions and all questions answered. Thank you for allowing me to participate in her care Medications: New magnesium oxide 400 mg PO BEDTIME 30 caps 2RF K59.04 - Chronic idiopathic constipation Discontinued prucalopride Discontinued Reason: Patient no longer taking 2 mg PO DAILY 30 tabs 2RF K59.04 - Chronic idiopathic constipation bisacodyl Discontinued Reason: Doctor's Order 10 mg (2 x 5 mg) PO BEDTIME 180 tabs 4RF polyethylene glycol 3350 Discontinued Reason: Patient no longer taking 17 grams PO DAILY 510 grams 6RF docusate sodium Discontinued Reason: Patient no longer taking 200 mg (2 x 100 mg) PO BEDTIME 60 caps 5RF Coding Level of Care Code Est Pt Level 3 (75753) Diagnoses Drug-induced constipation K59.03 Constipation type: drug induced constipation Abdominal pain, LUQ (left upper quadrant) R10.12 Mesenteric cyst K66.8 Gastroesophageal reflux disease, unspecified whether esophagitis present K21.9 Esophagitis presence: esophagitis presence not specified Time Spent (min) 25 Comment 15 minutes spent with patient and additional 10 minutes spent reviewing her records
[2023-10-21 15:28] VITALS: BP 150/84; PULSE 86; O2SAT 97; BMI 29.7
== END 2023-10-21 16:29 | disposition home or self-care (01) ==
PROVIDERS: PCP Physician Assistant; Visit Provider Nurse Practitioner Family
DX: K59.03 Drug induced constipation (principal); R10.12 Left upper quadrant pain; K66.8 Other specified disorders of peritoneum; K21.9 Gastro-esophageal reflux disease without esophagitis
CPT/HCPCS: 99213

== ENCOUNTER → 2023-10-21 15:09 | Outpatient (BNVA) | payer OTHER, SELFPAY | PROVIDERS: PCP Physician Assistant; Visit Provider Nurse Practitioner Family | DX: K59.03 Drug induced constipation (principal); K21.9 Gastro-esophageal reflux disease without esophagitis; K66.8 Other specified disorders of peritoneum; R10.12 Left upper quadrant pain | CPT/HCPCS: 99212 ==

== ENCOUNTER 2023-12-02 14:23 | Outpatient (AMB) | payer OTHER, SELFPAY ==
--- NOTE | 2023-12-02 14:26 | MHC.OFFVIS ---
Intake Visit Reasons: follow up/U/S Intake Note: Patient presents today for follow up on: kidney stones and ultrasound results Imaging Completed: 07/11/23 Meds: none Allergies to Antibiotic- No Known Allergies Blood Thinner- None Epic Anesthesia Analyst Required: No Accompanied by: Significant Other Allergies metoclopramide [From REGLAN] Adverse Reaction (Intermediate, Verified 12/02/23 14:45) AGITATION morphine Adverse Reaction (Mild, Verified 12/02/23 14:45) Nausea aspirin Adverse Reaction (Verified 12/02/23 14:45) Vomiting HPI Comments Details: Lu is a pleasant 58 year old female patient of Dr. Leung. She has a past medical history of microscopic hematuria, hypothyroidism, nephrolithiasis, degenerative disc disease, chronic constipation, panic attacks, anxiety, depression, arthritis, fibromyalgia, and hypertension. She presents to the office today for follow-up of her nephrolithiasis. Recent renal imaging results reviewed with the patient today bilateral kidneys with nonobstructing renal calculi. No lesions or hydronephrosis noted bilaterally. 3 mm nonobstructing upper pole right renal stone and 2 mm nonobstructing left upper pole stone. She reports since her last office visit here approximately 1 year ago she believes she passed a kidney stone as she had experienced left-sided flank pain and believes she heard something hit the toilet when urinating. She currently denies any bothersome urinary issues or concerns. She reports noncompliance with vitamin B6 as she feels it is difficult to take medications. In office urinalysis results reviewed with the patient today. Discussed at length potential causes for nephrolithiasis. When asked she denies urinary urgency, urinary frequency, incontinence, nocturia, hematuria, dysuria, foul smelling urine, changes to urinary stream, flank pain, fever, and or chills. [facility] Medical History Abdominal pain Elevated liver enzymes Microscopic hematuria Muscle spasm Upper respiratory tract infection Acute dermatitis Obese Sinus infection Cellulitis of buttock Acquired hypothyroidism Hyperglycemia Post covid-19 condition, unspecified Breast cancer screening Foreign body of buttock Superimposed infection Cellulitis and abscess of buttock Cellulitis Renal calculi Frequent UTI Hematuria History of degenerative disc disease Normal colonoscopy Chronic constipation Hx of renal calculi History of panic attacks Hx of anxiety disorder Depression Hx of opioid abuse Thyroid disease Arthritis Fibromyalgia HTN (hypertension) Surgical History H/O left knee surgery Hx of cholecystectomy Tubal ligation status Hx of appendectomy Family History Paternal Grandmother Colon cancer Mother Pulmonary embolism Sister Pulmonary embolism Lung cancer Social History Household Members: Family Household Members Other:: daughter Housing: House Do you presently have visiting nurse or other home services: No Alcohol intake: never Patient Tobacco Use Status: Former Tobacco user Years Smoked: 20 e-Cigarette/Vaping Use: Never Used Second Hand Smoke Exposure: Yes Advance Directives Date on File: 06/02/21 service: No Current occupational status: employed 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 Cognitive needs: No Hearing needs: No Vision needs: No Female Reproductive History Menstrual Age of Menarche: 12 Review of Systems Const Reports as per HPI Eyes Reports no additional complaints ENT Reports no additional complaints Card Reports as per HPI Resp Reports as per HPI GI Reports as per HPI Reports as per HPI Musc Reports as per HPI Neuro Reports no additional complaints Psych Reports as per HPI Endo Reports as per HPI Physical Exam Const General: cooperative, healthy appearing, comfortable, no acute distress, well developed, alert and awake Orientation/consciousness: patient oriented x3 Limitations: no limitations HEENT Head: Yes normal to inspection, Yes normocephalic and Yes atraumatic Ears: hearing grossly normal bilaterally Eyes General: appearance normal, both eyes and all related structures Neck Neck: Yes normal visual inspection and Yes trachea midline Chest Chest palpation & inspection: normal inspection of the chest Resp Effort & Inspection: normal respiratory effort and able to speak in complete sentences Cardio Rate: regular rate GI Inspection: Yes normal to inspection General: Yes no CVA tenderness Back/Spine/Pelvis Back: no CVA tenderness Skin General skin exam: no rashes or lesions noted Neuro General: patient oriented x3 Extrem General: Yes normal to inspection Psych Appearance: grossly normal and well kempt Mental Status: mental status grossly normal Speech and movement: Normal speech and movement present and Clear speech present Affect: normal affect Attitude: cooperative Thought process: Normal thought process present Thought content: Normal thought content present Insight: Fair insight present (Psych) Judgement: Fair judgement present (Psych) Results AMB Urinalysis, Automated UA Leukoctes 15 Reilly/uL Last Edit by Stephane Sequeira on 12/02/23 14:47 UA Nitrite Negative Last Edit by Stephane Sequeira on 12/02/23 14:47 UA Urobilinogen 0.2 mg/dL Last Edit by Stephane Sequeira on 12/02/23 14:47 UA Protein 0 mg/dL Last Edit by Stephane Sequeira on 12/02/23 14:47 UA pH 7.0 Last Edit by Stephane Sequeira on 12/02/23 14:47 UA Blood 0 Loc/uL Last Edit by Data Elitedelbert Sequeira on 12/02/23 14:47 UA Specific [place] 1.010 Last Edit by Stephane Sequeira on 12/02/23 14:47 UA Ketone Negative Last Edit by Stephane Sequeira on 12/02/23 14:47 UA Bilirubin 0 mg/dL Last Edit by Stephane Sequeira on 12/02/23 14:47 UA Glucose 0 mg/dL Last Edit by Stephane Sequeira on 12/02/23 14:47 Results Reviewed Results Reviewed: Date of Service: 07/11/23 EXAMINATION: US RETROPERITONEAL COMPLETE (RENAL) FINDINGS: RIGHT KIDNEY: 10.9 x 5.1 x 6.0 cm (SAG x AP x TRV). The kidney is normal in size, contour, and echogenicity. Renal cortical thickness is normal. No focal parenchymal lesions or hydronephrosis. 3 mm nonobstructing calculus in the upper kidney. LEFT KIDNEY: 11.6 x 5.0 x 4.8 cm (SAG x AP x TRV). The kidney is normal in size, contour, and echogenicity. Renal cortical thickness is normal. No focal parenchymal lesions or hydronephrosis. 2 mm nonobstructing calculus in the upper kidney. BLADDER: Well distended and normal. Bilateral ureteral jets are demonstrated. Prevoid bladder volume is 476 mL. Postvoid bladder volume is 64.4 mL. IMPRESSION: Nonobstructing renal calculi bilaterally. The right renal calculus appears new compared to prior ultrasound. No hydronephrosis. Postvoid residual bladder volume of 64 mL. Assessment & Plan Assessment & Plan (1) Renal calculi: Code(s): N20.0 - Calculus of kidney Category: Medical Plan In office urinalysis results reviewed with the patient today; as noted above. Recent renal imaging results reviewed with the patient today; as noted above. Discussed importance of adequate hydration relation to nephrolithiasis as well as overall health and well-being. Discussed adding 1 oz of lemon juice to water daily. Patient currently denies any bothersome urinary issues or concerns. She reports be happy with her current voiding parameters. Will obtain renal ultrasound in 6 months. Discussed metabolic workup with 24 hour urine collection and labs. Follow-up in 6 months with imaging to be completed prior;or sooner with any issues, concerns, and or questions. Orders: Orders US renal BI 6 Months N20.0 - Calculus of kidney Patient Instructions: The patient had an opportunity to ask questions regarding the treatment plan. All questions were answered. Physical exam, labs, and imaging were discussed and reviewed in detail. As well as risks, benefits, and discussion of treatment choices. No major barriers to understanding were identified. The patient expressed understanding and agreement with the above treatment plan. The patient was made aware they should contact our office by phone for worsening of their current condition, the appearance of new symptoms, or with any questions or concerns. Compliance is encouraged with any medications and follow up testing that is ordered. It is a privilege to be allowed the opportunity to participate in? your urological care.? Again, if you have any questions or concerns If you have any questions or concerns please do not hesitate to contact me. The office is [phone]. This note is constructed using voice recognition software. While every effort has been made to ensure accuracy devops developer errors may have been included. Yours sincerely, DIANNA Alexander Coding Level of Care Code Est Pt Level 3 (61844) Diagnoses Renal calculi N20.0
== END 2023-12-02 14:54 | disposition home or self-care (01) ==
PROVIDERS: PCP Physician Assistant; Visit Provider Nurse Practitioner Family
DX: Z13.9 Encounter for screening, unspecified (principal); N20.0 Calculus of kidney
CPT/HCPCS: 99213

== ENCOUNTER → 2023-12-02 14:23 | Outpatient (BNVA) | payer OTHER, SELFPAY | PROVIDERS: PCP Physician Assistant; Visit Provider Nurse Practitioner Family | DX: N20.0 Calculus of kidney (principal) | CPT/HCPCS: 81003; 99212 ==

== ENCOUNTER 2023-12-05 13:09 | Outpatient (AMB) | payer OTHER, SELFPAY ==
--- OUTSIDE RECORDS SUMMARY | 2023-12-05 13:11 | XMS_ITS | Continuity of Care Document ---
Author Organization [facility] ter Address [address] [place] [id number] Care Team Providers Care Lens Grinder And Polisher Name Role Phone Edwin HWANG, Melissa Primary Care Physician Encounter [facility] ACCT R [id number] Date(s): 01/07/22 - 03/23/[address] [address] Attending Physician: Igor Torres MD Admitting Physician: Igor Torres MD Referring Physician: Igor Torres MD Allergies, Adverse Reactions, Alerts Substance Reaction Severity Status aspirin N&V - Nausea and vomiting Ac tive metoclopramide Agitation Active Medications acetaminophen 325 mg oral tablet 650 mg, By Mouth, Every 6 hours, May take OTC, not to exceed 3000 mg/day, Refills 0, Maintenance, 08/31/20 10:22:00 EDT, Partial fill upon patient request if the prescription is for a schedule II opioid drug. Start Date: 08/31/20 Status: Ordered amLODIPine 5 mg oral tablet 5 mg, 1, tablet, By Mouth, Daily, Refills 0, Maintenance, 09/01/20 10:05:00 EDT, Partial fill upon patient request if the prescription is for a schedule II opioid drug. Start Date: 09/01/20 Status: Ordered apixaban 2.5 mg oral tablet 1 tablet = 2.5 mg, By Mouth, 2 times a day, # 60 tablet, 0 Refills, Maintenance, 08/31/20 10:23:00 EDT, Tablet, [facility], Partial fill upon patient request if the prescription is for a schedule II opioid drug., 158, cm, 08/31/20 6:32:0... Start Date: 08/31/20 Stop Date: 09/30/20 Status: Ordered celecoxib 200 mg oral capsule 1 capsule = 200 mg, By Mouth, Daily, 0 Refills, Maintenance, 08/31/20 10:22:00 EDT, Capsule, Partial fill upon patient request if the prescription is for a schedule II opioid drug. Start Date: 08/31/20 Status: Ordered cetirizine 10 mg oral tablet 1 tablet = 10 mg, By Mouth, Daily, 0 Refills, Maintenance, 07/21/20 8:44:00 EDT, Partial fill upon patient request if the prescription is for a schedule II opioid drug. Start Date: 07/21/20 Status: Ordered clonazePAM 0.5 mg oral tablet See Instructions, 1 tablet By Mouth, 0 Refills, Maintenance, 07/21/20 8:44:00 EDT, Partial fill upon patient request if the prescription is for a schedule II opioid drug. Start Date: 07/21/20 Status: Ordered Colace Capsule 100 mg, 1, capsule, By Mouth, 2 times a day, Hold for loose stools, Refills 0, Maintenance, 08/31/20 10:22:00 EDT, Partial fill upon patient request if the prescription is for a schedule II opioid drug. Start Date: 08/31/20 Status: Ordered cyclobenzaprine 5 mg oral tablet = 5 mg, By Mouth, Daily, PRN Spasm, 0 Refills, Maintenance, 07/21/20 8:43:00 EDT, Partial fill uponpatient request if the prescription is for a schedule II opioid drug. Start Date: 07/21/20 Status: Ordered D 1000 IU oral tablet 1 tablet = 1,000 International_Units, By Mouth, Daily, 0 Refills, Maintenance, 07/21/20 8:43:00 EDT, Partial fill upon patient request if the prescription is for a schedule II opioid drug. Start Date: 07/21/20 Status: Ordered Maalox Plus Liquid 30 mL, By Mouth, Every 4 hours, PRN Other, Heartburn, 0 Refills, Maintenance, 08/31/20 10:22:00 EDT, Suspension, Partial fill upon patient request if the prescription is for a schedule II opioid drug. Start Date: 08/31/20 Status: Ordered Milk of Magnesia Liquid 30 mL, By Mouth, Daily, PRN Constipation, 0 Refills, Maintenance, 08/31/20 10:22:00 EDT, Suspension, Partial fill upon patient request if the prescription is for a schedule II opioid drug. Start Date: 08/31/20 Status: Ordered MiraLax Powder 1 pack/packet = 17 Gm, By Mouth, Daily, PRN Constipation, 0 Refills, Maintenance, 08/31/20 10:22:00EDT, Powder, Partial fill upon patient request if the prescription is for a schedule II opioid drug. Start Date: 08/31/20 Status: Ordered pantoprazole 40 mg oral delayed release tablet = 40 mg, By Mouth, Daily, 0 Refills, Maintenance, 08/31/20 10:22:00 EDT, EC Tablet Start Date: 08/31/20 Status: Ordered senna 187 mg oral tablet 1 tablet = 8.6 mg, By Mouth, Daily at bedtime, PRN as needed for constipation, 0 Refills, Maintenance, 08/31/20 10:22:00 EDT, Tablet, Partial fill upon patient request if the prescription is for a schedule II opioid drug. Start Date: 08/31/20 Status: Ordered Suboxone 8 mg-2 mg sublingual film she takes it 4 mg 2x/day, 0 Refills, Maintenance, 07/21/20 8:44:00 EDT, Partial fill upon patient request if the prescription is for a schedule II opioid drug. Start Date: 07/21/20 Status: Ordered Tirosint 13 mcg (0.013 mg) oral capsule 1 capsule = 13 mcg, By Mouth, Daily, # 30 capsule, 0 Refills, Maintenance, 07/21/20 8:43:00 EDT, Capsule, Partial fill upon patient request if the prescription is for a schedule II opioid drug. Start Date: 07/21/20 Status: Ordered Vitamin D3 1000 intl units oral tablet 1 tablet = 1,000 International_Units, By Mouth, Daily, # 30 tablet, 0 Refills, Maintenance, 08/30/20 12:09:00 EDT, Tablet, Partial fill upon patient request if the prescription is for a schedule II opioid drug. Start Date: 08/30/20 Status: Ordered Problem List Condition Confirmation Course Effective Dates Status H ealth Status Informant Anxiety Confirmed Active Rectocele Confirmed Active Fibromyalgia Confirmed Active HTN - Hypertension Confirmed Active Hyperlipemia Confirmed Active Hypothyroidism Confirmed Active Urinary frequency Confirmed Active Migraine Confirmed Active Obese class I Confirmed Active Opioid dependence, on agonist therapy Confirmed Active OA (osteoarthritis) of knee Confirmed Active Postmenopausal bleeding Confirmed Active Social History Social History Type Response Smoking Status Former smoker, quit more than 30 days ago entered on: 01/19/21 Sex Patient Care team information Care Team Personnel Name: Lyly Jang RN Position: Natividad GONZALEZ RN Member Role: Primary Care Nurse Name: Abby Starr RN Position: Natividad RN Member Role: Primary Care Nurse Care Team Related Persons Name: NILS ABBOTT Address: home [address] [place] [id number]
--- NOTE | 2023-12-05 13:15 | AM.OFFWIN_ITS ---
Intake Vital Signs 12/05/23 13:18 Height 5 ft 3 in Weight 177 lb BMI 31.4 BP 120/80 Blood Pressure Location Rt brachial Position Sitting Pulse 78 Pulse Source Pulse Oximeter Pulse Oximetry (%) 97 Oxygen Delivery Method Room Air Intake Visit Reasons: EP-nasal pressure, back neck pain Intake Note: Patient here for back pain that has been present for about 1 week. Patient Tobacco Use Status: Former Tobacco user Allergies metoclopramide [From REGLAN] Adverse Reaction (Intermediate, Verified 12/05/23 13:18) AGITATION morphine Adverse Reaction (Mild, Verified 12/05/23 13:18) Nausea aspirin Adverse Reaction (Verified 12/05/23 13:18) Vomiting Do you need a note to return to daycare/school/sports/work: No HPI HPI Comments History of Present Illness Details This is a 58-year-old female who presented to the walk-in clinic complaining of back pain x 1-2 weeks. Patient states she has chronic low back pain due to chronic implants in her pelvis; however, she has developed mid and upper back pain over the past 1-2 weeks. She denies any specific trauma/injury but states she first felt a ?pinch? while getting out of bed. The pain is not entirely localizes it is occasionally left-sided, occasionally right-sided, occasionally in the upper back, and occasionally in the mid back. She had an old prescription of cyclobenzaprine, which she states provided mild relief. She denies any bowel/bladder incontinence/retention. She denies any numbness/weakness/paresthesias of her extremities or saddle anesthesias. She denies any fever/chills. Patient is extremely anxious. [facility] Medical History Abdominal pain Elevated liver enzymes Microscopic hematuria Muscle spasm Upper respiratory tract infection Acute dermatitis Obese Sinus infection Cellulitis of buttock Acquired hypothyroidism Hyperglycemia Post covid-19 condition, unspecified Breast cancer screening Foreign body of buttock Superimposed infection Cellulitis and abscess of buttock Cellulitis Renal calculi Frequent UTI Hematuria History of degenerative disc disease Normal colonoscopy Chronic constipation Hx of renal calculi History of panic attacks Hx of anxiety disorder Depression Hx of opioid abuse Thyroid disease Arthritis Fibromyalgia HTN (hypertension) Surgical History H/O left knee surgery Hx of cholecystectomy Tubal ligation status Hx of appendectomy Family History Paternal Grandmother Colon cancer Mother Pulmonary embolism Sister Pulmonary embolism Lung cancer Social History Household Members: Family Household Members Other:: daughter Housing: House Do you presently have visiting nurse or other home services: No Alcohol intake: never Patient Tobacco Use Status: Former Tobacco user Years Smoked: 20 e-Cigarette/Vaping Use: Never Used Second Hand Smoke Exposure: Yes Advance Directives Date on File: 06/02/21 service: No Current occupational status: employed Current occupation: [employer] Cognitive needs: No Hearing needs: No Vision needs: No Female Reproductive History Menstrual Age of Menarche: 12 Review of Systems Const All systems reviewed & are unremarkable except as noted in HPI and below Reports no additional complaints Eyes Reports no additional complaints ENT Reports no additional complaints Card Reports no additional complaints Resp Reports no additional complaints GI Reports no additional complaints Reports no additional complaints Musc Reports no additional complaints Skin/Breast Reports system reviewed and no additional complaints, except as documented Neuro Reports no additional complaints Psych Reports no additional complaints Endo Reports no additional complaints Andrew/Lymph Reports no additional complaints Aller/Immun Reports no additional complaints Physical Exam Vital Signs: Last Vital Signs Pulse 78 12/05/23 13:18 BP 120/80 12/05/23 13:18 Pulse Ox 97 12/05/23 13:18 Oxygen Delivery Method Room Air 12/05/23 13:18 BMI result Body Mass Index 31.4 Const Other: Vital signs reviewed. Constitutional: Non-toxic appearing. No acute distress. Well-developed and well-nourished. HEENT: Normocephalic and atraumatic. Skin: Warm and dry. No rashes or lesions noted. Neck: Full and painless range of motion. No cervical lymphadenopathy. Cardio: Regular rate and rhythm. No murmurs, gallops, or rubs. No lower extremity edema. No JVD. Pulmonary: No respiratory distress. No accessory muscle usage. Clear to auscultation bilaterally without wheezing, crackles, or rhonchi. Gastrointestinal: Soft, nontender, and nondistended in all 4 quadrants. Normoactive bowel sounds in all 4 quadrants. Genitourinary: No CVA tenderness. Musculoskeletal: Mild diffuse tenderness to palpation and rare muscle spasms of the cervical and thoracic paraspinal musculature bilaterally (left greater than right). Negative straight leg raise bilaterally. Neuro: Alert and oriented x4. Cranial nerves 2-12 grossly intact. No focal deficits appreciated. Psych: Extremely anxious. Office Procedures EKG Details: Normal sinus rhythm at 80 beats per minute, no acute ischemic changes or ST-T wave changes, completely unchanged from prior EKG in 10/2022 [id number], Complete Assessment & Plan Assessment & Plan (1) Back pain: Code(s): M54.9 - Dorsalgia, unspecified Qualifiers: Back pain location: back pain in unspecified location Chronicity: acute Back pain laterality: unspecified Qualified Code(s): M54.9 - Dorsalgia, unspecified Plan: This is a 58-year-old female who presented to the walk-in clinic complaining of migrating/nonspecific back pain. On physical examination, she has diffuse but mild tenderness to palpation of the cervical and thoracic spine and paraspinal musculature. Patient is extremely anxious on physical examination. She has no red flag symptoms to suggest acute neurosurgical emergency. Recommend rest/activity modification, heat to the area, gentle stretching and physical therapy evaluation, acetaminophen/ibuprofen for pain management as long as patient has no medical contraindications, and PO cyclobenzaprine 5 mg 3 times daily as needed for muscle spasms (patient was made aware that this can be sedating so she should try to utilize it only at bedtime if possible). Patient requested EKG as she was concerned her symptoms could be related to her heart. I explained that back pain (especially migratory/nonspecific back pain) is not typical for heart disease; however, an EKG was performed at the request of the patient and showed sinus rhythm without acute ischemic changes or ST T wave changes. I did explain to the patient that this does not rule out underlying coronary disease but it does not appear that she is not having an AMI at this time. Patient felt reassured after visit and was very appreciative and thankful for the help. Patient was advised to proceed to the emergency room if she were to develop any of the red flag symptoms discussed above. (2) Nasal congestion: Code(s): R09.81 - Nasal congestion Plan: Patient reports some mild nasal congestion with clear-white nasal drainage/discharge. She has no other riral URI symptoms. This is likely viral rhinosinusitis. Patient was sent a refill for fluticasone nasal spray. Recommended symptomatic management including rest, increased fluids, and [id number] decongestants. Orders: Orders AMB EKG-In Office Today Z13.6 - Encounter for screening for cardiovascular disorders PT Evaluation and Treatment Today S23.9XXA - Sprain of unspecified parts of thorax, initial encounter Medications: New fluticasone propionate 50 mcg/actuation 1 - 2 sprays intranasal DAILY PRN 16 grams 0RF Allergy Symptoms cyclobenzaprine 5 mg PO TID PRN 20 tabs 0RF muscle spasm Discontinued 2 cyclobenzaprine Discontinued Reason: Order 5 mg PO TID PRN 14 tabs 0RF muscle spasm Coding Level of Care Code Est Pt Level 3 (64472) Diagnoses Acute back pain, unspecified back location, unspecified back pain laterality M54.9 Back pain location: back pain in unspecified location Chronicity: acute Back pain laterality: unspecified Nasal congestion R09.81 CPT Codes EKG - CPT: 64249-[id number], Complete ([id number])
[2023-12-05 13:18] VITALS: BP 120/80; PULSE 78; O2SAT 97; BMI 31.4
== END 2023-12-05 14:48 | disposition home or self-care (01) ==
PROVIDERS: PCP Physician Assistant; Visit Provider Physician Assistant Medical
DX: M54.9 Dorsalgia, unspecified (principal); R09.81 Nasal congestion

== ENCOUNTER → 2023-12-05 13:09 | Outpatient (BNVA) | payer OTHER, SELFPAY | PROVIDERS: PCP Physician Assistant | DX: M54.9 Dorsalgia, unspecified (principal); R09.81 Nasal congestion | CPT/HCPCS: 93005; 99212 ==

== ENCOUNTER 2023-12-31 17:09 | Emergency (ER) | payer OTHER, SELFPAY ==
--- NOTE | ~2023-12-31 | XR_ITS ---
EXAMINATION: XR CHEST CLINICAL INFORMATION: Chest pain COMPARISON: cxr on 10/26/22 TECHNIQUE: 2 views of the chest were obtained. FINDINGS: No significant abnormality is noted involving the heart, lungs, mediastinum, bony thorax or soft tissues. XR/XR chest 2V IMPRESSION: Unremarkable examination. Electronically signed by: Meredith Graham MD 12/31/2023 08:08 PM EDT RP
[2023-12-31 17:34] VITALS: BP 146/81; PULSE 100; RESP 16; TEMP 36.4; O2SAT 99; BMI 30.5
--- NOTE | 2023-12-31 17:34 | ED_ITS ---
HPI - Back Pain/Injury General Chief Complaint: Chest Pain Stated Complaint: lwr back pain goes to the neck Time Seen by Provider: 12/31/23 19:26 Source: patient Mode of arrival: ambulatory Limitations: no limitations History of Present Illness HPI Narrative: This is a 58-year-old woman with a past medical history hypertension, hyperlipidemia, hypothyroidism, history of opioid abuse, fibromyalgia, renal calculi, anxiety/depression, nonalcoholic fatty liver disease, history of cholecystectomy, history of appendectomy, history of tubal ligation presents for evaluation left upper back pain. Patient reports that she has had this pain for the last 6 weeks. Patient states that she has been taking ibuprofen though completely alleviation of her symptoms. Patient states pain is not pleuritic or exertional in nature. She states at times feeling pain in her chest as well. She states no exertional chest pain. She says when she is having severe pain she he was as if she is having difficulty breathing. She states no difficulty breathing otherwise. She states no exertional dyspnea. She states no cough, hemoptysis fevers, chills or sputum production. She states no leg swelling or pain. She states that she was given muscle relaxers from a walk-in clinic, which she reports did not help. She states no interval trauma falls. She states no nausea or vomiting. She has no fevers. She states no urinary symptoms or changes to bowel habits. She states no syncope. Related Data Home Medications ?Medication ?Instructions ?Recorded ?Confirmed buprenorphine 8 mg-naloxone 2 mg 0.5 film buccal BID@1130,1800 04/21/20 01/12/24 sublingual film (Suboxone) cetirizine 10 mg tablet 10 mg PO DAILY 01/05/24 01/12/24 magnesium hydroxide 800 mg/5 mL mg PO PRN constipation 01/05/24 01/12/24 oral suspension magnesium oxide 400 mg (241.3 mg 400 mg PO DAILY 01/05/24 01/12/24 magnesium) tablet Previous Rx's ?Medication ?Instructions ?Recorded clonazepam 0.5 mg tablet 0.5 mg PO TID PRN Anxiety 14 days 12/24/22 #42 tabs ipratropium bromide 21 mcg (0.03 2 spray intranasal BID 30 days #30 12/24/22 %) nasal spray mL betamethasone dipropionate 0.05 % 1 appl topical DAILY PRN skin 07/08/23 topical cream irritation 30 days #45 grams sumatriptan succinate 25 mg tablet 25 mg PO DAILY 30 days #9 tabs 07/08/23 amlodipine 5 mg tablet 5 mg PO DAILY 90 days #90 tabs 08/22/23 levothyroxine 50 mcg tablet 50 mcg PO DAILY 90 days #90 tabs 09/30/23 ascorbic acid (vitamin C) 500 mg 500 mg PO DAILY #90 tabs 10/08/23 tablet blood pressure monitor #1 ea 10/08/23 diclofenac sodium 1 % topical gel 2 g topical QID #100 grams 10/08/23 fluticasone propionate 50 1 - 2 spray intranasal DAILY PRN 12/05/23 mcg/actuation nasal Allergy Symptoms #16 grams spray,suspension ibuprofen 800 mg tablet 800 mg PO Q8H PRN pain 7 days #21 12/25/23 tabs cholecalciferol (vitamin D3) 25 25 mcg PO DAILY 90 days #90 caps 01/12/24 mcg (1,000 unit) capsule (Vitamin D3) lidocaine 5 % topical patch 1 patch topical DAILY #15 ea 01/12/24 Allergies Allergy/AdvReac Type Severity Reaction Status Date / Time metoclopramide [From REGLAN] AdvReac Intermediate AGITATION Verified 01/12/24 15:52 morphine AdvReac Mild Nausea Verified 01/12/24 15:52 aspirin AdvReac Vomiting Verified 01/12/24 15:52 Review of Systems 2 Review of Systems: ROS as per HPI [facility], [facility] Past Medical History Medical History Abdominal pain Elevated liver enzymes Microscopic hematuria Muscle spasm Upper respiratory tract infection Acute dermatitis Obese Sinus infection Cellulitis of buttock Acquired hypothyroidism Hyperglycemia Post covid-19 condition, unspecified Breast cancer screening Foreign body of buttock Superimposed infection Cellulitis and abscess of buttock Cellulitis Renal calculi Frequent UTI Hematuria History of degenerative disc disease Normal colonoscopy Chronic constipation Hx of renal calculi History of panic attacks Hx of anxiety disorder Depression Hx of opioid abuse Thyroid disease Arthritis Fibromyalgia HTN (hypertension) Surgical History H/O left knee surgery Hx of cholecystectomy Tubal ligation status Hx of appendectomy Family History Family History Paternal Grandmother Colon cancer Mother Pulmonary embolism Sister Pulmonary embolism Lung cancer Social History Social History Household Members: Family Household Members Other:: daughter Housing: House Do you presently have visiting nurse or other home services: No Alcohol intake: never Patient Tobacco Use Status: Former Tobacco user Years Smoked: 20 e-Cigarette/Vaping Use: Never Used Second Hand Smoke Exposure: Yes Advance Directives Date on File: 06/02/21 service: No Current occupational status: employed 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[employer] Cognitive needs: No Hearing needs: No Vision needs: No Physical Exam 2 Vital Signs: Vital Signs: Last Vital Signs Temp 98.7 F 12/31/23 20:07 Pulse 88 12/31/23 20:07 Resp 16 12/31/23 20:07 BP 111/58 L 12/31/23 20:07 Pulse Ox 97 12/31/23 20:07 O2 Del Method Room Air 12/31/23 20:07 BMI result Body Mass Index 30.5 Gen: NAD, AOx3 HEENT: NCAT, EOMI CV: RRR, no murmurs appreciated Pulm: CTAB, no increased work of breathing or tachypnea GI: Soft, NTND, no rebound, guarding or rigidity MSK: No midline vertebral tenderness to palpation, mild left upper paraspinal thoracic tenderness to palpation without overlying skin changes Neuro: Grossly non focal, 5/5 metal hanging helper strength, 5/5 bilateral upper extremity strength, sensation intact to light touch in upper extremities and anterior and posterior torso Skin: Warm, dry no vesicular rash Course Course Course Narrative: This is an RME: Additional HPI, ROS, PE not included below will be deferred to primary provider. RME assessment and note performed by: Gena Izaguirre PA-C This is a [id number] who presents to the ER with a complaint of mid chest pain as well as back pain. She states that the pain has been going on for a month. She was given muscle relaxants however this is not helping. She states the pain is getting worse and now she reports some shortness of breath. Plan: X-ray, EKG, labs, further ER evaluation needed. Medications Administered Discontinued Medications Generic Name Dose Route Start Last Admin Trade Name Freq PRN Reason Stop Dose Admin Ibuprofen 600 mg 10/23/24 19:41 12/31/23 19:59 Ibuprofen 600 Mg Tablet PO 12/31/23 19:42 600 mg ONCE ONE Administration Lidocaine 1 patch 12/31/23 19:41 12/31/23 19:58 Lidocaine 4 % Patch Adh..Patch TRANSDERMA 12/31/23 19:42 1 patch ONCE ONE Administration Protocol Medical Decision Making Medical Decision Making MDM Narrative: Differential diagnosis includes, but is not limited to sprain, strain, muscle spasm, herpes zoster. Patient is afebrile and hemodynamically stable on room air. Given lack of tachycardia, hypoxia and tachypnea I do not suspect pulmonary embolism. Further, there is no history or exam findings to suggest deep vein thrombosis. For these reasons, D-dimer was not obtained. Exam is benign and reassuring. There are no exam findings consistent with herpes zoster. Patient has no neurological deficits. Have high clinical suspicion for musculoskeletal etiology of patient's symptoms given chronicity of symptoms and reproducibility of pain on exam as above. I reviewed and interpreted patient's labs, EKG and chest x-ray as below which are benign and reassuring. Patient was treated supportively with ibuprofen and lidocaine patch. She states that she has initiated the process to pursue outpatient physical therapy. On re-examination, patient is well-appearing and in no acute distress. ?There is no indication for further emergent evaluation in this otherwise well-appearing patient as above. ?Patient is provided written and verbal instructions, educational materials, recommendations for outpatient follow-up, strict return precautions and teach back is performed. ?Patient states understanding and agreement with plan of care. ?Patient is discharged home in stable and improved condition. Admission/Observation Consideration of admission/observation: Escalation of care including admission/observation considered Lab Data [facility] Lab Attestation statement: I reviewed the patient's lab results. I independently reviewed and interpreted patient's labs including CBC, coagulation studies, metabolic panel, magnesium level and troponin, which are benign and reassuring. Of note, there is transaminitis with AST of 96 and ALT of 130, which is consistent with the patient's known nonalcoholic fatty liver disease. 12/31/23 18:03 12/31/23 18:03 Labs: Lab Results 12/31/23 Range/Units 18:03 WBC 6.4 (4.8-10.8) X10*3/uL RBC 4.63 (4.20-5.50) X10*6/uL Hgb 12.5 (12.0-16.0) g/dl Hct 37.4 (37.0-47.0) % MCV 80.8 (80.0-98.0) fL MCH 27.0 (27.0-33.0) pg MCHC 33.4 (31.0-35.0) g/dl RDW 13.5 (11.0-16.0) % Plt Count 282 (160-400) X10*3/uL MPV 8.7 L (9.4-12.3) fL Immature Gran % (Auto) 0.3 (0.0-0.4) % Neut % (Auto) 54.6 (45-73) % Lymph % (Auto) 38.4 (20-40) % [place] % (Auto) 6.2 (2-11) % Eos % (Auto) 0.3 (0-4) % Baso % (Auto) 0.2 (0-2) % Lymph # (Auto) 2.5 (1.2-4.9) X10*3/uL [place] # (Auto) 0.4 (0.1-1.2) X10*3/uL Eos # (Auto) 0.0 (0.0-0.4) X10*3/uL Baso # (Auto) 0.0 (0.0-0.2) X10*3/uL Abs Immat Gran (auto) 0.02 (0.00-0.03) X10*3/uL Absolute Neuts (auto) 3.5 (2.0-8.3) x10*3/uL Absolute Nucleated RBC 0.000 (0.0-0.012) X10*3/uL Nucleated RBC % (auto) 0.0 (0.0-0.2) /100WBC PT 12.1 (10.9-12.4) SEC INR 1.0 (0.9-1.1) Sodium 142 (135-145) mmol/L Potassium 3.7 (3.3-5.1) mmol/L Chloride 105 (96-108) mmol/L Carbon Dioxide 28 (22-29) mmol/L Anion Gap 13 (12-20) BUN 9 (9-16) mg/dL Creatinine 0.62 (0.5-1.4) mg/dL Estim Creat Clear Calc 96.6 Estimated GFR > 60 Random Glucose 79 (60-115) mg/dL Calcium 9.8 D (8.4-10.2) mg/dL Magnesium 1.7 (1.6-2.6) mg/dL Total Bilirubin 0.2 (0.0-1.0) mg/dL Direct Bilirubin < 0.2 (0.0-0.5) mg/dL AST 96 H (5-31) U/L ALT 130 H (0-31) U/L Alkaline Phosphatase 74 (39-117) U/L Troponin I High Sens < 2.7 (<3.5-17.0) ng/L Total Protein 7.7 (6.5-8.0) g/dL Albumin 4.1 (3.5-5.0) g/dL Independent Interpretation I performed an independent interpretation of an: EKG and Plain X-Ray Interpretation: I independently reviewed interpretation chest x-ray, which demonstrates no radiographic evidence of acute cardiopulmonary disease. Unchanged since previous chest x-ray 10/26/2022. I independently reviewed and interpreted the patient's EKG, which demonstrates sinus rhythm 83 beats per minute, TX 154, QRS 72, QTC 439, no STEMI (there are no diagnostic ischemic changes when compared to previous EKG 10/20/2022) Discharge Plan Discharge Clinical Impression: Back pain, thoracic Patient Disposition: Home, Self-Care Instructions: Back Pain (ED) Additional Instructions: You were seen and evaluated in the emergency room. Your vital signs were normal and he did not have fever. ? Your blood work, EKG and chest x-ray were very reassuring with no acute findings. Please follow-up with your primary care doctor in the next 5-7 days. ? Please return to the emergency room if you develop any worsening symptoms including, but not new abdominal or back pain, vomiting, inability to eat/drink. Prescriptions: No Action amlodipine 5 mg tablet 5 mg PO DAILY 90 Days Qty: 90 1RF levothyroxine 50 mcg tablet 50 mcg PO DAILY 90 Days Qty: 90 2RF ibuprofen 800 mg tablet 800 mg PO Q8H PRN (Reason: pain) 7 Days Qty: 21 0RF buprenorphine-naloxone [Suboxone] 8-2 mg Film 0.5 film BUCCAL BID@1130,1800 clonazepam 0.5 mg tablet 0.5 mg PO TID PRN (Reason: Anxiety) 14 Days Qty: 42 0RF ipratropium bromide 21 mcg (0.03 %) spray,non-aerosol 2 spray intranasal BID 30 Days Qty: 30 3RF Rx Instructions: administer into each nostril ascorbic acid (vitamin C) 500 mg tablet 500 mg PO DAILY Qty: 90 2RF diclofenac sodium 1 % gel 2 g topical QID Qty: 100 0RF (DME) blood pressure monitor Kit See Rx Instructions .Route Qty: 1 0RF Rx Instructions: Testing blood pressure once a day/ PRN sumatriptan succinate 25 mg tablet 25 mg PO DAILY 30 Days Qty: 9 3RF betamethasone dipropionate 0.05 % cream 1 appl topical DAILY PRN (Reason: skin irritation) 30 Days Qty: 45 0RF lidocaine 5 % adhesive patch,medicated 1 patch topical DAILY Qty: 15 1RF Rx Instructions: leave on most painful area for up to 12 hrs cholecalciferol (vitamin D3) [Vitamin D3] 25 mcg (1,000 unit) capsule 25 mcg PO DAILY 90 Days Qty: 90 1RF cetirizine 10 mg tablet 10 mg PO DAILY magnesium oxide 400 mg (241.3 mg magnesium) tablet 400 mg PO DAILY magnesium hydroxide 800 mg/5 mL suspension PO PRN (Reason: constipation) fluticasone propionate 50 mcg/actuation spray,suspension 1 - 2 spray intranasal DAILY PRN (Reason: Allergy Symptoms) Qty: 16 0RF Interventions: ED Discharge Assessment Last Done: 12/31/23 20:07 Discharge Date/Time: 12/31/23 20:08 Print Language: Indonesian
--- NOTE | 2023-12-31 17:38 | ECG_ITS ---
Test Reason : CP Blood Pressure : / mmHG Vent. Rate : 082 BPM Atrial Rate : 082 BPM P-R Int : 154 ms QRS Dur : 072 ms QT Int : 376 ms P-R-T Axes : 009 -17 018 degrees QTc Int : 439 ms Normal sinus rhythm Inferior infarct , age undetermined Abnormal ECG When compared with ECG of 20-OCT-2022 13:59, No significant change was found Referred By: Gena Izaguirre Electronically Signed By:Isauro Michelle
[2023-12-31 18:08] LABS: MANUAL DIFF FLAG NO
[2023-12-31 18:10] LABS: Basophils Percent Auto 0.2 % (0-2); Eosinophils Percent Auto 0.3 % (0-4); Hematocrit 37.4 % (37.0-47.0); Hemoglobin 12.5 g/dl (12.0-16.0); Imm Gran Abs Auto 0.02 X10*3/uL (0.00-0.03); Imm Gran Pct Auto 0.3 % (0.0-0.4); Lymphocytes Absolute Auto 2.5 X10*3/uL (1.2-4.9); Lymphocytes Percent Auto 38.4 % (20-40); Mean Corpuscular HGB Conc 33.4 g/dl (31.0-35.0); Mean Corpuscular Volume 80.8 fL (80.0-98.0); Mean Platelet Volume 8.7 fL (9.4-12.3); Monocytes Absolute Auto 0.4 X10*3/uL (0.1-1.2); Monocytes Percent Auto 6.2 % (2-11); Neutrophils Absolute Auto 3.5 x10*3/uL (2.0-8.3); Neutrophils Percent Auto 54.6 % (45-73); Platelet Count 282 X10*3/uL (160-400); Red Blood Count 4.63 X10*6/uL (4.20-5.50); Red Cell Distribution Width 13.5 % (11.0-16.0); White Blood Count 6.4 X10*3/uL (4.8-10.8)
[2023-12-31 18:14] LABS: Prothrombin Time 12.1 SEC (10.9-12.4)
[2023-12-31 18:26] LABS: Alanine Aminotransferase 130 U/L (0-31); Albumin Level 4.1 g/dL (3.5-5.0); Alkaline Phosphatase 74 U/L (39-117); Anion Gap 13 (12-20); Aspartate Amino Transferase 96 U/L (5-31); Bilirubin Direct < 0.2 mg/dL (0.0-0.5); Bilirubin Total 0.2 mg/dL (0.0-1.0); Blood Urea Nitrogen 9 mg/dL (9-16); Calcium 9.8 mg/dL (8.4-10.2); Carbon Dioxide 28 mmol/L (22-29); Chloride 105 mmol/L (96-108); Creatinine Clr Calc Pharmacy 96.6; Estimated Glomerular Filt Rate > 60; Glucose Random 79 mg/dL (60-115); Magnesium 1.7 mg/dL (1.6-2.6); Potassium 3.7 mmol/L (3.3-5.1); Sodium 142 mmol/L (135-145); Total Protein 7.7 g/dL (6.5-8.0)
[2023-12-31 18:35] LABS: Troponin-I High Sensitivity < 2.7 ng/L (<3.5-17.0)
[2023-12-31 19:45] VITALS: BP 111/58; PULSE 88; RESP 16; TEMP 37.1; O2SAT 97
[2023-12-31] MEDS: Lidocaine 4 % Patch ADH..PATCH 1 PATCH TRANSDERMA (19:58)
[2023-12-31] MEDS: Ibuprofen 600 MG TABLET PO (19:59)
[2023-12-31 20:07] VITALS: BP 111/58; PULSE 88; RESP 16; TEMP 37.1; O2SAT 97
== END 2023-12-31 20:08 | disposition home or self-care (01) ==
PROVIDERS: Physician Assistant Medical; Emergency Provider Emergency Medicine; PCP Physician Assistant
DX: M54.6 Pain in thoracic spine (principal); R07.9 Chest pain, unspecified; Z79.899 Other long term (current) drug therapy
CPT/HCPCS: 36415; 71046; 80048; 80076; 83735; 84484; 85025; 85610; 93005; 99283; 99284

== ENCOUNTER → 2023-12-31 17:38 | Outpatient (BNV) | payer OTHER, SELFPAY | PROVIDERS: Emergency Provider Emergency Medicine; PCP Physician Assistant; Visit Provider Internal Medicine Cardiovascular Disease | DX: R94.31 Abnormal electrocardiogram [ECG] [EKG] (principal) | CPT/HCPCS: 93010 ==

== ENCOUNTER → 2024-01-03 16:34 | Outpatient (BNV) | payer OTHER, SELFPAY | PROVIDERS: PCP Physician Assistant; Visit Provider Radiology Diagnostic Radiology | DX: R16.0 Hepatomegaly, not elsewhere classified (principal) | CPT/HCPCS: 74183 ==

== ENCOUNTER 2024-01-03 16:36 | Outpatient (REF) | payer OTHER, SELFPAY ==
[2024-01-03] MEDS: gadobutroL 10 ML VIAL IVPUSH (18:09)
== END 2024-01-03 16:37 | disposition home or self-care (01) ==
LOC: HO.MRI 16:36
PROVIDERS: PCP Physician Assistant; Visit Provider Physician Assistant
DX: R59.0 Localized enlarged lymph nodes (principal); R10.9 Unspecified abdominal pain; G89.29 Other chronic pain
CPT/HCPCS: 74183; A9585

== ENCOUNTER 2024-01-05 12:08 | Outpatient (AMB) | payer OTHER, SELFPAY ==
--- NOTE | 2024-01-05 12:09 | MHC.OFFVIS ---
Vital Signs 01/05/24 12:13 Height 5 ft 3 in Weight 169 lb 5.04 oz BMI 30.0 BP 136/74 Blood Pressure Location Rt brachial Position Sitting Pulse 102 H Pulse Source Pulse Oximeter Pulse Oximetry (%) 100 Oxygen Delivery Method Room Air Intake Visit Reasons: 2 month follow up Intake Note: Relevant Flags or Indicators ? 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 Mara Leigh presents in office today for a scheduled 2 mos FUV. CC; Labs done per PCP. Pt is going to do more lab work after this visit. Pt reports having MRI of abd in the last 3 days. Mag Oxide ordered @ last visit. Relevant GI Sx as reported per pt? No new sx or concerns reported. ? Hx of any recent surgeries? None Cooler Conveyor Loader Required: No Allergies metoclopramide [From REGLAN] Adverse Reaction (Intermediate, Verified 01/05/24 12:10) AGITATION morphine Adverse Reaction (Mild, Verified 01/05/24 12:10) Nausea aspirin Adverse Reaction (Verified 01/05/24 12:10) Vomiting Medication List - Last Reconciled 01/05/24 by Taylor Metz, APPRENTICE PATTERN MAKER- amlodipine 5 mg PO DAILY 90 days ascorbic acid (vitamin C) 500 mg PO DAILY betamethasone dipropionate 0.05% 1 appl topical DAILY PRN 30 days blood pressure monitor Testing blood pressure once a day/ PRN buprenorphine-naloxone 8-2 mg (Suboxone) 0.5 film buccal BID@1130,1800 cetirizine 10 mg PO DAILY cholecalciferol (vitamin D3) (Vitamin D3) 25 mcg PO DAILY clonazepam 0.5 mg PO TID PRN 14 days diclofenac sodium 1% 2 grams topical QID fluticasone propionate 50 mcg/actuation 1 - 2 sprays intranasal DAILY PRN ibuprofen 800 mg PO Q8H PRN 7 days ipratropium bromide 2 sprays intranasal BID 30 days levothyroxine 50 mcg PO DAILY 90 days lidocaine 5% 1 patch topical DAILY magnesium hydroxide mg PO PRN magnesium oxide 400 mg PO DAILY sumatriptan succinate 25 mg PO DAILY 30 days HPI HPI 2 month follow up: Details: LAST VISIT Constipation Abdominal pain, LUQ (left upper quadrant) Mesenteric cyst GERD (gastroesophageal reflux disease) Plan Continue PPI treatment. Avoid dietary triggers and late night snacking. Staying upright for minimum 3 hours after meals discussed with patient. Continue high-fiber diet. Patient may take magnesium. May use milk of magnesia as needed. Increase fluid intake and activity to promote better bowel motility. Patient will follow-up in 2 months, sooner on as needed basis. She is agreeable to this plan and verbalizes understanding of instructions. She was given the opportunity to ask questions and all questions answered. ? Thank you for allowing me to participate in her care Medications New magnesium oxide 400 mg PO BEDTIME 30 caps 2RF K59.04 Discontinued prucalopride Discontinued Reason: Patient no longer taking 2 mg PO DAILY 30 tabs 2RF K59.04 bisacodyl Discontinued Reason: Doctor's Order 10 mg (2 x 5 mg) PO BEDTIME 180 tabs 4RF polyethylene glycol 3350 Discontinued Reason: Patient no longer taking 17 grams PO DAILY 510 grams 6RF docusate sodium Discontinued Reason: Patient no longer taking 200 mg (2 x 100 mg) PO BEDTIME 60 caps 5RF TODAY'S VISIT Patient is here today for follow-up. Patient reports that she has been feeling well except occasionally she will have constipation and also acid reflux. Patient is taking magnesium oxide every night and about once a week she needs to use milk of magnesia to help her empty better. Patient denies any abdominal pain or discomfort. Does not want to take any laxative as she was taking them before and it was causing her cramping. MRI was done on Friday, results are not available yet. MRI was done as patient is having abdominal cramping specially when she touches her abdomen. Patient has a history of abdominal plasty and feels like she has lots of scarring. Patient believes that this is due because she did not do a lymphatic drainage long enough or wore abdominal binder long enough after her surgery. Patient reports that she is still on Suboxone and is going down to lower dose. Patient states that her symptoms of acid reflux happen only occasionally as she is moving her bowels better now. She is no longer take famotidine or omeprazole. Patient denies any nausea or vomiting denies melena, hematochezia, unintentional weight loss or ribbon like stools. [facility] Medical History Abdominal pain Elevated liver enzymes Microscopic hematuria Muscle spasm Upper respiratory tract infection Acute dermatitis Obese Sinus infection Cellulitis of buttock Acquired hypothyroidism Hyperglycemia Post covid-19 condition, unspecified Breast cancer screening Foreign body of buttock Superimposed infection Cellulitis and abscess of buttock Cellulitis Renal calculi Frequent UTI Hematuria History of degenerative disc disease Normal colonoscopy Chronic constipation Hx of renal calculi History of panic attacks Hx of anxiety disorder Depression Hx of opioid abuse Thyroid disease Arthritis Fibromyalgia HTN (hypertension) Surgical History H/O left knee surgery Hx of cholecystectomy Tubal ligation status Hx of appendectomy Family History Paternal Grandmother Colon cancer Mother Pulmonary embolism Sister Pulmonary embolism Lung cancer Social History Household Members: Family Household Members Other:: daughter Housing: House Do you presently have visiting nurse or other home services: No Alcohol intake: never Patient Tobacco Use Status: Former Tobacco user Years Smoked: 20 e-Cigarette/Vaping Use: Never Used Second Hand Smoke Exposure: Yes Advance Directives Date on File: 06/02/21 service: No Current occupational status: employed 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 Cognitive needs: No Hearing needs: No Vision needs: No Female Reproductive History Menstrual Age of Menarche: 12 Review of Systems Const Denies weight gain and Denies weight loss ENT Reports no additional complaints, Denies dysphagia and Denies odynophagia Card Reports no additional complaints Resp Reports no additional complaints GI Reports abdominal pain (occasional), Denies belching, Denies melena, Denies bloating, Denies change in bowel habits, Reports constipation, Denies dysphagia, Denies excessive flatus, Denies dyspepsia, Reports heartburn, Denies diarrhea, Denies loose stools, Denies nausea, Denies odynophagia and Denies vomiting Reports no additional complaints Musc Reports no additional complaints Neuro Reports no additional complaints Psych Reports no additional complaints Endo Reports no additional complaints Physical Exam Vital Signs: Last Vital Signs Pulse 102 H 01/05/24 12:13 BP 136/74 01/05/24 12:13 Pulse Ox 100 01/05/24 12:13 Oxygen Delivery Method Room Air 01/05/24 12:13 BMI result Body Mass Index 30.0 Const General: healthy appearing and no acute distress Nutritional Appearance: obese Orientation/consciousness: patient oriented x3 Resp Effort & Inspection: normal respiratory effort, able to speak in complete sentences, no tracheal deviation and symmetric chest movement Auscultation: clear to auscultation bilaterally Cardio Rate: regular rate GI Inspection: Yes normal to inspection, Yes distended and Yes obesity Palpation (GI): Soft to palpation, not firm, nontender and No hepatosplenomegaly present Auscultation: normal bowel sounds General: Yes no CVA tenderness Back/Spine/Pelvis Back: no CVA tenderness Skin General skin exam: elasticity normal, turgor normal and dry skin Neuro General: patient oriented x3 Psych Appearance: grossly normal Mental Status: mental status grossly normal Assessment & Plan Assessment & Plan (1) Chronic abdominal pain: Code(s): R10.9 - Unspecified abdominal pain; G89.29 - Other chronic pain Category: Medical (2) Constipation: Code(s): K59.00 - Constipation, unspecified Qualifiers: Constipation type: drug induced constipation Qualified Code(s): K59.03 - Drug induced constipation (3) Abdominal pain, LUQ (left upper quadrant): Code(s): R10.12 - Left upper quadrant pain (4) Mesenteric cyst: Code(s): K66.8 - Other specified disorders of peritoneum (5) GERD (gastroesophageal reflux disease): Code(s): K21.9 - Gastro-esophageal reflux disease without esophagitis Qualifiers: Esophagitis presence: esophagitis presence not specified Qualified Code(s): K21.9 - Gastro-esophageal reflux disease without esophagitis Plan MRI results not back, will review as soon as return and will speak to patient. Patient is to continue her current bowel regimen. Continue mag oxide daily and milk of magnesium as needed. However patient was instructed not to take more than couple times a week. Increase fluid intake and activity to promote better bowel motility. Continue avoiding dietary triggers. Currently patient does not have any acid reflux. Of void eating late at night. Staying upright for minimum 3 hours after meals discussed with patient. Patient will return in 4 months, sooner on as needed basis. She is agreeable to this plan and verbalizes understanding of instructions. She was given the opportunity to ask questions and all questions answered. Thank you for allowing me to participate in her care Medications: Discontinued omeprazole Discontinued Reason: Patient no longer taking 40 mg PO BID 30 caps 0RF rosuvastatin (Crestor) Discontinued Reason: Patient no longer taking 10 mg PO DAILY 90 days 90 tabs 2RF E78.5 - Hyperlipidemia, unspecified gabapentin Discontinued Reason: Patient no longer taking 300 mg PO BEDTIME 10 caps 0RF calcium polycarbophil (Fiber Laxative (calcium polycarbophil)) Discontinued Reason: Patient no longer taking 1,250 mg (2 x 625 mg) PO DAILY 30 days 60 tabs 3RF famotidine (Pepcid) Discontinued Reason: Patient no longer taking 20 mg PO BID 60 tabs 3RF K21.9 - Gastro-esophageal reflux disease without esophagitis cyclobenzaprine Discontinued Reason: Patient no longer taking 5 mg PO TID PRN 20 tabs 0RF muscle spasm tizanidine Discontinued Reason: Patient no longer taking 4 mg PO BID 10 days PRN 20 tabs 0RF muscle spasticity M54.9 - Dorsalgia, unspecified Coding Level of Care Code Est Pt Level 3 (83795) Diagnoses Chronic abdominal pain R10.9; G89.29 Drug-induced constipation K59.03 Constipation type: drug induced constipation Abdominal pain, LUQ (left upper quadrant) R10.12 Mesenteric cyst K66.8 Gastroesophageal reflux disease, unspecified whether esophagitis present K21.9 Esophagitis presence: esophagitis presence not specified Time Spent (min) 30 Comment 20 minutes spent with patient and additional 10 minutes spent reviewing her records
[2024-01-05 12:13] VITALS: BP 136/74; PULSE 102; O2SAT 100
== END 2024-01-05 12:48 | disposition home or self-care (01) ==
LOC: HO.HGI 12:08
PROVIDERS: PCP Physician Assistant; Visit Provider Nurse Practitioner Family
DX: R10.9 Unspecified abdominal pain (principal); G89.29 Other chronic pain; K59.03 Drug induced constipation; R10.12 Left upper quadrant pain; K66.8 Other specified disorders of peritoneum; K21.9 Gastro-esophageal reflux disease without esophagitis
CPT/HCPCS: 99213

== ENCOUNTER → 2024-01-05 12:08 | Outpatient (BNVA) | payer OTHER, SELFPAY | PROVIDERS: PCP Physician Assistant; Visit Provider Nurse Practitioner Family | DX: K59.00 Constipation, unspecified (principal); K21.9 Gastro-esophageal reflux disease without esophagitis; K59.03 Drug induced constipation; K66.8 Other specified disorders of peritoneum; R10.12 Left upper quadrant pain; G89.29 Other chronic pain; E78.5 Hyperlipidemia, unspecified | CPT/HCPCS: 99212 ==

== ENCOUNTER 2024-01-12 15:29 | Outpatient (REF) | payer OTHER, SELFPAY ==
[2024-01-12 17:45] LABS: TSH reflex Free T4 1.65 uIU/mL (0.32-4.0)
== END 2024-01-12 15:30 | disposition home or self-care (01) ==
LOC: HO.LAB 15:29
PROVIDERS: PCP Physician Assistant; Visit Provider Physician Assistant
DX: I10 Essential (primary) hypertension (principal); E03.9 Hypothyroidism, unspecified; M54.14 Radiculopathy, thoracic region; K76.0 Fatty (change of) liver, not elsewhere classified; E78.2 Mixed hyperlipidemia
CPT/HCPCS: 36415; 84443; 90471; 99212

== ENCOUNTER 2024-01-12 15:29 | Outpatient (AMB) | payer OTHER, SELFPAY ==
[2024-01-12 15:43] VITALS: BP 140/80; PULSE 108; O2SAT 98; BMI 29.9
--- NOTE | 2024-01-12 15:43 | A.OFFPC_ITS ---
Vital Signs 01/12/24 15:43 Height 5 ft 3 in Weight 169 lb BMI 29.9 BP 140/80 H Blood Pressure Location Lt brachial Position Sitting Pulse 108 H Pulse Source Pulse Oximeter Pulse Oximetry (%) 98 Oxygen Delivery Method Room Air Intake Visit Reasons: f/u Hypothyroid [employer] Electrical Person Required: No Accompanied by: Friend Allergies metoclopramide [From REGLAN] Adverse Reaction (Intermediate, Verified 01/12/24 15:52) AGITATION morphine Adverse Reaction (Mild, Verified 01/12/24 15:52) Nausea aspirin Adverse Reaction (Verified 01/12/24 15:52) Vomiting Medication List - Last Reconciled 01/12/24 by Tay Leung PA-C amlodipine 5 mg PO DAILY 90 days ascorbic acid (vitamin C) 500 mg PO DAILY betamethasone dipropionate 0.05% 1 appl topical DAILY PRN 30 days blood pressure monitor Testing blood pressure once a day/ PRN buprenorphine-naloxone 8-2 mg (Suboxone) 0.5 film buccal BID@1130,1800 cetirizine 10 mg PO DAILY cholecalciferol (vitamin D3) (Vitamin D3) 25 mcg PO DAILY clonazepam 0.5 mg PO TID PRN 14 days diclofenac sodium 1% 2 grams topical QID fluticasone propionate 50 mcg/actuation 1 - 2 sprays intranasal DAILY PRN ibuprofen 800 mg PO Q8H PRN 7 days ipratropium bromide 2 sprays intranasal BID 30 days levothyroxine 50 mcg PO DAILY 90 days lidocaine 5% 1 patch topical DAILY magnesium hydroxide mg PO PRN magnesium oxide 400 mg PO DAILY sumatriptan succinate 25 mg PO DAILY 30 days Tobacco use date assessed: 04/08/23 Dental Screening Dental Screen Date: 04/08/23 HPI f/u Hypothyroid HPI Details Patient is a 58-year-old female here today for follow-up visit.? Patient's past medical history significant for hyperlipidemia, fibromyalgia, HTN , generalized anxiety disorder, migraines. Concerns--> patient still awaiting MRI abdomen results. Has had imaging concerning for lymph nodes in her abdomen. Patient also reports feeling somewhat emotional as of late. She feels that her thyroid may be off. She also reports she has been having some intolerable upper back pain. She denies any recent trauma or falls to injure her upper back. She was seen at the ER and chest x-ray and labs were done without any notable pulmonary etiology and troponins were negative. Etiology most likely musculoskeletal and she will be starting physical therapy soon. She reports lidocaine patches have been helpful. CHRONIC MEDICAL CONDITIONS--> Impaired glucose metabolism: Most recent fasting blood sugar slightly elevated at 102. Patient is somewhat concerned about diabetes as she has a strong family history of diabetes. Most recent A1c acceptable Elevated liver enzymes: Most recent LFTs trending up. She denies any Tylenol use , does report taking antibiotics before dental procedure recently. She does have history of fatty liver disease thus will continue to monitor liver enzymes. Awaiting MRI abdomen results. CHRONIC MEDICAL CONDITIONS-- > History of cosmetic surgery on buttocks--> continues to have intermittent episodes pain and palpable lumps over her buttocks often in different areas. She has had hospital admission with IV antibiotics in the past due to infection. She has had recent MRI of the pelvis that does show positive cosmetic Fillers though no notable infection at that time. She does use doxycycline on a p.r.n. basis for increased pain and redness on the skin. She has found a surgeon outside in the [place] willing to remove her cosmetic Fillers though will cost her about 11,000 dollars. PLAN: For now will continue to manage with anti-inflammatory, prednisone and if pain scales 8-10 and erythema of the skin presents will use antibiotic. .. Fibromyalgia:? Followed by Rheumatology.? Continues now on Suboxone due to her chronic pain. .. Hyperlipidemia:? Continues on Crestor 10 mg on occasion.? Most recent lipid panel showing good control over total cholesterol and LDL cholesterol. .. Opiate dependence:? Was previously on narcotic pain medication due to her chronic arthritic pain, is status post total knee arthroplasty.? Continues on Suboxone (4 mg) through [facility]. .. HYpothtyroid:? Most recent TSH has been stable on current dose of levothyroxine. Laboratory Tests 10/07/23 12/31/23 11:52 18:03 AST 61 H 96 H ALT 73 H 130 H TSH 3.27 PFSH Medical History (Reviewed 01/05/24 @ 12:10 by Rober Plascencia [facility]) Abdominal pain Elevated liver enzymes Microscopic hematuria Muscle spasm Upper respiratory tract infection Acute dermatitis Obese Sinus infection Cellulitis of buttock Acquired hypothyroidism Hyperglycemia Post covid-19 condition, unspecified Breast cancer screening Foreign body of buttock Superimposed infection Cellulitis and abscess of buttock Cellulitis Renal calculi Frequent UTI Hematuria History of degenerative disc disease Normal colonoscopy Chronic constipation Hx of renal calculi History of panic attacks Hx of anxiety disorder Depression Hx of opioid abuse Thyroid disease Arthritis Fibromyalgia HTN (hypertension) Surgical History H/O left knee surgery Hx of cholecystectomy Tubal ligation status Hx of appendectomy Family History Paternal Grandmother Colon cancer Mother Pulmonary embolism Sister Pulmonary embolism Lung cancer Social History Household Members: Family Household Members Other:: daughter Housing: House Do you presently have visiting nurse or other home services: No Alcohol intake: never Patient Tobacco Use Status: Former Tobacco user Years Smoked: 20 e-Cigarette/Vaping Use: Never Used Second Hand Smoke Exposure: Yes Advance Directives Date on File: 06/02/21 service: No Current occupational status: employed 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 Igor Jasso, Mariya Arteaga, Chito Combs and colleagues, with an educational haleigh from [employer]. Review of Systems Const Denies headache(s) Eyes Denies loss of vision ENT Denies vertigo, Denies dizziness, Denies headache(s) and Denies sore throat Card Denies chest pain, Denies leg edema and Denies lightheadedness Resp Denies cough, Denies hemoptysis and Denies wheezing GI Denies abdominal pain, Denies melena, Denies constipation, Denies diarrhea and Denies vomiting Denies urinary frequency, Denies dysuria and Denies urinary urgency Musc Denies arthralgias, Denies joint swelling, Denies numbness and Denies tingling Neuro Denies Abnormal speech present, Denies behavioral changes, Denies vertigo, Denies dizziness, Denies headache(s), Denies loss of vision, Denies memory loss, Denies numbness and Denies tingling Psych Denies anxiety, Denies behavioral changes, Denies depression, Denies memory loss and Denies panic attacks Andrew/Lymph Denies easy bleeding and Denies easy bruising Aller/Immun Denies wheezing Physical exam (Primary Care) Vital Signs: Last Vital Signs Pulse 108 H 01/12/24 15:43 BP 140/80 H 01/12/24 15:43 Pulse Ox 98 01/12/24 15:43 Oxygen Delivery Method Room Air 01/12/24 15:43 BMI result Body Mass Index 29.9 Tobacco/Smoking Status: Tobacco use Status Tobacco use date assessed 04/08/23 01/12/24 15:45 Patient Tobacco Use Status Former Tobacco user 01/12/24 15:45 e-Cigarette/Vaping Use Never Used 01/12/24 15:45 Thrive Assessment: Date of Thrive Assessment Date Thrive assessed 04/08/23 01/12/24 15:45 Const General: healthy appearing, no acute distress, alert and awake Nutritional Appearance: well nourished Orientation/consciousness: oriented to person, oriented to place and oriented to time HENMT Ears: TM's normal bilaterally General nose exam: Normal nasal mucous membranes and turbinates present Eyes Conjunctivae: conjunctivae normal Sclerae: sclerae normal Pupils: Equal, round and reactive pupils present Neck Neck: Yes no lymphadenopathy and Yes no JVD Thyroid: Thyroid normal Carotids: no bruits Resp Effort & Inspection: normal respiratory effort and not tachypneic Auscultation: no crackles, no rales, no rhonchi and no wheezes Cardio Rate: regular rate Rhythm: regular rhythm Heart sounds: no murmurs and normal S1 and S2 GI Palpation (GI): Soft to palpation, nontender, no hepatomegaly and no splenomegaly Auscultation: normal bowel sounds Skin General skin exam: no rashes or lesions noted and dry skin Neuro General: oriented to person, oriented to place and oriented to time Cranial nerves: Yes Equal, round and reactive pupils present Speech: No Abnormal speech present Gait exam (Neuro): Normal gait present Motor exam (neuro): no tremor noted Extrem Right upper extremity: full ROM Left upper extremity: full ROM Right lower extremity: full ROM; no edema Left lower extremity: full ROM; no edema Psych Mental Status: mental status grossly normal Speech and movement: Normal speech and movement present Affect: normal affect Attitude: cooperative Thought process: Normal thought process present Office Procedures Flu Questionnaire Does the patient have a severe egg allergy?: No Immunizations Fluarix Triv [id number] (PF) 45 mcg (15 mcg x 3)/0.5 mL IM syringe Performing Provider: Tay Leung PA-C [facility] [place] [facility] Documented (not given) by: SARAH Holliday on 01/12/24 15:49 Reason Not Given: Patient Refused Coding Level of Care Code Est Pt Level 4 (20292) Diagnoses Primary hypertension I10 Hypertension type: primary hypertension Thoracic radiculitis M54.14 Fatty liver disease, nonalcoholic K76.0 Hypothyroidism, unspecified type E03.9 Hypothyroidism type: unspecified Mixed hyperlipidemia E78.2 Hyperlipidemia type: mixed hyperlipidemia Assessment & Plan Assessment & Plan (1) HTN (hypertension): Code(s): I10 - Essential (primary) hypertension Category: Medical Qualifiers: Hypertension type: primary hypertension Qualified Code(s): I10 - Essential (primary) hypertension Plan: Patient's blood pressure slightly elevated today in office. She reports that home blood pressures have been stable. Will continue her current dose of am lodipine with goal blood pressure to remain consistently below 140/90. (2) Thoracic radiculitis: Code(s): M54.14 - Radiculopathy, thoracic region Category: Medical Plan: Patient had a bad bout of upper back thoracic spine pain that resulted in ER v isit. She has been taking muscle relaxers, her Suboxone and NSAID without much relief. She does report lidocaine patches have been helpful. Unclear etiology at this point though is due for CT imaging of her thoracic spine to evaluate for disc herniation. She will be starting physical therapy soon. (3) Fatty liver disease, nonalcoholic: Code(s): K76.0 - Fatty (change of) liver, not elsewhere classified Category: Medical Plan: Patient does have elevated liver enzymes likely related to her fatty liver disease. She does understand that weight loss and low-fat diet will help. (4) Hypothyroid: Code(s): E03.9 - Hypothyroidism, unspecified Category: Medical Qualifiers: Hypothyroidism type: unspecified Qualified Code(s): E03.9 - Hypothyroidism, unspecified Plan: Patient's most recent TSH stable. She does report feeling some emotional dysregulation to which she feels is partly due to her thyroid. Will recheck her TSH to assure normal. Will make adjustments in her levothyroxine accordingly. (5) HLD (hyperlipidemia): Code(s): E78.5 - Hyperlipidemia, unspecified Category: Medical Qualifiers: Hyperlipidemia type: mixed hyperlipidemia Qualified Code(s): E78.2 - M ixed hyperlipidemia Plan: Patient's most recent lipid panel showing excellent control over total cholesterol and LDL. Goal LDL is to remain below 130 Orders: Orders TSH reflex Free T4 01/12/24 E03.9 - Hypothyroidism, unspecified Lipid Panel 3 Months E78.2 - Mixed hyperlipidemia Comprehensive [place]. Panel Fast 3 Months E78.2 - Mixed hyperlipidemia Influenza [id number] Immunization 01/12/24 Z23 - Encounter for immunization Complete Blood Count no Diff 3 Months E78.2 - Mixed hyperlipidemia TSH reflex Free T4 3 Months E03.9 - Hypothyroidism, unspecified Medications: Changed From cholecalciferol (vitamin D3) (Vitamin D3) 25 mcg PO DAILY E03.9 - Hypothyroidism, unspecified To cholecalciferol (vitamin D3) (Vitamin D3) 25 mcg PO DAILY 90 days 90 caps 1RF E03.9 - Hypothyroidism, unspecified Refilled lidocaine 5% leave on most painful area for up to 12 hrs 1 patch topical DAILY 15 ea 1RF M54.14 - Radiculopathy, thoracic region
== END 2024-01-12 16:18 | disposition home or self-care (01) ==
LOC: HO.HMCH 15:29
PROVIDERS: PCP Physician Assistant; Visit Provider Physician Assistant
DX: I10 Essential (primary) hypertension (principal); M54.14 Radiculopathy, thoracic region; K76.0 Fatty (change of) liver, not elsewhere classified; E03.9 Hypothyroidism, unspecified; E78.2 Mixed hyperlipidemia

== ENCOUNTER 2024-01-26 13:54 | Outpatient (REF) | payer OTHER, SELFPAY ==
[2024-01-27 13:37] LABS: Influenza A PCR NEGATIVE (Negative); Influenza B PCR NEGATIVE (Negative); Resp Syncy Virus RNA Qual PCR NEGATIVE (Negative); SARS COV2 PCR INHOUSE POSITIVE (Negative)
== END 2024-01-26 13:55 | disposition home or self-care (01) ==
LOC: HO.LNP 13:54
PROVIDERS: Registered Nurse; PCP Physician Assistant
DX: J02.9 Acute pharyngitis, unspecified (principal); J06.9 Acute upper respiratory infection, unspecified
CPT/HCPCS: 0241U; 87880; 99212

== ENCOUNTER 2024-01-26 13:54 | Outpatient (AMB) | payer OTHER, SELFPAY ==
[2024-01-26 14:50] VITALS: BP 130/70; PULSE 98; TEMP 36.7; O2SAT 98; BMI 30.2
--- NOTE | 2024-01-26 14:50 | MHC.OFFWIV ---
Intake Vital Signs 01/26/24 14:50 Height 5 ft 3 in Weight 170 lb 6 oz BMI 30.2 BP 130/70 Blood Pressure Location Rt brachial Position Sitting Pulse 98 Pulse Source Pulse Oximeter Temp 98.1 F Temp Source Temporal Artery Scan Pulse Oximetry (%) 98 Oxygen Delivery Method Room Air Intake Visit Reasons: EP sore throat, nasal [phone] Intake Note: Pt presents to the office today for a sore throat and sinus pressure x3 days. Patient Tobacco Use Status: Former Tobacco user Allergies metoclopramide [From REGLAN] Adverse Reaction (Intermediate, Verified 01/26/24 14:50) AGITATION morphine Adverse Reaction (Mild, Verified 01/26/24 14:50) Nausea aspirin Adverse Reaction (Verified 01/26/24 14:50) Vomiting HPI EP sore throat, nasal [phone] HPI Details This note is constructed using voice recognition software. While every effort has been made to ensure accuracy, grinder setup operator errors may have been included. The patient is a 58 year old female who presents to the clinic today with sore throat. She reports that her grandson lives in the home and he was positive for COVID last week. Three days ago she developed sore throat and some mild nasal congestion. She has been testing for COVID negative at home. She denies fever, chills, cough, shortness of breath, or other symptoms. She tried ibuprofen yesterday which seemed to help the pain. She felt that maybe it was related to turning on the heat as her throat feels dry. [facility] Medical History Abdominal pain Elevated liver enzymes Microscopic hematuria Muscle spasm Upper respiratory tract infection Acute dermatitis Obese Sinus infection Cellulitis of buttock Acquired hypothyroidism Hyperglycemia Post covid-19 condition, unspecified Breast cancer screening Foreign body of buttock Superimposed infection Cellulitis and abscess of buttock Cellulitis Renal calculi Frequent UTI Hematuria History of degenerative disc disease Normal colonoscopy Chronic constipation Hx of renal calculi History of panic attacks Hx of anxiety disorder Depression Hx of opioid abuse Thyroid disease Arthritis Fibromyalgia HTN (hypertension) Surgical History H/O left knee surgery Hx of cholecystectomy Tubal ligation status Hx of appendectomy Family History Paternal Grandmother Colon cancer Mother Pulmonary embolism Sister Pulmonary embolism Lung cancer Social History Household Members: Family Household Members Other:: daughter Housing: House Do you presently have visiting nurse or other home services: No Alcohol intake: never Patient Tobacco Use Status: Former Tobacco user Years Smoked: 20 e-Cigarette/Vaping Use: Never Used Second Hand Smoke Exposure: Yes Advance Directives Date on File: 06/02/21 service: No Current occupational status: employed 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 Cognitive needs: No Hearing needs: No Vision needs: No Female Reproductive History Menstrual Age of Menarche: 12 Review of Systems Const All systems reviewed & are unremarkable except as noted in HPI and below Physical Exam Vital Signs: Last Vital Signs Temp 98.1 F 01/26/24 14:50 Pulse 98 01/26/24 14:50 BP 130/70 01/26/24 14:50 Pulse Ox 98 01/26/24 14:50 Oxygen Delivery Method Room Air 01/26/24 14:50 BMI result Body Mass Index 30.2 Const General: cooperative, healthy appearing, comfortable, no acute distress and well developed Orientation/consciousness: patient oriented x3 Limitations: no limitations HEENT Head: Yes normal to inspection Ears: hearing grossly normal bilaterally General nose exam: Normal external nose present Face and sinus: Yes normal facial exam Eyes General: appearance normal, both eyes and all related structures Neck Neck: Yes normal visual inspection and Yes full ROM Resp Effort & Inspection: normal respiratory effort and able to speak in complete sentences Auscultation: clear to auscultation bilaterally Cardio Rate: regular rate Rhythm: regular rhythm Heart sounds: normal S1 and S2 Skin General skin exam: no rashes or lesions noted Neuro General: patient oriented x3 Results AMB Rapid Strep AMB Rapid Strep Negative Last Edit by Marika Pierre CMA on 01/26/24 15:15 Results Reviewed Results Reviewed: Laboratory Last Values Strep Scn Rapid Clinic Negative 01/26/24 15:14 Assessment & Plan Assessment & Plan (1) Pharyngitis: Code(s): J02.9 - Acute pharyngitis, unspecified Qualifiers: Pharyngitis/tonsillitis etiology: unspecified etiology Qualified Code(s): J02.9 - Acute pharyngitis, unspecified Plan: In office rapid strep negative. Viral swab obtained to rule out Covid based on symptoms. Advised mask wearing while symptomatic and quarantine per current CDC guidelines. Reviewed at home support methods including hydration, humidification, vix vapor rub, sinus rinse. Discussed treatment with antiviral therapy for covid with paxlovid including appropriate use and side effects, and need to start medication within 5 day of symptom onset, preferably within 48 hours of symptom onset. Patient wishes to decline paxlovid. Advised follow up with worsening symptoms such as dyspnea at rest, which would require emergent evaluation. Plan See above for full details and plan. Orders: Orders AMB Rapid Strep Screen Today Z13.9 - Encounter for screening, unspecified Coding Level of Care Code Est Pt Level 3 (93612) Diagnoses Pharyngitis, unspecified etiology J02.9 Pharyngitis/tonsillitis etiology: unspecified etiology
== END 2024-01-26 15:24 | disposition home or self-care (01) ==
PROVIDERS: PCP Physician Assistant; Visit Provider Registered Nurse
DX: Z13.9 Encounter for screening, unspecified (principal); J02.9 Acute pharyngitis, unspecified

== ENCOUNTER 2024-02-13 15:26 | Outpatient (REF) | payer OTHER, SELFPAY ==
--- NOTE | ~2024-02-13 | CT_ITS ---
EXAMINATION: CT LUMBAR SPINE WITHOUT CONTRAST CLINICAL INFORMATION: Spondylosis of the lumbar spine. Worsening lower back pain with radiculopathy. COMPARISON: Lumbar spine radiographs from 12/16/2022. TECHNIQUE: Multidetector helical imaging of the lumbar spine was obtained without intravenous contrast. Multiple axial reformats and coronal/sagittal reconstructions were created the technologist workstation for review. This CT examination was performed using dose optimization techniques as appropriate, variously including the following: *Automated exposure control. *Adjustment of mA and/or kV according to patient size (this includes techniques or standardized protocols for targeted exams where dose is matched to indication/reason for exam; i.e. extremities or head). *Use of iterative reconstruction technique. DLP: 504 mGy-cm FINDINGS: Minimal right convex curvature of the lumbar spine. Degenerative grade 1 anterolisthesis of L4 on L5. Mild degenerative retrolisthesis of L5 on S1. No evidence of acute fracture or traumatic subluxation. The vertebral body heights are maintained. Moderate degenerative disc disease from L4-S1. Mild degenerative disc disease at all additional levels. No suspicious lytic or sclerotic osseous lesions. Moderate subcutaneous edema within the posterior soft tissues of the back from L3-S2. No additional significant abnormalities of the paraspinal musculature. Prior cholecystectomy. Limited evaluation of the intra-abdominal structures without significant abnormalities. The abdominal aorta is of normal contour and caliber with moderate calcific atherosclerotic disease. AXIAL SPINAL LEVELS: L1-L2: Normal annular contour. There is mild bilateral facet joint arthropathy. There is no neural foraminal stenosis. There is no demonstrated spinal canal stenosis. L2-L3: Mild diffuse disc bulge with superimposed small left foraminal disc protrusion. There is mild bilateral facet joint arthropathy. There is no neural foraminal stenosis. There is no demonstrated spinal canal stenosis. L3-L4: Mild diffuse disc bulge. There is moderate right and mild left facet joint arthropathy. There is no neural foraminal stenosis. There is no demonstrated spinal canal stenosis. L4-L5: Moderate diffuse disc bulge exacerbated by uncovering from anterolisthesis. There is severe bilateral facet joint arthropathy. There is mild to moderate bilateral neural foraminal stenosis. There appears to be stenosis of the subarticular zones with mild spinal canal stenosis centrally. L5-S1: Mild diffuse disc bulge. There is moderate left worse than right facet joint arthropathy. There is moderate left and mild right neural foraminal stenosis. There is no demonstrated spinal canal stenosis. CT/CT lumbar spine wo IV con IMPRESSION: 1. No evidence of acute fracture or traumatic subluxation of the lumbar spine. 2. Moderate multilevel degenerative spondyloarthropathy of the lumbar spine as described in detail above. Most notably on this limited exam without intrathecal contrast, there appears to be stenosis of the subarticular zones and mild spinal canal stenosis centrally at L4-L5. Mild to moderate neural foraminal stenoses at L4-L5 and L5-S1. Electronically signed by: Ernesto Montgomery DO 04/05/2024 04:51 AM EST
--- OUTSIDE RECORDS SUMMARY | 2024-02-18 10:49 | XMS_ITS ---
Author Organization [facility] Address [address] [place] [address] Care Team Providers Care [employer] Police Officer Name Role Phone Tay Leung Primary Care Provider Unavailab Ole Garcia Unavailable [phone] REASON FOR VISIT no ppwrk Encounters Encounter Location Date Provider Diagnosis [facility] [address] [place] [address] 11/25/2023 Ole Jernigan Plan Of Treatment No Information Progress Notes * Lu CLAYTONDOB:1965 (58 yo F)Acc No.[id number]:11/25/2023 Progress Notes Patient:?MATILDE Lu Provider:?Ole Jernigan DPM :1965???Age:58 Y???Sex:Female D ate:11/25/2023 Address:[address] [place], [place] [id number] Pcp:Tay Leung Subjective: * Chief Complaints: * ???1. No ppwrk. * Medical History:? Objective: * Vitals:? Assessment: Plan: * Treatment: * Images: * The named appointment provid er may or may not be the originator of this progress note, and it is not deemed complete until electronically signed by the appointment provider. Sign off status: Pending * Provider:?Ole Jernigan DPM Date:?2023 Generated for Demetrio fish/Devin/eTfaysmitting on:?02/18/2024 10:49 AM EST
--- OUTSIDE RECORDS SUMMARY | 2024-02-18 10:50 | XMS_ITS | Patient Health Record ---
Author Organization [facility] Address [address] [place] [address] Care Team Providers Care Media Operator Name Role Phone Tay Leung Primary Care Provider Unavailab Ole Garcia Unavailable [phone] Reason For Referral No Information Plan Of Treatment No Information Insurance Providers Payer Name Payer Address Payer Phone Subscriber Number Group Number Insured Name Patient Relationship to Insured Coverage Start Date Coverage End Date [facility] [employer] Claims [address] [place] [id number] Lu Clayton Self - patient is the insured
== END 2024-02-13 15:27 | disposition home or self-care (01) ==
LOC: HO.CT 15:26
PROVIDERS: PCP Physician Assistant; Visit Provider Physician Assistant
DX: M47.816 Spondylosis without myelopathy or radiculopathy, lumbar region (principal)
CPT/HCPCS: 72131

== ENCOUNTER 2024-03-26 13:40 | Outpatient (AMB) | payer OTHER, SELFPAY ==
[2024-03-26 14:09] VITALS: BP 110/62; PULSE 90; TEMP 37.3; O2SAT 98
--- NOTE | 2024-03-26 14:09 | AM.OFFWIN_ITS ---
Intake Vital Signs 03/26/24 14:09 Weight 167 lb BP 110/62 Blood Pressure Location Lt brachial Position Sitting Pulse 90 Pulse Source Pulse Oximeter Temp 99.1 F Temp Source Oral Pulse Oximetry (%) 98 Oxygen Delivery Method Room Air Intake Visit Reasons: EP fever, cough, mucus, sinus pressure, body ache Intake Note: Patient here for cough, fever, mucus, body aches and chills which started yesterday. Patient Tobacco Use Status: Former Tobacco user Allergies metoclopramide [From REGLAN] Adverse Reaction (Intermediate, Verified 03/26/24 14:14) AGITATION morphine Adverse Reaction (Mild, Verified 03/26/24 14:14) Nausea aspirin Adverse Reaction (Verified 03/26/24 14:14) Vomiting Do you need a note to return to daycare/school/sports/work: No HPI HPI Comments History of Present Illness Details History - The patient is a 58-year-old female pr esenting with acute onset of cough, fever, chills, and sinus congestion x2days. - Symptoms commenced after similar sympt oms were observed in her daughter who was ill two to three days prior. - Fever reached 101?F, accompanied by ch ills and full-body aches. - Cough is productive with yellow sputum , with significant sinus pressure causing discomfort. - No shortness of breath, wheezing, asth ma, or COPD history is reported. - Previous history of COVID-19 infection noted, with current symptoms inclusive of a fever. - Flonase nasal spray utilized for sinus symptom relief. Physical Exam General: Cooperative, healthy appearing, comfortable and no acute distress Orientation/consciousness: Patient oriented x3 Limitations: No limitations Head: Normal to inspection Ears: Hearing grossly normal bilaterally, external ears normal, TMs with fluid present bilaterally Nose: Normal external nose present, Normal nares present and No nasal discharge present Face and sinus: Normal facial exam and Yes sinuses tender on the ethmoid Mouth: Normal oral and palatal mucosa present and moist mucous membranes Throat: Yes tonsils normal, Yes uvula midline. Posterior oropharynx with erythema but no exudates Eyes: Appearance normal, both eyes and all related structures Neck: Normal visual inspection Respiratory: Clear to auscultation bilaterally. Normal respiratory effort, able to speak in complete sentences, Actively coughing, no respiratory distress, not tachypneic, no tripod positioning and no use of accessory muscles Cardiovascular: Regular rate and rhythm. Normal S1 and S2 Skin: No rashes or lesions noted Neuro: Patient oriented x3 Extremities: Normal to inspection and Yes no clubbing, cyanosis or edema PFSH Medical History Abdominal pain Elevated liver enzymes Microscopic hematuria Muscle spasm Upper respiratory tract infection Acute dermatitis Obese Sinus infection Cellulitis of buttock Acquired hypothyroidism Hyperglycemia Post covid-19 condition, unspecified Breast cancer screening Foreign body of buttock Superimposed infection Cellulitis and abscess of buttock Cellulitis Renal calculi Frequent UTI Hematuria History of degenerative disc disease Normal colonoscopy Chronic constipation Hx of renal calculi History of panic attacks Hx of anxiety disorder Depression Hx of opioid abuse Thyroid disease Arthritis Fibromyalgia HTN (hypertension) Surgical History H/O left knee surgery Hx of cholecystectomy Tubal ligation status Hx of appendectomy Family History Paternal Grandmother Colon cancer Mother Pulmonary embolism Sister Pulmonary embolism Lung cancer Social History Household Members: Family Household Members Other:: daughter Housing: House Do you presently have visiting nurse or other home services: No Alcohol intake: never Patient Tobacco Use Status: Former Tobacco user Years Smoked: 20 e-Cigarette/Vaping Use: Never Used Second Hand Smoke Exposure: Yes Advance Directives Date on File: 06/02/21 service: No Current occupational status: employed 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 Cognitive needs: No Hearing needs: No Vision needs: No Female Reproductive History Menstrual Age of Menarche: 12 Review of Systems Const All systems reviewed & are unremarkable except as noted in HPI and below Physical Exam Vital Signs: Last Vital Signs Temp 99.1 F 03/26/24 14:09 Pulse 90 03/26/24 14:09 BP 110/62 03/26/24 14:09 Pulse Ox 98 03/26/24 14:09 Oxygen Delivery Method Room Air 03/26/24 14:09 Assessment & Plan Assessment & Plan (1) URI, acute: Code(s): J06.9 - Acute upper respiratory infection, unspecified Plan: Current management involves obtaining a nasal swab for flu, COVID-19, and RSV testing to identify the viral cause of symptoms. Flonase nasal spray is recommended as a continued treatment for sinus pressure. prednisolone, 20 mg x 5 days, is prescribed to help address inflammation, with administration advice to take it in the morning to mimic natural steroid levels and reduce side effects. Tessalon Perles is advised at night to manage the dry cough and aid sleep. Test results will be communicated via the patient's portal access to facilitate timely updates on diagnostic outcomes in light of potential viral infections. Patient was informed and verbally consented to the use of an ambient scribe for clinic note documentation during this visit Orders: Orders SARS-CoV2/FLU/RSV Today R09.89 - Other specified symptoms and signs involving the circulatory and respiratory systems Medications: New prednisone 20 mg PO QAM 5 tabs 0RF benzonatate 200 mg PO TID PRN 10 caps 0RF cough Coding Level of Care Code Est Pt Level 3 (13556) Diagnoses URI, acute J06.9
== END 2024-03-26 16:08 | disposition home or self-care (01) ==
PROVIDERS: PCP Physician Assistant; Visit Provider Physician Assistant
DX: J06.9 Acute upper respiratory infection, unspecified (principal)

== ENCOUNTER 2024-03-26 13:40 | Outpatient (REF) | payer OTHER, SELFPAY ==
[2024-03-26 17:16] LABS: Influenza A PCR POSITIVE (Negative); Influenza B PCR NEGATIVE (Negative); Resp Syncy Virus RNA Qual PCR NEGATIVE (Negative); SARS COV2 PCR INHOUSE NEGATIVE (Negative)
== END 2024-03-26 13:41 | disposition home or self-care (01) ==
LOC: HO.LAB 13:40
PROVIDERS: PCP Physician Assistant; Visit Provider Physician Assistant
DX: J06.9 Acute upper respiratory infection, unspecified (principal)
CPT/HCPCS: 0241U; 99212

== ENCOUNTER → 2024-04-13 14:30 | Outpatient (BNVA) | payer OTHER, SELFPAY | PROVIDERS: PCP Physician Assistant; Visit Provider Physician Assistant | DX: M54.6 Pain in thoracic spine (principal); F11.20 Opioid dependence, uncomplicated; I10 Essential (primary) hypertension; E78.2 Mixed hyperlipidemia; E03.9 Hypothyroidism, unspecified | CPT/HCPCS: 96127; 99212 ==

== ENCOUNTER 2024-05-07 13:58 | Outpatient (AMB) | payer OTHER, SELFPAY ==
--- NOTE | 2024-05-07 14:01 | A.OFFVIS_ITS ---
Vital Signs 05/07/24 14:03 Height 5 ft 3 in Weight 165 lb 5.547 oz BMI 29.3 BP 136/76 Blood Pressure Location Rt brachial Position Sitting Pulse 76 Pulse Source Pulse Oximeter Pulse Oximetry (%) 98 Oxygen Delivery Method Room Air Intake Visit Reasons: f/u Intake Note: ESTABLISHED PATIENT for Constipation and abd pain mgmt. Chief Complaint; C/O difficulty with full evacuation of bowels. Pt states the fecal abn and BM have improved but she still has inconsistencies with quality/quantity of BMs. Pt denies any additional concerns. Still taking mag as instructed. Segmental Paver Installer Required: No Accompanied by: Self / Same As Patient Allergies metoclopramide [From REGLAN] Adverse Reaction (Intermediate, Verified 05/07/24 14:02) AGITATION morphine Adverse Reaction (Mild, Verified 05/07/24 14:02) Nausea aspirin Adverse Reaction (Verified 05/07/24 14:02) Vomiting HPI HPI f/u: Details: LAST VISIT: Chronic abdominal pain Constipation Abdominal pain, LUQ (left upper quadrant) Mesenteric cyst GERD (gastroesophageal reflux disease) Plan MRI results not back, will review as soon as return and will speak to patient. Patient is to continue her current bowel regimen. Continue mag oxide daily and milk of magnesium as needed. However patient was instructed not to take more than couple times a week. Increase fluid intake and activity to promote better bowel motility. Continue avoiding dietary triggers. Currently patient does not have any acid reflux. Of void eating late at night. Staying upright for minimum 3 hours after meals discussed with patient. Patient will return in 4 months, sooner on as needed basis. She is agreeable to this plan and verbalizes understanding of instructions. She was given the opportunity to ask questions a nd all questions answered. ? Thank you for allowing me to participate in her care Medications Discontinued omeprazole Discontinued Reason: Patient no longer taking 40 mg PO BID 30 caps 0RF rosuvastatin (Crestor) Discontinued Reason: Patient no longer taking 10 mg PO DAILY 90 days 90 tabs 2RF E78.5 gabapentin Discontinued Reason: Patient no longer taking 300 mg PO BEDTIME 10 caps 0RF calcium polycarbophil (Fiber Laxative (calcium polycarbophil)) Discontinued Reason: Patient no longer taking 1,250 mg (2 x 625 mg) PO DAILY 30 days 60 tabs 3RF famotidine (Pepcid) Discontinued Reason: Patient no longer taking 20 mg PO BID 60 tabs 3RF K21.9 cyclobenzaprine Discontinued Reason: Patient no longer taking 5 mg PO TID PRN 20 tabs 0RF muscle spasm tizanidine Discontinued Reason: Patient no longer taking 4 mg PO BID 10 days PRN 20 tabs 0RF muscle spasticity M54.9 TODAY'S VISIT Patient is here today for follow-up. Patient reports that since she was found to have elevated liver enzymes she stopped taking medication thinking that lot of does medications that she was taking would cause her liver enzymes to rise. Patient reports feeling fairly well. Denies having any acid reflux. Currently patient is not taking any PPI or H2 bladimir. For most part her symptoms are suppressed. Patient is trying to eat healthy. Takes magnesium to help her with bowels. Occasionally patient will feel constipation and feels like she does not empty her bowels completely. Patient admits that she might not be drinking enough water. Patient denies any abdominal pain or discomfort except for the time when she is unable to have a bowel movement. Patient denies melena, hematochezia, unintentional weight loss or ribbon like stools. Patient denies dyspepsia, dysphagia or odynophagia. [facility] Medical History Abdominal pain Elevated liver enzymes Microscopic hematuria Muscle spasm Upper respiratory tract infection Acute dermatitis Obese Sinus infection Cellulitis of buttock Acquired hypothyroidism Hyperglycemia Post covid-19 condition, unspecified Breast cancer screening Foreign body of buttock Superimposed infection Cellulitis and abscess of buttock Cellulitis Renal calculi Frequent UTI Hematuria History of degenerative disc disease Normal colonoscopy Chronic constipation Hx of renal calculi History of panic attacks Hx of anxiety disorder Depression Hx of opioid abuse Thyroid disease Arthritis Fibromyalgia HTN (hypertension) Surgical History H/O left knee surgery Hx of cholecystectomy Tubal ligation status Hx of appendectomy Family History Paternal Grandmother Colon cancer Mother Pulmonary embolism Sister Pulmonary embolism Lung cancer Social History Household Members: Family Household Members Other:: daughter Housing: House Do you presently have visiting nurse or other home services: No Alcohol intake: never Patient Tobacco Use Status: Former Tobacco user Years Smoked: 20 e-Cigarette/Vaping Use: Never Used Second Hand Smoke Exposure: Yes Advance Directives Date on File: 06/02/21 service: No Current occupational status: employed 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 [employer] Cognitive needs: No Hearing needs: No Vision needs: No Female Reproductive History Menstrual Age of Menarche: 12 Review of Systems Const Denies weight gain and Denies weight loss ENT Reports no additional complaints, Denies dysphagia and Denies odynophagia Card Reports no additional complaints Resp Reports no additional complaints GI Reports abdominal pain (occasional), Denies belching, Denies melena, Denies bloating, Denies change in bowel habits, Reports constipation, Denies dysphagia, Denies excessive flatus, Denies dyspepsia, Reports heartburn, Denies diarrhea, Denies loose stools, Denies nausea, Denies odynophagia and Denies vomiting Reports no additional complaints Musc Reports no additional complaints Neuro Reports no additional complaints Psych Reports no additional complaints Endo Reports no additional complaints Physical Exam Vital Signs: Last Vital Signs Pulse 76 05/07/24 14:03 BP 136/76 05/07/24 14:03 Pulse Ox 98 05/07/24 14:03 Oxygen Delivery Method Room Air 05/07/24 14:03 BMI result Body Mass Index 29.3 Const General: healthy appearing and no acute distress Nutritional Appearance: obese Orientation/consciousness: patient oriented x3 Resp Effort & Inspection: normal respiratory effort, able to speak in complete sentences, no tracheal deviation and symmetric chest movement Auscultation: clear to auscultation bilaterally Cardio Rate: regular rate GI Inspection: Yes normal to inspection, Yes distended and Yes obesity Palpation (GI): Soft to palpation, not firm, nontender and No hepatosplenomegaly present Auscultation: normal bowel sounds General: Yes no CVA tenderness Back/Spine/Pelvis Back: no CVA tenderness Skin General skin exam: elasticity normal, turgor normal and dry skin Neuro General: patient oriented x3 Psych Appearance: grossly normal Mental Status: mental status grossly normal Results Reviewed Results Reviewed: Laboratory Tests 10/07/23 12/31/23 11:52 18:03 AST 61 H 96 H ALT 73 H 130 H Assessment & Plan Assessment & Plan (1) Elevated liver enzymes: Code(s): R74.8 - Abnormal levels of other serum enzymes Category: Medical (2) Fatty liver disease, nonalcoholic: Code(s): K76.0 - Fatty (change of) liver, not elsewhere classified Category: Medical (3) Chronic constipation: Code(s): K59.09 - Other constipation Category: Medical Plan Patient will continue taking magnesium to help her with bowel movements and increase fluid intake and activity to promote better bowel motility. Patient was found to have increased liver enzymes we will repeat that, however we will do workup to rule out any also removed disorders. We will check ultrasound with elastography. Patient will follow-up in the office in 2-3 months, sooner on as needed basis. Patient is agreeable to this plan and verbalizes understanding of instructions. She was given the opportunity to ask questions and all questions answered. Thank you for allowing me participate in her care Orders: Orders Hepatitis A,B,C Profile 05/07/24 R7.89 - Other specified abnormal findings of blood chemistry Alpha Fetoprotein 05/07/24 R7.89 - Other specified abnormal findings of blood chemistry C Reactive Protein 05/07/24 K58.9 - Irritable bowel syndrome, unspecified Smooth Muscle Antibody 05/07/24 R7.89 - Other specified abnormal findings of blood chemistry Transglutaminase IgA 05/07/24 R10.9 - Unspecified abdominal pain Liver Fibrosis Pnl 05/07/24 K76.0 - Fatty (change of) liver, not elsewhere classified Liver Panel 05/07/24 R74.01 - Elevation of levels of liver transaminase levels Vitamin D 25-OH (D2 and D3) 05/07/24 E55.9 - Vitamin D deficiency, unspecified Mitochondrial Antibody 05/07/24 R7.89 - Other specified abnormal findings of blood chemistry Prothrombin Time INR 05/07/24 R74.8 - Abnormal levels of other serum enzymes HIV Ab/Ag 05/07/24 R7.89 - Other specified abnormal findings of blood chemistry Ceruloplasmin 05/07/24 R79.89 - Other specified abnormal findings of blood chemistry Ferritin 05/07/24 R74.8 - Abnormal levels of other serum enzymes US abdomen comp w elastography 05/07/24 R79.89 - Other specified abnormal findings of blood chemistry Coding Level of Care Code Est Pt Level 3 (52392) Diagnoses Elevated liver enzymes R74.8 Fatty liver disease, nonalcoholic K76.0 Chronic constipation K59.09 Time Spent (min) 30 Comment 20 minutes spent with patient and additional 10 minutes spent reviewing her records
[2024-05-07 14:03] VITALS: BP 136/76; PULSE 76; O2SAT 98; BMI 29.3
--- OUTSIDE RECORDS SUMMARY | 2024-05-07 16:11 | XMS_ITS ---
Author Organization [facility] Address [address] [place] [address] Care Team Providers Care Airworthiness Inspector Name Role Phone Tay Leung Primary Care Provider Unavailab Ole Garcia Unavailable [phone] REASON FOR VISIT no ppwrk Encounters Encounter Location Date Provider Diagnosis [facility] [address] [place] [address] 11/25/2023 Ole Jernigan Plan Of Treatment No Information Progress Notes * Lu CLAYTONDOB:1965 (58 yo F)Acc No.[id number]:11/25/2023 Progress Notes Patient:?MATILDE Lu Provider:?Ole Jernigan DPM :1965???Age:58 Y???Sex:Female D ate:11/25/2023 Address:[address] [place], [place] [id number] Pcp:Tay Leung Subjective: * Chief Complaints: * [...] Jernigan DPM Date:?2023 Generated for Demetrio fish/Devin/eTfaysmitting on:?05/07/2024 04:11 PM EST
--- OUTSIDE RECORDS SUMMARY | 2024-05-07 16:11 | XMS_ITS | Clinical Summary ---
Author Organization [employer] Address [address] [place] [address] Care Team Providers Care Paint Pourer Name Role Phone Unavailable Primary Care Provider Unavailabl e Allergies Active Allergy Reactions Criticality Noted Date Comments Aspirin Nausea And Vomiting 05/16/2022 Doxycycline Nausea Only 05/11/2021 Metoclopramide 05/16/2022 Other reaction(s): Agitation Morphine 01/07/2012 Medications amitriptyline (Elavil) 10 MG tabletIndications:Ch ronic thoracic back pain, unspecified back pain laterality Take 1 tablet (10 mg) by mouth at bedtime. 90 tablet 1 02/12/20 22 Active Acetaminophen 500 MG capsule take 2 capsule by oral route every 8 hours as needed not to exceed 3g in one day as needed for pain 09/15/19 21 Active Glycerin-Hypromellos e-PEG 400 0.2-0.2-1 % solution one drop in both eyes 3-4 times per day 09/29/19 20 Active cetirizine (ZyrTEC) 10 MG tablet Take 1 tablet by mouth at bed time. 01/03/20 22 Active clonazePAM (KlonoPIN) 0.5 MG tablet Take 1 tablet by mouth every 8 (eight) hours. Mass Pat 01/14/2022 08/29/19 22 Active ibuprofen 800 MG tablet Take 1 tablet by mouth every 8 (eight) hours. 05/11/19 22 Active LORazepam (Ativan) 0.5 MG tablet Take 1 tablet by mouth every 12 (twelve) hours. 12/26/19 22 Active naloxone (Narcan) 4 mg/0.1 mL nasal spray Administer 0.1 mL into affected nostril(s). 09/07/19 21 Active cholecalciferol (Vitamin D-3) 25 MCG (1000 UT) tablet Take 1 tablet by mouth at bed time. 10/05/19 22 Active SUMAtriptan (Imitrex) 25 MG tablet Take 1 tablet by mouth. 01/03/20 22 Active ascorbic acid (Vitamin C) 500 MG tablet take it daily with iron supplement 08/17/19 22 Active amLODIPine (Norvasc) 5 MG tabletIndications:Es sential hypertension TAKE 1 TABLET BY MOUTH EVERY DAY 90 tablet 3 04/11/19 23 Active fluticasone (Flonase) 50 MCG/ACT nasal sprayIndications:Chr onic rhinitis SHAKE LIQUID AND USE 1 TO 2 SPRAYS IN EACH NOSTRIL EVERY DAY NEEDED 48 g 1 07/30/19 23 Active ferrous sulfate 325 (65 Fe) MG tablet TAKE 1 TABLET BY MOUTH EVERY DAY 90 tablet 1 08/24/19 23 Active levothyroxine (Synthroid, Levoxyl) 25 MCG tabletIndications:Ac quired hypothyroidism TAKE 1 TABLET(25 MCG) BY MOUTH BEFORE BREAKFAST 90 tablet 1 09/26/19 23 Active Sodium Fluoride 1.1 % creamIndications:Den tin hypersensitivity [place] teeth for 2 minutes, morning and night. Spit, do not rinse. Do not eat or drink anything for 30 minutes following use. 112 g 3 02/04/20 24 Active Buprenorphine HCl-Naloxone HCl (Suboxone) 8-2 MG SL filmIndications:Unco mplicated opioid dependence (CMS/HCC) Place 1 Film under the tongue Once per day. 28 Film 1 03/11/19 25 Active Active Problems Problem Noted Date Diagnosed Date Abnormal uterine bleeding 02/19/2022 Cellulitis of buttock 02/19/2022 Chronic maxillary sinusitis 02/19/2022 Chronic thoracic back pain 02/19/2022 Dizziness 02/19/2022 Fatigue 02/19/2022 Hemorrhagic cystitis 02/19/2022 Inflammatory dermatosis 02/19/2022 Migraine without aura, not refractory 02/19/2022 Multiple joint pain 02/19/2022 Postmenopausal bleeding 02/19/2022 Noncompliance with treatment 03/05/2021 Steatosis of liver 01/04/2021 Normal colonoscopy 04/28/2020 Essential hypertension 04/12/2020 Hypothyroidism 04/12/2020 Anxiety disorder 12/12/2014 Chronic obstructive lung disease 12/12/2014 Primary osteoarthritis of both knees 12/12/2014 Tobacco dependence syndrome 12/12/2014 Encounters Date Type Department Care Team Description 05/06/2024 Refill [facility] [address] [place] [address] Jaclyn Camacho MD Uncomplicated opioid dependence (CMS/HCC) 03/18/2024 2:30 PM EST Telemedicine [facility] [address] [place] [address] Jaclyn Camacho MD Uncomplicated opioid dependence (CMS/HCC) (Primary Dx) 03/18/2024 Travel 03/11/2024 Refill [facility] [address] [place] [address] Esequiel Crockett RN Uncomplicated opioid dependence (CMS/HCC) from Last 3 Months Immunizations Name Administration Dates Next Due Hep B, Adolescent or Pediatric 07/11/1999 MMR 07/11/1999 Tdap 12/12/2014 Social History Tobacco Use Types Packs/Day Years Used Date Smoking Tobacco: Former Cigarettes Smokeless Tobacco: Never Tobacco Cessation:Counseling Given: Not Answered Comments Unknown Sex and Gender Information Value Date Recorded Sex Assigned at Female 01/07/2022 10:14 AM EDT Legal Sex Female 10:14 AM EDT Gender Identity Female 01/07/2022 10:14 AM EDT Sexual Orientation Straight 01/07/2022 10 :14 AM EDT Last Filed Vital Signs Vital Sign Reading Time Taken Comments Blood Pressure 151/79 10/02/2023 2:28 PM EDT Pulse 86 10/02/2023 2:28 PM EDT Temperature 36.8 ??C (98.3 ??F) 10/02/2023 2:28 PM ED T Respiratory Rate 20 10/02/2023 2:28 PM EDT Oxygen Saturation - - Inhaled Oxygen Concentration - - Weight 75.2 kg (165 lb 12.8 oz) 022 12:10 AM EDT Height 160 cm (5' 3 ) 01/02/2022 12:10 AM EDT Body Mass Index 29.37 01/02/2022 12:10 AM EDT Plan of Treatment Upcoming Encounters Date Type Department Care Team (Late st Contact Info) Description 05/13/2024 2:15 PM EST Office Visit [facility] [address] [place] [address] Jaclyn Camacho MD [address] [place] [address] 05/31/2024 1:00 PM EDT Office Visit [facility] ADULT DENTAL [address] [place], [place] [phone] Nagi Song, DMD [address] [place] [address] 07/08/2024 2:15 PM EDT Office Visit [facility] [address] [place] [address] Jaclyn Camacho MD [address] [place] [address] Health Maintenance Due Date Last Done Comments CT Colonography 1964 Colonoscopy 1964 Colorectal Cancer Screening 1964 Depression Screening 1964 FIT DNA/Cologuard 1964 FIT 1964 FOBT 1964 SDOH Screening 1964 Sigmoidoscopy 1964 Alcohol/Substance Use Screening 1976 Hepatitis A Vaccines (1 of 2 - Risk 2-dose series) 11/13/1983 Hepatitis B Vaccines (1 of 3 - 19+ 3-dose series) 11/13/1983 07/11/1999 Pneumococcal Vaccine: 50+ Years (1 of 2 - PCV) 11/13/1983 Zoster Vaccines (1 of 2) 2014 Dental Oral Exam 04/26/2018 10/23/2017, 10/2016, 10/21/2008 Dental Prophylaxis 12/25/2018 06/24/2018, 1 , 08/27/2016 Mammogram 12/28/2021 12/29/2019 Dental X-Ray: Full Mouth 07/02/2022 07/02/2019, 06/10/2016 Pap Smear 11/03/2023 11/02/2020 COVID-19 Vaccine ( season) 2023 Influenza Vaccine (#1) 2023 DTaP/Tdap/Td Vaccines (2 - Td or Tdap) 12/12/2024 12/12/2014 Tobacco Screening 02/03/2025 02/04/2024 Dental X-Ray: Bitewings 02/04/2025 02/04/20 24, 08/27/2016, 08/15/2016, Additional history exists Cervical Cancer Screening 11/02/2025 HPV/Cotest 11/02/2025 11/02/2020, 07/02/2017 Lipid Panel 07/09/2026 07/09/2021, 02/08, 01/11/2021, Additional history exists RSV Patients and Patients Aged 60 years or older (1 - 1-dose 75+ series) 11/13/2039 HIV Screening Completed 11/07/2021, 0504/2021, 03/05/2021, Additional history exists Hepatitis C Screening Completed 11/07/2021 , 03/05/2021, 10/18/2019 HIB Vaccines Aged Out No longer eligi ble based on patient's age to complete this topic HPV Vaccines Aged Out No longer eligi ble based on patient's age to complete this topic IPV Vaccines Aged Out No longer eligi ble based on patient's age to complete this topic Meningococcal Vaccine Aged Out No lj tal eligible based on patient's age to complete this topic RSV under 20 months Aged Out No longe r eligible based on patient's age to complete this topic Rotavirus Vaccines Aged Out No longer eligible based on patient's age to complete this topic Procedures Procedure Name Priority Date/Time Associated Diagnosis Comments BITEWING - SINGLE RADIOGRAPHIC IMAGE Routine 02/04/2024 3:30 PM EST Tooth sensitivity to cold ZZZ HISTORICAL HEPATITIS C AB W/REFL TO HCV RNA, QN, PCR Routine 11/07/2021 1:06 PM EDT HIV 1/2 ANTIGEN/ANTIBODY, FOURTH GENERATION W/RFL Routine 11/07/2021 1:06 PM EDT LIPID PANEL, STANDARD Routine 07/09/2021 4:23 PM EDT HPV MRNA E6/E7 Routine 11/02/2020 11:30 AM EDT THINPREP PAP Routine 11/02/2020 11:30 AM EDT MAMMOGRAM GENERIC Routine 12/29/2019 4:1 7 PM EDT PANORAMIC RADIOGRAPHIC IMAGE Routine 07/02/2019 12:00 AM EDT PROPHYLAXIS - ADULT Routine 06/24/2018 1 2:00 AM EDT PERIODIC ORAL EVALUATION - ESTABLISHED PATIENT Routine 10/23/2017 12:00 AM EDT from Last 3 Months or Most Recently Relevant to Health Maintenance Results * HEPATITIS C AB W/REFL TO HCV RNA, QN, PCR (11/07/2021 1:06 PM EDT) HEPATITIS C ANTIBODY NON-REACT PAVEL NON-REACT PAVEL [facility] INDEX 0.09 <1.00 [facility] Comment: ?? HCV antibody was non-reactive. There is no laboratory ?? evidence of HCV infection. ?? In most cases, no further action is required. However, if recent HCV exposure is suspected, a test for HCV RNA (test code 24156) is suggested. ?? For additional information please refer to http://education.WeoGeo/faq/VUZ00y0 (This link is being provided for informational/ educational purposes only.) ?? 11/07/2021 1:06 PM EDT Angie Guzman MD HISTORICAL/NON ORDERA BLE LABS Final Result [facility] [address] * HIV 1/2 ANTIGEN/ANTIBODY,FOURTH GENERATION W/RFL (11/07/2021 1:06 PM EDT) Pathologist [facility] HIV-1/2 ANTIGEN AND ANTIBODIES, 4TH GENERATION W/ REFLEX NON-REACT PAVEL NON-REACT PAVEL [facility] Comment: HIV-1 antigen and HIV-1/HIV-2 antibodies were not detected. There is no laboratory evidence of HIV infection. ?? PLEASE NOTE: This information has been disclosed to you from records whose confidentiality may be protected by state law. ??If your state requires such protection, then the state law prohibits you from making any further disclosure of the information without the specific written consent of the person to whom it pertains, or as otherwise permitted by law. A general authorization for the release of medical or other information is NOT sufficient for this purpose. ? For additional information please refer to http://Fisoc.WeoGeo/faq/GMG746 (This link is being provided for informational/ educational purposes only.) ? The performance of this assay has not been clinically validated in patients less than 2 years old. ?? 11/07/2021 1:06 PM EDT Angie Guzman MD LAB BLOOD ORDERABLES Final Result [facility] [address] * (ABNORMAL) LIPID PANEL, STANDARD (07/09/2021 4:23 PM EDT) Chol/HDLC Ratio 5.3(H) <5.0 (calc) [facility] Cholesterol, Total 227(H) <200 mg/dL [facility] HDL Cholesterol 43(L) > OR = 50 mg/dL [facility] LDL Cholesterol 157(H) mg/dL (calc) [facility] Comment: Reference range: <100 ?? Desirable range <100 mg/dL for primary prevention; ?? <70 mg/dL for patients with CHD or diabetic patients ?? with > or = 2 CHD risk factors. ?? LDL-C is now calculated using the Elissa ?? calculation, which is a validated novel method providing ?? better accuracy than the Friedewald equation in the ?? estimation of LDL-C. ?? Medardo ALVAREZ et al. PHILIPPE. 2013;310(19): 2969-2751 ?? (http://Fisoc.Ahorro Libre/faq/ANY907) Non-HDL Cholesterol 184(H) <130 mg/dL (calc) [facility] Comment: For patients with diabetes plus 1 major ASCVD risk ?? factor, treating to a non-HDL-C goal of <100 mg/dL ?? (LDL-C of <70 mg/dL) is considered a therapeutic ?? option. Triglycerides 141 <150 mg/dL [facility] 07/09/2021 4:23 PM EDT Angie Guzman MD LAB BLOOD ORDERABLES Final Result Performing Organization Address [facility] de Phone Number [facility] [address] [place] [address], [place] * THINPREP PAP (11/02/2020 11:30 AM EDT) COMMENT SEE COMMENT [facility] Comment: EXPLANATORY NOTE: ? The Pap is a screening test for cervical cancer. It is ?? not a diagnostic test and is subject to false negative ?? and false positive results. It is most reliable when a ?? satisfactory sample, regularly obtained, is submitted ?? with relevant clinical findings and history, and when ?? the Pap result is evaluated along with historic and ?? current clinical information. ?? Cosmetic Sales : SEE COMMENT [facility] Comment: DCR, CT(ASCP) CT screening location: [address] ??[address] Interpretation/R esult: Negative for intraepithelial lesion or malignancy. [facility] LMP: NONE GIVEN [facility] Prev. BX: NONE [facility]IV[facility] Prev. PAP: NONE [facility]IVEN [facility] Review Cosmetic Sales : SEE COMMENT [facility] Comment: BLC,CT(ASCP) CT screening location: [address] ??[address] Statement Of Adequacy: SEE COMMENT [facility] Comment: Satisfactory for evaluation. Endocervical/transformation zone component present. Age and/or menstrual status not provided 11/02/2020 11:3 0 AM EDT Ann Berry CNM LAB PATHOLOGY ORDERABLES Final Result Performing Organization Address [facility] Co de Phone Number [facility] [address] [place] [address], [place] * HPV mRNA E6/E7 (11/02/2020 11:30 AM EDT) HPV nRNA E6/E7 Not Detected Not Detected [facility] Comment: Methodology: Group Home Worker-Mediated Amplification This assay detects E6/E7 viral messenger RNA (mRNA) from 14 high-risk HPV types (16,18,31,33,35,39,45,51,52,56,58,59,66,68). ? The analytical performance characteristics of this assay have been determined by [employer]. The modifications have not been cleared or approved by the FDA. This assay has been validated pursuant to the CLIA regulations and is used for clinical purposes. ?? For additional information, please refer to http://education.WeoGeo/faq/YXL441m0 (This link if provided for information/ educational purposes only.) 11/02/2020 11:3 0 AM EDT Ann Berry [facility] LAB BLOOD ORDERABLES Isabelle l Result Performing Organization Address City/State/[facility] Co de Phone Number [facility] [address] * Mammography Report 1 (12/29/2019 4:17 PM EDT) Anatomical Region Laterality Modality Breast Bilateral Mammography 12/29/2019 4:17 PM EDT Narrative 08/22/2020 10:25 AM EDT Refer to the Notes tab for result details [facility] Procedure: Mammography Report 1 Procedure Note Provider, MD Cherise - 06/01/2022 Refer to the Notes tab for result details [facility] Procedure: Mammography Report 1 Melissa Pineda WEB PRODUCTION DESIGNER IMG BI PROCEDURES Final Result from Last 3 Months or Most Recently Relevant to Health Maintenance [place] [address] [place] [address] STANDARD [facility] - [facility]
--- OUTSIDE RECORDS SUMMARY | 2024-05-07 16:11 | XMS_ITS | Patient Health Record ---
Author Organization [facility] Tonia mon Blount Address [address] [place] [address] Care Team Providers Care Diamond Cleaver Name Role Phone Tay Leung Primary Care Provider Unavailab Ole Garcia Unavailable [phone] Reason For Referral No Information Plan Of Treatment No Information Insurance Providers Payer Name Payer Address Payer Phone Subscriber Number Group Number Insured Name Patient Relationship to Insured Coverage Start Date Coverage End Date [facility] [employer] Claims [address] [place] [id number] Lu Clayton Self - patient is the insured
--- OUTSIDE RECORDS SUMMARY | 2024-05-07 16:11 | XMS_ITS | Clinical Summary ---
Author Organization [employer] [facility] it Address [address] [place] [address] Care Team Providers Care Editor Trade Journal Name Role Phone Unavailable Primary Care Provider Unavailabl e Social History Tobacco Use Types Packs/Day Years Used Date Smoking Tobacco: Never Assessed Comments Unknown Sex and Gender Information Value Date Recorded Sex Assigned at Not on file Legal Sex Female 2:57 AM EST Gender Identity Not on file Sexual Orientation Not on file Plan of Treatment Health Maintenance Due Date Last Done Comments Breast Cancer Screening 1964 DTaP,Tdap,and Td Vaccines (1 - Tdap) 11/13/1983 Hepatitis B Vaccines (1 of 3 - 19+ 3-dose series) 11/13/1983 Cervical Cancer Screening: P ap Smear 1985 Pneumococcal Vaccine: 50+ Ye ars (1 of 1 - PCV) 2014 Zoster Vaccines (1 of 2) 2014 Colorectal Cancer Screening: Colonoscopy 02/10/2022 Depression Screening 02/10/2022 HIV Screening 02/10/2022 Hepatitis C Screening 02/10/2022 Social Influencers of Health Screening 02/10/2022 COVID-19 Vaccine ( - 2023-2 5 season) 2023 Influenza Vaccine (#1) 2023 RSV Immunization Patients 60 + Years Old (1 - 1-dose 75+ series) 11/13/2039 HIB Vaccines Aged Out No longer eligi ble based on patient's age to complete this topic HPV Vaccines Aged Out No longer eligi ble based on patient's age to complete this topic Hepatitis A Vaccines Aged Out No long er eligible based on patient's age to complete this topic IPV Vaccines Aged Out No longer eligi ble based on patient's age to complete this topic MMR Vaccines Aged Out No longer eligi ble based on patient's age to complete this topic Meningococcal ACWY Vaccine Aged Out N o longer eligible based on patient's age to complete this topic Meningococcal B Vacine Aged Out No lo nger eligible based on patient's age to complete this topic Pneumococcal Vaccine: Pediat rics (0 to 5 Years) and At-Risk Patients (6 to 64 Years) Aged Out No longer eligible b ased on patient's age to complete this topic RSV Immunization Patients Un deyanira 20 months Aged Out No longer eligible b ased on patient's age to complete this topic Varicella Vaccines Aged Out No longer eligible based on patient's age to complete this topic
--- OUTSIDE RECORDS SUMMARY | 2024-05-07 16:11 | XMS_ITS | Encounter Summary ---
Author Organization [employer] Address [address] [place] [address] [address], [place] [address] Care Team Providers Care Retail Product Demo Specialist Name Role Phone Unavailable Primary Care Provider Unavailabl e Reason for Visit * Reason Onset Date Comments Med Refill 05/06/2024 Encounter Details Date Type Department Care Team (Late st Contact Info) Description 05/06/2024 Refill [facility] [address] [place] [phone] Jaclyn Camacho MD [address] [place] [phone] Uncomplicated opioid dependence (CMS/HCC) Social History Tobacco Use Types Packs/Day Years Used Date Smoking Tobacco: Former Cigarettes Smokeless Tobacco: Never Comments Unknown Sex and Gender Information Value Date Recorded Sex Assigned at Female 01/07/2022 10:14 AM EDT Legal Sex Female 10:14 AM EDT Gender Identity Female 01/07/2022 10:14 AM EDT Sexual Orientation Straight 01/07/2022 10 :14 AM EDT documented as of this encounter Plan of Treatment Upcoming Encounters Date Type Department Care Team (Late st Contact Info) Description 05/13/2024 2:15 PM EST Office Visit [facility] [address] [place] [phone] Jaclyn Camacho MD [address] [place] [address] 05/31/2024 1:00 PM EDT Office Visit [facility] CH[facility] ADULT DENTAL [address] [place] [address] Nagi Song, DMD [address] [place] [address] 07/08/2024 2:15 PM EDT Office Visit [facility] [address] [place] [address] Jaclyn Camacho MD [address] [place] [address] documented as of this encounter Visit Diagnoses Diagnosis Uncomplicated opioid dependence (CMS/HCC) documented in this encounter
--- OUTSIDE RECORDS SUMMARY | 2024-05-07 16:11 | XMS_ITS | Encounter Summary ---
Author Organization [employer] Address [address] [place] [address] [address] [place] [address] Care Team Providers Care Cold Storage Supervisor Name Role Phone Unavailable Primary Care Provider Unavailabl e Reason for Visit * Reason Comments Med Refill Encounter Details Date Type Department Care Team (Late Contact Info) Description 01/23/2023 Refill [facility] [address] [place] [phone] Angie Mariee MD [address] [place] [address] Chronic rhinitis Social History Tobacco Use Types Packs/Day Years [...] Encounters Date Type Department Care Team (Late Contact Info) Description 05/13/2024 2:15 PM EST Office Visit [facility] [address] [place] [phone] Jaclyn Camacho MD [address] [place] [address] 05/31/2024 1:00 PM EDT Office Visit [facility]ULT DENTAL [address] [place] [address] Nagi Song, RAYMON [address] [place] [address] 07/08/2024 2:15 PM EDT Office Visit [facility] [address] [place] [address] Jaclyn Camacho MD [address] [place] [address] documented as of this encounter Visit Diagnoses Diagnosis Chronic rhinitis documented in this encounter
== END 2024-05-07 14:40 | disposition home or self-care (01) ==
PROVIDERS: PCP Physician Assistant; Visit Provider Nurse Practitioner Family
DX: R74.8 Abnormal levels of other serum enzymes (principal); K76.0 Fatty (change of) liver, not elsewhere classified; K59.09 Other constipation
CPT/HCPCS: 99213

== ENCOUNTER → 2024-05-07 13:58 | Outpatient (BNVA) | payer OTHER, SELFPAY | PROVIDERS: PCP Physician Assistant; Visit Provider Nurse Practitioner Family | DX: R74.8 Abnormal levels of other serum enzymes (principal); K76.0 Fatty (change of) liver, not elsewhere classified; K59.09 Other constipation | CPT/HCPCS: 99212 ==

== ENCOUNTER 2024-05-25 15:11 | Outpatient (REF) | payer OTHER, SELFPAY ==
--- OUTSIDE RECORDS SUMMARY | 2024-05-25 18:05 | XMS_ITS | Encounter Summary ---
Author Organization [employer] Address [address] [facility] 7t [place] [address] Care Team Providers Care Email Marketing Executive Name Role Phone Unavailable Primary Care Provider Unavailabl e Reason for Visit * Reason Comments OBAT Encounter Details Date Type Department Care Team (Latest Contact Info) Description 05/13/2024 2:15 PM EST Office Visit [facility] MED[facility]INE [address] [place], [place] [phone] Jaclyn Camacho MD [address] [place], [place] [phone] Uncomplicated opioid dependence (CMS/HCC) (Primary Dx) Social History Tobacco Use Types Packs/Day Years Used Date Smoking Tobacco: Former Cigarettes Smokeless Tobacco: Never Depression Answer Date Recorded Patient Health Questionnaire-9 Score 2 05/13/2024 Patient Health Questionnaire-9 Score 2 05/13/2024 Last PHQ-9: Questionnaire Data Not on file 0 05/13/2024 Housing Stability Answer Date Recorded What is your housing situation today? I have aisha stanley 05/13/[address] you li ve. Do you have problems with any of the following? None of the above 05/13/2024 Food Insecurity Answer Date Recorded Within the past 12 months, y ou worried that your food would run out before you got money to buy more: Never True 05/13/2024 Within the past 12 months,th e food you bought just didn't last and you didn't have enough money to get more: Never True 08/2024 Transportation Answer Date Recorded In the past 12 months, has l ack of transportation kept you from medical appts, meetings, work or from getting things needed for daily living? No 05/13/2024 Utilities Answer Date Recorded In the past 12 months, has t he electric, gas, oil or water company threatened to shut off services in your home? No 05/13/2024 Depression Answer Date Recorded Patient Health Questionnaire-2 Score 2 05/13/2024 Internet Access Answer Date Recorded Internet Access Q1 No 05/13/2024 Internet Access Q2 Not on file 05/13/2024 Comments Unknown Sex and Gender Information Value Date Recorded Sex Assigned at Female 01/07/2022 10:14 AM EDT Legal Sex Female 10:14 AM EDT Gender Identity Female 01/07/2022 10:14 AM EDT Sexual Orientation Straight 01/07/2022 10 :14 AM EDT documented as of this encounter Progress Notes * Jaclyn Camacho MD - 05/13/2024 2:15 PM EST Lu is here for Opioid dependence RV. Current Suboxone dose of 8/2 mg on an 8 week schedule. Patient reports taking medication as prescribed, no cravings or adverse effects. Pt has been in the program for 7 years 6 month. Induction date: 09/19/16. LFTs done 12/02/21. Patient actively enrolled in behavioral health services, therapist and psychiatrist at [facility] in [place]. JULIA CALVO reviewed by provider. PCP is Gustavo Leung at [facility]. Hep A/B immune. LAST VISIT TEL 03/18/24 Lu is being seen for OBAT services. She is maintaining abstinence on Suboxone with no cravings or med side effects. She just returned from a trip to [place]. Had a nice time with her dad, but it was hard because the electricity was out for most of the time she was there. No concerns today. TODAY-05/13/24 POS:BUP NEG:FEN Subjective Patient ID: Lu Clayton is a 58 y.o. female who presents for OBAT. Lu is being seen for OBAT services. She is maintaining abstinence with no cravings or med side effects. She continues to struggle with constipation. Her PCP gave her some magnesium, which she says is working well. She is also feeling tired and will be getting a battery of lab tests. No other concerns today. Review of Systems Psychiatric/Behavioral: Negative for dysphoric mood. The patient is not nervous/anxious. Objective Physical Exam Constitutional: Appearance: Normal appearance. Skin: General: Skin is warm and dry. Neurological: Mental Status: She is alert and oriented to person, place, and time. Assessment/Plan Diagnoses and all orders for this visit: Uncomplicated opioid dependence ([facility]) Counseling provided RE: importance of multiple sources of support for achieving and maintaining recovery. Counseling RE: harm reduction measures, ie, not using alone, the use of clean needles/equipment, Narcan. Discussed strategies to use when confronted with situations that trigger use. Continue current Suboxone dose. Continue eight week visits. - POCT ELDER-14 Urine Drug Screen This information has been disclosed to you from records protected by federal confidentiality rules (42 CFR Part 2). The federal rules prohibit you from making any further disclosure of information inthis record that identifies a patient as having or having had a substance use disorder either directly, by reference to publicly available information, or through verification of such identification by another person unless further disclosure is expressly permitted by the written consent of the individual whose information is being disclosed or as otherwise permitted by (see2.3.1). The federal rules restrict any use of the information to investigate or prosecute with regard to a crime any patient with a substance use disorder, except as provided at 2.12??(5) and 2.65. documented in this encounter Plan of Treatment Upcoming Encounters Date Type Department Care Team (Late st Contact Info) Description 05/31/2024 1:00 PM EDT Office Visit [facility] ADULT DENTAL [address] [place] [address] Nagi Song, RAYMON [address] [place] [address] 07/08/2024 2:15 PM EDT Office Visit [facility] MED[facility] [address] [place] [address] Jaclyn Camacho MD [address] [place] [address] documented as of this encounter Procedures Procedure Name Priority Date/Time Associated Diagnosis Comments POCT ELDER-14 URINE DRUG SCREEN Routine 05/13/2024 2:52 PM EST Uncomplicated opioid dependence (CMS/HCC) documented in this encounter Results * POCT ELDER-14 Urine Drug Screen (05/13/2024 2:52 PM EST) THC Negative Cocaine Screen, Urine Negative Opiate Screen, Urine Negative Methamphetamine Screen Urine Negative Amphetamine Screen, Urine Negative Benzodiazepines Screen, Urine Negative Barbiturate Screen, Urine Negative Methadone Screen, Urine Negative Buprenophine Screen, Urine Positive TCA, Urine Negative MDMA Urine Negative ng/mL Oxycodone Screen, Urine Negative Phencyclidine (PCP), Urine Negative Propoxyphene, Urine Negative Fentanyl, Urine Negative Urine Urine specimen obtained by clean catch procedure / Unknown 05/13/2024 2:52 PM EST Jaclyn Camacho MD POINT OF CARE TEST ENTER/DAMI T ORDERABLES Final Result documented in this encounter Visit Diagnoses Diagnosis Uncomplicated opioid dependence (CMS/HCC)- Primary documented in this encounter Additional Health Concerns Assessment Noted Time PHQ-9 Depression Total Score: 2 05/14/19 25 2:57 PM EST documented as of this encounter
--- OUTSIDE RECORDS SUMMARY | 2024-05-25 18:05 | XMS_ITS | Encounter Summary ---
Author Organization [employer] Address [address] [place] [address] [address] [place] [address] Care Team Providers Care Station Agent Name Role Phone Unavailable Primary Care Provider Unavailabl e Reason for Visit * Reason Comments Med Refill Encounter Details Date Type Department Care Team (Late Contact Info) Description 01/23/2023 Refill [facility]INE [address] [place] [address] Angie Mariee MD [address] [place] [address] Chronic rhinitis Social History Tobacco Use Types [...] Department Care Team (Late Contact Info) Description 05/31/2024 1:00 PM EDT Office Visit [facility] CHC ADULT DENTAL [address] [place], [place] [phone] Nagi Song DMD [address] [place], [place] [phone] 07/08/2024 2:15 PM EDT Office Visit [facility] MEDICINE [address] [place] [address] Jaclyn Camacho MD [address] [place] [phone] documented as of this encounter Visit Diagnoses Diagnosis Chronic rhinitis documented in this encounter
--- OUTSIDE RECORDS SUMMARY | 2024-05-25 18:05 | XMS_ITS | Encounter Summary ---
Author Organization [employer] Address [address] [place] [address] Care Team Providers Care Assistant Merchandise Manager Name Role Phone Unavailable Primary Care Provider Unavailabl e Reason for Visit * Reason Onset Date Comments Med Refill 05/06/2024 Encounter Details Date Type Department Care Team (Late st Contact Info) Description 05/06/2024 Refill [facility] MEDICINE [address] [place] [address] Jaclyn Camacho MD [address] [place] [address] Uncomplicated opioid dependence (CMS/[facility]) Social History Tobacco Use Types Packs/Day Years [...] Description 05/31/2024 1:00 PM EDT Office Visit [facility] CHC ADULT DENTAL [address] [place], [place] [phone] Nagi Song, RAYMON [address] [place] [address] 07/08/2024 2:15 PM EDT Office Visit [facility] MEDICINE [address] [place] [address] Jaclyn Camacho MD [address] [place] [address] documented as of this encounter Visit Diagnoses Diagnosis Uncomplicated opioid dependence (CMS/HCC) documented in this encounter
--- OUTSIDE RECORDS SUMMARY | 2024-05-25 18:05 | XMS_ITS | Encounter Summary ---
Author Organization [employer] Address [address] [facility] 7t [place] [address] Care Team Providers Care Supervisor Personnel Clerks Name Role Phone Unavailable Primary Care Provider Unavailabl e Encounter Details Date Type Department Care Team (Latest Contact Info) Description 05/13/2024 Travel Social History Tobacco Use Types Packs/Day Years [...] Description 05/31/2024 1:00 PM EDT Office Visit [facility] CHC ADULT DENTAL [address] [place] [address] Nagi Song, DMD [address] [place] [address] 07/08/2024 2:15 PM EDT Office Visit [facility] MEDICINE [address] [place] [address] Jaclyn Camacho MD [address] [place] [address] documented as of this encounter Visit Diagnoses Not on filedocumented in this encounter Additional Health Concerns Assessment Noted Time PHQ-9 Depression Total Score: 2 05/14/19 25 2:57 PM EST documented as of this encounter
--- OUTSIDE RECORDS SUMMARY | 2024-05-25 18:05 | XMS_ITS | Clinical Summary ---
Author Organization [employer] Address [address] [facility] [address]t [place] [address] Care Team Providers Care Social Security Specialist Name Role Phone Unavailable Primary Care Provider Unavailabl e Allergies Active Allergy Reactions Criticality Noted Date Comments Aspirin Nausea And Vomiting 05/16/2022 Doxycycline Nausea Only 05/11/2021 Metoclopramide 05/16/2022 Other reaction(s): Agitation Morphine 01/07/2012 Medications amitriptyline (Elavil) 10 MG tabletIndications:C hronic thoracic back pain, unspecified back pain laterality Take 1 tablet (10 mg) by mouth at bedtime. 90 tablet 1 Active Acetaminophen 500 MG capsule take 2 capsule by oral route every 8 hours as needed not to exceed 3g in one day as needed for pain Active Glycerin-Hypromello se-PEG 400 0.2-0.2-1 % solution one drop in both eyes 3-4 times per day Active cetirizine (ZyrTEC) 10 MG tablet Take 1 tablet by mouth at bed time. 022 Active clonazePAM (KlonoPIN) 0.5 MG tablet Take 1 tablet by mouth every 8 (eight) hours. Mass Pat 01/14/2022 022 Active ibuprofen 800 MG tablet Take 1 tablet by mouth every 8 (eight) hours. Active LORazepam (Ativan) 0.5 MG tablet Take 1 tablet by mouth every 12 (twelve) hours. 022 Active naloxone (Narcan) 4 mg/0.1 mL nasal spray Administer 0.1 mL into affected nostril(s). 021 Active cholecalciferol (Vitamin D-3) 25 MCG (1000 UT) tablet Take 1 tablet by mouth at bed time. 022 Active SUMAtriptan (Imitrex) 25 MG tablet Take 1 tablet by mouth. 022 Active ascorbic acid (Vitamin C) 500 MG tablet take it daily with iron supplement 022 Active amLODIPine (Norvasc) 5 MG tabletIndications:E ssential hypertension TAKE 1 TABLET BY MOUTH EVERY DAY 90 tablet 3 023 Active fluticasone (Flonase) 50 MCG/ACT nasal sprayIndications:Ch ronic rhinitis SHAKE LIQUID AND USE 1 TO 2 SPRAYS IN EACH NOSTRIL EVERY DAY NEEDED 48 g 1 023 Active ferrous sulfate 325 (65 Fe) MG tablet TAKE 1 TABLET BY MOUTH EVERY DAY 90 tablet 1 023 Active levothyroxine (Synthroid, Levoxyl) 25 MCG tabletIndications:A cquired hypothyroidism TAKE 1 TABLET(25 MCG) BY MOUTH BEFORE BREAKFAST 90 tablet 1 023 Active Sodium Fluoride 1.1 % creamIndications:De ntin hypersensitivity [place] teeth for 2 minutes, morning and night. Spit, do not rinse. Do not eat or drink anything for 30 minutes following use. 112 g 3 024 Active Buprenorphine HCl-Naloxone HCl (Suboxone) 8-2 MG SL filmIndications:Unc omplicated opioid dependence (CMS/HCC) Place 1 Film under the tongue Once per day. 28 Film 1 025 2024 Active Buprenorphine HCl-Naloxone HCl (Suboxone) 8-2 MG SL filmIndications:Unc omplicated opioid dependence (CMS/HCC) Place 1 Film under the tongue Once per day. 28 Film 1 025 2024 Discontinued(R eorder (will not trigger notification to Pharmacy)) Active Problems Problem Noted Date Diagnosed Date [...] Encounters Date Type Department Care Team Description 05/13/2024 2:15 PM EST Office Visit [facility] [address] [place] [address] Jaclyn Camacho MD Uncomplicated opioid dependence (CMS/HCC) (Primary Dx) 05/13/2024 Travel 05/06/2024 Refill [facility] [address] [place] [address] Jaclyn Camacho MD Uncomplicated opioid dependence (CMS/HCC) 03/18/2024 2:30 PM EST Telemedicine [facility] [address] [place] [address] Jaclyn Camacho MD Uncomplicated opioid dependence (CMS/HCC) (Primary Dx) 03/18/2024 Travel 03/11/2024 Refill [facility] [address] [place] [address] Esequiel Crockett, RN Uncomplicated opioid dependence (CMS/HCC) from Last 3 Months Immunizations Name Administration Dates Next Due Hep B, Adolescent or Pediatric 07/11/1999 MMR 07/11/1999 Tdap 12/12/2014 Social History Tobacco Use Types Packs/Day Years Used Date Smoking Tobacco: Former Cigarettes Smokeless Tobacco: Never Tobacco Cessation:Counseling Given: Not Answered Depression Answer Date Recorded Patient Health Questionnaire-9 [...] Description 05/31/2024 1:00 PM EDT Office Visit [facility] ADULT DENTAL [address] [place] [address] Nagi Song, RAYMON [address] [place] [address] 07/08/2024 2:15 PM EDT Office Visit [facility] [address] [place] [address] Jaclyn Camacho MD [address] [place] [address] Health Maintenance Due Date Last Done Comments CT Colonography 1965 Colonoscopy 1965 Colorectal Cancer Screening 1965 FIT DNA/Cologuard 1965 FIT 1965 FOBT 1965 Sigmoidoscopy 1965 Hepatitis A Vaccines (1 of 2 - Risk 2-dose series) 11/13/1983 Hepatitis B Vaccines (1 of 3 - 19+ 3-dose series) 11/13/1983 07/11/1999 Pneumococcal Vaccine: 50+ Years (1 of 2 - PCV) 11/13/1983 Zoster Vaccines (1 of 2) 2014 Dental Oral Exam 04/26/2018 10/23/2017, 10/2016, 10/21/2008 Dental Prophylaxis 12/25/2018 06/24/2018, 1 , 08/27/2016 Mammogram 12/28/2021 12/29/2019 Dental X-Ray: Full Mouth 07/02/2022 07/02/2019, 0610/2016 Pap Smear 11/03/2023 11/02/2020 COVID-19 Vaccine ( season) 2023 Influenza Vaccine (#1) 2023 DTaP/Tdap/Td Vaccines (2 - Td or Tdap) 12/12/2024 12/12/2014 Dental X-Ray: Bitewings 02/04/2025 02/04/20 24, 08/27/2016, 08/15/2016, Additional history exists Alcohol/Substance Use Screening 05/13/2025 05/13/2024 Depression Screening 05/13/2025 05/13/2024, 05/14/19 25 SDOH Screening 05/13/2025 05/13/2024 Tobacco Screening 05/13/2025 05/13/2024 Cervical Cancer Screening 11/02/2025 HPV/Cotest 11/02/2025 11/02/2020, 07/02/2017 Lipid Panel 07/09/2026 07/09/2021, 02/08, 01/11/2021, Additional history exists RSV Patients and Patients Aged 60 years or older (1 - 1-dose 75+ series) 11/13/2039 HIV Screening Completed 11/07/2021, 05/0 04/2021, 03/05/2021, Additional history exists Hepatitis C Screening [...] 2:52 PM EST Uncomplicated opioid dependence (CMS/HCC) BITEWING - SINGLE RADIOGRAPHIC IMAGE Routine 02/04/2024 [...] Recently Relevant to Health Maintenance Results * POCT ELDER-14 Urine Drug Screen [...] CARE TEST ENTER/DAMI T ORDERABLES Final Result * HEPATITIS C AB W/REFL TO HCV RNA, QN, PCR (11/07/2021 1:06 PM EDT) HEPATITIS C ANTIBODY NON-REACT PAVEL NON-REACT PAVEL [facility] INDEX 0.09 <1.00 [facility] Comment: ?? HCV antibody was non-reactive. There is no laboratory ?? evidence of HCV infection. ?? In most cases, no further action is required. However, if recent HCV exposure is suspected, a test for HCV RNA (test code 96918) is suggested. ?? For additional information please refer to http://education.iDiDiD.PSG Construction/faq/JLU06a2 (This link is being provided for informational/ educational purposes only.) ?? 11/07/2021 1:06 PM EDT us Angie Guzman MD HISTORICAL/NON ORDERA BLE LABS Final Result [facility] [address] [place] [address], * HIV 1/2 ANTIGEN/ANTIBODY,FOURTH GENERATION W/RFL (11/07/2021 1:06 PM EDT) [facility] HIV-1/2 ANTIGEN AND ANTIBODIES, 4TH GENERATION W/ REFLEX NON-REACT PAVEL NON-REACT PAVEL [facility] Comment: HIV-1 antigen and HIV-1/HIV-2 [...] ? For additional information please refer to http://[employer] Sport Highlights.Ploonge/faq/DFI271 (This link is being provided for informational/ educational purposes only.) ? The performance of this assay has not been clinically validated in patients less than 2 years old. ?? 11/07/2021 1:06 PM EDT Angie Guzman MD LAB BLOOD ORDERABLES Final Result [facility] [address] * (ABNORMAL) LIPID PANEL, STANDARD (07/09/2021 4:23 PM EDT) [facility] Chol/HDLC Ratio 5.3(H) <5.0 (calc) [facility] [...] ?? LDL-C is now calculated using the Medardo-Ball ?? calculation, which is a validated novel method providing ?? better accuracy than the Friedewald equation in the ?? estimation of LDL-C. ?? Medardo ALVAREZ et al. PHILIPPE. 2013;310(19): 5485-1091 ?? (http://[employer] Highlights.UiTV/faq/ZQE121) Non-HDL Cholesterol 184(H) <130 mg/dL (calc) [facility] Comment: For patients with diabetes plus 1 major ASCVD risk ?? factor, treating to a non-HDL-C goal of <100 mg/dL ?? (LDL-C of <70 mg/dL) is considered a therapeutic ?? option. Triglycerides 141 <150 mg/dL [facility] 07/09/2021 4:23 PM EDT Angie Guzman MD LAB BLOOD ORDERABLES Final Result [facility] [address] * THINPREP PAP (11/02/2020 11:30 AM EDT) [...] historic and ?? current clinical information. ?? Writer Editor : SEE COMMENT [facility] Comment: DCR, CT(ASCP) CT screening location: [address] ??[address] Interpretation/R esult: Negative for intraepithelial lesion or malignancy. [facility] LMP: NONE [facility]IV[facility] Prev. BX: NONE [facility] Prev. PAP: NONE [facility] Review Writer Editor : SEE COMMENT [facility] Comment: BLC,CT(ASCP) CT screening location: [address] ??[address] Statement Of Adequacy: SEE COMMENT [facility] Comment: Satisfactory for evaluation. Endocervical/transformation zone component present. Age and/or menstrual status not provided 11/02/2020 11:3 0 AM EDT Ann [facility] LAB PATHOLOGY ORDERABLES Final Result Performing Organization Address [facility] de Phone Number [facility] [address] * HPV mRNA E6/E7 (11/02/2020 11:30 AM EDT) HPV nRNA E6/E7 Not Detected Not Detected [facility] Comment: Methodology: Epic Cupid Analyst-Mediated Amplification This assay detects E6/E7 viral messenger RNA (mRNA) from 14 high-risk HPV types (16,18,31,33,35,39,45,51,52,56,58,59,66,68). ? The analytical performance characteristics of this assay have been determined by [employer]. The modifications have not been cleared or approved by the FDA. This assay has been validated pursuant to the CLIA regulations and is used for clinical purposes. ?? For additional information, please refer to http://education.iDiDiD.PSG Construction/faq/XTK403g9 (This link if provided for information/ educational purposes only.) 11/02/2020 11:3 0 AM EDT Ann [facility] LAB BLOOD ORDERABLES Isabelle l Result Performing Organization Address [facility] de Phone Number [facility] [address] * Mammography Report 1 (12/29/2019 4:17 PM EDT) Anatomical Region Laterality Modality Breast Bilateral Mammography 12/29/2019 4:17 PM EDT Narrative 08/22/2020 10:25 AM EDT Refer to the Notes tab for result details [facility] Procedure: Mammography Report 1 Procedure Note Provider, MD Cherise - 06/01/2022 Refer to the Notes tab for result details [facility] Procedure: Mammography Report 1 Melissa Pineda POPPED CORN OVEN ATTENDANT IMG BI PROCEDURES Final Result from Last 3 Months or Most Recently Relevant to Health Maintenance Insurance [facility] STANDARD - [facility] CARE DENTAL - [facility]
--- OUTSIDE RECORDS SUMMARY | 2024-05-25 18:06 | XMS_ITS | Clinical Summary ---
Author Organization [facility] it Address [address] [place] [address] Care Team Providers Care Pad Tufter Name Role Phone Unavailable Primary Care Provider [...]
--- OUTSIDE RECORDS SUMMARY | 2024-05-25 18:06 | XMS_ITS ---
Author Organization [facility] Address [address] [place] [address] Care Team Providers Care Program Management Specialist Name Role Phone Tay Leung Primary Care Provider Unavailab Ole Garcia Unavailable [phone] REASON FOR VISIT no ppwrk Encounters Encounter Location Date Provider Diagnosis [facility] [address] [place] [address] 11/25/2023 Ole Jernigan Plan Of Treatment No Information Progress Notes * Lu CLAYTONDOB:1965 (58 yo F)Acc No.[id number]:11/25/2023 Progress Notes Patient:?MATILDE Lu Provider:?Ole Jernigan DPM :1965???Age:58 Y???Sex:Female D ate:11/25/2023 Address:[address] [place], [place] [id number] Pcp:Tay Leung Subjective: * Chief Complaints: * [...] Provider:?Ole Jernigan DPM Date:?2023 Generated for Demetrio fish/Devin/eTransmitting on:?05/25/2024 06:05 PM EDT
--- OUTSIDE RECORDS SUMMARY | 2024-05-25 18:06 | XMS_ITS | Patient Health Record ---
Author Organization [facility] [place] Address [address] [place] [address] Care Team Providers Care Tool Dispatcher Name Role Phone Tay Leung Primary Care Provider Unavailab Ole Garcia Unavailable [phone] Reason For Referral No Information Plan Of Treatment No Information Insurance Providers Payer Name Payer Address Payer Phone Subscriber Number Group Number Insured Name Patient Relationship to Insured Coverage Start Date Coverage End Date [facility] [employer] Claims [address] [place] [id number] Lu Clayton Self - patient is the insured
== END 2024-05-25 15:12 | disposition home or self-care (01) ==
LOC: HO.MAMMO 15:11
PROVIDERS: PCP Physician Assistant; Visit Provider Physician Assistant
DX: Z12.31 Encounter for screening mammogram for malignant neoplasm of breast (principal)
CPT/HCPCS: 77063; 77067

== ENCOUNTER → 2024-05-25 15:30 | Outpatient (BNV) | payer OTHER, SELFPAY | PROVIDERS: PCP Physician Assistant; Visit Provider Internal Medicine | DX: Z12.31 Encounter for screening mammogram for malignant neoplasm of breast (principal) | CPT/HCPCS: 77063; 77067 ==

== ENCOUNTER 2024-05-28 13:04 | Outpatient (REF) | payer OTHER, SELFPAY ==
[2024-05-28 14:02] LABS: Hematocrit 36.8 % (37.0-47.0); Hemoglobin 11.9 g/dl (12.0-16.0); Mean Corpuscular HGB Conc 32.3 g/dl (31.0-35.0); Mean Corpuscular Hemoglobin 25.1 pg (27.0-33.0); Mean Corpuscular Volume 77.6 fL (80.0-98.0); Platelet Count 313 X10*3/uL (160-400); Red Blood Count 4.74 X10*6/uL (4.20-5.50); White Blood Count 7.1 X10*3/uL (4.8-10.8)
[2024-05-28 14:13] LABS: INTERNATIONAL NORM RATIO 0.9 (0.9-1.1)
[2024-05-28 14:54] LABS: Ferritin 26 ng/mL (10-250)
[2024-05-28 14:58] LABS: Alanine Aminotransferase 108 U/L (0-31); Alkaline Phosphatase 72 U/L (39-117); Anion Gap 13 (12-20); Aspartate Amino Transferase 86 U/L (5-31); Bilirubin Direct 0.1 mg/dL (0.0-0.5); Bilirubin Total 0.3 mg/dL (0.0-1.0); Blood Urea Nitrogen 10 mg/dL (9-16); C Reactive Protein 0.92 mg/dL (< or = 0.50); Calcium 9.2 mg/dL (8.4-10.2); Carbon Dioxide 25 mmol/L (22-29); Chloride 107 mmol/L (96-108); Cholesterol 204 mg/dL (<200); Estimated Glomerular Filt Rate > 60; Glucose Fasting 99 mg/dL (60-99); HDL Cholesterol 44 mg/dL (>40); LDL Cholesterol Calculated 124 mg/dL (<100); Potassium 3.5 mmol/L (3.3-5.1); Sodium 141 mmol/L (135-145); TSH reflex Free T4 3.13 uIU/mL (0.32-4.0); Triglycerides 182 mg/dL (<150)
[2024-05-31 04:15] LABS: HBc Num1 0.07 S/CO (0.00-0.79); HBsAGNum1 0.27 S/CO (0.00-0.99); HIV AB/AG Nonreactive (Nonreactive); HIV Num 1 0.06 S/CO (0.00-0.99); Hepatitis B Core Antibody Nonreactive (Nonreactive); Hepatitis B Surface Antigen Negative (Negative); ~HepC Num1 0.09 S/CO (0.00-0.79); ~Hepatitis A Antibody IgM Nonreactive (Nonreactive); ~Hepatitis B Surface Antibody REACTIVE (Nonreactive); ~Hepatitis C Antibody Nonreactive (Nonreactive)
[2024-05-31 10:19] LABS: Ceruloplasmin 25 mg/dL (14-48)
[2024-05-31 13:03] LABS: Alpha Fetoprotein 4.8 ng/mL
[2024-06-01 13:59] LABS: Transglutaminase IgA <1.0 U/mL
[2024-06-02 05:38] LABS: Smooth Muscle Antibody <20 U (<20)
[2024-06-02 14:43] LABS: Mitochondrial Antibodies NEGATIVE (NEGATIVE)
[2024-06-04 16:19] LABS: Vitamin D 25-OH, D2 <4 ng/mL; Vitamin D 25-OH, D3 26 ng/mL; Vitamin D 25-OH, Total 26 ng/mL (30-100)
[2024-06-05 19:19] LABS: FIB-ALT 76 U/L (6-29); FIB-Alpha-2-Macroglobulin 174 mg/dL (106-279); FIB-Apolipoprotein A1 158 mg/dL (101-198); FIB-GGT 38 U/L (3-70); FIB-Haptoglobin 210 mg/dL (43-212); FIB-Total Bilirubin 0.2 mg/dL (0.2-1.2); Liver Fibrosis Score 0.07; Liver Fibrosis Stage F0; Nec Inflam Act Grade A1-A2; Nec Inflam Act Score 0.37
== END 2024-05-28 13:05 | disposition home or self-care (01) ==
LOC: HO.LAB 13:04
PROVIDERS: Absent Provider Nurse Practitioner Family; PCP Physician Assistant; Visit Provider Physician Assistant
DX: K58.9 Irritable bowel syndrome, unspecified (principal); E78.2 Mixed hyperlipidemia; E03.9 Hypothyroidism, unspecified; R79.89 Other specified abnormal findings of blood chemistry; R10.9 Unspecified abdominal pain; K76.0 Fatty (change of) liver, not elsewhere classified; R74.01 Elevation of levels of liver transaminase levels; R74.8 Abnormal levels of other serum enzymes; E55.9 Vitamin D deficiency, unspecified
CPT/HCPCS: 36415; 80053; 80061; 80076; 81596; 82105; 82248; 82306; 82390; 82728; 84443; 85027; 85610; 86015; 86140; 86364; 86381; 86704; 86706; 86709; 86803; 87340; 87389

== ENCOUNTER 2024-08-03 14:45 | Outpatient (AMB) | payer OTHER, SELFPAY ==
--- NOTE | 2024-08-03 14:47 | A.OFFPC_ITS ---
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 Required: No Accompanied by: Friend Allergies metoclopramide [From REGLAN] Adverse Reaction (Intermediate, Verified 08/03/24 15:02) AGITATION morphine Adverse Reaction (Mild, Verified 08/03/24 15:02) Nausea aspirin Adverse Reaction (Verified 08/03/24 15:02) Vomiting Medication List - Last Reconciled 08/03/24 by Tay Leung PA-C amlodipine 5 mg PO DAILY 90 days ascorbic acid (vitamin C) 500 mg PO DAILY betamethasone dipropionate 0.05% 1 appl topical DAILY PRN 30 days blood pressure monitor Testing blood pressure once a day/ PRN buprenorphine-naloxone 8-2 mg (Suboxone) 0.5 film buccal BID@1130,1800 cetirizine 10 mg PO DAILY cholecalciferol (vitamin D3) (Vitamin D3) 25 mcg PO DAILY 90 days clonazepam 0.5 mg PO TID PRN 14 days diclofenac sodium 1% 2 grams topical QID fluticasone propionate 50 mcg/actuation 1 - 2 sprays intranasal DAILY PRN ibuprofen 800 mg PO Q8H PRN 15 days ipratropium bromide 2 sprays intranasal BID 30 days levothyroxine 50 mcg PO DAILY 90 days lidocaine 5% 1 patch topical DAILY magnesium hydroxide mg PO PRN magnesium oxide 400 mg PO DAILY sumatriptan succinate 25 mg PO DAILY 30 days Tobacco use date assessed: 08/03/24 Dental Screening Dental Screen Date: 08/03/24 Did you have a dental visit in the last 12 months?: Yes Did you have a dental problem in the last 6 months where you did not have access to dental care?: No Was dental information given to patient?: Patient has dentist HPI PE HPI Details Patient is a 58-year-old female here today for an annual physical Patient's past medical history significant for hyperlipidemia, fibromyalgia, HTN , generalized anxiety disorder, migraines. Concerns--> History of cosmetic surgery on buttocks--> continues to have intermittent episodes pain and palpable lumps over her buttocks often in different areas. She has had hospital admission with IV antibiotics in the past due to infection. She has had recent MRI of the pelvis that does show positive cosmetic Fillers though no notable infection at that time. She does use doxycycline on a p.r.n. basis for increased pain and redness on the skin. She has found a surgeon outside in the [place] willing to remove her cosmetic Fillers though will cost her about 11,000 dollars. She has found a surgeon in [place] that can do an open procedure to remove these collagen foreign bodies The plan for now will continue to manage with anti-inflammatory, prednisone and if pain scales 8-10 and erythema of the skin presents will use antibiotic. She will need a MRI of pelvis to evaluate for infection or migration of the Fillers. Impaired glucose metabolism: Most recent fasting blood sugar slightly elevated at 102. Patient is somewhat concerned about diabetes as she has a strong family history of diabetes. Most recent A1c acceptable Hypertension: Patient continues with amlodipine 5 mg daily with good effect. Today's blood pressure acceptable in office. .. Fibromyalgia:? Followed by Rheumatology.? Continues now on Suboxone due to her chronic pain. .. Hyperlipidemia:? Continues on Crestor 10 mg on occasion.? Most recent lipid panel showing good control over total cholesterol and LDL cholesterol. .. Opiate dependence:? Was previously on narcotic pain medication due to her chronic arthritic pain, is status post total knee arthroplasty.? Continues on Suboxone (4 mg) through [facility]. .. HYpothtyroid:? Most recent TSH has been stable on current dose of levothyroxine. Colon cancer screening: Colonoscopy done in 2020, was normal , followed by [facility] Vaccines: Up-to-date with tetanus vaccine, considering shingrex, declines flu and COVID vaccine Psychiatric Nurse: Followed by [facility] inspector packer, has gotten a Pap in 2022 Laboratory Tests 05/28/24 13:26 Hgb 11.9 L Hct 36.8 L Creatinine 0.57 AST 86 H ALT 108 H Liver Fibrosis ALT 76 H C-Reactive Protein 0.92 H Cholesterol 204 H LDL Cholesterol, C alc 124 H 25-OH Vitamin D To latosha 26 L [facility] Medical History (Updated 08/04/24 @ 08:07 by Tay Leung PA-C) Abdominal pain Elevated liver enzymes Microscopic hematuria Muscle spasm Upper respiratory tract infection Acute dermatitis Obese Sinus infection Cellulitis of buttock Acquired hypothyroidism Hyperglycemia Post covid-19 condition, unspecified Breast cancer screening Foreign body of buttock Superimposed infection Cellulitis and abscess of buttock Cellulitis Renal calculi Frequent UTI Hematuria History of degenerative disc disease Normal colonoscopy Chronic constipation Hx of renal calculi History of panic attacks Hx of anxiety disorder Depression Hx of opioid abuse Thyroid disease Arthritis Fibromyalgia HTN (hypertension) Surgical History H/O left knee surgery Hx of cholecystectomy Tubal ligation status Hx of appendectomy Family History Paternal Grandmother Colon cancer Mother Pulmonary embolism Sister Pulmonary embolism Lung cancer Social History (Updated 08/03/24 @ 15:06 by Tay Leung PA-C) Household Members: Family Household Members Other:: daughter Housing: House Do you presently have visiting nurse or other home services: No Alcohol intake: never Patient Tobacco Use Status: Former Tobacco user Years Smoked: 20 e-Cigarette/Vaping Use: Never Used Second Hand Smoke Exposure: Yes Advance Directives Date on File: 06/02/21 service: No Current occupational status: disabled Cognitive needs: No Hearing needs: No Vision needs: No Female Reproductive History Menstrual Age of Menarche: 12 Questionnaire PHQ-9 Over the last 2 weeks, how often have you been bothered by any of the following problems? 1. Little interest or pleasure in doing things: several days 2. Feeling down, depressed, or hopeless: several days 3. Trouble falling or staying asleep, or sleeping too much: several days 4. Feeling tired or having little energy: more than half the days 5. Poor appetite or overeating: more than half the days 6. Feeling bad about yourself - or that you are a failure or have let yourself or your family down: not at all 7. Trouble concentrating on things, such as reading the newspaper or watching television: not at all 8. Moving or speaking so slowly that other people could have noticed. Or the opposite - being so fidgety or restless that you have been moving around a lot more than usual: not at all 9. Thoughts that you would be better off or of hurting yourself in some way: not at all Total score: 7 Depression Screening Interpretation: Positive Depression Screening Follow-up: Existing condition and In treatment Depression Screening Done: Yes 38330 - PHQ-9 Billing: Yes Source: Developed by Drs. Igor Jasso, Mariya Arteaga, Chito Combs and colleagues, with an educational haleigh from [employer]. Thrive Questionnaire Date Thrive assessed: 08/03/24 I am a: Patient What is your living situation today?: I have a steady place to live Within the past 12 months, did the food you bought not last and you didn't have the money to get more?: I choose not to answer this question Within the past 12 months, did you worry whether your food would run out before you got money to buy more?: Never true Do you have trouble paying for medicines?: No Do you have trouble getting transportation to medical appointments?: No Do you have trouble paying your heating and electricity bill?: No Do you have trouble taking care of your child, family member or friend?: No Do you have trouble with day-to-day activities such as bathing, preparing meals, shopping, managing finances, etc.?: Yes Are you currently unemployed and looking for a job?: No Are you interested in more education?: No Please select the resources that you would like help with: None Currently or been in a relationship where the following occur: No concerns reported THRIVE Score: 0 AUDIT C Alcohol Use Questionnaire (AUDIT-C) 1. How often do you have a drink containing alcohol?: Never 3. How often do you have six or more drinks on one occasion?: Never Total Score: 0 TONYA-7 AMB Questionnaire TONYA-7 Date TONYA - 7 assessed: 08/03/24 Feeling nervous, anxious, or on edge: 3 = Nearly every day Not being able to stop or control worryin = Several days Worrying too much about different things: 1 = Several days Trouble relaxin = Several days Being so restless that it is hard to sit still: 1 = Several days Becoming easily annoyed or irritable: 1 = Several days Feeling afraid as if something awful might happen: 1 = Several days Total TONYA-7 score (0-4 normal; 5-9 mild; 10-14 moderate; 15-21 severe): 9 Source: Developed by Drs. Igor Jasso, Chito Kennedy and colleagues, with an educational haleigh from [employer]. TONYA-7 Assessment Billing TONYA-7 Assessment Tool: TONYA-7 Assessment 07263 Physical exam (Primary Care) Vital Signs: Last Vital Signs Temp 97.3 F 08/03/24 14:54 Pulse 108 H 08/03/24 14:54 BP 122/62 08/03/24 14:54 Pulse Ox 96 08/03/24 14:54 Oxygen Delivery Method Room Air 08/03/24 14:54 BMI result Body Mass Index 30.8 Tobacco/Smoking Status: Tobacco use Status Tobacco use date assessed 08/03/24 08/03/24 14:56 Patient Tobacco Use Status Former Tobacco user 08/03/24 15:06 e-Cigarette/Vaping Use Never Used 08/03/24 15:06 PHQ-9: PHQ-9 Score PHQ-9: Total score 7 08/03/24 15:00 Depression Screening Interpretation: Positive Depression Screening Follow-up: Existing condition and In treatment Thrive Assessment: Date of Thrive Assessment Date Thrive assessed 08/03/24 08/03/24 14:48 Currently or been in a relationship where the following occur: No concerns reported Coding Level of Care Code Est Pt Prev Care 40-64y(12806) Diagnoses Uncomplicated opioid dependence F11.20 Substance use status: uncomplicated Primary hypertension I10 Hypertension type: primary hypertension Mixed hyperlipidemia E78.2 Hyperlipidemia type: mixed hyperlipidemia Hypothyroidism, unspecified type E03.9 Hypothyroidism type: unspecified Cellulitis of buttock, right L03.317 Class 1 obesity E66.811 Additional Codes TONYA-7 Assessment Billing - TONYA-7 Assessment Tool: TONYA-7 Assessment 39392 ([id number]) PHQ-9 - 42906 - PHQ-9 Billing: Yes ([id number]) Assessment & Plan Assessment & Plan (1) Opiate dependence: Code(s): F11.20 - Opioid dependence, uncomplicated Category: Medical Qualifiers: Substance use status: uncomplicated Qualified Code(s): F11.20 - Opioid dependence, uncomplicated Plan: Patient continues on Suboxone through his local Suboxone clinic. (2) HTN (hypertension): Code(s): I10 - Essential (primary) hypertension Category: Medical Qualifiers: Hypertension type: primary hypertension Qualified Code(s): I10 - Essential (primary) hypertension Plan: Patient's blood pressure acceptable today in office. Will continue her current dose of antihypertensive medication with goal blood pressure to remain below 140/90 (3) HLD (hyperlipidemia): Code(s): E78.5 - Hyperlipidemia, unspecified Category: Medical Qualifiers: Hyperlipidemia type: mixed hyperlipidemia Qualified Code(s): E78.2 - Mixed hyperlipidemia Plan: Patient's most recent lipid panel showing good control over total cholesterol and LDL. She continues on lifestyle and dietary modifications (4) Hypothyroid: Code(s): E03.9 - Hypothyroidism, unspecified Category: Medical Qualifiers: Hypothyroidism type: unspecified Qualified Code(s): E03.9 - H ypothyroidism, unspecified Plan: Patient's most recent TSH stable. She continues on levothyroxine 50 mcg daily. Will continue to follow TSH to assure normal (5) Cellulitis of buttock, right: Code(s): L03.317 - Cellulitis of buttock Category: Medical Plan: Try for MRI of pelvis to better define these foreign body Puri's and evaluate for infection. She also reports surgeon would appreciate having the MRI to evaluate of for upcoming surgery.. Pursuit of surgical removal in [place] under specialized care, continuing current pain management strategies. (6) Class 1 obesity: Code(s): E66.811 - Obesity, class 1 Category: Medical Plan: Patient does understand her BMI is over 30 and will try to work on being more physically active and adapting to better eating habits to reduce her weight. Not been able to be physically active lately due to flare ups of her buttocks pain secondary to the implanted polymers Orders: Orders MR pelvis wo con 08/03/24 S30.850A - Superficial foreign body of lower back and pelvis, initial encounter TSH reflex Free T4 08/03/24 E03.9 - Hypothyroidism, unspecified Lipid Panel 08/03/24 E78.2 - Mixed hyperlipidemia Complete Blood Count no Diff 08/03/24 I10 - Essential (primary) hypertension Comprehensive [place]. Panel Fast 08/03/24 I10 - Essential (primary) hypertension Medications: New prednisone 10 mg PO DAILY 10 tabs 0RF 10 days S30.850A - Superficial foreign body of lower back and pelvis, initial encounter
[2024-08-03 14:54] VITALS: BP 122/62; PULSE 108; TEMP 36.3; O2SAT 96; BMI 30.8
== END 2024-08-03 16:51 | disposition home or self-care (01) ==
LOC: HO.HMCH 14:45
PROVIDERS: PCP Physician Assistant; Visit Provider Physician Assistant
DX: Z00.00 Encounter for general adult medical examination without abnormal findings (principal); F11.20 Opioid dependence, uncomplicated; E66.811 Obesity, class 1; Z68.30 Body mass index [BMI] 30.0-30.9, adult; I10 Essential (primary) hypertension; E78.2 Mixed hyperlipidemia; E03.9 Hypothyroidism, unspecified; L03.317 Cellulitis of buttock

== ENCOUNTER → 2024-08-03 14:45 | Outpatient (BNVA) | payer OTHER, SELFPAY | PROVIDERS: PCP Physician Assistant; Visit Provider Physician Assistant | DX: Z00.00 Encounter for general adult medical examination without abnormal findings (principal); E78.5 Hyperlipidemia, unspecified; M79.7 Fibromyalgia; I10 Essential (primary) hypertension; F41.1 Generalized anxiety disorder; G43.909 Migraine, unspecified, not intractable, without status migrainosus; F11.20 Opioid dependence, uncomplicated; E66.811 Obesity, class 1; S30.850A Superficial foreign body of lower back and pelvis, initial encounter; Z68.30 Body mass index [BMI] 30.0-30.9, adult; X58.XXXA Exposure to other specified factors, initial encounter; Y93.9 Activity, unspecified; Y92.9 Unspecified place or not applicable; Y99.9 Unspecified external cause status | CPT/HCPCS: 96127; 99396 ==

== ENCOUNTER 2024-08-04 14:26 | Outpatient (AMB) | payer OTHER, SELFPAY ==
--- NOTE | 2024-08-04 14:43 | MHC.OFFVIS ---
Vital Signs 08/04/24 14:57 Height 5 ft 3 in Weight 175 lb BMI 31.0 BP 140/78 H Blood Pressure Location Rt brachial Position Sitting Pulse 80 Pulse Source Pulse Oximeter Pulse Oximetry (%) 98 Oxygen Delivery Method Room Air Intake Visit Reasons: lab results Intake Note: ESTABLISHED PATIENT for Constipation and abd pain mgmt. Labs done, imaging outstanding. Chief Complaint; C.O. concerns for evacuation difficulties, mild to moderate constipation despite having daily bowel movements. Pt also reports feeling bloated and has been gaining weight again despite not changing her daily habits. Billing Department Supervisor Required: No Allergies metoclopramide [From REGLAN] Adverse Reaction (Intermediate, Verified 08/04/24 14:51) AGITATION morphine Adverse Reaction (Mild, Verified 08/04/24 14:51) Nausea aspirin Adverse Reaction (Verified 08/04/24 14:51) Vomiting HPI HPI lab results: Details: LAST VISIT: Elevated liver enzymes Fatty liver disease, nonalcoholic Chronic constipation Plan Patient will continue taking magnesium to help her with bowel movements and increase fluid intake and activity to promote better bowel motility. Patient was found to have increased liver enzymes we will repeat that, however we will do workup to rule out any also removed disorders. We will check ultrasound with elastography. Patient will follow-up in the office in 2-3 months, sooner on as needed basis. Patient is agreeable to this plan and verbalizes understanding of instructions. She was given the opportunity to ask questions and all questions answered. ? Thank you for allowing me participate in her care Orders Orders Hepatitis A,B,C Profile 05/07/24 R7. Alpha Fetoprotein 05/07/24 R79. C Reactive Protein 05/07/24 K58.9 Smooth Muscle Antibody 05/07/24 R79.89 Transglutaminase IgA 05/07/24 R10.9 Liver Fibrosis Pnl 05/07/24 K76.0 Liver Panel 05/07/24 R74.01 Vitamin D 25-OH (D2 and D3) 05/07/24 E55.9 Mitochondrial Antibody 05/07/24 R7.89 Prothrombin Time INR 05/07/24 R74.8 HIV Ab/Ag 05/07/24 R79.89 Ceruloplasmin 05/07/24 R79.89 Ferritin 05/07/24 R74.8 US abdomen comp w elastography 05/07/24 R7.89 TODAY'S VISIT Patient is here today for follow-up. Patient was unable to get ultrasound as she is having severe pain in her right buttocks. Patient is awaiting to go for surgery. All her lab work was discussed with patient today. Patient continues to have elevation in her liver enzymes slight decreased, however they are still elevated. Otherwise negative workup. Patient continues to have abdominal bloating. Patient is not following diet. Patient continues to binge on certain food. Not following now on low FODMAP diet or fatty liver diet. Patient denies melena, hematochezia, unintentional weight loss or ribbon like stools. Patient denies dyspepsia, dysphagia or odynophagia. PFSH Medical History Abdominal pain Elevated liver enzymes Microscopic hematuria Muscle spasm Upper respiratory tract infection Acute dermatitis Obese Sinus infection Cellulitis of buttock Acquired hypothyroidism Hyperglycemia Post covid-19 condition, unspecified Breast cancer screening Foreign body of buttock Superimposed infection Cellulitis and abscess of buttock Cellulitis Renal calculi Frequent UTI Hematuria History of degenerative disc disease Normal colonoscopy Chronic constipation Hx of renal calculi History of panic attacks Hx of anxiety disorder Depression Hx of opioid abuse Thyroid disease Arthritis Fibromyalgia HTN (hypertension) Surgical History H/O left knee surgery Hx of cholecystectomy Tubal ligation status Hx of appendectomy Family History Paternal Grandmother Colon cancer Mother Pulmonary embolism Sister Pulmonary embolism Lung cancer Social History Household Members: Family Household Members Other:: daughter Housing: House Do you presently have visiting nurse or other home services: No Alcohol intake: never Patient Tobacco Use Status: Former Tobacco user Years Smoked: 20 e-Cigarette/Vaping Use: Never Used Second Hand Smoke Exposure: Yes Advance Directives Date on File: 06/02/21 service: No Current occupational status: disabled Cognitive needs: No Hearing needs: No Vision needs: No Female Reproductive History Menstrual Age of Menarche: 12 Review of Systems Const Denies weight gain and Denies weight loss ENT Reports no additional complaints, Denies dysphagia and Denies odynophagia Card Reports no additional complaints Resp Reports no additional complaints GI Reports abdominal pain (occasional), Denies belching, Denies melena, Denies bloating, Denies change in bowel habits, Reports constipation, Denies dysphagia, Denies excessive flatus, Denies dyspepsia, Reports heartburn, Denies diarrhea, Denies loose stools, Denies nausea, Denies odynophagia and Denies vomiting Reports no additional complaints Musc Reports no additional complaints Neuro Reports no additional complaints Psych Reports no additional complaints Endo Reports no additional complaints Physical Exam Vital Signs: Last Vital Signs Pulse 80 08/04/24 14:57 BP 140/78 H 08/04/24 14:57 Pulse Ox 98 08/04/24 14:57 Oxygen Delivery Method Room Air 08/04/24 14:57 BMI result Body Mass Index 31.0 Const General: healthy appearing and no acute distress Nutritional Appearance: obese Orientation/consciousness: patient oriented x3 Resp Effort & Inspection: normal respiratory effort, able to speak in complete sentences, no tracheal deviation and symmetric chest movement Auscultation: clear to auscultation bilaterally Cardio Rate: regular rate GI Inspection: Yes normal to inspection, Yes distended and Yes obesity Palpation (GI): Soft to palpation, not firm, nontender and No hepatosplenomegaly present Auscultation: normal bowel sounds General: Yes no CVA tenderness Back/Spine/Pelvis Back: no CVA tenderness Skin General skin exam: elasticity normal, turgor normal and dry skin Neuro General: patient oriented x3 Psych Appearance: grossly normal Mental Status: mental status grossly normal Results Reviewed Results Reviewed: Laboratory Tests 12/31/23 05/28/24 18:03 13:26 AST 96 H 86 H ALT 130 H 108 H Alkaline Phosphatase 74 72 Anti-Mitochondrial Ab NEGATIVE Anti-Smooth Muscle Ab <20 Tiss Transglutamin IgA <1.0 Hepatitis A IgM Ab Nonreactive Hep Bs Antigen Negative Hep Bs Antibody REACTIVE Hep B Core Total Ab Nonreactive Hepatitis C Ab (EIA) Nonreactive HIV 1&2 Ab/P24 Ag 4thGn Nonreactive Assessment & Plan Assessment & Plan (1) Elevated liver enzymes: Code(s): R74.8 - Abnormal levels of other serum enzymes Category: Medical (2) Fatty liver disease, nonalcoholic: Code(s): K76.0 - Fatty (change of) liver, not elsewhere classified Category: Medical (3) Chronic constipation: Code(s): K59.09 - Other constipation Category: Medical Plan Long discussion with patient about dietary changes. We did talk about her changing her diet completely. Low fat, low salt, low carb and high-protein diet recommended. Patient will try to go shopping for healthier food. Avoid fast food. May substitute 1 meal with a shake. Avoid eating late at night. Patient was encouraged to increase fluid intake and activity to promote better bowel motility. Patient can try [id number] senna or Dulcolax. Patient will follow-up in 3 months, sooner on as needed basis. She is agreeable to this plan and verbalizes understanding of instructions. She was given the opportunity to ask questions and all questions answered. Thank you for allowing me to participate in her care Coding Level of Care Code Est Pt Level 3 (24028) Diagnoses Elevated liver enzymes R74.8 Fatty liver disease, nonalcoholic K76.0 Chronic constipation K59.09 Time Spent (min) 30 Comment 20 minutes spent with patient and additional 10 minutes spent reviewing her records
[2024-08-04 14:57] VITALS: BP 140/78; PULSE 80; O2SAT 98; BMI 31.0
--- OUTSIDE RECORDS SUMMARY | 2024-08-04 15:18 | XMS_ITS | Encounter Summary ---
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 Name Role Phone Unavailable Primary Care Provider Unavailabl e Reason for Visit * Reason Comments Med Refill Encounter Details Date Type Department Care Team (Late st Contact Info) Description 01/23/2023 Refill [facility] MEDICINE [address] [place] [address] [phone] Angie Mariee MD [address] [place] [phone] Chronic rhinitis Social History Tobacco Use Types [...] Care Team (Late st Contact Info) Description 09/02/2024 3:00 PM EDT Office Visit [facility] MEDICINE [address] [place] [address] [phone] Jaclyn Camacho MD [address] [place] [address] documented as of this encounter Visit Diagnoses Diagnosis Chronic rhinitis documented in this encounter
== END 2024-08-04 15:13 | disposition home or self-care (01) ==
PROVIDERS: PCP Physician Assistant; Visit Provider Nurse Practitioner Family
DX: R74.8 Abnormal levels of other serum enzymes (principal); K76.0 Fatty (change of) liver, not elsewhere classified; K59.09 Other constipation
CPT/HCPCS: 99213

== ENCOUNTER → 2024-08-04 14:26 | Outpatient (BNVA) | payer OTHER, SELFPAY | PROVIDERS: PCP Physician Assistant; Visit Provider Nurse Practitioner Family | DX: K59.09 Other constipation (principal); K76.0 Fatty (change of) liver, not elsewhere classified; R74.8 Abnormal levels of other serum enzymes | CPT/HCPCS: 99212 ==

== ENCOUNTER 2024-08-16 15:28 | Outpatient (REF) | payer OTHER, SELFPAY ==
[2024-08-16 17:07] LABS: Hematocrit 35.8 % (37.0-47.0); Mean Corpuscular HGB Conc 30.7 g/dl (31.0-35.0); Mean Corpuscular Hemoglobin 23.5 pg (27.0-33.0); Mean Corpuscular Volume 76.5 fL (80.0-98.0); Mean Platelet Volume 9.7 fL (9.4-12.3); Platelet Count 326 X10*3/uL (160-400); Red Blood Count 4.68 X10*6/uL (4.20-5.50); Red Cell Distribution Width 14.8 % (11.0-16.0); White Blood Count 5.7 X10*3/uL (4.8-10.8)
--- OUTSIDE RECORDS SUMMARY | 2024-08-16 17:12 | XMS_ITS | Encounter Summary ---
Author Organization [employer] Address [address] [place] [address] [address] [place] [address] Care Team Providers Care Vp Hr Diversity Name Role Phone Unavailable Primary Care Provider Unavailabl e Reason for Visit * Reason Comments Med Refill Encounter Details Date Type Department Care Team (Late st Contact Info) Description 01/23/2023 Refill [facility] MEDICINE [address] [place] [phone] Angie Mariee MD [address] [place] [phone] Chronic rhinitis Social History Tobacco Use Types [...] Description 09/02/2024 3:00 PM EDT Office Visit [facility] MEDICINE [address] [place] [address] [phone] Jaclyn Camacho MD [address] [place] [phone] 11/25/2024 3:00 PM EDT Clinical Support [facility] MEDICINE [address] [place] [phone] Esequiel Crockett, OSMANI [address] [place] [address] documented as of this encounter Visit Diagnoses Diagnosis Chronic rhinitis documented in this encounter
[2024-08-16 17:40] LABS: Alanine Aminotransferase 114 U/L (0-31); Albumin Level 4.2 g/dL (3.5-5.0); Alkaline Phosphatase 68 U/L (39-117); Anion Gap 13 (12-20); Aspartate Amino Transferase 115 U/L (5-31); Bilirubin Total 0.2 mg/dL (0.0-1.0); Blood Urea Nitrogen 8 mg/dL (9-16); Calcium 9.2 mg/dL (8.4-10.2); Carbon Dioxide 25 mmol/L (22-29); Chloride 105 mmol/L (96-108); Cholesterol 186 mg/dL (<200); Estimated Glomerular Filt Rate > 60; Glucose Fasting 143 mg/dL (60-99); HDL Cholesterol 34 mg/dL (>40); LDL Cholesterol Calculated 105 mg/dL (<100); Potassium 3.5 mmol/L (3.3-5.1); Sodium 139 mmol/L (135-145); Total Protein 7.4 g/dL (6.5-8.0); Triglycerides 235 mg/dL (<150)
[2024-08-16 17:49] LABS: TSH reflex Free T4 1.58 uIU/mL (0.32-4.0)
== END 2024-08-16 15:29 | disposition home or self-care (01) ==
LOC: HO.LAB 15:28
PROVIDERS: PCP Physician Assistant; Visit Provider Physician Assistant
DX: E03.9 Hypothyroidism, unspecified (principal); E78.2 Mixed hyperlipidemia; I10 Essential (primary) hypertension
CPT/HCPCS: 36415; 80053; 80061; 84443; 85027

== ENCOUNTER 2024-08-27 14:31 | Outpatient (REF) | payer OTHER, SELFPAY ==
--- NOTE | ~2024-08-27 | US_ITS ---
EXAMINATION: Ultrasound renal bilaterally. CLINICAL INFORMATION: Calculus of kidney. COMPARISON: July 11, 2023. TECHNIQUE: Real-time ultrasound kidneys using grayscale technique. FINDINGS: Right kidney: 11 x 5 x 6 cm. Normal echotexture. Normal renal cortical thickness. No hydronephrosis. No solid or cystic lesion detected by technologist. Left kidney: 12 x 5 x 5 cm. Normal echotexture. Normal renal cortical thickness. No hydronephrosis. No solid or cystic lesion detected by the technologist. US/US renal BI IMPRESSION: No hydronephrosis. No nephrolithiasis. Electronically signed by: Dayne Mai MD 08/27/2024 03:45 PM EDT
--- OUTSIDE RECORDS SUMMARY | 2024-08-27 14:34 | XMS_ITS | Encounter Summary ---
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 Role Phone Unavailable Primary Care Provider Unavailabl e Reason for Visit * Reason Comments Med Refill Encounter Details Date Type Department Care Team (Late st Contact Info) Description 01/23/2023 Refill [facility] MEDICINE [address] [place] [address] Angie Mariee MD [address] [place] [address] Chronic rhinitis Social History Tobacco Use Types [...] Description 09/02/2024 3:00 PM EDT Office Visit [facility] MEDICINE [address] [place] [address] Jaclyn Camacho MD [address] [place] [address] 09/09/2024 2:00 PM EDT Office Visit [facility] ADULT DENTAL [address] [place] [address] Nagi Song, DMD [address] [place] [address] 11/25/2024 3:00 PM EDT Clinical Support [facility] MEDICINE [address] [place] [address] Esequiel Crockett, RN [address] [place] [phone] documented as of this encounter Visit Diagnoses Diagnosis Chronic rhinitis documented in this encounter
== END 2024-08-27 14:32 | disposition home or self-care (01) ==
LOC: HO.HMGCX 14:31
PROVIDERS: PCP Physician Assistant; Visit Provider Nurse Practitioner Family
DX: N20.0 Calculus of kidney (principal)
CPT/HCPCS: 76775

== ENCOUNTER → 2024-08-27 14:39 | Outpatient (BNV) | payer OTHER, SELFPAY | PROVIDERS: PCP Physician Assistant; Visit Provider Radiology Diagnostic Radiology | DX: N20.0 Calculus of kidney (principal) | CPT/HCPCS: 76775 ==

== ENCOUNTER 2024-09-24 08:39 | Outpatient (REF) | payer OTHER, SELFPAY ==
--- NOTE | ~2024-09-24 | US_ITS ---
EXAMINATION: US COMPLETE ABDOMEN WITH LIVER ELASTOGRAPHY CLINICAL INFORMATION: Elevated LFTs. COMPARISON: None available. Correlation made with CT abdomen and pelvis 07/14/2023, and MRI abdomen 01/03/2024. TECHNIQUE: Real-time imaging of the abdominal viscera. Noninvasive ultrasound liver fibrosis assessment is performed using Jorge ElastPQ point quantification shear wave elastography (pSWE) with a C5-2 MHz transducer. Multiple elastography samples are obtained. FINDINGS: PANCREAS: The visualized pancreatic head and body are normal in appearance. The remainder of the pancreas is obscured from visualization by the overlying bowel gas. ABDOMINAL AORTA: No aortic aneurysm is seen. INFERIOR VENA CAVA: Visualized portions are normal. LIVER: Liver is normal in size and contour. There is diffusely increased echogenicity, likely in keeping with steatosis. There is no focal suspicious lesion. There is no intrahepatic biliary ductal dilatation. The right lobe measures 14.8 cm in length. The left lobe measures 11.2 cm in length. Portal flow is towards the liver (hepatopetal). Shear wave liver elastography median stiffness is 1.76 m/s (reference: normal median stiffness is 1.3 m/s or less). IQR/median stiffness to assess sampling precision is 0.24 (reference: good quality data set is IQR/median stiffness of 0.15 or less). GALLBLADDER: Surgically absent. COMMON BILE DUCT: Normal in caliber measuring 0.5 cm in diameter. RIGHT KIDNEY: No hydronephrosis. No renal calculi or focal parenchymal lesions. The kidney measures 10.7 cm in maximum dimension. LEFT KIDNEY: No hydronephrosis. No renal calculi or focal parenchymal lesions. The kidney measures 12.2 cm in maximum dimension. SPLEEN: Unremarkable. The spleen measures 10.9. cm in maximum dimension. There is a 1.6 cm splenule present. FREE FLUID: None seen. US/US abdomen comp w elastography IMPRESSION: 1. Diffusely increased hepatic echogenicity without focal suspicious lesion. Findings most likely represent steatosis. 2. Liver elastography: Although measurements are suggestive of compensated advanced chronic liver disease, there is statistical variability of the sampling which decreases accuracy. 3. Cholecystectomy. 4. No abnormal biliary dilatation. 5. Remainder of the exam is normal. REFERENCE: Society of Radiologists in Ultrasound Liver Stiffness Thresholds (2020): LIVER STIFFNESS THRESHOLDS: *Liver Stiffness equal or less than 1.3 m/s: High probability of being normal. *Liver Stiffness less than 1.7 m/s: In the absence of other known clinical signs, rules out compensated advanced chronic liver disease. *Liver Stiffness 1.7-2.1 m/s: Suggestive of compensated advanced chronic liver disease but need further test for confirmation. *Liver Stiffness over 2.1 m/s: Rules in compensated advanced chronic liver disease. *Liver Stiffness over 2.4 m/s: Suggestive of clinically significant portal hypertension. QUALITY OF DATA SET: *IQR/Median value equal or less than 0.15 implies a quality data set. *IQR/Median value over 0.15 implies a poor quality data set. SIGNIFICANT CHANGE FROM PRIOR EXAM: Significant change if liver stiffness measurement is 10% or greater from prior exam. OTHER CONSIDERATIONS: The stage of liver fibrosis may be overestimated in the setting of acute hepatitis, liver inflammation, elevated liver function tests, hepatic vascular congestion, obstructive cholestasis, non-fasting state, and infiltrative diseases such as amyloidosis and lymphoma. In some patients with NAFLD, the liver stiffness thresholds for compensated advanced chronic liver disease may be lower. In causes other than viral hepatitis and NAFLD, liver stiffness thresholds are not well established. Electronically signed by: Parish Ma MD 09/24/2024 09:19 AM EDT
--- OUTSIDE RECORDS SUMMARY | 2024-09-24 08:42 | XMS_ITS | Encounter Summary ---
Author Organization [employer] Address [address] [facility] 7 [place] [address] Care Team Providers Care Senior Game Developer Name Role Phone Unavailable Primary Care Provider Unavailabl e Reason for Visit * Reason Comments Med Refill Encounter Details Date Type Department Care Team (Late Contact Info) Description 01/23/2023 Refill [facility] MEDICINE [address] [place] [address] Angie Mariee MD [address] [place] [address] Chronic rhinitis Social History Tobacco Use Types [...] Department Care Team (Late Contact Info) Description 09/28/2024 3:00 PM EDT Office Visit [facility] ADULT DENTAL [address] [place] [address] Frida Sargent 09/30/2024 1:30 PM EDT Office Visit [facility] ADULT DENTAL [address] [place] [address] Nagi Song DMD [address] [place] [address] 11/25/2024 3:00 PM EDT Office Visit [facility] MEDICINE [address] [place] [address] Jaclyn Camacho MD [address] [place] [address] documented as of this encounter Visit Diagnoses Diagnosis Chronic rhinitis documented in this encounter
--- OUTSIDE RECORDS SUMMARY | 2024-09-24 08:42 | XMS_ITS | Clinical Summary ---
Author Organization [facility] ity Address [address] [place] [address] Care Team Providers Care Pasta Press Operator Name Role Phone Unavailable Primary Care [...] 2023-2 5 season) 2023 Influenza Vaccine (#1) 2024 RSV Immunization Adult Patie nts (1 - 1-dose 75+ series) 11/13/2039 HIB [...] age to complete this topic Meningococcal B Vaccine Aged Out No l onger eligible based on patient's age to complete this topic RSV Immunization Patients Un deyanira 20 months Aged Out No longer eligible b ased on patient's age to complete this topic Varicella Vaccines Aged Out No longer eligible based on patient's age to complete this topic
--- OUTSIDE RECORDS SUMMARY | 2024-09-24 08:42 | XMS_ITS | Patient Health Record ---
Author Organization [facility] Tonia mon [place] Address [address] [place] [address] Care Team Providers Care Faith Healer Name Role Phone Tay Leung Primary Care Provider Unavailab Ole Garcia Unavailable [phone] Reason For Referral No Information Plan Of Treatment No Information Insurance Providers Payer Name Payer Address Payer Phone Subscriber Number Group Number Insured Name Patient Relationship to Insured Coverage Start Date Coverage End Date [facility] [employer] Claims [address] [place] [id number] Lu Clayton Self - patient is the insured
== END 2024-09-24 08:40 | disposition home or self-care (01) ==
LOC: HO.US 08:39
PROVIDERS: PCP Physician Assistant; Visit Provider Nurse Practitioner Family
DX: R79.89 Other specified abnormal findings of blood chemistry (principal)
CPT/HCPCS: 76700; 76981

== ENCOUNTER → 2024-09-24 08:40 | Outpatient (BNV) | payer OTHER, SELFPAY | PROVIDERS: PCP Physician Assistant; Visit Provider Radiology Diagnostic Radiology | DX: K76.0 Fatty (change of) liver, not elsewhere classified (principal) | CPT/HCPCS: 76700 ==

== ENCOUNTER 2024-09-29 15:53 | Outpatient (REF) | payer OTHER, SELFPAY ==
--- NOTE | ~2024-09-29 | MR_ITS ---
EXAMINATION: MR PELVIS WITHOUT AND WITH CONTRAST Contrast: 8 mL Gadavist TECHNIQUE: Multiplanar multisequence MR imaging through the pelvis without and with IV contrast INDICATION: S30.850A - Superficial foreign body of lower back and pelvis, initial, collagen patellar injected into the buttock 2016, painful Prior: CT on July 14, 2023 FINDINGS: Articular Cartilage/Joint fluid: Hip joints are grossly unremarkable. There is no joint effusion. Ligament/Muscle/Tendon: There is minimal fluid signal around the distal gluteal medius and minimus tendons and proximal left hamstring There is no muscle edema.. Neurovascular: Major neurovascular structures are unremarkable and symmetrical. Soft tissues: Multi focal conglomerates are located in the subcutaneous soft tissues overlying the gluteal region that demonstrates low signal on T1 and T2 to sequences. There is minimal peripheral fluid around these collections, left greater than right. Contrast, there is no hyperenhancement. On axial image , variously on the right measures 2.3 x 8.4 cm and narrowing on the left measures 3.0 x 8.4 cm (AP by transverse). There is no extension deep to the muscle fascia. Uterus and ovaries are unremarkable. Bones/Marrow: Bone marrow signal is physiologic. SI joints are symmetrical without erosions, or ankylosis. Pubic symphysis joint is mildly degenerated. MR/MR pelvis wo/w con IMPRESSION: Foreign bodies within the subcutaneous soft tissues of the gluteal regions bilaterally are consistent with history of collagen filler injections. There is no hyperenhancement to suggest infection. There is no fluid collection with peripheral enhancement to suggest abscess. There is no infiltration into the musculature. Mild tendinopathy involving distal gluteal medial and minimus tendons bilaterally and proximal left hamstring tendon. Electronically signed by: Jose Renee MD 09/29/2024 05:34 PM EDT
--- OUTSIDE RECORDS SUMMARY | 2024-09-29 16:02 | XMS_ITS | Patient Health Record ---
Author Organization [facility] Tonia mon [place] Address [address] [place] [address] Care Team Providers Care Die Baker Name Role Phone Tay Leung Primary Care Provider Unavailab Ole Garcia Unavailable [phone] Reason For Referral No Information Plan Of Treatment No Information Insurance Providers Payer Name Payer Address Payer Phone Subscriber Number Group Number Insured Name Patient Relationship to Insured Coverage Start Date Coverage End Date [facility] [employer] Claims [address] [place] [id number] Lu Clayton Self - patient is the insured
--- OUTSIDE RECORDS SUMMARY | 2024-09-29 16:02 | XMS_ITS | Clinical Summary ---
Author Organization [facility] ity Address [address] [place] [address] Care Team Providers Care Newspaper Writer Name Role Phone Unavailable Primary Care Provider [...] 2) 2014 Colorectal Cancer Screening: Colonoscopy 02/10/2022 HIV Screening 02/10/2022 Hepatitis C Screening 02/10/2022 Social Influencers of Health Screening 02/10/2022 COVID-19 Vaccine (1 - 2023-2 5 season) 2023 Depression Screening 03/10/2024 Influenza Vaccine (#1) 2024 RSV Immunization Adult [...]
--- OUTSIDE RECORDS SUMMARY | 2024-09-29 16:02 | XMS_ITS | Encounter Summary ---
Author Organization [employer] Address [address] [place] [address] [address] [place] [address] Care Team Providers Care Manager Utilization Management Name Role Phone Unavailable Primary Care Provider Unavailabl e Reason for Visit * Reason Comments Med Refill Encounter Details Date Type Department Care Team (Late Contact Info) Description 01/23/2023 Refill [facility] MEDICINE [address] [place] [address] Angie Mariee MD [address] [place] [address] Chronic rhinitis Social History Tobacco Use Types [...] Department Care Team (Late Contact Info) Description 09/30/2024 1:00 PM EDT Office Visit [facility] ADULT DENTAL [address] [place], [place] [phone] Nagi Song DMD [address] [place] [address] 11/25/2024 3:00 PM EDT Office Visit [facility] MEDICINE [address] [place] [address] Jaclyn Camacho MD [address] [place] [id number] documented as of this encounter Visit Diagnoses Diagnosis Chronic rhinitis documented in this encounter
== END 2024-09-29 15:54 | disposition home or self-care (01) ==
LOC: HO.MRI 15:53
PROVIDERS: PCP Physician Assistant; Visit Provider Physician Assistant
DX: S30.850A Superficial foreign body of lower back and pelvis, initial encounter (principal)
CPT/HCPCS: 72197; A9585

== ENCOUNTER → 2024-09-29 15:53 | Outpatient (BNV) | payer OTHER, SELFPAY | PROVIDERS: PCP Physician Assistant; Visit Provider Radiology Diagnostic Radiology | DX: S30.850D Superficial foreign body of lower back and pelvis, subsequent encounter (principal) | CPT/HCPCS: 72197 ==

== ENCOUNTER 2024-10-20 15:03 | Outpatient (REF) | payer OTHER, SELFPAY ==
[2024-10-20 15:59] LABS: Hematocrit 38.2 % (37.0-47.0); Hemoglobin 12.4 g/dl (12.0-16.0); Mean Corpuscular HGB Conc 32.5 g/dl (31.0-35.0); Mean Corpuscular Hemoglobin 25.0 pg (27.0-33.0); Mean Corpuscular Volume 77.0 fL (80.0-98.0); NRBC Abs Auto 0.000 X10*3/uL (0.0-0.012); NRBC Pct Auto 0.0 /100WBC (0.0-0.2); Platelet Count 277 X10*3/uL (160-400); Red Blood Count 4.96 X10*6/uL (4.20-5.50); White Blood Count 6.4 X10*3/uL (4.8-10.8)
[2024-10-20 16:15] LABS: Alanine Aminotransferase 106 U/L (0-31); Albumin Level 4.3 g/dL (3.5-5.0); Alkaline Phosphatase 67 U/L (39-117); Aspartate Amino Transferase 107 U/L (5-31); Iron 51 mcg/dL (30-160); Percent Iron Saturation 13 % (15-50); Total Iron Binding Capacity 383 mcg/dL (228-428); Total Protein 7.4 g/dL (6.5-8.0); Unsaturated Iron Binding 332 ug/dL
[2024-10-25 13:44] LABS: FIB-ALT 81 U/L (6-29); FIB-Alpha-2-Macroglobulin 152 mg/dL (106-279); FIB-Apolipoprotein A1 157 mg/dL (101-198); FIB-GGT 36 U/L (3-70); FIB-Haptoglobin 196 mg/dL (43-212); FIB-Total Bilirubin 0.3 mg/dL (0.2-1.2); Liver Fibrosis Score 0.08; Liver Fibrosis Stage F0; Nec Inflam Act Grade A1-A2; Nec Inflam Act Score 0.40
== END 2024-10-20 15:04 | disposition home or self-care (01) ==
LOC: HO.LAB 15:03
PROVIDERS: PCP Physician Assistant; Visit Provider Nurse Practitioner Family
DX: K76.0 Fatty (change of) liver, not elsewhere classified (principal); R74.01 Elevation of levels of liver transaminase levels; K59.09 Other constipation; R10.9 Unspecified abdominal pain; G89.29 Other chronic pain; D50.9 Iron deficiency anemia, unspecified
CPT/HCPCS: 36415; 80076; 81596; 83540; 85027; 99212

== ENCOUNTER 2024-10-20 15:03 | Outpatient (AMB) | payer OTHER, SELFPAY ==
--- OUTSIDE RECORDS SUMMARY | 2024-10-20 15:05 | XMS_ITS | Clinical Summary ---
Author Organization [facility] ity Address [address] [place] [address] Care Team Providers Care Harbor Police Lieutenant Name Role Phone Unavailable Primary Care Provider [...] complete this topic RSV Immunization Patients Un deaynira 20 months Aged Out No longer eligible b ased on patient's age to complete this topic Varicella Vaccines Aged Out No longer eligible based on patient's age to complete this topic
--- OUTSIDE RECORDS SUMMARY | 2024-10-20 15:05 | XMS_ITS | Patient Health Record ---
Author Organization [facility] Tonia mon [place] Address [address] [place] [address] Care Team Providers Care Tunnel Kiln Operator Name Role Phone Tay Leung Primary Care Provider Unavailab Ole Garcia Unavailable [phone] Reason For Referral No Information Plan Of Treatment No Information Insurance Providers Payer Name Payer Address Payer Phone Subscriber Number Group Number Insured Name Patient Relationship to Insured Coverage Start Date Coverage End Date [facility] [employer] Claims [address] [place] [id number] Lu Clayton Self - patient is the insured
--- OUTSIDE RECORDS SUMMARY | 2024-10-20 15:05 | XMS_ITS | Encounter Summary ---
Author Organization [employer] Address [address] [place] [address] [address] [place] [address] Care Team Providers Care Cook Ship Name Role Phone Unavailable Primary Care Provider Unavailabl e Reason for Visit * Reason Comments Med Refill Encounter Details Date Type Department Care Team (Late Contact Info) Description 01/23/2023 Refill [facility] MEDICINE [address] [place] [address] Angie Mariee MD [address] [place] [address] Chronic rhinitis Social History Tobacco Use Types [...] Department Care Team (Late Contact Info) Description 10/25/2024 2:30 PM EDT Office Visit [facility] ADULT DENTAL [address] [place], [place] [phone] Nagi Song DMD [address] [place] [address] 11/25/2024 3:00 PM EDT Office Visit [facility] MEDICINE [address] [place] [address] Jaclyn Camacho MD [address] [place] [phone] documented as of this encounter Visit Diagnoses Diagnosis Chronic rhinitis documented in this encounter
[2024-10-20 15:10] VITALS: BP 141/70; PULSE 69; BMI 30.5
--- NOTE | 2024-10-20 15:10 | A.OFFVIS_ITS ---
Vital Signs 10/20/24 15:10 Height 5 ft 3 in Weight 171 lb 15.369 oz BMI 30.5 BP 141/70 H Blood Pressure Location Lt brachial Position Sitting Pulse 69 Intake Visit Reasons: Review US results. Fatty liver. Intake Note: Lu presents in the office as a follow up for US results and fatty liver. CC: She states that she is here for results and states that the results seem not the best. Surgical Training Specialist Required: No Allergies metoclopramide (From REGLAN) Adverse Reaction (Intermediate, Verified 08/04/24 14:51) AGITATION morphine Adverse Reaction (Mild, Verified 08/04/24 14:51) Nausea aspirin Adverse Reaction (Verified 08/04/24 14:51) Vomiting HPI HPI Review US results. Fatty liver.: Details: LAST VISIT: Elevated liver enzymes Fatty liver disease, nonalcoholic Chronic constipation Plan Long discussion with patient about dietary changes. We did talk about her changing her diet completely. Low fat, low salt, low carb and high-protein diet recommended. Patient will try to go shopping for healthier food. Avoid fast food. May substitute 1 meal with a shake. Avoid eating late at night. Patient was encouraged to increase fluid intake and activity to promote better bowel motility. Patient can try eyji-[id number] senna or Dulcolax. Patient will follow-up in 3 months, sooner on as needed basis. She is agreeable to this plan and verbalizes understanding of instructions. She was given the opportunity to ask questions and all questions answered. TODAY'S VISIT Patient is here today for follow-up and to discuss ultrasound results. Patient reports that about 3 weeks ago she started doing low-fat, low-salt and high- protein diet. Until then patient was not dieting. Patient reports that she has not been working out. Ultrasound results discussed with patient. We have discussed lab results as well. Liver enzymes increased. Negative workup previously. Patient denies dyspepsia, dysphagia or odynophagia. Patient denies any melena, hematochezia, unintentional weight loss or ribbon like stools. [facility] Medical History Abdominal pain Elevated liver enzymes Microscopic hematuria Muscle spasm Upper respiratory tract infection Acute dermatitis Obese Sinus infection Cellulitis of buttock Acquired hypothyroidism Hyperglycemia Post covid-19 condition, unspecified Breast cancer screening Foreign body of buttock Superimposed infection Cellulitis and abscess of buttock Cellulitis Renal calculi Frequent UTI Hematuria History of degenerative disc disease Normal colonoscopy Chronic constipation Hx of renal calculi History of panic attacks Hx of anxiety disorder Depression Hx of opioid abuse Thyroid disease Arthritis Fibromyalgia HTN (hypertension) Surgical History (Updated 10/20/24 @ 15:12 by QIANA Pak) Hx of colonoscopy History of esophagogastroduodenoscopy (EGD) H/O left knee surgery Hx of cholecystectomy Tubal ligation status Hx of appendectomy Family History Paternal Grandmother Colon cancer Mother Pulmonary embolism Sister Pulmonary embolism Lung cancer Social History Household Members: Family Household Members Other:: daughter Housing: House Do you presently have visiting nurse or other home services: No Alcohol intake: never Patient Tobacco Use Status: Former Tobacco user Years Smoked: 20 e-Cigarette/Vaping Use: Never Used Second Hand Smoke Exposure: Yes Advance Directives Date on File: 06/02/21 service: No Current occupational status: disabled Cognitive needs: No Hearing needs: No Vision needs: No Female Reproductive History Menstrual Age of Menarche: 12 Physical Exam Vital Signs: Last Vital Signs Pulse 69 10/20/24 15:10 BP 141/70 H 10/20/24 15:10 BMI result Body Mass Index 30.5 Const General: healthy appearing and no acute distress Nutritional Appearance: obese Orientation/consciousness: patient oriented x3 Resp Effort & Inspection: normal respiratory effort, able to speak in complete sentences, no tracheal deviation and symmetric chest movement Auscultation: clear to auscultation bilaterally Cardio Rate: regular rate GI Inspection: Yes normal to inspection, Yes distended and Yes obesity Palpation (GI): Soft to palpation, not firm, nontender and No hepatosplenomegaly present Auscultation: normal bowel sounds General: Yes no CVA tenderness Back/Spine/Pelvis Back: no CVA tenderness Skin General skin exam: elasticity normal, turgor normal and dry skin Neuro General: patient oriented x3 Psych Appearance: grossly normal Mental Status: mental status grossly normal Results Reviewed Results Reviewed: ABDOMINAL ULTRASOUND WITH ELASTOGRAPHY FINDINGS: PANCREAS: The visualized pancreatic head and body are normal in appearance. The remainder of the pancreas is obscured from visualization by the overlying bowel gas. ABDOMINAL AORTA: No aortic aneurysm is seen. INFERIOR VENA CAVA: Visualized portions are normal. LIVER: Liver is normal in size and contour. There is diffusely increased echogenicity, likely in keeping with steatosis. There is no focal suspicious lesion. There is no intrahepatic biliary ductal dilatation. The right lobe measures 14.8 cm in length. The left lobe measures 11.2 cm in length. Portal flow is towards the liver (hepatopetal). Shear wave liver elastography median stiffness is 1.76 m/s (reference: normal median stiffness is 1.3 m/s or less). IQR/median stiffness to assess sampling precision is 0.24 (reference: good quality data set is IQR/median stiffness of 0.15 or less). GALLBLADDER: Surgically absent. COMMON BILE DUCT: Normal in caliber measuring 0.5 cm in diameter. RIGHT KIDNEY: No hydronephrosis. No renal calculi or focal parenchymal lesions. The kidney measures 10.7 cm in maximum dimension. LEFT KIDNEY: No hydronephrosis. No renal calculi or focal parenchymal lesions. The kidney measures 12.2 cm in maximum dimension. SPLEEN: Unremarkable. The spleen measures 10.9. cm in maximum dimension. There is a 1.6 cm splenule present. FREE FLUID: None seen. US/US abdomen comp w elastography IMPRESSION: 1. Diffusely increased hepatic echogenicity without focal suspicious lesion. Findings most likely represent steatosis. 2. Liver elastography: Although measurements are suggestive of compensated advanced chronic liver disease, there is statistical variability of the sampling which decreases accuracy. Assessment & Plan Assessment & Plan (1) Elevated liver enzymes: Code(s): R74.8 - Abnormal levels of other serum enzymes Category: Medical (2) Fatty liver disease, nonalcoholic: Code(s): K76.0 - Fatty (change of) liver, not elsewhere classified Category: Medical (3) Chronic constipation: Code(s): K59.09 - Other constipation Category: Medical (4) Chronic abdominal pain: Code(s): R10.9 - Unspecified abdominal pain; G89.29 - Other chronic pain Category: Medical (5) Hepatic steatosis: Code(s): K76.0 - Fatty (change of) liver, not elsewhere classified Plan Long discussion with patient about changing her diet. Follow the instructions given to her last visit. Patient reports constipated she is on Suboxone as well as on iron. He will start taking Colace. Patient is on iron in Suboxone, may take milk of magnesia as needed. Increase fluid intake and activity to promote better bowel motility. Patient will follow-up in 3 months, sooner on as needed basis. Patient is agreeable to this plan and verbalizes and he of instructions. She was given the opportunity to ask questions and all questions answered. Thank you for allowing me to participate in his care Orders: Orders Liver Panel Today R74.01 - Elevation of levels of liver transaminase levels Liver Fibrosis Pnl Today K76.0 - Fatty (change of) liver, not elsewhere classified Medications: New docusate sodium 200 mg (2 x 100 mg) PO BEDTIME 180 caps 3RF K59.00 - Constipation, unspecified Coding Level of Care Code Est Pt Level 3 (22810) Diagnoses Elevated liver enzymes R74.8 Fatty liver disease, nonalcoholic K76.0 Chronic constipation K59.09 Chronic abdominal pain R10.9; G89.29 Hepatic steatosis K76.0 Time Spent (min) 30 Comment 20 minutes spent with patient and additional 10 minutes spent reviewing her records
== END 2024-10-20 15:29 | disposition home or self-care (01) ==
LOC: HO.HGI 15:04
PROVIDERS: PCP Physician Assistant; Visit Provider Nurse Practitioner Family
DX: R74.8 Abnormal levels of other serum enzymes (principal); K76.0 Fatty (change of) liver, not elsewhere classified; K59.09 Other constipation; R10.9 Unspecified abdominal pain; G89.29 Other chronic pain
CPT/HCPCS: 99213

== ENCOUNTER 2024-11-24 14:15 | Outpatient (AMB) | payer OTHER, SELFPAY ==
--- OUTSIDE RECORDS SUMMARY | 2023-11-25 10:00 | XMS_ITS ---
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 No ppwrk. * Medical History: Objective: * Vitals: Assessment: Plan: * Treatment: * Images: * The named appointment provid er may or may not be the originator of this progress note, and it is not deemed complete until electronically signed by the appointment provider. Sign off status: Pending * Provider: Renetta Jernigan DPM Date: 11/25/2023 Generated for Demetrio fish/Devin/eTransmitting on: 11/24/2024 05:58 PM EDT
--- NOTE | 2024-11-24 14:17 | A.OFFPC_ITS ---
Vital Signs 11/24/24 14:18 Height 5 ft 3 in Weight 175 lb 8 oz BMI 31.1 BP 130/70 Blood Pressure Location Lt brachial Position Sitting Pulse 85 Pulse Source Pulse Oximeter Temp 97.3 F Temp Source Temporal Artery Scan Pulse Oximetry (%) 97 Oxygen Delivery Method Room Air Intake Visit Reasons: f/u htn/ hypothyroid Intake Note: Patient is here to follow up on HTN, Hypothyroid. Integration Technician Required: No Offset Machine Operator: Present Accompanied by: Family/Other Allergies metoclopramide (From REGLAN) Adverse Reaction (Intermediate, Verified 11/24/24 14:36) AGITATION morphine Adverse Reaction (Mild, Verified 11/24/24 14:36) Nausea aspirin Adverse Reaction (Verified 11/24/24 14:36) Vomiting Medication List - Last Reconciled 11/24/24 by Tay Leung PA-C amlodipine 5 mg PO DAILY 90 days ascorbic acid (vitamin C) 500 mg PO DAILY betamethasone dipropionate 0.05% 1 appl topical DAILY PRN 30 days blood pressure monitor Testing blood pressure once a day/ PRN buprenorphine-naloxone 8-2 mg (Suboxone) 0.5 film buccal BID@1130,1800 cetirizine 10 mg PO DAILY cholecalciferol (vitamin D3) (Vitamin D3) 25 mcg PO DAILY 90 days clonazepam 0.5 mg PO TID PRN 14 days diclofenac sodium 1% 2 grams topical QID docusate sodium 200 mg (2 x 100 mg) PO BEDTIME ferrous sulfate 325 mg PO DAILY 90 days fluticasone propionate 50 mcg/actuation 1 - 2 sprays intranasal DAILY PRN ibuprofen 800 mg PO Q8H PRN 15 days ipratropium bromide 2 sprays intranasal BID 30 days levothyroxine 50 mcg PO DAILY 90 days lidocaine 5% 1 patch topical DAILY magnesium oxide 400 mg PO DAILY Tobacco use date assessed: 11/24/24 Dental Screening Dental Screen Date: 08/03/24 HPI f/u htn/ hypothyroid HPI Details Patient is a 59-year-old female here today for follow-up visit Patient's past medical history significant for hyperlipidemia, fibromyalgia, HTN , generalized anxiety disorder, migraines. .. Concern- >- Sinusitis: The patient reports having contracted COVID-19 two weeks ago, which resulted in severe symptoms including back pain, fluid in the ears, and sinus pressure. She has experienced COVID-19 four times, with the most recent episode being particul pancho severe, causing significant fatigue and vertigo. The patient has a history of positional vertigo, which has been exacerbated by the recent COVID-19 infection, leading to dizziness and nausea. She reports that the vertigo is the most distressing of her symptoms, causing her to feel as though she is in constant motion. .. Iron-deficiency anemia: Most recent CBC showing improved hemoglobin, has been using iron supplement which has been helpful. Impaired glucose metabolism: Most recent fasting blood sugar slightly elevated at 102. Will check an A1c Patient is somewhat concerned about diabetes as she has a strong family history of diabetes. Hypertension: Patient continues with amlodipine 5 mg daily with good effect. Today's blood pressure acceptable in office. .. Fibromyalgia:? Followed by Rheumatology.? Continues now on Suboxone due to her chronic pain. .. Hyperlipidemia:? Continues on Crestor 10 mg on occasion.? Most recent lipid panel showing good control over total cholesterol and LDL cholesterol. .. Opiate dependence:? Was previously on narcotic pain medication due to her chronic arthritic pain, is status post total knee arthroplasty.? Continues on Suboxone (4 mg) through [facility]. .. HYpothtyroid:? Most recent TSH has been stable on current dose of levothyroxine. Laboratory Tests 08/16/24 10/20/24 15:59 15:55 Hgb 11.0 L 12.4 Cholesterol 186 LDL Cholesterol, C alc 105 H [facility] Medical History (Updated 11/24/24 @ 14:50 by Tay Leung PA-C) Sinus infection Abdominal pain Elevated liver enzymes Microscopic hematuria Muscle spasm Upper respiratory tract infection Acute dermatitis Obese Cellulitis of buttock Acquired hypothyroidism Hyperglycemia Post covid-19 condition, unspecified Breast cancer screening Foreign body of buttock Superimposed infection Cellulitis and abscess of buttock Cellulitis Renal calculi Frequent UTI Hematuria History of degenerative disc disease Normal colonoscopy Chronic constipation Hx of renal calculi History of panic attacks Hx of anxiety disorder Depression Hx of opioid abuse Thyroid disease Arthritis Fibromyalgia HTN (hypertension) Surgical History Hx of colonoscopy History of esophagogastroduodenoscopy (EGD) H/O left knee surgery Hx of cholecystectomy Tubal ligation status Hx of appendectomy Family History Paternal Grandmother Colon cancer Mother Pulmonary embolism Sister Pulmonary embolism Lung cancer Social History Household Members: Family Household Members Other:: daughter Housing: House Do you presently have visiting nurse or other home services: No Alcohol intake: never Patient Tobacco Use Status: Former Tobacco user Years Smoked: 20 e-Cigarette/Vaping Use: Never Used Second Hand Smoke Exposure: Yes Advance Directives Date on File: 06/02/21 service: No Current occupational status: disabled Cognitive needs: No Hearing needs: No Vision needs: No Female Reproductive History Menstrual Age of Menarche: 12 Questionnaire Thrive Questionnaire Date Thrive assessed: 08/03/24 I am a: Patient What is your living situation today?: I have a steady place to live Within the past 12 months, did the food you bought not last and you didn't have the money to get more?: I choose not to answer this question Within the past 12 months, did you worry whether your food would run out before you got money to buy more?: Never true Do you have trouble paying for medicines?: No Do you have trouble getting transportation to medical appointments?: No Do you have trouble paying your heating and electricity bill?: No Do you have trouble taking care of your child, family member or friend?: No Do you have trouble with day-to-day activities such as bathing, preparing meals, shopping, managing finances, etc.?: Yes Are you currently unemployed and looking for a job?: No Are you interested in more education?: No Please select the resources that you would like help with: None Currently or been in a relationship where the following occur: No concerns reported THRIVE Score: 0 TONYA-7 AMB Questionnaire TONYA-7 Date TONYA - 7 assessed: 08/03/24 Source: Developed by Drs. Igor Jasso, Mariya Arteaga, Chito Combs and colleagues, with an educational haleigh from [employer]. Review of Systems Const Reports headache(s) Eyes Denies loss of vision ENT Details: + ear congestion and sinus pain Denies vertigo, Reports dizziness, Reports headache(s), Reports nasal congestion and Denies sore throat Card Denies chest pain, Denies leg edema and Denies lightheadedness Resp Denies cough, Denies hemoptysis and Denies wheezing GI Denies abdominal pain, Denies melena, Denies constipation, Denies diarrhea and Denies vomiting Denies urinary frequency, Denies dysuria and Denies urinary urgency Musc Denies arthralgias, Denies joint swelling, Denies numbness and Denies tingling Neuro Denies Abnormal speech present, Denies behavioral changes, Denies vertigo, Reports dizziness, Reports headache(s), Denies loss of vision, Denies memory loss, Denies numbness and Denies tingling Psych Denies anxiety, Denies behavioral changes, Denies depression, Denies memory loss and Denies panic attacks Andrew/Lymph Denies easy bleeding and Denies easy bruising Aller/Immun Denies wheezing Physical exam (Primary Care) Vital Signs: Last Vital Signs Temp 97.3 F 11/24/24 14:18 Pulse 85 11/24/24 14:18 BP 130/70 11/24/24 14:18 Pulse Ox 97 11/24/24 14:18 Oxygen Delivery Method Room Air 11/24/24 14:18 BMI result Body Mass Index 31.1 Tobacco/Smoking Status: Tobacco use Status Tobacco use date assessed 11/24/24 11/24/24 14:23 Patient Tobacco Use Status Former Tobacco user 11/24/24 14:23 e-Cigarette/Vaping Use Never Used 11/24/24 14:23 Thrive Assessment: Date of Thrive Assessment Date Thrive assessed 08/03/24 11/24/24 14:23 Currently or been in a relationship where the following occur: No concerns reported Const General: healthy appearing, no acute distress, alert and awake Nutritional Appearance: well nourished Orientation/consciousness: oriented to person, oriented to place and oriented to time HENMT Other: RIGHT EAR TYMPANIC MEMBRANE WITH AIR-FLUID LEVELS NOTED Ears: TM's abnormal bilaterally General nose exam: Normal nasal mucous membranes and turbinates present Eyes Conjunctivae: conjunctivae normal Sclerae: sclerae normal Pupils: Equal, round and reactive pupils present Neck Neck: Yes no lymphadenopathy and Yes no JVD Thyroid: Thyroid normal Carotids: no bruits Resp Effort & Inspection: normal respiratory effort and not tachypneic Auscultation: no crackles, no rales, no rhonchi and no wheezes Cardio Rate: regular rate Rhythm: regular rhythm Heart sounds: no murmurs and normal S1 and S2 GI Palpation (GI): Soft to palpation, nontender, no hepatomegaly and no splenomegaly Auscultation: normal bowel sounds Skin General skin exam: no rashes or lesions noted and dry skin Neuro General: oriented to person, oriented to place and oriented to time Cranial nerves: Yes Equal, round and reactive pupils present Speech: No Abnormal speech present Gait exam (Neuro): Normal gait present Motor exam (neuro): no tremor noted Extrem Right upper extremity: full ROM Left upper extremity: full ROM Right lower extremity: full ROM; no edema Left lower extremity: full ROM; no edema Psych Mental Status: mental status grossly normal Speech and movement: Normal speech and movement present Affect: normal affect Attitude: cooperative Thought process: Normal thought process present Coding Level of Care Code Est Pt Level 4 (38153) Diagnoses Uncomplicated opioid dependence F11.20 Substance use status: uncomplicated Primary hypertension I10 Hypertension type: primary hypertension Mixed hyperlipidemia E78.2 Hyperlipidemia type: mixed hyperlipidemia Hypothyroidism, unspecified type E03.9 Hypothyroidism type: unspecified Class 1 obesity E66.811 Acute recurrent maxillary sinusitis J01.01 Sinusitis location: maxillary Chronicity: acute Recurrence: recurrent Assessment & Plan Assessment & Plan (1) Opiate dependence: Code(s): F11.20 - Opioid dependence, uncomplicated Category: Medical Qualifiers: Substance use status: uncomplicated Qualified Code(s): F11.20 - Opioid dependence, uncomplicated Plan: Patient continues on Suboxone through his local [facility] clinic. (2) HTN (hypertension): Code(s): I10 - Essential (primary) hypertension Category: Medical Qualifiers: Hypertension type: primary hypertension Qualified Code(s): I10 - Essential (primary) hypertension Plan: Patient's blood pressure acceptable today in office. Will continue her current dose of antihypertensive medication with goal blood pressure to remain below 140/90 (3) HLD (hyperlipidemia): Code(s): E78.5 - Hyperlipidemia, unspecified Category: Medical Qualifiers: Hyperlipidemia type: mixed hyperlipidemia Qualified Code(s): E78.2 - Mixed hyperlipidemia Plan: Patient's most recent lipid panel showing good control over total cholesterol and LDL. She continues on lifestyle and dietary modifications (4) Hypothyroid: Code(s): E03.9 - Hypothyroidism, unspecified Category: Medical Qualifiers: Hypothyroidism type: unspecified Qualified Code(s): E03.9 - H ypothyroidism, unspecified Plan: Patient's most recent TSH stable. She continues on levothyroxine 50 mcg daily. Will continue to follow TSH to assure normal (5) Class 1 obesity: Code(s): E66.811 - Obesity, class 1 Category: Medical Plan: Patient does understand her BMI is over 30 and will try to work on being more physically active and adapting to better eating habits to reduce her weight. Not been able to be physically active lately due to flare ups of her buttocks pain secondary to the implanted polymers (6) Sinus infection: Code(s): J32.9 - Chronic sinusitis, unspecified Category: Medical Qualifiers: Sinusitis location: maxillary Chronicity: acute Recurrence: recurrent Qualified Code(s): J01.01 - Acute recurrent maxillary sinusitis Plan: The patient reports sinus pressure, likely related to fluid in the ears and recent COVID-19 infection. A nasal spray and allergy medication have been recommended, with Augmentin prescribed if symptoms worsen. Orders: Orders Complete Blood Count no Diff Today D64.9 - Anemia, unspecified IRON PROFILE Today D50.9 - Iron deficiency anemia, unspecified, D64.9 - Anemia, unspecified TSH reflex Free T4 Today D64.9 - Anemia, unspecified Medications: New prednisone take 3 tabs x3 days, 2 tablets x3 days, 1 tablet x3 days 10 mg PO DIRECTED 18 tabs 0RF 9 days J01.90 - Acute sinusitis, unspecified amoxicillin 875 mg PO BID 14 tabs 0RF 7 days J01.90 - Acute sinusitis, unspecified meclizine 25 mg PO DAILY PRN 15 tabs 0RF motion sickness 15 days R42 - Dizziness and giddiness Refilled fluticasone propionate 50 mcg/actuation 1 - 2 sprays intranasal DAILY PRN 16 grams 0RF Allergy Symptoms D64.9 - Anemia, unspecified
[2024-11-24 14:18] VITALS: BP 130/70; PULSE 85; TEMP 36.3; O2SAT 97; BMI 31.1
--- OUTSIDE RECORDS SUMMARY | 2024-11-24 17:58 | XMS_ITS | Clinical Summary ---
Author Organization [employer] Address [address] [facility] [address] [place] [address] Care Team Providers Care Auto Striper Name Role Phone Unavailable Primary Care Provider [...] 1 tablet by mouth at bed time. Active clonazePAM (KlonoPIN) 0.5 MG tablet Take 1 tablet by mouth every 8 (eight) hours. Mass Pat 01/14/2022 Active ibuprofen 800 MG tablet Take 1 tablet by mouth every 8 (eight) hours. Active LORazepam (Ativan) 0.5 MG tablet Take 1 tablet by mouth every 12 (twelve) hours. Active naloxone (Narcan) 4 mg/0.1 mL nasal spray Administer 0.1 mL into affected nostril(s). 06/30/2 021 Active cholecalciferol (Vitamin D-3) 25 MCG [...] Sodium Fluoride 1.1 % creamIndications:De ntin hypersensitivity [place] teeth for 2 minutes, morning and night. Spit, do not rinse. Do not eat or drink anything for 30 minutes following use. 112 g 3 024 Active Buprenorphine HCl-Naloxone HCl (Suboxone) 8-2 MG SL filmIndications:Unc omplicated opioid dependence (CMS/HCC) Place 1 Film under the tongue Once per day. 28 Film 2 025 2024 Active Buprenorphine HCl-Naloxone HCl (Suboxone) 8-2 MG SL filmIndications:Unc omplicated opioid dependence (CMS/HCC) Place 1 Film under the tongue Once per day. 28 Film 2 025 2024 Discontinued(R eorder (will not trigger [...] Encounters Date Type Department Care Team Description 11/16/2024 Refill [facility] [address] [place] [address] Jaclyn Camacho MD Uncomplicated opioid dependence (CMS/HCC) 09/09/2024 2:00 PM EDT Office Visit [facility] [address] [place] [address] Nagi Song DMD Dental caries (Primary Dx) 09/02/2024 3:00 PM EDT Office Visit [facility] [address] [place] [address] Jaclyn Camacho MD Opioid type dependence, continuous (CMS/HCC) (Primary Dx) 09/02/2024 Travel 08/24/2024 Refill [facility] [address] [place] [address] Jaclyn Camacho MD Uncomplicated opioid dependence (CMS/HCC) from Last 3 Months Immunizations Immunization Administration Dates Next Due Hep B, Adolescent [...] the past 12 months, has t he [employer] gas, oil or water company threatened to [...] Sign Reading Time Taken Comments Blood Pressure 160/78 10/25/2024 2:43 PM EDT Pulse 86 10/02/2023 2:28 PM EDT Temperature 36.8 C (98.3 F) 10/02/2023 2:28 PM EDT Respiratory Rate 20 10/02/2023 2:28 PM EDT Oxygen Saturation - - Inhaled Oxygen Concentration - - Weight 75.2 kg (165 lb 12.8 oz) 022 12:10 AM EDT Height 160 cm (5' 3 ) 01/02/2022 12:10 AM EDT Body Mass Index 29.37 01/02/2022 12:10 AM EDT Plan of Treatment Upcoming Encounters Date Type Department Care Team (Late st Contact Info) Description 11/25/2024 3:00 PM EDT Office Visit [facility] [address] [place] [address] Jaclyn Camacho MD [address] [place] [address] 02/17/2025 2:00 PM EST Clinical Support [facility] [address] [place] [address] Esequiel Crockett, RN [address] [place] [address] Health Maintenance Due Date Last Done Comments CT Colonography 1964 Colonoscopy 1964 Colorectal Cancer Screening 1964 FIT DNA/Cologuard 1964 FIT 1964 FOBT 1964 Sigmoidoscopy 1964 Disability Screening 1964 Hepatitis A Vaccines (1 of 2 - Risk 2-dose series) 11/13/1983 Pneumococcal Vaccine: 50+ Years (1 of 2 - PCV) 11/13/1983 Zoster Vaccines (1 of 2) 2014 Dental Prophylaxis 12/25/2018 06/24/2018, 1 , 08/27/2016 Mammogram 12/28/2021 12/29/2019 Pap Smear 11/03/2023 11/02/2020 COVID-19 Vaccine ( - season) 2024 Influenza Vaccine (#1) 2024 Hepatitis B Vaccines (1 of 3 - Risk 3-dose series) 2024 07/11/1999 RSV Patients and Patients Aged 60 years or older (1 - Risk 60-74 years 1-dose series) 2024 Dental Oral Exam 12/02/2024 05/31/2024, , 08/15/2016, Additional history exists DTaP/Tdap/Td Vaccines (2 - Td or Tdap) 12/12/2024 12/12/2014 Alcohol/Substance Use Screening 05/13/2025 05/13/2024 Depression Screening 05/13/2025 05/13/2024, 05/14/19 SDOH Screening 05/13/2025 05/13/2024 Dental X-Ray: Bitewings 06/01/2025 06/01/19, 02/04/2024, 08/27/2016, Additional history exists Tobacco Screening 10/25/2025 10/25/2024 Cervical Cancer Screening 11/02/2025 HPV/Cotest 11/02/2025 11/02/2020, 07/02/2017 Lipid Panel 07/09/2026 07/09/2021, 02/08, 01/11/2021, Additional history exists Dental X-Ray: Full Mouth 06/02/2027 025, 07/02/2019, 08/15/2016 HIV Screening Completed 11/07/2021, 05/0 04/2021, 03/05/2021, [...] Procedure Name Priority Date/Time Associated Diagnosis Comments CASE PRESENTATION, DETAILED AND EXTENSIVE TREATMENT PLANNING Routine 09/09/2024 2:00 PM EDT Dental caries 2 DOLL(V) RESIN-BASED COMPOSITE - 3 SURF, POSTERIOR Routine 09/09/2024 2:00 PM EDT Dental caries POCT ELDER-14 URINE DRUG SCREEN Routine 09/02/2024 3:05 PM EDT Opioid type dependence, continuous (CMS/HCC) INTRAORAL - COMPLETE SERIES OF RADIOGRAPHIC IMAGES Routine 05/31/2024 1:00 PM EDT Partial edentulism, unspecified edentulism class Defective dental buddhist PERIODIC ORAL EVALUATION - ESTABLISHED PATIENT Routine 05/31/2024 1:00 PM EDT Partial edentulism, unspecified edentulism class Defective dental buddhist ZZZ HISTORICAL HEPATITIS C AB W/REFL TO HCV RNA, QN, PCR Routine 11/07/2021 1:06 PM EDT HIV 1/2 ANTIGEN/ANTIBODY, FOURTH GENERATION W/RFL Routine 11/07/2021 1:06 PM EDT LIPID PANEL, STANDARD Routine 07/09/2021 4:23 PM EDT HPV MRNA E6/E7 Routine 11/02/2020 11:30 AM EDT THINPREP PAP Routine 11/02/2020 11:30 AM EDT MAMMOGRAM GENERIC Routine 12/29/2019 4:1 7 PM EDT PROPHYLAXIS - ADULT Routine 06/24/2018 1 2:00 AM EDT from Last 3 Months or Most Recently Relevant to Health Maintenance Results * (ABNORMAL) POCT ELDER-14 Urine Drug Screen (09/02/2024 3:05 PM EDT) THC Negative Negative Cocaine Screen, Urine Negative Negative Opiate Screen, Urine Negative Negative Methamphetamine Screen Urine Negative Negative Amphetamine Screen, Urine Negative Negative Benzodiazepines Screen, Urine Negative Negative Barbiturate Screen, Urine Negative Negative Methadone Screen, Urine Negative Negative Buprenophine Screen, Urine Positive(A) Negative TCA, Urine Negative Negative MDMA Urine Negative Negative ng/mL Oxycodone Screen, Urine Negative Negative Phencyclidine (PCP), Urine Negative Negative Fentanyl, Urine Negative Negative Urine Urine specimen obtained by clean catch procedure / Unknown 09/02/2024 3:05 PM EDT Jaclyn Camacho MD POINT OF CARE TEST ENTER/DAMI T ORDERABLES Final Result * HEPATITIS C AB W/REFL TO HCV RNA, QN, PCR (11/07/2021 1:06 PM EDT) HEPATITIS C ANTIBODY NON-REACT PAVEL NON-REACT PAVEL [facility] INDEX 0.09 <1.00 [facility] Comment: HCV antibody was non-reactive. There is no laboratory evidence of HCV infection. In most cases, no further action is required. However, if recent HCV exposure is suspected, a test for HCV RNA (test code 71676) is suggested. For additional information please refer to http://education.NonWoTe[employer] Medical/faq/GFS95x7 (This link is being provided for informational/ educational purposes only.) 11/07/2021 1:06 PM EDT us Angie Guzman MD HISTORICAL/NON ORDERA BLE LABS Final Result Performing Organization Address [facility] Co de Phone Number [facility] [address] [place] [address], * HIV 1/2 ANTIGEN/ANTIBODY,FOURTH GENERATION W/RFL (11/07/2021 1:06 PM EDT) Pathologist [facility] HIV-1/2 ANTIGEN AND ANTIBODIES, 4TH GENERATION W/ REFLEX NON-REACT PAVEL NON-REACT PAVEL [facility] Comment: HIV-1 antigen and HIV-1/HIV-2 antibodies were not detected. There is no laboratory evidence of HIV infection. PLEASE NOTE: This information has been disclosed to you from records whose confidentiality may be protected by state law. If your state requires such protection, then the state law prohibits you from making any further disclosure of the information without the specific written consent of the person to whom it pertains, or as otherwise permitted by law. A general authorization for the release of medical or other information is NOT sufficient for this purpose. For additional information please refer to http://education.ShoeDazzle.Playmysong/faq/QOD089 (This link is being provided for informational/ educational purposes only.) The performance of this assay has not been clinically validated in patients less than 2 years old. 11/07/2021 1:06 PM EDT us Angie Guzman MD LAB BLOOD ORDERABLES Final Result Performing Organization Address [facility] Co de Phone Number [facility] [address] [place] [address], [place] * (ABNORMAL) LIPID PANEL, STANDARD (07/09/2021 4:23 PM EDT) Chol/HDLC Ratio 5.3(H) <5.0 (calc) [facility] Cholesterol, Total 227(H) <200 mg/dL [facility] HDL Cholesterol 43(L) > OR = 50 mg/dL [facility] LDL Cholesterol 157(H) mg/dL (calc) [facility] Comment: Reference range: <100 Desirable range <100 mg/dL for primary prevention; <70 mg/dL for patients with CHD or diabetic patients with > or = 2 CHD risk factors. LDL-C is now calculated using the Elissa calculation, which is a validated novel method providing better accuracy than the Friedewald equation in the estimation of LDL-C. Medardo SS et al. PHILIPPE. 2013;310(19): 5793-3190 (http://education.BiOWiSH/faq/EJP862) Non-HDL Cholesterol 184(H) <130 mg/dL (calc) [facility] Comment: For patients with diabetes plus 1 major ASCVD risk factor, treating to a non-HDL-C goal of <100 mg/dL (LDL-C of <70 mg/dL) is considered a therapeutic option. Triglycerides 141 <150 mg/dL [facility] 07/09/2021 4:23 PM EDT Angie Guzman MD LAB BLOOD ORDERABLES Final Result [facility] [address] * THINPREP PAP (11/02/2020 11:30 AM EDT) COMMENT SEE COMMENT [facility] Comment: EXPLANATORY NOTE: The Pap is a screening test for cervical cancer. It is not a diagnostic test and is subject to false negative and false positive results. It is most reliable when a satisfactory sample, regularly obtained, is submitted with relevant clinical findings and history, and when the Pap result is evaluated along with historic and current clinical information. Mailmaster : SEE COMMENT [facility] Comment: DCR, CT(ASCP) CT screening location: [place] [address] Interpretation/R esult: Negative for intraepithelial lesion or malignancy. [facility] LMP: NONE [facility] Prev. BX: NONE [facility] Prev. PAP: NONE [facility] Review Mailmaster : SEE COMMENT [facility] Comment: BLC,CT(ASCP) CT screening location: [address] [address] Statement Of Adequacy: SEE COMMENT [facility] Comment: Satisfactory for evaluation. Endocervical/transformation zone component present. Age and/or menstrual status not provided 11/02/2020 11:3 0 AM EDT Ann HILL LAB PATHOLOGY ORDERABLES Final Result Performing Organization Address [facility] Co de Phone Number [facility] [address] * HPV mRNA E6/E7 (11/02/2020 11:30 AM EDT) HPV nRNA E6/E7 Not Detected Not Detected [facility] Comment: Methodology: Telephone Lineman-Mediated Amplification This assay detects E6/E7 viral messenger RNA (mRNA) from 14 high-risk HPV types (16,18,31,33,35,39,45,51,52,56,58,59,66,68). The analytical performance characteristics of this assay have been determined by reportbrain. The modifications have not been cleared or approved by the FDA. This assay has been validated pursuant to the CLIA regulations and is used for clinical purposes. For additional information, please refer to http://education.NonWoTecc Medical/faq/OIA410z9 (This link if provided for information/ educational purposes only.) 11/02/2020 11:3 0 AM EDT Ann Berry [facility] LAB BLOOD ORDERABLES Isabelle l Result Performing Organization Address [facility] Co de Phone Number [facility] [address] * Mammography Report 1 (12/29/2019 4:17 PM EDT) Anatomical Region Laterality Modality Breast Bilateral Mammography 12/29/2019 4:17 PM EDT Narrative 08/22/2020 10:25 AM EDT Refer to the Notes tab for result details [facility] Procedure: Mammography Report 1 Procedure Note Provider, MD Cherise - 06/01/2022 Refer to the Notes tab for result details [facility] Procedure: Mammography Report 1 Melissa Pineda OPERATIONS SUPPORT REPRESENTATIVE IMG BI PROCEDURES Final Result from Last 3 Months or Most Recently Relevant to Health Maintenance Insurance [facility] < 65 [facility]
--- OUTSIDE RECORDS SUMMARY | 2024-11-24 17:58 | XMS_ITS | Encounter Summary ---
Author Organization [employer] Address [address] [facility] [address] [place] [address] Care Team Providers Care Inspector Aide Name Role Phone Unavailable Primary Care Provider Unavailabl e Reason for Visit * Reason Comments Med Refill Encounter Details Date Type Department Care Team (Late Contact Info) Description 01/23/2023 Refill [facility] [address] [place] [phone] Angie Mariee MD [address] [place] [phone] Chronic rhinitis Social History Tobacco Use Types [...] Department Care Team (Late Contact Info) Description 11/25/2024 3:00 PM EDT Office Visit [facility] [address] [place] [phone] Jaclyn Camacho MD [address] [place] [address] [phone] 02/17/2025 2:00 PM EST Clinical Support [facility] [address] [place] [phone] Esequiel Crockett, OSMANI [address] [place] [phone] documented as of this encounter Visit Diagnoses Diagnosis Chronic rhinitis documented in this encounter
--- OUTSIDE RECORDS SUMMARY | 2024-11-24 17:59 | XMS_ITS | Patient Health Record ---
Author Organization [facility] Tonia mon Benedicta Address [address] [place] [address] Care Team Providers Care Legal Project Manager Name Role Phone Tay Leung Primary Care Provider Unavailab Ole Garcia Unavailable [phone] Reason For Referral No Information Plan Of Treatment No Information Insurance Providers Payer Name Payer Address Payer Phone Subscriber Number Group Number Insured Name Patient Relationship to Insured Coverage Start Date Coverage End Date [facility] [employer] Claims [address] [place] [id number] Lu Clayton Self - patient is the insured
== END 2024-11-24 15:05 | disposition home or self-care (01) ==
LOC: HO.HMCH 14:15
PROVIDERS: PCP Physician Assistant; Visit Provider Physician Assistant
DX: I10 Essential (primary) hypertension (principal); F11.20 Opioid dependence, uncomplicated; E66.811 Obesity, class 1; Z68.31 Body mass index [BMI] 31.0-31.9, adult; E78.2 Mixed hyperlipidemia; E03.9 Hypothyroidism, unspecified; J01.01 Acute recurrent maxillary sinusitis

== ENCOUNTER 2024-11-24 14:15 | Outpatient (REF) | payer OTHER, SELFPAY ==
[2024-11-24 16:22] LABS: Hematocrit 39.9 % (37.0-47.0); Hemoglobin 12.9 g/dl (12.0-16.0); Mean Corpuscular HGB Conc 32.3 g/dl (31.0-35.0); Mean Corpuscular Hemoglobin 25.9 pg (27.0-33.0); Mean Corpuscular Volume 80.0 fL (80.0-98.0); NRBC Abs Auto 0.000 X10*3/uL (0.0-0.012); NRBC Pct Auto 0.0 /100WBC (0.0-0.2); Platelet Count 314 X10*3/uL (160-400); Red Blood Count 4.99 X10*6/uL (4.20-5.50); White Blood Count 6.8 X10*3/uL (4.8-10.8)
[2024-11-24 17:15] LABS: Iron 62 mcg/dL (30-160); Percent Iron Saturation 17 % (15-50); Total Iron Binding Capacity 372 mcg/dL (228-428); Unsaturated Iron Binding 310 ug/dL
== END 2024-11-24 14:16 | disposition home or self-care (01) ==
LOC: HO.LAB 14:15
PROVIDERS: PCP Physician Assistant; Visit Provider Physician Assistant
DX: D50.9 Iron deficiency anemia, unspecified (principal); I10 Essential (primary) hypertension; E78.2 Mixed hyperlipidemia; E03.9 Hypothyroidism, unspecified; E66.811 Obesity, class 1; Z68.31 Body mass index [BMI] 31.0-31.9, adult; J01.01 Acute recurrent maxillary sinusitis; F11.20 Opioid dependence, uncomplicated; Z71.3 Dietary counseling and surveillance; Z87.891 Personal history of nicotine dependence
CPT/HCPCS: 36415; 83540; 84443; 85027; 99212

== ENCOUNTER 2025-02-09 16:04 | Outpatient (AMB) | payer OTHER, SELFPAY ==
--- OUTSIDE RECORDS SUMMARY | 2023-11-25 09:00 | XMS_ITS ---
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 Commercial Trailer Truck Driver Name Role Phone Tay Leung Primary Care Provider Unavailab Ole Garcia Unavailable [phone] REASON FOR VISIT no ppwrk Encounters Encounter Location Date Provider Diagnosis [facility] [address] [place] [address] 11/25/2023 Ole Jernigan Plan Of Treatment No Information Progress Notes * Lu CLAYTONDOB:1965 (59 yo F)Acc No.[id number]:11/25/2023 Progress Notes Patient: Clara HEza Provider: Renetta Jernigan DPM :1965 A ge:58 Y S ex:Female Date:11/25/2023 Address:[address] [place], [place] [id number] Pcp:Tay Leung Subjective: * Chief Complaints: * [...] 0 11/25/2023 Generated for Demetrio fish/Devin/Baldoitting on: 04/12/2024 06:50 PM EST
--- NOTE | 2025-02-09 16:06 | MHC.OFFVIS ---
Vital Signs 02/09/25 16:13 Height 5 ft 3 in Weight 178 lb BMI 31.5 BP 136/66 Blood Pressure Location Rt brachial Position Sitting Pulse 88 Pulse Source Pulse Oximeter Pulse Oximetry (%) 98 Oxygen Delivery Method Room Air Intake Visit Reasons: f/u Intake Note: ESTABLISHED PATIENT for Constipation and abd pain mgmt. CC; C/O constipation persistence, pt denies abd pain at this time. Pt has felt very concerned and hesitant on wanting to try new medications to help with her constipation. She knows that she needs to take something for constipation, but is very concerned about being in severe pain and having other adverse reactions. She is currently taking Milk of Mag once / week which helps her go. Distribution System Operator Required: No Accompanied by: Daughter Allergies metoclopramide (From [employer] Adverse Reaction (Intermediate, Verified 02/23/25 15:44) AGITATION morphine Adverse Reaction (Mild, Verified 02/23/25 15:44) Nausea aspirin Adverse Reaction (Verified 02/23/25 15:44) Vomiting HPI HPI f/u: Details: LAST VISIT: Elevated liver enzymes Fatty liver disease, nonalcoholic Chronic constipation Chronic abdominal pain Hepatic steatosis Plan Long discussion with patient about changing her diet. Follow the instructions given to her last visit. Patient reports constipated she is on Suboxone as well as on iron. He will start taking Colace. Patient is on iron in Suboxone, may take milk of magnesia as needed. Increase fluid intake and activity to promote better bowel motility. Patient will follow-up in 3 months, sooner on as needed basis. Patient is agreeable to this plan and verbalizes and he of instructions. She was given the opportunity to ask questions and all questions answered. ? Thank you for allowing me to participate in his care Orders Liver Panel Today R74.01 Liver Fibrosis Pnl Today K76.0 New docusate sodium 200 mg (2 x 100 mg) PO BEDTIME 180 caps 3RF K59.00 TODAY'S VISIT: Patient is here today for follow-up. Patient reports that she continues to be constipated. Patient is here today with her daughter. Patient reports that she did not start taking docusate sodium as she was afraid that she will be in a lot of pain. Patient is taking once a week milk of magnesium to help her empty herself. Otherwise she is not moving her bowels maybe once or twice a week. Patient reports abdominal pain and distension. She tried some smoothies and fiber with pre and probiotics. Patient however reports that she had no response. Patient denies melena, hematochezia, unintentional weight loss or ribbon like stools. Patient denies any dyspepsia, dysphagia or odynophagia. We have discussed this before that she is on Suboxone and iron which is making her constipated he is is she also has a history of hypothyroidism. Patient admits that she is not drinking enough fluids. Patient denies any acid reflux. [facility] Medical History (Updated 02/23/25 @ 17:52 by Jyoti Schneider MD) Obese Sinus infection Abdominal pain Elevated liver enzymes Microscopic hematuria Muscle spasm Upper respiratory tract infection Acute dermatitis Cellulitis of buttock Acquired hypothyroidism Hyperglycemia Post covid-19 condition, unspecified Breast cancer screening Foreign body of buttock Superimposed infection Cellulitis and abscess of buttock Cellulitis Renal calculi Frequent UTI Hematuria History of degenerative disc disease Normal colonoscopy Chronic constipation Hx of renal calculi History of panic attacks Hx of anxiety disorder Depression Hx of opioid abuse Thyroid disease Arthritis Fibromyalgia HTN (hypertension) Surgical History Hx of colonoscopy History of esophagogastroduodenoscopy (EGD) H/O left knee surgery Hx of cholecystectomy Tubal ligation status Hx of appendectomy Family History Paternal Grandmother Colon cancer Mother Pulmonary embolism Sister Pulmonary embolism Lung cancer Social History Household Members: Family Household Members Other:: daughter Housing: House Do you presently have visiting nurse or other home services: No Alcohol intake: never Patient Tobacco Use Status: Former Tobacco user Years Smoked: 20 e-Cigarette/Vaping Use: Never Used Second Hand Smoke Exposure: Yes Advance Directives Date on File: 03/26/22 service: No Current occupational status: disabled Cognitive needs: No Hearing needs: No Vision needs: No Female Reproductive History Menstrual Age of Menarche: 12 Review of Systems Const Denies weight gain and Denies weight loss ENT Reports no additional complaints, Denies dysphagia and Denies odynophagia Card Reports no additional complaints Resp Reports no additional complaints GI Reports abdominal pain (occasional), Denies belching, Denies melena, Denies bloating, Denies change in bowel habits, Reports constipation, Denies dysphagia, Denies excessive flatus, Denies dyspepsia, Reports heartburn, Denies diarrhea, Denies loose stools, Denies nausea, Denies odynophagia and Denies vomiting Reports no additional complaints Musc Reports no additional complaints Neuro Reports no additional complaints Psych Reports no additional complaints Endo Reports no additional complaints Physical Exam Vital Signs: Last Vital Signs Pulse 88 02/09/25 16:13 BP 136/66 02/09/25 16:13 Pulse Ox 98 02/09/25 16:13 Oxygen Delivery Method Room Air 02/09/25 16:13 BMI result Body Mass Index 31.5 Const General: healthy appearing and no acute distress Nutritional Appearance: obese Orientation/consciousness: patient oriented x3 Resp Effort & Inspection: normal respiratory effort, able to speak in complete sentences, no tracheal deviation and symmetric chest movement Auscultation: clear to auscultation bilaterally Cardio Rate: regular rate GI Inspection: Yes normal to inspection, Yes distended and Yes obesity Palpation (GI): Soft to palpation, not firm, nontender and No hepatosplenomegaly present Auscultation: normal bowel sounds General: Yes no CVA tenderness Back/Spine/Pelvis Back: no CVA tenderness Skin General skin exam: elasticity normal, turgor normal and dry skin Neuro General: patient oriented x3 Psych Appearance: grossly normal Mental Status: mental status grossly normal Results Reviewed Results Reviewed: Laboratory Tests 10/20/24 15:55 Total Bilirubin 0.3 Direct Bilirubin 0.1 AST 107 H ALT 106 H Alkaline Phosphatase 67 Liver Fibrosis Stage F0 Assessment & Plan Assessment & Plan (1) Elevated liver enzymes: Code(s): R74.8 - Abnormal levels of other serum enzymes Category: Medical (2) Fatty liver disease, nonalcoholic: Code(s): K76.0 - Fatty (change of) liver, not elsewhere classified Category: Medical (3) Chronic constipation: Code(s): K59.09 - Other constipation Category: Medical (4) Chronic abdominal pain: Code(s): R10.9 - Unspecified abdominal pain; G89.29 - Other chronic pain Category: Medical (5) Steatosis of liver: Code(s): K76.0 - Fatty (change of) liver, not elsewhere classified Plan Long discussion with patient about increasing fluid intake and activity to promote bowel motility. Patient is on Suboxone and IR and will take something to help her move her bowels better. Encourage patient to take magnesium oxide at night time that might help her move her bowels, however she was encouraged to take to to the eyes every evening. Take fiber daily as well as pre and probiotic. Eat more vegetables less carbs. Patient will follow-up in our office in 3-4 months. We will send patient for colonoscopy. Patient is going to call if she will have any GI concerning symptoms. She is agreeable to this plan and verbalizes understanding of instructions. She was given the opportunity to ask questions and all questions answered. Thank you for allowing me to participate in her care Medications: New magnesium oxide 400 mg PO DAILY 90 tabs 2RF Coding Level of Care Code Est Pt Level 3 (73446) Diagnoses Elevated liver enzymes R74.8 Fatty liver disease, nonalcoholic K76.0 Chronic constipation K59.09 Chronic abdominal pain R10.9; G89.29 Steatosis of liver K76.0
[2025-02-09 16:13] VITALS: BP 136/66; PULSE 88; O2SAT 98; BMI 31.5
--- OUTSIDE RECORDS SUMMARY | 2025-02-09 18:50 | XMS_ITS | Clinical Summary ---
Author Organization [employer] [facility] it Address [address] [place] [address] Care Team Providers Care Glass Etcher Helper Name Role Phone Unavailable Primary Care Provider [...] DTaP,Tdap,and Td Vaccines (1 - Tdap) 11/13/1983 Cervical Cancer Screening: P ap Smear 1985 Pneumococcal Vaccine: 50+ Ye ars (1 of 1 - PCV) 2014 Zoster Vaccines (1 of 2) 2014 Depression Screening 03/10/2024 COVID-19 Vaccine (1 - 2024-2 6 season) 2024 Influenza Vaccine (#1) 2024 RSV Immunization Adult [...] patient's age to complete this topic Hepatitis B Vaccines Aged Out No long er eligible [...]
--- OUTSIDE RECORDS SUMMARY | 2025-02-09 18:50 | XMS_ITS | Clinical Summary ---
Author Organization [employer] Address [address] [facility] [address] [place] [address] Care Team Providers Care Tenant Selector Name Role Phone Unavailable Primary Care Provider [...] Sodium Fluoride 1.1 % creamIndications:Den tin hypersensitivity [place] teeth for 2 minutes, morning and night. Spit, do not rinse. Do not eat or drink anything for 30 minutes following use. 112 g 3 02/04/20 24 Active Buprenorphine HCl-Naloxone HCl (Suboxone) 8-2 MG SL filmIndications:Unco mplicated opioid dependence (CMS/HCC) (HCC) Place 1 Film under the tongue Once per day. 28 Film 2 11/17/19 25 Active Active Problems Problem Noted Date [...] Encounters Date Type Department Care Team Description 11/25/2024 3:00 PM EDT Office Visit [facility] [address] [facility] [place] [address] Jaclyn Camacho MD Opioid type dependence, continuous (CMS/HCC) (Primary Dx) 11/25/2024 Travel 11/16/2024 Refill [facility] [address] [facility] [place] [address] Jaclyn Camacho MD Uncomplicated opioid dependence (CMS/HCC) [...] Care Team (Late st Contact Info) Description 02/17/2025 2:00 PM EST Office Visit [facility] [address] [place] [address] Jaclyn Camacho MD [address] [place] [phone] 05/12/2025 1:30 PM EST Office Visit [facility] [address] [place] [address] Jaclyn Camacho MD [address] [place] [address] Health Maintenance Due Date Last Done Comments CT Colonography 1964 Colonoscopy 1964 Colorectal Cancer Screening 1964 FIT DNA/Cologuard 1964 FIT 1964 FOBT 1964 Sigmoidoscopy 1964 Disability Screening 1964 Hepatitis A Vaccines (1 of 2 - Risk 2-dose series) 11/13/1983 Pneumococcal Vaccine: 50+ Years (1 of 2 - PCV) 11/13/1983 RSV Patients and Patients Aged 60 years or older (1 - Risk 50-74 years 1-dose series) 2014 Zoster Vaccines (1 of 2) 2014 Dental Prophylaxis 12/25/2018 06/24/2018, 1 , 08/27/2016 Mammogram 12/28/2021 12/29/2019 Pap Smear 11/03/2023 11/02/2020 COVID-19 Vaccine (1 - season) 2024 Influenza Vaccine (#1) 2024 Hepatitis B Vaccines (1 of 3 - Risk 3-dose series) 2024 07/11/1999 Dental Oral Exam 12/02/2024 05/31/2024, , 08/15/2016, Additional history exists DTaP/Tdap/Td Vaccines (2 - Td or Tdap) 12/12/2024 12/12/2014 Alcohol/Substance Use Screening 05/13/2025 05/13/2024 Depression Screening 05/13/2025 05/13/2024, 05/14/19 SDOH Screening 05/13/2025 05/13/2024 Dental X-Ray: Bitewings 06/01/2025 06/01/19 25, 02/04/2024, 08/27/2016, Additional history exists Tobacco Screening 10/25/2025 10/25/2024 Cervical Cancer Screening 11/02/2025 HPV/Cotest 11/02/2025 11/02/2020, 07/02/2017 Lipid Panel 07/09/2026 07/09/2021, 02/08, 01/11/2021, Additional history exists Dental X-Ray: Full Mouth 06/02/2027 025, 07/02/2019, 08/15/2016 HIV Screening Completed 11/07/2021, 050 04/2021, 03/05/2021, Additional history exists Hepatitis C [...] Procedure Name Priority Date/Time Associated Diagnosis Comments INTRAORAL - COMPLETE SERIES OF RADIOGRAPHIC IMAGES Routine 05/31/2024 1:00 PM EDT Partial edentulism, unspecified edentulism class Defective dental taoist PERIODIC ORAL EVALUATION - ESTABLISHED PATIENT Routine 05/31/2024 1:00 PM EDT Partial edentulism, unspecified edentulism class Defective dental taoist ZZZ HISTORICAL HEPATITIS C AB W/REFL TO [...] HEPATITIS C ANTIBODY NON-REACT PAVEL NON-REACT PAVEL [facility] INDEX 0.09 <1.00 [facility] Comment: HCV antibody was non-reactive. There is no laboratory evidence of HCV infection. In most cases, no further action is required. However, if recent HCV exposure is suspected, a test for HCV RNA (test code 07241) is suggested. For additional information please refer to http://PageStitch.WikiRealty/faq/KBV35x8 (This link is being provided for informational/ educational purposes only.) 11/07/2021 1:06 PM EDT us Angie Guzman MD HISTORICAL/NON ORDERA BLE LABS Final Result Performing Organization Address [facility] Phone Number [facility] [address] [place] [address], * HIV 1/2 ANTIGEN/ANTIBODY,FOURTH GENERATION W/RFL (11/07/2021 1:06 PM EDT) [facility] HIV-1/2 ANTIGEN AND ANTIBODIES, 4TH GENERATION W/ REFLEX NON-REACT PAVEL NON-REACT PAVEL [facility] Comment: HIV-1 antigen and HIV-1/HIV-2 [...] purpose. For additional information please refer to http://PageStitch.Rewarder.SueEasy/faq/ORN767 (This link is being provided for informational/ educational purposes only.) The performance of this assay has not been clinically validated in patients less than 2 years old. 11/07/2021 1:06 PM EDT us Angie Guzman MD LAB BLOOD ORDERABLES Final Result Performing Organization Address [facility] Phone Number [facility] [address] [place] [address], * (ABNORMAL) LIPID PANEL, STANDARD (07/09/2021 4:23 PM EDT) Pathologist [facility] Chol/HDLC Ratio 5.3(H) <5.0 (calc) [facility] Cholesterol, Total 227(H) <200 mg/dL [facility] HDL Cholesterol 43(L) > OR = 50 mg/dL [facility] LDL Cholesterol 157(H) mg/dL (calc) [facility] Comment: Reference range: <100 Desirable range <100 mg/dL for primary prevention; <70 mg/dL for patients with CHD or diabetic patients with > or = 2 CHD risk factors. LDL-C is now calculated using the Elissa calculation, which is a validated novel method providing better accuracy than the Friedewald equation in the estimation of LDL-C. Medardo ALVAREZ et al. PHILIPPE. 2013;310(19): 8421-6280 (http://education.Powered/faq/NBB242) Non-HDL Cholesterol 184(H) <130 mg/dL (calc) [facility] Comment: For patients with diabetes plus 1 major ASCVD risk factor, treating to a non-HDL-C goal of <100 mg/dL (LDL-C of <70 mg/dL) is considered a therapeutic option. Triglycerides 141 <150 mg/dL [facility] 07/09/2021 4:23 PM EDT Angie Guzman MD LAB BLOOD ORDERABLES Final Result [facility] [address] * THINPREP PAP (11/02/2020 11:30 AM [...] along with historic and current clinical information. Pawn Broker : SEE COMMENT [facility] Comment: DCR, CT(ASCP) CT screening location: [place] [address] Interpretation/R esult: Negative for intraepithelial lesion or malignancy. [facility] LMP: NONE [facility] Prev. BX: NONE [facility] Prev. PAP: NONE [facility] Review Pawn Broker : SEE COMMENT [facility] Comment: BLC,CT(ASCP) CT screening location: [address] [address] Statement Of Adequacy: SEE COMMENT [facility] Comment: Satisfactory for evaluation. Endocervical/transformation zone component present. Age and/or menstrual status not provided 11/02/2020 11:3 0 AM EDT [facility] ORDERABLES Final Result Performing Organization Address [facility] de Phone Number [facility] [address] * HPV mRNA E6/E7 (11/02/2020 11:30 AM EDT) HPV nRNA E6/E7 Not Detected Not Detected [facility] Comment: Methodology: Shoe Clerk-Mediated Amplification This assay detects E6/E7 viral messenger RNA (mRNA) from 14 high-risk HPV types (16,18,31,33,35,39,45,51,52,56,58,59,66,68). The analytical performance characteristics of this assay have been determined by [employer]. The modifications have not been cleared or approved by the FDA. This assay has been validated pursuant to the CLIA regulations and is used for clinical purposes. For additional information, please refer to http://education.Rewarder.SueEasy/faq/DYP656w7 (This link if provided for information/ educational purposes only.) 11/02/2020 11:3 0 AM EDT [facility] LAB BLOOD ORDERABLES Isabelle l Result Performing Organization Address [facility] Co de Phone Number [facility] [address] [place] [address], * Mammography Report 1 (12/29/2019 4:17 PM EDT) Anatomical Region Laterality Modality Breast Bilateral Mammography 12/29/2019 4:17 PM EDT Narrative 08/22/2020 10:25 AM EDT Refer to the Notes tab for result details [facility] Procedure: Mammography Report 1 Procedure Note Provider, MD Cherise - 06/01/2022 Refer to the Notes tab for result details [facility] Procedure: Mammography Report 1 Melissa Pineda BOY'S ADVISER IMG BI PROCEDURES Final Result from Last 3 Months or Most Recently Relevant to Health Maintenance Insurance [facility] < [address] [place] [address]
--- OUTSIDE RECORDS SUMMARY | 2025-02-09 18:50 | XMS_ITS | Patient Health Record ---
Author Organization [facility] [place] Address [address] [place] [address] Care Team Providers Care Shearer Operator Name Role Phone Tay Leung Primary Care Provider Unavailab Ole Garcia Unavailable [phone] Reason For Referral No Information Plan Of Treatment No Information Insurance Providers Payer Name Payer Address Payer Phone Subscriber Number Group Number Insured Name Patient Relationship to Insured Coverage Start Date Coverage End Date [facility] [employer] Claims [address] [place] [id number] Lu Clayton Self - patient is the insured
--- OUTSIDE RECORDS SUMMARY | 2025-02-09 18:50 | XMS_ITS | Encounter Summary ---
Author Organization [employer] Address [address] [facility] [address] [place] [address] Care Team Providers Care Court Collections Officer Name Role Phone Unavailable Primary Care Provider Unavailabl e Reason for Visit * Reason Comments Med Refill Encounter Details Date Type Department Care Team (Late Contact Info) Description 01/23/2023 Refill [facility] [address] [place] [phone] Angie Mariee MD [address] [place] [phone] Chronic rhinitis Social History Tobacco Use Types [...] Department Care Team (Late Contact Info) Description 02/17/2025 2:00 PM EST Office Visit [facility] [address] [place] [address] Jaclyn Camacho MD [address] [place] [phone] 05/12/2025 1:30 PM EST Office Visit [facility] [address] [place] [address] Jaclyn Camacho MD [address] [place] [address] [phone] documented as of this encounter Visit Diagnoses Diagnosis Chronic rhinitis documented in this encounter
== END 2025-02-09 16:41 | disposition home or self-care (01) ==
LOC: HO.HGI 16:05
PROVIDERS: PCP Physician Assistant; Visit Provider Nurse Practitioner Family
DX: R74.8 Abnormal levels of other serum enzymes (principal); K76.0 Fatty (change of) liver, not elsewhere classified; K59.09 Other constipation; R10.9 Unspecified abdominal pain; G89.29 Other chronic pain
CPT/HCPCS: 99213

== ENCOUNTER → 2025-02-09 16:04 | Outpatient (BNVA) | payer OTHER, SELFPAY | PROVIDERS: PCP Physician Assistant; Visit Provider Nurse Practitioner Family | DX: K59.04 Chronic idiopathic constipation (principal); R10.9 Unspecified abdominal pain; G89.29 Other chronic pain; R74.8 Abnormal levels of other serum enzymes; K76.0 Fatty (change of) liver, not elsewhere classified | CPT/HCPCS: 99212 ==

== ENCOUNTER 2025-02-22 13:20 | Outpatient (REF) | payer OTHER, SELFPAY ==
--- OUTSIDE RECORDS SUMMARY | 2023-11-25 09:00 | XMS_ITS ---
Author Organization [facility] Address [address] [place] [address] Care Team Providers Care Assistant Dean Of Students Name Role Phone Tay Leung Primary Care Provider Unavailab Ole Garcia Unavailable [phone] REASON FOR VISIT no ppwrk Encounters Encounter Location Date Provider Diagnosis [facility] [address] [place] [address] 11/25/2023 Ole Jernigan Plan Of Treatment No Information Progress Notes * Lu CLAYTONDOB:1965 (59 yo F)Acc No.[id number]:11/25/2023 Progress Notes Patient: Clara HEza Provider: Renetta Jernigan DPM :1965 A ge:58 Y S ex:Female Date:11/25/2023 Address:[address] [place], [place] [id number] Pcp:Tay Leung Subjective: * Chief Complaints: * [...] DPM Date: 0 11/25/2023 Generated for Demetrio fish/Devin/Baldoitting on: 1 04/25/2024 05:23 PM EST
--- OUTSIDE RECORDS SUMMARY | 2025-02-17 14:00 | XMS_ITS | Encounter Summary ---
Author Organization [employer] Address [address] [facility] 7t [place] [address] Care Team Providers Care Photocomposition Keyboard Operator Name Role Phone Unavailable Primary Care Provider Unavailabl e Reason for Visit * Reason Comments OBAT Encounter Details Date Type Department Care Team ([facility] Contact Info) Description 02/17/2025 2:00 PM EST Office Visit [facility] [address] [place] [address] Jaclyn Camacho MD [address] [place] [address] Opioid type dependence, continuous (CMS/HCC) (HCC) (Primary Dx) Social History Tobacco Use Types Packs/Day Years Used Date Smoking Tobacco: Former Cigarettes Smokeless Tobacco: Never Depression Answer Date Recorded Patient Health Questionnaire-9 Score 0 02/17/2025 Patient Health Questionnaire-9 Score 0 02/17/2025 Last PHQ-9: Questionnaire Data Not on file 1 04/20/2024 Housing Stability Answer Date Recorded What is [...] Answer Date Recorded Patient Health Questionnaire-2 Score 0 02/17/2025 Internet Access Answer Date Recorded Internet Access Q1 No 05/13/2024 Internet Access Q2 Not on file 05/13/2024 Comments Unknown Sex and Gender Information Value Date Recorded Sex Assigned at Female 01/07/2022 10:14 AM EDT Legal Sex Female 10:14 AM EDT Gender Identity Female 01/07/2022 10:14 AM EDT Sexual Orientation Straight 01/07/2022 10 :14 AM EDT documented as of this encounter Last Filed Vital Signs Vital Sign Reading Time Taken Comments Blood Pressure 123/79 02/17/2025 2:23 PM EST Pulse 75 02/17/2025 2:23 PM EST Temperature 36.7 C (98 F) 02/17/2025 2:23 PM EST Respiratory Rate - - Oxygen Saturation - - Inhaled Oxygen Concentration - - Weight 81.6 kg (180 lb) 02/17/2025 2:23 PM EST Height - - Body Mass Index 31.89 01/02/2022 12:10 AM EDT documented in this encounter Functional Status * Over the past 2 weeks, how often have you been bothered by any of the following problems? Question Answer Date of Assessment Author Patient Health Questionnaire -2 Score 0 02/17/2025 2:25 PM EST Chasity Calderon MA * Little interest or pleasure in doing things Answer Date of Assessment Author Not at all 02/17/2025 2:25 PM Ferny Henry MA * Feeling down, depressed, or hopeless Answer Date of Assessment Author Not at all 02/17/2025 2:25 PM Ferny Henry MA * Trouble falling or staying asleep, or sleeping too much Answer Date of Assessment Author Not at all 02/17/2025 2:25 PM Ferny Henry MA * Feeling tired or having little energy Answer Date of Assessment Author Not at all 02/17/2025 2:25 PM Ferny Henry MA * Poor appetite or overeating Answer Date of Assessment Author Not at all 02/17/2025 2:25 PM Ferny Henry MA * Feeling bad about yourself - or that you are a failure or have let yourself or your family down Answer Date of Assessment Author Not at all 02/17/2025 2:25 PM Ferny Henry MA * Trouble concentrating on things, such as reading the newspaper or watching television Answer Date of Assessment Author Not at all 02/17/2025 2:25 PM Ferny Henry MA * Moving or speaking so slowly that other people could have noticed? Or the opposite - being so fidgety or restless that you have been moving around a lot more than usual. Answer Date of Assessment Author Not at all 02/17/2025 2:25 PM Ferny Henry MA * Thoughts that you would be better off or hurting yourself in some way Answer Date of Assessment Author Not at all 02/17/2025 2:25 PM Ferny Henry MA * Patient Health Questionnaire-9 Score Answer Date of Assessment Author 0 02/17/2025 2:25 PM Ferny Henry MA documented as of this encounter Progress Notes * Jaclyn Camacho MD - 02/17/2025 2:00 PM EST Lu is here for Opioid dependence RV. Current Suboxone dose of 8/2 mg on an 8 week schedule. Patient reports taking medication as prescribed, no cravings or adverse effects. Pt has been in the program for 8 years 2 months. Induction date: 09/19/16. LFTs done 12/02/21. Patient actively enrolled in behavioral health services, therapist and psychiatrist at [facility] in [place]. JULIA PAT reviewed by provider. [place] [facility] [place] Hep A/B immune. LAST VISIT 11/25/24 Subjective Patient ID: Lu Clayton is a 59 y.o. female who presents for OBAT. Lu is being seen for OBAT services. She is maintaining abstinence with no cravings or urges to use. She tells me that she has had consistently elevated liver enzymes. Her GI has done a workup and told her she has fatty liver and to change her diet. She will get us the results of that workup. TODAY-02/17/25 Subjective Patient ID: Lu Clayton is a 59 y.o. female who presents for OBAT. Lu is being seen for OBAT services. She is maintaining abstinence on Suboxone with no cravings or med side effects. She is still hoping to wean off Suboxone but doesn't know what she would do about chronic pain. Feeling tired. Her PCP has ordered some labwork. She's thinking of going to [place] to visit her dad for a few weeks. Review of Systems Psychiatric/Behavioral: Negative for dysphoric mood. The patient is not nervous/anxious. Objective Physical Exam Constitutional: Appearance: Normal appearance. Skin: General: Skin is warm and dry. Neurological: Mental Status: She is alert and oriented to person, place, and time. Assessment/Plan Diagnoses and all orders for this visit: Opioid type dependence, continuous (CMS/HCC) ([facility]) Counseling provided RE: importance of multiple sources of support for achieving and maintaining recovery. Counseling RE: harm reduction measures, ie, not using alone, the use of clean needles/equipment, Narcan. Discussed strategies to use when confronted with situations that trigger use. Continue current Suboxone dose. Continue 12 week visits. This information has been disclosed to you [...] 2.12??(5) and 2.65. documented in this encounter Miscellaneous Notes * Addendum Note - Ferny Calderon MA - 02/17/2025 2:00 PM ESTAddended by: FERNY CALDERON on: 02/17/2025 02:42 PM Modules accepted: Orders documented in this encounter Plan of Treatment Upcoming Encounters Date Type Department Care Team (Late st Contact Info) Description 03/21/2025 2:00 PM EST Office Visit [facility] ADULT DENTAL [address] [place] [address] Nagi Song, DMD [address] [place] [address] 05/12/2025 1:30 PM EST Office Visit [facility] MEDICINE [address] [place], [place] [phone] Jaclyn Camacho MD [address] [place], [place] [phone] documented as of this encounter Procedures Procedure Name Priority Date/Time Associated Diagnosis Comments POCT ELDER-14 URINE DRUG SCREEN Routine 02/17/2025 2:42 PM EST Opioid type dependence, continuous (CMS/HCC) ([facility]) documented in this encounter Results * (ABNORMAL) POCT ELDER-14 Urine Drug Screen (02/17/2025 2:42 PM EST) THC Negative Negative Cocaine Screen, Urine Negative [...] obtained by clean catch procedure / Unknown 02/17/2025 2:42 PM EST Jaclyn Camacho MD POINT OF CARE TEST ENTER/DAMI T ORDERABLES Final Result documented in this encounter Visit Diagnoses Diagnosis Opioid type dependence, continuous (CMS/HCC) (HCC)- Primary Opioid type dependence, continuous documented in this encounter Additional Health Concerns Assessment Noted Time PHQ-9 Depression Total Score: 0 02/18/20 25 2:25 PM EST documented as of this encounter
[2025-02-22 14:32] LABS: Hematocrit 40.8 % (37.0-47.0); Hemoglobin 13.0 g/dl (12.0-16.0); Mean Corpuscular HGB Conc 31.9 g/dl (31.0-35.0); Mean Corpuscular Hemoglobin 26.5 pg (27.0-33.0); Mean Corpuscular Volume 83.1 fL (80.0-98.0); NRBC Abs Auto 0.000 X10*3/uL (0.0-0.012); NRBC Pct Auto 0.0 /100WBC (0.0-0.2); Platelet Count 317 X10*3/uL (160-400); Red Blood Count 4.91 X10*6/uL (4.20-5.50); White Blood Count 7.6 X10*3/uL (4.8-10.8)
[2025-02-22 14:51] LABS: Alanine Aminotransferase 86 U/L (0-31); Albumin Level 4.1 g/dL (3.5-5.0); Alkaline Phosphatase 72 U/L (39-117); Anion Gap 11 (12-20); Aspartate Amino Transferase 80 U/L (5-31); Blood Urea Nitrogen 8 mg/dL (9-16); Calcium 8.5 mg/dL (8.4-10.2); Carbon Dioxide 26 mmol/L (22-29); Chloride 106 mmol/L (96-108); Cholesterol 189 mg/dL (<200); Estimated Glomerular Filt Rate > 60; HDL Cholesterol 36 mg/dL (>40); Iron 52 mcg/dL (30-160); Percent Iron Saturation 14 % (15-50); Potassium 3.2 mmol/L (3.3-5.1); Sodium 140 mmol/L (135-145); Total Iron Binding Capacity 375 mcg/dL (228-428); Total Protein 7.3 g/dL (6.5-8.0); Triglycerides 148 mg/dL (<150); Unsaturated Iron Binding 323 ug/dL
--- OUTSIDE RECORDS SUMMARY | 2025-02-22 17:22 | XMS_ITS | Clinical Summary ---
Author Organization [facility] it Address [address] [place] [address] Care Team Providers Care Childbirth And Infant Care Teacher Name Role Phone Unavailable Primary Care Provider [...]
--- OUTSIDE RECORDS SUMMARY | 2025-02-22 17:23 | XMS_ITS | Patient Health Record ---
Author Organization [facility] [place] Address [address] [place] [address] Care Team Providers Care Medical Field Representative Name Role Phone Tay Leung Primary Care Provider Unavailab Ole Garcia Unavailable [phone] Reason For Referral No Information Plan Of Treatment No Information Insurance Providers Payer Name Payer Address Payer Phone Subscriber Number Group Number Insured Name Patient Relationship to Insured Coverage Start Date Coverage End Date [facility] [employer] Claims [address] [place] [id number] Lu Clayton Self - patient is the insured
--- OUTSIDE RECORDS SUMMARY | 2025-02-22 17:23 | XMS_ITS | Clinical Summary ---
Author Organization [employer] Address [address] [facility] [address] [place] [address] Care Team Providers Care Director Of Women'S Services Name Role Phone Unavailable Primary Care Provider [...] Sodium Fluoride 1.1 % creamIndications:De ntin hypersensitivity [place] teeth for 2 minutes, morning and night. Spit, do not rinse. Do not eat or drink anything for 30 minutes following use. 112 g 3 024 Active Buprenorphine HCl-Naloxone HCl (Suboxone) 8-2 MG SL filmIndications:Unc omplicated opioid dependence (CMS/HCC) ([facility]) Place 1 Film under the tongue Once per day. 28 Film 2 025 2025 Active Buprenorphine HCl-Naloxone HCl (Suboxone) 8-2 MG SL filmIndications:Unc omplicated opioid dependence (CMS/HCC) ([facility]) Place 1 Film under the tongue Once [...] Encounters Date Type Department Care Team Description 02/17/2025 2:00 PM EST Office Visit [facility] [address] [place] [phone] Jaclyn Camacho MD Opioid type dependence, continuous (CMS/HCC) (HCC) (Primary Dx) 02/11/2025 Refill [facility] [address] [place] [phone] Jaclyn Camacho MD Uncomplicated opioid dependence (CMS/HCC) (HCC) 11/25/2024 3:00 PM EDT Office Visit [facility] [address] [place] [phone] Jaclyn Camacho MD Opioid type dependence, continuous (CMS/HCC) (Primary Dx) 11/25/2024 Travel from Last 3 Months Immunizations Immunization Administration [...] F) 02/17/2025 2:23 PM EST Respiratory Rate 20 10/02/2023 2:28 PM EDT Oxygen Saturation - - Inhaled Oxygen Concentration - - Weight 81.6 kg (180 lb) 02/17/2025 2:23 PM EST Height 160 cm (5' 3 ) 01/02/2022 12:10 AM EDT Body Mass Index 31.89 01/02/2022 12:10 AM EDT Plan of Treatment Upcoming Encounters Date Type Department Care Team (Late st Contact Info) Description 03/21/2025 2:00 PM EST Office Visit [facility] [address] [place] [address] Nagi Song DMD [address] [place] [address] 05/12/2025 1:30 PM EST Office Visit [facility] [address] [place] [address] Jaclyn Camacho MD [address] [place] [phone] Health Maintenance Due Date Last Done Comments [...] or Tdap) 12/12/2024 12/12/2014 Dental X-Ray: Bitewings 06/01/2025 06/01/19, 02/04/2024, 08/27/2016, Additional history exists Cervical Cancer Screening 11/02/2025 HPV/Cotest 11/02/2025 11/02/2020, 07/02/2017 Alcohol/Substance Use Screening 02/17/2026 02/17/2025 Depression Screening 02/17/2026 02/17/2025, 02/18/20 SDOH Screening 02/17/2026 02/17/2025 Tobacco Screening 02/17/2026 02/17/2025 Lipid Panel 07/09/2026 07/09/2021, 02/08, 01/11/2021, Additional [...] PM EST Opioid type dependence, continuous (CMS/HCC) (HCC) INTRAORAL - COMPLETE SERIES OF RADIOGRAPHIC IMAGES Routine 05/31/2024 1:00 PM EDT Partial edentulism, unspecified edentulism class Defective dental mormonism PERIODIC ORAL EVALUATION - ESTABLISHED PATIENT Routine 05/31/2024 1:00 PM EDT Partial edentulism, unspecified edentulism class Defective dental mormonism ZZZ HISTORICAL HEPATITIS C AB W/REFL TO [...] procedure / Unknown 02/17/2025 2:42 PM EST us Jaclyn Camacho MD POINT OF CARE TEST ENTER/DAMI T ORDERABLES Final Result * HEPATITIS C AB W/REFL TO HCV RNA, QN, PCR (11/07/2021 1:06 PM EDT) Pathologist [facility] HEPATITIS C ANTIBODY NON-REACT PAVEL NON-REACT PAVEL [facility] INDEX 0.09 <1.00 [facility] Comment: HCV antibody was non-reactive. There is no laboratory evidence of HCV infection. In most cases, no further action is required. However, if recent HCV exposure is suspected, a test for HCV RNA (test code 62033) is suggested. For additional information please refer to http://education.OpenGamma.Versonics/faq/AVF38b8 (This link is being provided for informational/ educational purposes only.) 11/07/2021 1:06 PM EDT us Angie Guzman MD HISTORICAL/NON ORDERA BLE LABS Final Result [facility] [address] * HIV 1/2 ANTIGEN/ANTIBODY,FOURTH GENERATION W/RFL (11/07/2021 1:06 PM EDT) [facility] HIV-1/2 ANTIGEN AND ANTIBODIES, 4TH GENERATION W/ REFLEX NON-REACT PAVEL NON-REACT PAVEL [facility] Comment: HIV-1 antigen and [...] purpose. For additional information please refer to http://education.[employer] Entertainment/faq/HVT572 (This link is being provided for informational/ educational purposes only.) The performance of this assay has not been clinically validated in patients less than 2 years old. 11/07/2021 1:06 PM EDT Angie Guzman MD LAB BLOOD ORDERABLES Final Result Performing Organization Address [facility] de Phone Number [facility] [address] * (ABNORMAL) LIPID PANEL, STANDARD (07/09/2021 4:23 PM EDT) [facility] Chol/HDLC Ratio 5.3(H) <5.0 (calc) [facility] [...] factors. LDL-C is now calculated using the Medardo-Ball calculation, which is a validated novel method providing better accuracy than the Friedewald equation in the estimation of LDL-C. Medardo SS et al. PHILIPPE. 2013;310(19): 7824-1229 (http://education.Amicus Medicus/faq/TDK094) Non-HDL Cholesterol 184(H) <130 mg/dL (calc) [facility] Comment: For patients with diabetes plus 1 major ASCVD risk factor, treating to a non-HDL-C goal of <100 mg/dL (LDL-C of <70 mg/dL) is considered a therapeutic option. Triglycerides 141 <150 mg/dL [facility] 07/09/2021 4:23 PM EDT Angie Guzman MD LAB BLOOD ORDERABLES Final Result [facility] [address] [place] [address], * THINPREP PAP (11/02/2020 11:30 AM EDT) [...] along with historic and current clinical information. Shopfitter : SEE COMMENT [facility] Comment: DCR, CT(ASCP) CT screening location: [place] [address] Interpretation/R esult: Negative for intraepithelial lesion or malignancy. [facility] LMP: NONE GIVEN [facility] Prev. BX: NONE GIVEN [facility] Prev. PAP: NONE GIVEN [facility] Review Shopfitter : SEE COMMENT [facility] Comment: BLC,CT(ASCP) CT screening location: [place] [address] Statement Of Adequacy: SEE COMMENT [facility] Comment: Satisfactory for evaluation. Endocervical/transformation zone component present. Age and/or menstrual status not provided 11/02/2020 11:3 0 AM EDT Ann Nguyenroberto [facility] PATH[facility]Y ORDERABLES Final Result Performing Organization Address [facility] Co de Phone Number [facility] [address] * HPV mRNA E6/E7 (11/02/2020 11:30 AM EDT) HPV nRNA E6/E7 Not Detected Not Detected [facility] Comment: Methodology: Commanding Officer Garage-Mediated Amplification This assay detects E6/E7 viral messenger RNA (mRNA) from 14 high-risk HPV types (16,18,31,33,35,39,45,51,52,56,58,59,66,68). The analytical performance characteristics of this assay have been determined by [employer]. The modifications have not been cleared or approved by the FDA. This assay has been validated pursuant to the CLIA regulations and is used for clinical purposes. For additional information, please refer to http://education.E[employer] Mind Entertainment/faq/AXT131h5 (This link if provided for information/ educational purposes only.) 11/02/2020 11:3 0 AM EDT Ann Kristi [facility] LAB BLOOD ORDERABLES Isabelle l Result Performing Organization Address [facility] de Phone Number [facility] [address] * Mammography Report 1 (12/29/2019 4:17 PM EDT) Anatomical Region Laterality Modality Breast Bilateral Mammography 12/29/2019 4:17 PM EDT Narrative 08/22/2020 10:25 AM EDT Refer to the Notes tab for result details [facility] Procedure: Mammography Report 1 Procedure Note Provider, MD Cherise - 06/01/2022 Refer to the Notes tab for result details [facility] Procedure: Mammography Report 1 Melissagriselda Pineda WATER COMMISSIONER IMG BI PROCEDURES Final Result from Last 3 Months or Most Recently Relevant to Health Maintenance Insurance [facility] STANDARD [facility]LY [facility] < 64 D[facility]AL [facility]
--- OUTSIDE RECORDS SUMMARY | 2025-02-22 17:23 | XMS_ITS | Encounter Summary ---
Author Organization [employer] Address [address] [place] [address] [address] [place] [address] Care Team Providers Care Shirt Presser Name Role Phone Unavailable Primary Care Provider Unavailabl e Reason for Visit * Reason Comments Med Refill Encounter Details Date Type Department Care Team (Late Contact Info) Description 01/23/2023 Refill [facility] [address] [place] [address] Angie Mariee MD [address] [place] [address] Chronic rhinitis Social History Tobacco Use Types [...] Department Care Team (Late Contact Info) Description 03/21/2025 2:00 PM EST Office Visit [facility] ADULT DENTAL [address] [place], [place] [phone] Nagi Song, RAYMON [address] [place], [place] [phone] 05/12/2025 1:30 PM EST Office Visit [facility] [address] [place] [address] Jaclyn Camacho MD [address] [place], [place] [phone] documented as of this encounter Visit Diagnoses Diagnosis Chronic rhinitis documented in this encounter
== END 2025-02-22 13:21 | disposition home or self-care (01) ==
LOC: HO.LAB 13:20
PROVIDERS: PCP Physician Assistant; Visit Provider Physician Assistant
DX: E78.2 Mixed hyperlipidemia (principal); D50.9 Iron deficiency anemia, unspecified; E03.9 Hypothyroidism, unspecified
CPT/HCPCS: 36415; 80053; 80061; 83540; 84443; 85027

== ENCOUNTER 2025-02-23 15:35 | Outpatient (REF) | payer OTHER, SELFPAY ==
[2025-02-23 18:09] LABS: Alanine Aminotransferase 88 U/L (0-31); Albumin Level 4.2 g/dL (3.5-5.0); Alkaline Phosphatase 70 U/L (39-117); Anion Gap 11 (12-20); Aspartate Amino Transferase 71 U/L (5-31); Blood Urea Nitrogen 11 mg/dL (9-16); Calcium 9.2 mg/dL (8.4-10.2); Carbon Dioxide 26 mmol/L (22-29); Chloride 106 mmol/L (96-108); Cholesterol 178 mg/dL (<200); Estimated Glomerular Filt Rate > 60; HDL Cholesterol 39 mg/dL (>40); Potassium 3.4 mmol/L (3.3-5.1); Sodium 140 mmol/L (135-145); Total Protein 7.5 g/dL (6.5-8.0); Triglycerides 132 mg/dL (<150)
[2025-02-24 21:04] LABS: Immunoglobulin A 497 mg/dL (47-310)
== END 2025-02-23 15:36 | disposition home or self-care (01) ==
LOC: HO.LAB 15:35
PROVIDERS: PCP Physician Assistant; Visit Provider Internal Medicine
DX: R53.83 Other fatigue (principal); K76.0 Fatty (change of) liver, not elsewhere classified; E78.2 Mixed hyperlipidemia; E03.9 Hypothyroidism, unspecified; R39.15 Urgency of urination
CPT/HCPCS: 36415; 80053; 80061; 81003; 82784; 84443; 86364; 99212

== ENCOUNTER 2025-02-23 15:35 | Outpatient (AMB) | payer OTHER, SELFPAY ==
--- OUTSIDE RECORDS SUMMARY | 2023-11-25 09:00 | XMS_ITS ---
Author Organization [facility] Address [address] [place] [address] Care Team Providers Care Tube Fitter Name Role Phone Tay Leung Primary Care Provider Unavailab Ole Garcia Unavailable [phone] REASON FOR VISIT no ppwrk Encounters Encounter Location Date Provider Diagnosis [facility] [address] [place] [address] 11/25/2023 Ole Jernigan Plan Of Treatment No Information Progress Notes * Lu CLAYTONDOB:1965 (59 yo F)Acc No.[id number]:11/25/2023 Progress Notes Patient: Clara HEza Provider: Renetta Jernigan DPM :1965 A ge:58 Y S ex:Female Date:11/25/2023 Address:[address] [place], [place] [id number] Pcp:Tay Leung Subjective: * Chief Complaints: * 1 . No ppwrk. * Medical History: Objective: * Vitals: Assessment: Plan: * Treatment: * Images: * The named appointment provid er may or may not be the originator of this progress note, and it is not deemed complete until electronically signed by the appointment provider. Sign off status: Pending * Provider: Renetta Jernigan DPM Date: 0 11/25/2023 Generated for Demetrio fish/Devin/Risasmitting on: 04/26/2024 08:28 PM EST
--- NOTE | 2025-02-23 15:44 | MHC.PC.OV ---
Vital Signs 02/23/25 15:45 Height 5 ft 3 in Weight 180 lb BMI 31.9 BP 116/70 Blood Pressure Location Lt brachial Position Sitting Respiration 18 Pulse 78 Pulse Source Pulse Oximeter Temp 97.6 F Temp Source Temporal Artery Scan Pulse Oximetry (%) 98 Oxygen Delivery Method Room Air Intake Visit Reasons: f/u hypothyroid Intake Note: would like a urine cx done due to urgency to urinate Tooth Grinder Required: No Accompanied by: Self / Same As Patient Allergies metoclopramide (From REGLAN) Adverse Reaction (Intermediate, Verified 02/23/25 15:44) AGITATION morphine Adverse Reaction (Mild, Verified 02/23/25 15:44) Nausea aspirin Adverse Reaction (Verified 02/23/25 15:44) Vomiting Medication List - Last Reconciled 02/23/25 by Jyoti Schneider MD amlodipine 5 mg PO DAILY 90 days ascorbic acid (vitamin C) 500 mg PO DAILY betamethasone dipropionate 0.05% 1 appl topical DAILY PRN 30 days blood pressure monitor Testing blood pressure once a day/ PRN buprenorphine-naloxone 8-2 mg (Suboxone) 0.5 film buccal BID@1130,1800 cetirizine 10 mg PO DAILY cholecalciferol (vitamin D3) (Vitamin D3) 25 mcg PO DAILY 90 days clonazepam 0.5 mg PO TID PRN 14 days diclofenac sodium 1% 2 grams topical QID ferrous sulfate 325 mg PO Q OTHER DAY fluticasone propionate 50 mcg/actuation 1 - 2 sprays intranasal DAILY PRN ibuprofen 800 mg PO Q8H PRN 15 days levothyroxine 50 mcg PO DAILY 90 days lidocaine 5% 1 patch topical DAILY magnesium hydroxide (Milk of Magnesia) 5 mL PO DAILY PRN magnesium oxide 400 mg PO DAILY meclizine 25 mg PO DAILY PRN 15 days Tobacco use date assessed: 11/24/24 Dental Screening Dental Screen Date: 08/03/24 HPI HPI Comments History of Present Illness Details The patient is a 59 year old female with PMH of HTN, allergies, back pain, fatigue, hypothyroidism, presenting for follow-up on blood work for her thyroid and hemoglobin, and a new complaint of urinary urgency. She is seen every three months for monitoring. She reports new onset of urinary urgency since yesterday and provided a urine sample for analysis which cme back negative. The patient has a history of hypothyroidism and is treated with levothyroxine 50 mcg, with her recent TSH level at 2.82, which is within the normal range. She reports chronic fatigue, brain fog, fibromyalgia, and occasional acid reflux. Her CBC is normal, and her hemoglobin, which was previously low at 11.9, has improved with iron supplementation. The patient has elevated liver enzymes and is being followed by a research hydraulic engineer. Pertinent medical history includes bilateral knee replacements for osteoarthritis. She has hyperlipidemia with an LDL of 124, but does not take statin medication due to muscle pain. She reports being sedentary and spending a lot of time in bed since retiring and the COVID-19 pandemic. [facility] Medical History (Updated 02/23/25 @ 17:52 by Jyoti Schneider MD) Obese Sinus infection Abdominal pain Elevated liver enzymes Microscopic hematuria Muscle spasm Upper respiratory tract infection Acute dermatitis Cellulitis of buttock Acquired hypothyroidism Hyperglycemia Post covid-19 condition, unspecified Breast cancer screening Foreign body of buttock Superimposed infection Cellulitis and abscess of buttock Cellulitis Renal calculi Frequent UTI Hematuria History of degenerative disc disease Normal colonoscopy Chronic constipation Hx of renal calculi History of panic attacks Hx of anxiety disorder Depression Hx of opioid abuse Thyroid disease Arthritis Fibromyalgia HTN (hypertension) Surgical History Hx of colonoscopy History of esophagogastroduodenoscopy (EGD) H/O left knee surgery Hx of cholecystectomy Tubal ligation status Hx of appendectomy Family History Paternal Grandmother Colon cancer Mother Pulmonary embolism Sister Pulmonary embolism Lung cancer Social History Household Members: Family Household Members Other:: daughter Housing: House Do you presently have visiting nurse or other home services: No Alcohol intake: never Patient Tobacco Use Status: Former Tobacco user Years Smoked: 20 e-Cigarette/Vaping Use: Never Used Second Hand Smoke Exposure: Yes Advance Directives Date on File: 06/02/21 service: No Current occupational status: disabled Cognitive needs: No Hearing needs: No Vision needs: No Female Reproductive History Menstrual Age of Menarche: 12 Questionnaire Thrive Questionnaire Date Thrive assessed: 08/03/24 I am a: Patient What is your living situation today?: I have a steady place to live Within the past 12 months, did the food you bought not last and you didn't have the money to get more?: I choose not to answer this question Within the past 12 months, did you worry whether your food would run out before you got money to buy more?: Never true Do you have trouble paying for medicines?: No Do you have trouble getting transportation to medical appointments?: No Do you have trouble paying your heating and electricity bill?: No Do you have trouble taking care of your child, family member or friend?: No Do you have trouble with day-to-day activities such as bathing, preparing meals, shopping, managing finances, etc.?: Yes Are you currently unemployed and looking for a job?: No Are you interested in more education?: No Please select the resources that you would like help with: None Currently or been in a relationship where the following occur: No concerns reported THRIVE Score: 0 TONYA-7 AMB Questionnaire TONYA-7 Date TONYA - 7 assessed: 08/03/24 Source: Developed by Drs. Igor Jasso, Mariya Arteaga, Chito Combs and colleagues, with an educational haleigh from [employer]. Review of Systems Const Details: As per HPI. Physical exam (Primary Care) Vital Signs: Last Vital Signs Temp 97.6 F 02/23/25 15:45 Pulse 78 02/23/25 15:45 Resp 18 02/23/25 15:45 BP 116/70 02/23/25 15:45 Pulse Ox 98 02/23/25 15:45 Oxygen Delivery Method Room Air 02/23/25 15:45 BMI result Body Mass Index 31.9 Tobacco/Smoking Status: Tobacco use Status Tobacco use date assessed 11/24/24 02/23/25 15:46 Patient Tobacco Use Status Former Tobacco user 02/23/25 15:46 e-Cigarette/Vaping Use Never Used 02/23/25 15:46 Thrive Assessment: Date of Thrive Assessment Date Thrive assessed 08/03/24 02/23/25 15:46 Currently or been in a relationship where the following occur: No concerns reported Const Other: Pertinent findings are in BOLD GENERAL APPEARANCE NAD, activity normal for age, well developed/ well nourished, no cyanosis, pallor, or diaphoresis. EYES lids/conjunctiva normal. EARS/NOSE/THROAT Mucous membranes moist, nares normal, lips/teeth normal uvula midline without oral pharyngeal erythema, exudate or swelling TMs normal bilaterally. No lymphangitis/lymphedema. HEAD/NECK normocephalic atraumatic, no facial trauma, neck is supple. RESPIRATORY respiratory effort normal, speaks in full sentences, no tripod position, no accessory muscle use. Lungs clear to auscultation without rhonchi, wheezes, rales CARDIAC Regular rate and rhythm, no edema. ABDOMINAL Soft, ND/NT. No evidence of fluid wave. No pulsatile masses on exam, rebound tenderness, Stewart sign or pain over Mcburney's point. MUSCLES/EXTREMITIES No abnormal range of motion, no swelling. SKIN Warm, pink and dry. No rashes, dermatoses, petechiae or lesions. NEUROLOGICAL Speech is clear and appropriate. Normal level of consciousness. Gait and coordination are normal. 5/5 strength in all extremities. PSYCH Normal mood and affect. Judgement/competence is appropriate Results AMB Urinalysis, Automated UA Leukoctes 0 Reilly/uL Last Edit by QIANA Keene on 02/23/25 16:11 UA Nitrite Negative Last Edit by Hu Horne Rachel on 02/23/25 16:11 UA Urobilinogen 0 mg/dL Last Edit by Hu Horne Rachel on 02/23/25 16:11 UA Urobilinogen previously reported as 000 Hu Horne 02/23/25 16:11 UA Protein 0 mg/dL Last Edit by QIANA Keene on 02/23/25 16:11 UA pH 6.0 Last Edit by Hu Horne Rachel on 02/23/25 16:11 UA Blood 0 Loc/uL Last Edit by QIANA Keene on 02/23/25 16:11 UA Specific [place] 1.010 Last Edit by QIANA Keene on 02/23/25 16:11 UA Ketone Negative Last Edit by QIANA Keene on 02/23/25 16:11 UA Bilirubin 0 mg/dL Last Edit by Hu Horne [facility] on 02/23/25 16:11 UA Glucose 0 mg/dL Last Edit by QIANA Keene on 02/23/25 16:11 Results Reviewed Results Reviewed: Laboratory Last Values Urine pH (Auto) 6.0 02/23/25 15:57 Specific [place] (Auto) 1.010 02/23/25 15:57 Urine Protein (Auto) 0 mg/dL 02/23/25 15:57 Glucose (UA)(Auto) 0 mg/dL 02/23/25 15:57 Urine Ketones (Auto) Negative 02/23/25 15:57 Urine Blood (Auto) 0 Loc/uL 02/23/25 15:57 Urine Nitrite (Auto) Negative 02/23/25 15:57 Urine Bilirubin (Auto) 0 mg/dL 02/23/25 15:57 Urine Urobilinogen (Auto) 0 mg/dL 02/23/25 15:57 Leukocyte Esterase (Auto) 0 Reilly/uL 02/23/25 15:57 Coding Level of Care Code Est Pt Level 3 (61293) Est Pt Prev Care 40-64y(64206) Diagnoses Fatigue R53.83 Fatty liver disease, nonalcoholic K76.0 Mixed hyperlipidemia E78.2 Hyperlipidemia type: mixed hyperlipidemia Hypothyroidism, unspecified type E03.9 Hypothyroidism type: unspecified Urinary urgency R39.15 Time Spent (min) 30 Assessment & Plan Assessment & Plan (1) Fatigue: Code(s): R53.83 - Other fatigue Category: Medical Plan: - The patient's fatigue is likely multifactorial, related to fibromyalgia, 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 - A celiac disease panel was ordered to investigate gluten sensitivity as a possible contributor. - An elimination diet was recommended, advising the patient to remove dairy for two weeks and gluten for one week to assess for any improvement in energy levels. - A referral will be placed for a wireless sales representative to provide further dietary counseling. (2) Fatty liver disease, nonalcoholic: Code(s): K76.0 - Fatty (change of) liver, not elsewhere classified Category: Medical Plan: - The patient will continue to follow up with her research hydraulic engineer for management of elevated liver enzymes. - Dietary modification was discussed as a potential intervention, specifically reducing soda intake and trialing a dairy-free diet, given the potential for these to affect liver health. (3) HLD (hyperlipidemia): Code(s): E78.5 - Hyperlipidemia, unspecified Category: Medical Qualifiers: Hyperlipidemia type: mixed hyperlipidemia Qualified Code(s): E78.2 - Mixed hyperlipidemia Plan: - The patient's LDL is 124 mg/dL and HDL is low at 36 mg/dL. - Due to her history of myalgia with statins, dietary modification is the primary approach. - It was recommended that she reduce her intake of high-fructose corn syrup from soda. (4) Hypothyroid: Code(s): E03.9 - Hypothyroidism, unspecified Category: Medical Qualifiers: Hypothyroidism type: unspecified Qualified Code(s): E03.9 - Hypothyroidism, unspecified Plan: - The patient's TSH is 2.82, which is well-controlled on her current medication. - Continue levothyroxine 50 mcg daily. - The patient will follow up with her primary PCP in three months for continued monitoring. (5) Urinary urgency: Code(s): R39.15 - Urgency of urination Category: Medical Plan: - The patient reported new onset of urinary urgency. - A urine sample was collected for urinalysis to rule out a urinary tract infection and it was negative. Plan I reviewed the patient?s recent lab results with her, explaining that her thyroid hormone level is normal on her current medication, so it is unlikely to be the sole cause of her significant fatigue. We discussed that her fatigue is likely multifactorial, stemming from her fibromyalgia, and chronic pain. I proposed that her diet could also be a contributing factor, introducing the concept of food sensitivities.I explained that I have ordered a blood test for celiac disease. She will continue her regular three-month follow-ups with her PCP. Finally, I informed her that we collected a urine sample to investigate her new urinary symptoms. Which came back negative. Orders: Orders AMB Urinalysis Automated 02/23/25 Z13.9 - Encounter for screening, unspecified Comprehensive Met. Panel 02/23/25 R53.83 - Other fatigue TSH reflex Free T4 02/23/25 R53.83 - Other fatigue Celiac Disease Panel 02/23/25 R53.83 - Other fatigue Lipid Panel 02/23/25 R53.83 - Other fatigue Referrals Medical Weight Management Referral R53.83 - Other fatigue
[2025-02-23 15:45] VITALS: BP 116/70; PULSE 78; RESP 18; TEMP 36.4; O2SAT 98; BMI 31.9
--- OUTSIDE RECORDS SUMMARY | 2025-02-23 20:26 | XMS_ITS | Clinical Summary ---
Author Organization [facility] it Address [address] [place] [address] Care Team Providers Care Doctor Of Podiatric Medicine Name Role Phone Unavailable Primary Care Provider [...]
--- OUTSIDE RECORDS SUMMARY | 2025-02-23 20:26 | XMS_ITS | Encounter Summary ---
Author Organization [employer] Address [address] [place] [address] [address] [place] [address] Care Team Providers Care Hot Plate Press Operator Name Role Phone Unavailable Primary Care Provider Unavailabl e Reason for Visit * Reason Comments Med Refill Encounter Details Date Type Department Care Team (Late Contact Info) Description 01/23/2023 Refill [facility] [address] [place] [address] Angie Mariee MD [address] [place] [address] Chronic rhinitis Social History Tobacco Use Types [...] Description 03/21/2025 2:00 PM EST Office Visit [facility] ADULT DENTAL [address] [place], [place] [phone] Nagi Song, RAYMON [address] [place], [place] [phone] 05/12/2025 1:30 PM EST Office Visit [facility] [address] [place] [address] Jaclyn Camacho MD [address] [place], [place] [phone] documented as of this encounter Visit Diagnoses Diagnosis Chronic rhinitis documented in this encounter
--- OUTSIDE RECORDS SUMMARY | 2025-02-23 20:28 | XMS_ITS | Patient Health Record ---
Author Organization [facility] Address [address] [place] [address] Care Team Providers Care Net Application Architect Name Role Phone Tay Leung Primary Care Provider Unavailab Ole Garcia Unavailable [phone] Reason For Referral No Information Plan Of Treatment No Information Insurance Providers Payer Name Payer Address Payer Phone Subscriber Number Group Number Insured Name Patient Relationship to Insured Coverage Start Date Coverage End Date [facility] [employer] Claims [address] [place] [id number] Lu Clayton Self - patient is the insured
== END 2025-02-23 16:24 | disposition home or self-care (01) ==
LOC: HO.HMCH 15:37
PROVIDERS: PCP Physician Assistant; Visit Provider Internal Medicine
DX: Z13.9 Encounter for screening, unspecified (principal)